=== PATIENT | male | born 1945 | race Caucasian/White ===

== ENCOUNTER → 2018-08-05 14:21 | Outpatient (CLI) | payer OTHER, SELFPAY ==
[2018-08-05 10:46] VITALS: BMI 24.4
[2018-08-05 15:19] LABS: Absolute Lymphocyte Count 1.43 X10^3/ul (0.83-4.51); Absolute Neutrophil Count 3.2 X10^3/uL (2.0-7.7); Basophil# 0.02 X10^3/uL; Basophil% 0.4 % (0-1); Eosinophil# 0.36 X10^3/uL; Eosinophils% 6.7 % (0-5); Hematocrit 31.6 % (40-54); Hemoglobin 10.5 g/dl (13.0-16.5); Lymphocyte # 1.43 X10^3/ul (4.0); Lymphocyte % 26.5 % (19-41); Mean Corp Hgb Conc 33.2 g/gl (32-36); Mean Corpuscular Hgb 30.9 pg (27.0-32.0); Mean Corpuscular Volume 92.9 fL (80-94); Mean Platelet Vol. 11.1 fl (6.2-12.0); Monocyte# 0.42 X10^3/uL; Monocyte% 7.8 % (0-10); Neutrophil # 3.16 X10^3/uL (2.7-7.7); Neutrophil % 58.4 % (47-70); Platelet Count 217 K/mm3 (150-450); RBC Distribution Width CV 12.7 % (11.6-14.6); RBC Distribution Width SD 41.9 fl (35.1-43.9); White Blood Count 5.4 K/mm3 (4.4-11.0)
[2018-08-05 15:30] LABS: POSITIVE COUNT NO; POSITIVE DIFFERENTIAL NO; POSITIVE MORPHOLOGY NO
[2018-08-05 15:34] LABS: Hemoglobin A1c 10.3 % (4.2-6.3)
[2018-08-05 16:09] LABS: ALB/GLOB Ratio 0.9 RATIO (0.9-2.4); AST(SGOT) 19 U/L (15-37); Alanine Aminotransfer ALT/SGPT 37 U/L (16-61); Albumin, Serum 2.9 g/dL (3.2-5.0); Alkaline Phosphatase 176 U/L (45-117); Anion Gap 8 (5-15); BUN 29 mg/dL (7-18); BUN/Creat Ratio 12.8 RATIO (10-20); Calcium,Total 7.5 mg/dL (8.5-10.1); Chloride 111 mmol/L (98-107); Creatinine, Serum 2.27 mg/dL (0.70-1.30); EST Glomerular Filtration Rate 30 mL/min (>60); Est Glom Filt Rate - Afr Amer 36 mL/min (>60); Globulin 3.2 g/dL (2.2-4.2); Glucose 466 mg/dL (74-106); Prealbumin 20.3 mg/dL (20.0-40.0); Protein, Total 6.1 g/dL (6.4-8.2); Sodium Level 141 mmol/L (136-145)
== END ==
PROVIDERS: Referring Provider Internal Medicine; Visit Provider Internal Medicine
DX: E11.9 Type 2 diabetes mellitus without complications (principal); E46 Unspecified protein-calorie malnutrition; L03.115 Cellulitis of right lower limb
CPT/HCPCS: 80053; 83036; 84134; 85025

== ENCOUNTER 2018-08-20 13:00 | Outpatient (RCR) | payer OTHER, SELFPAY ==
[2018-08-05 10:46] VITALS: BP 146/61; PULSE 94; RESP 18; TEMP 37.1; BMI 24.4
--- NOTE | 2018-08-05 13:25 | PCM.WC.HP ---
(1) Venous insufficiency of both lower extremities Status: Chronic Current Visit: Yes Code(s): I87.2 - Venous insufficiency (chronic) (peripheral) (2) Cellulitis of right lower extremity Status: Acute Current Visit: Yes Code(s): L03.115 - Cellulitis of right lower limb (3) Type 2 diabetes mellitus Status: Chronic Current Visit: Yes Code(s): E11.9 - Type 2 diabetes mellitus without complications History of Present Illness Chief Complaint: Pain and redness of right lower extremity. History of Wound: Mr. Oliver is a 73-year-old with poorly controlled diabetes mellitus who was in a stable state of health until about 10 days ago when he noted pain, redness and increased swelling of his right lower extremity. This is said to have progressively worsening. Denies any open wound. He has not been seen by his primary care physician. Currently receives care at the [facility]. He admits to poor control of his diabetes mellitus. Has not manages venous insufficiency. Chronic history of tobacco abuse however quit 30 years ago. He denies any known prior history of peripheral arterial disease. He denies chills, fever, nausea vomiting or change in his bowel habit. Past Medical History Past Medical History: Chronic Problems Venous insufficiency of both lower extremities (Chronic) Type 2 diabetes mellitus (Chronic) Allergies/Adverse Reactions: Allergies No Known Allergies Allergy (Verified 02/15/14 11:41) Home Medications: Ambulatory Orders Medication Instructions Recorded Fish Oil 750 mg PO DAILY 02/15/14 Smoking Status: Former smoker Review of Systems Constitutional: Denies: Anorexia, Chills Eyes: Denies: Blurred vision, Pain, Redness HEENT: Denies: Difficulty Swallowing Cardiovascular: Denies: Chest Pain, Chest Tightness Respiratory: Denies: Hemoptysis Gastrointestinal: Denies: Abdominal Pain, Hematemesis, Vomiting Genitourinary: Denies: Hematuria Skin: Denies: Jaundice - Physical Exam Vital Signs Temp Pulse Resp BP 98.7 F 94 18 146/61 H 08/05/18 10:46 08/05/18 10:46 08/05/18 10:46 08/05/18 10:46 General: Alert, Oriented x3, Cooperative, No apparent distress HEENT: Atraumatic, Normocephalic Oral: Moist Mucosa Neck: Supple Lungs: Normal air movement Cardiovascular: Regular rate, Regular Rhythm, Normal S1, Normal S2 Abdomen: Non Tender Extremities: No cyanosis, Edema Wound Measurements and Assessment WC - Nurse 1 - General Ulcer Measurement Start: 08/05/18 10:45 Freq: Status: Active Protocol: Activity Type Activity Date Activity User E-Sign Co-Sign Detail Recorded Client Recorded Date Recorded By Document 08/05/18 10:46 [id number] 08/05/18 11:04 08/05/18 10:46 Wound Center Nurse 1 [Edema Assessment] -Lower Limb Edema Present Yes -Right Calf (cm) 46.0 -Right Ankle (cm) 24.6 -Left Calf (cm) 43.7 -Left Ankle (cm) 25.3 WC - Nurse 2 - General Ulcer CM Notes Start: 08/05/18 10:45 Freq: Status: Active Protocol: Activity Type Activity Date Activity User E-Sign Co-Sign Detail Recorded Client Recorded Date Recorded By Document 08/05/18 11:30 MW [id number] 08/05/18 11:31 MW 08/05/18 11:30 Pain Scale: 0-10 Numeric [Pain] -Is Patient Pain Free? Yes Musculoskeletal: No Muscle Wasting Neurological: Cranial nerves II-XII grossly intact Psych/Mental Status: Normal Affect Debridement Note Post-Debridement Measurements/Treatment WC - Nurse 2 - General Ulcer CM Notes Start: 08/05/18 10:45 Freq: Status: Active Protocol: Activity Type Activity Date Activity User E-Sign Co-Sign Detail Recorded Client Recorded Date Recorded By Document 08/05/18 11:30 MW [id number] 08/05/18 11:31 MW 08/05/18 11:30 Pain Scale: 0-10 Numeric Is Patient Pain Free? Yes No debridement was completed today Assessment/Plan Active Problems Venous insufficiency of both lower extremities (Chronic) Cellulitis of right lower extremity (Acute) Type 2 diabetes mellitus (Chronic) Assessment: Right lower extremity cellulitis. Venous insufficiency. Plan: No debridement completed today. No open wound. Erythema, differential warmth and tenderness of his right lower extremity. Also bilateral lower extremity pitting edema. Labs ordered. Will start on Augmentin for right lower extremity cellulitis. Bilateral 3M wraps for edema management. Advised that if he notes worsening lower extremity pain he should cut the wrap off otherwise, follow-up in Friday for a nurse visit and in 1 week with me. BRIA and venous studies also ordered. He is strongly advised to elevate his lower extremities when sitting in bed. Optimal blood sugar control also recommended. All his questions were answered and he was advised to call with any further questions or concerns. This note was generated with quickhuddleation software. It may contain incorrect words, spelling, and punctuation that were not noted in checking the note before signing.
--- NOTE | 2018-08-05 13:30 | HP.PCM_ITS ---
(1) Venous insufficiency of both lower extremities Status: Chronic Current Visit: Yes Code(s): I87.2 - Venous insufficiency (chronic) (peripheral) (2) Cellulitis of right lower extremity Status: Acute Current Visit: Yes Code(s): L03.115 - Cellulitis of right lower limb (3) Type 2 diabetes mellitus Status: Chronic Current Visit: Yes Code(s): E11.9 - Type 2 diabetes mellitus without complications History of Present Illness Chief Complaint: Pain and redness of right lower extremity. History of Wound: Mr. Oliver is a 73-year-old with poorly controlled diabetes mellitus who was in a stable state of health until about 10 days ago when he noted pain, redness and increased swelling of his right lower extremity. This is said to have progressively worsening. Denies any open wound. He has not been seen by his primary care physician. Currently receives care at the [facility]. He admits to poor control of his diabetes mellitus. Has not manages venous insufficiency. Chronic history of tobacco abuse however quit 30 years ago. He denies any known prior history of peripheral arterial disease. He denies chills, fever, nausea vomiting or change in his bowel habit. Past Medical History Past Medical History: Chronic Problems Venous insufficiency of both lower extremities (Chronic) Type 2 diabetes mellitus (Chronic) Allergies/Adverse Reactions: Allergies No Known Allergies Allergy (Verified 02/15/14 11:41) Home Medications: Ambulatory Orders Medication Instructions Recorded Fish Oil 750 mg PO DAILY 02/15/14 Smoking Status: Former smoker Review of Systems Constitutional: Denies: Anorexia, Chills Eyes: Denies: Blurred vision, Pain, Redness HEENT: Denies: Difficulty Swallowing Cardiovascular: Denies: Chest Pain, Chest Tightness Respiratory: Denies: Hemoptysis Gastrointestinal: Denies: Abdominal Pain, Hematemesis, Vomiting Genitourinary: Denies: Hematuria Skin: Denies: Jaundice - Physical Exam Vital Signs Temp Pulse Resp BP 98.7 F 94 18 146/61 H 08/05/18 10:46 08/05/18 10:46 08/05/18 10:46 08/05/18 10:46 General: Alert, Oriented x3, Cooperative, No apparent distress HEENT: Atraumatic, Normocephalic Oral: Moist Mucosa Neck: Supple Lungs: Normal air movement Cardiovascular: Regular rate, Regular Rhythm, Normal S1, Normal S2 Abdomen: Non Tender Extremities: No cyanosis, Edema Wound Measurements and Assessment WC - Nurse 1 - General Ulcer Measurement Start: 08/05/18 10:45 Freq: Status: Active Protocol: Activity Type Activity Date Activity User E-Sign Co-Sign Detail Recorded Client Recorded Date Recorded By Document 08/05/18 10:46 [id number] 08/05/18 11:04 08/05/18 10:46 Wound Center Nurse 1 [Edema Assessment] -Lower Limb Edema Present Yes -Right Calf (cm) 46.0 -Right Ankle (cm) 24.6 -Left Calf (cm) 43.7 -Left Ankle (cm) 25.3 WC - Nurse 2 - General Ulcer CM Notes Start: 08/05/18 10:45 Freq: Status: Active Protocol: Activity Type Activity Date Activity User E-Sign Co-Sign Detail Recorded Client Recorded Date Recorded By Document 08/05/18 11:30 MW [id number] 08/05/18 11:31 MW 08/05/18 11:30 Pain Scale: 0-10 Numeric [Pain] -Is Patient Pain Free? Yes Musculoskeletal: No Muscle Wasting Neurological: Cranial nerves II-XII grossly intact Psych/Mental Status: Normal Affect Debridement Note Post-Debridement Measurements/Treatment WC - Nurse 2 - General Ulcer CM Notes Start: 08/05/18 10:45 Freq: Status: Active Protocol: Activity Type Activity Date Activity User E-Sign Co-Sign Detail Recorded Client Recorded Date Recorded By Document 08/05/18 11:30 MW [id number] 08/05/18 11:31 MW 08/05/18 11:30 Pain Scale: 0-10 Numeric Is Patient Pain Free? Yes No debridement was completed today Assessment/Plan Active Problems Venous insufficiency of both lower extremities (Chronic) Cellulitis of right lower extremity (Acute) Type 2 diabetes mellitus (Chronic) Assessment: Right lower extremity cellulitis. Venous insufficiency. Plan: No debridement completed today. No open wound. Erythema, differential warmth and tenderness of his right lower extremity. Also bilateral lower extremity pitting edema. Labs ordered. Will start on Augmentin for right lower extremity cellulitis. Bilateral 3M wraps for edema management. Advised that if he notes worsening lower extremity pain he should cut the wrap off otherwise, follow-up in Friday for a nurse visit and in 1 week with me. BRIA and venous studies also ordered. He is strongly advised to elevate his lower extremities when sitting in bed. Optimal blood sugar control also recommended. All his questions were answered and he was advised to call with any further questions or concerns. This note was generated with [employer] software. It may contain incorrect words, spelling, and punctuation that were not noted in checking the note before signing.
[2018-08-07 11:58] VITALS: BP 158/79; PULSE 79; RESP 18; TEMP 36.2; BMI 24.4
[2018-08-10 14:00] VITALS: BP 151/101; PULSE 90; RESP 20; TEMP 36.4; BMI 24.4
--- NOTE | 2018-08-10 15:26 | VDLE_ITS ---
Reason For Study: Pain RIGHT LEFT GSV is normal. CFV is compressible, spontaneous, phasic, CFV is compressible, spontaneous, phasic, competent, and demonstrates normal competent and demonstrates normal augmentation. augmentation. FV is compressible, spontaneous, phasic, competent and demonstrates normal augmentation. POP V is compressible, spontaneous, phasic, competent and demonstrates normal augmentation. T/P Trunk is compressible. PTV is compressible. RT PerV is compressible. Procedure Exam performed in department. A preliminary report was called and/or faxed to [facility]. Interpretation Summary Deep veins of the right lower extremity are patent and compressible segmentally. There is no evidence of right lower extremity deep vein thrombosis. Valvular competence appears intact within the proximal deep venous system on the right . The right greater saphenous vein appears patent and compressible segmentally. Ordering Physician: Wolf Mann Performed By: Lacy Marx RVT
--- NOTE | 2018-08-10 16:25 | PCM.WC.PN ---
(1) Pain in right lower leg Status: Acute Current Visit: Yes Code(s): M79.661 - Pain in right lower leg (2) Venous insufficiency of both lower extremities Status: Chronic Current Visit: Yes Code(s): I87.2 - Venous insufficiency (chronic) (peripheral) (3) Cellulitis of right lower extremity Status: Acute Current Visit: Yes Code(s): L03.115 - Cellulitis of right lower limb (4) Type 2 diabetes mellitus Status: Chronic Current Visit: Yes Code(s): E11.9 - Type 2 diabetes mellitus without complications Type of Wound Date of Service: 08/10/18 Chief Complaint: Pain and redness of right lower extremity. History of Wound: Mr. Oliver is a 73-year-old with poorly controlled diabetes mellitus who was in a stable state of health until about 10 days ago when he noted pain, redness and increased swelling of his right lower extremity. This is said to have progressively worsening. Denies any open wound. He has not been seen by his primary care physician. [facility]. He admits to poor control of his diabetes mellitus. Has not manages venous insufficiency. Chronic history of tobacco abuse however quit 30 years ago. He denies any known prior history of peripheral arterial disease. Today he comes in complaining of increase pain of his right lower leg, both anteriorly and posteriorly. He denies chills, fever, nausea vomiting or change in his bowel habit. Progress of Wound: Improvement in cellulitis - Physical Exam Vital Signs Temp Pulse Resp BP 97.6 F L 90 20 H 151/101 H 08/10/18 14:00 08/10/18 14:00 08/10/18 14:00 08/10/18 14:00 General: Alert, Oriented x3 HEENT: Atraumatic Oral: Moist Mucosa Lungs: Normal air movement Cardiovascular: Regular rate Extremities: Diminished Peripheral Pulses, Edema, Tenderness - Right lower leg is tender both anteriorly and posteriorly. No increase in leg pain with foot dorsal or plantar flexion. Pain is better when standing and there is no pressure on leg. Skin: - - Right lower leg has very dry skin. Redness has mostly resolved. Wound Measurements and Assessment WC - Nurse 1 - General Ulcer Measurement Start: 08/05/18 10:45 Freq: Status: Active Protocol: Activity Type Activity Date Activity User E-Sign Co-Sign Detail Recorded Client Recorded Date Recorded By Document 08/10/18 14:00 DL [id number] 08/10/18 14:05 DL 08/10/18 14:00 Wound Center Nurse 1 [Edema Assessment] -Right Calf (cm) 45 -Right Ankle (cm) 25 -Left Calf (cm) 44.4 -Left Ankle (cm) 24 WC - Nurse 2 - General Ulcer CM Notes Start: 08/05/18 10:45 Freq: Status: Active Protocol: Activity Type Activity Date Activity User E-Sign Co-Sign Detail Recorded Client Recorded Date Recorded By Document 08/10/18 15:01 JF [id number] 08/10/18 15:03 JF 08/10/18 15:01 Pain Scale: 0-10 Numeric [Pain] -Is Patient Pain Free? Yes Musculoskeletal: Tenderness - tenderness to right lower leg both anteriorly and posteriorly Neurological: Neuro grossly intact Psych/Mental Status: Normal Affect Debridement Note Post-Debridement Measurements/Treatment WC - Nurse 2 - General Ulcer CM Notes Start: 08/05/18 10:45 Freq: Status: Active Protocol: Activity Type Activity Date Activity User E-Sign Co-Sign Detail Recorded Client Recorded Date Recorded By Document 08/05/18 11:30 MW [id number] 08/05/18 11:31 MW Document 08/10/18 15:01 JF [id number] 08/10/18 15:03 JF 08/05/18 08/10/18 11:30 15:01 Pain Scale: 0-10 Numeric Is Patient Pain Free? Yes Yes No debridement was completed today Assessment/Plan Active Problems Venous insufficiency of both lower extremities (Chronic) Cellulitis of right lower extremity (Acute) Type 2 diabetes mellitus (Chronic) Pain in right lower leg (Acute) Assessment: Right lower leg pain. Right lower extremity cellulitis. Venous insufficiency. Plan: No debridement completed today. No open wound. Erythema of his right lower extremity has improved. Today he has increased pain of his right lower leg. Ordered a stat ultrasound of his right lower leg to rule out DVT, which was negative. He has bilateral edema, he has been having 3M double layer wraps applied but he removed them yesterday, due to the pain. He has +2-+3 edema present bilateral lower legs, the right > than the left. He will continue his Augmentin for right lower extremity cellulitis. BRIA and venous studies were ordered last week with Dr. Mnan. He is strongly advised to elevate his lower extremities when sitting in bed. Optimal blood sugar control also recommended. He has stopped all of his medication except for his antibiotic and his insulin because his kidneys aren't good. He states that he was not told to stop his medications. Instructed him to either restart his medications or let his PCP know that he has stopped them. All his questions were answered and he was advised to call with any further questions or concerns. Follow up on Friday with Dr. Mann. Code Visit Office Visits / Consults: [id number] OV L3 Est
--- NOTE | 2018-08-10 16:36 | PN.PCM_ITS ---
(1) Pain in right lower leg Status: Acute Current Visit: Yes Code(s): M79.661 - Pain in right lower leg (2) Venous insufficiency of both lower extremities Status: Chronic Current Visit: Yes Code(s): I87.2 - Venous insufficiency (chronic) (peripheral) (3) Cellulitis of right lower extremity Status: Acute Current Visit: Yes Code(s): L03.115 - Cellulitis of right lower limb (4) Type 2 diabetes mellitus Status: Chronic Current Visit: Yes Code(s): E11.9 - Type 2 diabetes mellitus without complications Type of Wound Date of Service: 08/10/18 Chief Complaint: Pain and redness of right lower extremity. History of Wound: Mr. Oliver is a 73-year-old with poorly controlled diabetes mellitus who was in a stable state of health until about 10 days ago when he noted pain, redness and increased swelling of his right lower extremity. This is said to have progressively worsening. Denies any open wound. He has not be en seen by his primary care physician. Currently receives care at the [facility]. He admits to poor control of his diabetes mellitus. Has not manages venous insufficiency. Chronic history of tobacco abuse however quit 30 years ago. He denies any known prior history of peripheral arterial disease. Today he comes in complaining of increase pain of his right lower leg, both anteriorly and posteriorly. He denies chills, fever, nausea vomiting or change in his bowel habit. Progress of Wound: Improvement in cellulitis - Physical Exam Vital Signs Temp Pulse Resp BP 97.6 F L 90 20 H 151/101 H 08/10/18 14:00 08/10/18 14:00 08/10/18 14:00 08/10/18 14:00 General: Alert, Oriented x3 HEENT: Atraumatic Oral: Moist Mucosa Lungs: Normal air movement Cardiovascular: Regular rate Extremities: Diminished Peripheral Pulses, Edema, Tenderness - Right lower leg is tender both anteriorly and posteriorly. No increase in leg pain with foot dorsal or plantar flexion. Pain is better when standing and there is no pressure on leg. Skin: - - Right lower leg has very dry skin. Redness has mostly resolved. Wound Measurements and Assessment WC - Nurse 1 - General Ulcer Measurement Start: 08/05/18 10:45 Freq: Status: Active Protocol: Activity Type Activity Date Activity User E-Sign Co-Sign Detail Recorded Client Recorded Date Recorded By Document 08/10/18 14:00 DL [id number] 08/10/18 14:05 DL 08/10/18 14:00 Wound Center Nurse 1 [Edema Assessment] -Right Calf (cm) 45 -Right Ankle (cm) 25 -Left Calf (cm) 44.4 -Left Ankle (cm) 24 WC - Nurse 2 - General Ulcer CM Notes Start: 08/05/18 10:45 Freq: Status: Active Protocol: Activity Type Activity Date Activity User E-Sign Co-Sign Detail Recorded Client Recorded Date Recorded By Document 08/10/18 15:01 JF [id number] 08/10/18 15:03 JF 08/10/18 15:01 Pain Scale: 0-10 Numeric [Pain] -Is Patient Pain Free? Yes Musculoskeletal: Tenderness - tenderness to right lower leg both anteriorly and posteriorly Neurological: Neuro grossly intact Psych/Mental Status: Normal Affect Debridement Note Post-Debridement Measurements/Treatment WC - Nurse 2 - General Ulcer CM Notes Start: 08/05/18 10:45 Freq: Status: Active Protocol: Activity Type Activity Date Activity User E-Sign Co-Sign Detail Recorded Client Recorded Date Recorded By Document 08/05/18 11:30 MW [id number] 08/05/18 11:31 MW Document 08/10/18 15:01 JF [id number] 08/10/18 15:03 JF 08/05/18 08/10/18 11:30 15:01 Pain Scale: 0-10 Numeric Is Patient Pain Free? Yes Yes No debridement was completed today Assessment/Plan Active Problems Venous insufficiency of both lower extremities (Chronic) Cellulitis of right lower extremity (Acute) Type 2 diabetes mellitus (Chronic) Pain in right lower leg (Acute) Assessment: Right lower leg pain. Right lower extremity cellulitis. Venous insufficiency. Plan: No debridement completed today. No open wound. Erythema of his right lower extremity has improved. Today he has increased pain of his right lower leg. Ordered a stat ultrasound of his right lower leg to rule out DVT, which was negative. He has bilateral edema, he has been having 3M double layer wraps applied but he removed them yesterday, due to the pain. He has +2-+3 edema present bilateral lower legs, the right > than the left. He will continue his Augmentin for right lower extremity cellulitis. BRIA and venous studies were ordered last week with Dr. Mann. He is strongly advised to elevate his lower extremities when sitting in bed. Optimal blood sugar control also recommended. He has stopped all of his medication except for his antibiotic and his insulin because his kidneys aren't good. He states that he was not told to stop his medications. Instructed him to either restart his medications or let his PCP know that he has stopped them. All his questions were answered and he was advised to call with any further questions or concerns. Follow up on Friday with Dr. Mann. Code Visit Office Visits / Consults: [id number] OV L3 Est
[2018-08-12 11:57] VITALS: BP 161/83; PULSE 90; RESP 18; TEMP 36.3; BMI 24.4
--- NOTE | 2018-08-12 12:19 | PCM.WC.PN ---
(1) Venous insufficiency of both lower extremities Status: Chronic Current Visit: Yes Code(s): I87.2 - Venous insufficiency (chronic) (peripheral) (2) Cellulitis of right lower extremity Status: Acute Current Visit: Yes Code(s): L03.115 - Cellulitis of right lower limb (3) Type 2 diabetes mellitus Status: Chronic Current Visit: Yes Code(s): E11.9 - Type 2 diabetes mellitus without complications Type of Wound Chief Complaint: Pain and redness of right lower extremity. History of Wound: Mr. Oliver is a 73-year-old with poorly controlled diabetes mellitus who was in a stable state of health until about 10 days ago when he noted pain, redness and increased swelling of his right lower extremity. This is said to have progressively worsening. Denies any open wound. He has not been seen by his primary care physician. Currently receives care at the [place]. He admits to poor control of his diabetes mellitus. Has not manages venous insufficiency. Chronic history of tobacco abuse however quit 30 years ago. He denies any known prior history of peripheral arterial disease. Today he comes in complaining of increase pain of his right lower leg, both anteriorly and posteriorly. He denies chills, fever, nausea vomiting or change in his bowel habit. Progress of Wound: Improving cellulitis. Presnted on Friday due to increasing pain in his right lower extremity. Duplex done was negative. Last dose of [id number] was yesterday. - Physical Exam Vital Signs Temp Pulse Resp BP 97.4 F L 90 18 161/83 H 08/12/18 11:57 08/12/18 11:57 08/12/18 11:57 08/12/18 11:57 General: Alert, Oriented x3, Cooperative, No apparent distress HEENT: Atraumatic, Normocephalic Oral: Moist Mucosa Neck: Supple Lungs: Normal air movement Abdomen: Non Tender Extremities: No cyanosis, Edema Wound Measurements and Assessment WC - Nurse 1 - General Ulcer Measurement Start: 08/05/18 10:45 Freq: Status: Active Protocol: Activity Type Activity Date Activity User E-Sign Co-Sign Detail Recorded Client Recorded Date Recorded By Document 08/10/18 14:00 DL [id number] 08/10/18 14:05 DL Document 08/12/18 11:57 [id number] 08/12/18 11:59 08/10/18 08/12/18 14:00 11:57 Wound Center Nurse 1 [Edema Assessment] -Lower Limb Edema Present Yes -Right Calf (cm) 45 44.2 -Right Ankle (cm) 25 24.6 -Left Calf (cm) 44.4 39 -Left Ankle (cm) 24 25.4 WC - Nurse 2 - General Ulcer CM Notes Start: 08/05/18 10:45 Freq: Status: Active Protocol: Activity Type Activity Date Activity User E-Sign Co-Sign Detail Recorded Client Recorded Date Recorded By Document 08/10/18 15:01 [id number] 08/10/18 15:03 Document 08/12/18 12:15 MW [id number] 08/12/18 12:17 MW 08/10/18 08/12/18 15:01 12:15 Pain Scale: 0-10 Numeric [Pain] -Is Patient Pain Free? Yes Yes Musculoskeletal: No Muscle Wasting Neurological: Cranial nerves II-XII grossly intact Psych/Mental Status: Normal Affect Debridement Note Post-Debridement Measurements/Treatment - Nurse 2 - General Ulcer CM Notes Start: 08/05/18 10:45 Freq: Status: Active Protocol: Activity Type Activity Date Activity User E-Sign Co-Sign Detail Recorded Client Recorded Date Recorded By Document 08/05/18 11:30 MW [id number] 08/05/18 11:31 MW Document 08/10/18 15:01 [id number] 08/10/18 15:03 Document 08/12/18 12:15 MW [id number] 08/12/18 12:17 MW 08/05/18 08/10/18 08/12/18 11:30 15:01 12:15 Pain Scale: 0-10 Numeric Is Patient Pain Free? Yes Yes Yes No debridement was completed today Assessment/Plan Active Problems Venous insufficiency of both lower extremities (Chronic) Cellulitis of right lower extremity (Acute) Type 2 diabetes mellitus (Chronic) Pain in right lower leg (Acute) Assessment: Right lower leg pain. Right lower extremity cellulitis. Venous insufficiency. Plan: Improving cellulitis however, still is tender nad has diffrential warmth. Continue Augmentin for right lower extremity cellulitis for 5 more days. Refer to the lymphedema clinic for edema management. Due to poor tolerance with 3M, will switch todouble layer tubigrips. He is strongly advised to elevate his lower extremities when seated and in bed. Optimal blood sugar control also recommended. [facility]. Follow up with me in 1 week and start the process to [facility]. All his questions were answered and he was advised to call with any further questions or concerns. Follow up in 1 week.
--- NOTE | 2018-08-12 12:24 | PN.PCM_ITS ---
(1) Venous insufficiency of both lower extremities Status: Chronic Current Visit: Yes Code(s): I87.2 - Venous insufficiency (chronic) (peripheral) (2) Cellulitis of right lower extremity Status: Acute Current Visit: Yes Code(s): L03.115 - Cellulitis of right lower limb (3) Type 2 diabetes mellitus Status: Chronic Current Visit: Yes Code(s): E11.9 - Type 2 diabetes mellitus without complications Type of Wound Chief Complaint: Pain and redness of right lower extremity. History of Wound: Mr. Oliver is a 73-year-old with poorly controlled diabetes mellitus who was in a stable state of health until about 10 days ago when he noted pain, redness and increased swelling of his right lower extremity. This is said to have progressively worsening. Denies any open wound. He has not been seen by his primary care physician. Currently receives care at the [place]. He admits to poor control of his diabetes mellitus. Has not manages venous insufficiency. Chronic history of tobacco abuse however quit 30 years ago. He denies any known prior history of peripheral arterial disease. Today he comes in complaining of increase pain of his right lower leg, both anteriorly and posteriorly. He denies chills, fever, nausea vomiting or change in his bowel habit. Progress of Wound: Improving cellulitis. Presnted on Friday due to increasing pain in his right lower extremity. Duplex done was negative. Last dose of an [id number] was yesterday. - Physical Exam Vital Signs Temp Pulse Resp BP 97.4 F L 90 18 161/83 H 08/12/18 11:57 08/12/18 11:57 08/12/18 11:57 08/12/18 11:57 General: Alert, Oriented x3, Cooperative, No apparent distress HEENT: Atraumatic, Normocephalic Oral: Moist Mucosa Neck: Supple Lungs: Normal air movement Abdomen: Non Tender Extremities: No cyanosis, Edema Wound Measurements and Assessment WC - Nurse 1 - General Ulcer Measurement Start: 08/05/18 10:45 Freq: Status: Active Protocol: Activity Type Activity Date Activity User E-Sign Co-Sign Detail Recorded Client Recorded Date Recorded By Document 08/10/18 14:00 DL [id number] 08/10/18 14:05 DL Document 08/12/18 11:57 [id number] 08/12/18 11:59 08/10/18 08/12/18 14:00 11:57 Wound Center Nurse 1 [Edema Assessment] -Lower Limb Edema Present Yes -Right Calf (cm) 45 44.2 -Right Ankle (cm) 25 24.6 -Left Calf (cm) 44.4 39 -Left Ankle (cm) 24 25.4 WC - Nurse 2 - General Ulcer CM Notes Start: 08/05/18 10:45 Freq: Status: Active Protocol: Activity Type Activity Date Activity User E-Sign Co-Sign Detail Recorded Client Recorded Date Recorded By Document 08/10/18 15:01 [id number] 08/10/18 15:03 JF Document 08/12/18 12:15 MW [id number] 08/12/18 12:17 MW 08/10/18 08/12/18 15:01 12:15 Pain Scale: 0-10 Numeric [Pain] -Is Patient Pain Free? Yes Yes Musculoskeletal: No Muscle Wasting Neurological: Cranial nerves II-XII grossly intact Psych/Mental Status: Normal Affect Debridement Note Post-Debridement Measurements/Treatment WC - Nurse 2 - General Ulcer CM Notes Start: 08/05/18 10:45 Freq: Status: Active Protocol: Activity Type Activity Date Activity User E-Sign Co-Sign Detail Recorded Client Recorded Date Recorded By Document 08/05/18 11:30 MW [id number] 08/05/18 11:31 MW Document 08/10/18 15:01 [id number] 08/10/18 15:03 Document 08/12/18 12:15 MW [id number] 08/12/18 12:17 MW 08/05/18 08/10/18 08/12/18 11:30 15:01 12:15 Pain Scale: 0-10 Numeric Is Patient Pain Free? Yes Yes Yes No debridement was completed today Assessment/Plan Active Problems Venous insufficiency of both lower extremities (Chronic) Cellulitis of right lower extremity (Acute) Type 2 diabetes mellitus (Chronic) Pain in right lower leg (Acute) Assessment: Right lower leg pain. Right lower extremity cellulitis. Venous insufficiency. Plan: Improving cellulitis however, still is tender nad has diffrential warmth. Continue Augmentin for right lower extremity cellulitis for 5 more days. Refer to the lymphedema clinic for edema management. Due to poor tolerance with 3M, will switch todouble layer tubigrips. He is strongly advised to elevate his lower extremities when seated and in bed. Optimal blood sugar control also recommended. Not able to get [facility]. Follow up with me in 1 week and start the process to [facility]. All his questions were answered and he was advised to call with any further questions or concerns. Follow up in 1 week.
[2018-08-19 12:22] VITALS: BP 159/98; PULSE 87; RESP 18; TEMP 37.2; BMI 24.4
--- NOTE | 2018-08-19 13:32 | PCM.WC.PN ---
(1) Venous insufficiency of both lower extremities Status: Chronic Current Visit: Yes Code(s): I87.2 - Venous insufficiency (chronic) (peripheral) (2) Cellulitis of right lower extremity Status: Acute Current Visit: Yes Code(s): L03.115 - Cellulitis of right lower limb (3) Type 2 diabetes mellitus Status: Chronic Current Visit: Yes Code(s): E11.9 - Type 2 diabetes mellitus without complications Type of Wound Chief Complaint: Pain and redness of right lower extremity. History of Wound: Mr. Oliver is a 73-year-old with poorly controlled diabetes mellitus who was in a stable state of health until about 10 days ago when he noted pain, redness and increased swelling of his right lower extremity. This is said to have progressively worsening. Denies any open wound. He has not been seen by his primary care physician. Currently receives care at the [place]. He admits to poor control of his diabetes mellitus. Has not manages venous insufficiency. Chronic history of tobacco abuse however quit 30 years ago. He denies any known prior history of peripheral arterial disease. Today he comes in complaining of increase pain of his right lower leg, both anteriorly and posteriorly. He denies chills, fever, nausea vomiting or change in his bowel habit. Progress of Wound: Patient presents today with worsening right lower extremity erythema, warmth and tenderness. He states that he completed his Augmentin as prescribed. - Physical Exam Vital Signs Temp Pulse Resp BP 98.9 F 87 18 159/98 H 08/19/18 12:22 08/19/18 12:22 08/19/18 12:22 08/19/18 12:22 General: Alert, Oriented x3, Cooperative, No apparent distress HEENT: Atraumatic, Normocephalic Oral: Moist Mucosa Neck: Supple Lungs: Normal air movement Extremities: No cyanosis, Edema Wound Measurements and Assessment WC - Nurse 1 - General Ulcer Measurement Start: 08/05/18 10:45 Freq: Status: Active Protocol: Activity Type Activity Date Activity User E-Sign Co-Sign Detail Recorded Client Recorded Date Recorded By Document 08/19/18 12:22 WI [id number] 08/19/18 12:26 WI 08/19/18 12:22 Wound Center Nurse 1 [Edema Assessment] -Lower Limb Edema Present Yes -Right Calf (cm) 39.5 -Right Ankle (cm) 24.7 -Left Calf (cm) 37 -Left Ankle (cm) 25 WC - Nurse 2 - General Ulcer CM Notes Start: 08/05/18 10:45 Freq: Status: Active Protocol: Activity Type Activity Date Activity User E-Sign Co-Sign Detail Recorded Client Recorded Date Recorded By Document 08/19/18 12:48 MW [id number] 08/19/18 12:51 MW 08/19/18 12:48 Pain Scale: 0-10 Numeric [Pain] -Is Patient Pain Free? Yes Musculoskeletal: No Muscle Wasting Neurological: Cranial nerves II-XII grossly intact Psych/Mental Status: Normal Affect Debridement Note Post-Debridement Measurements/Treatment WC - Nurse 2 - General Ulcer CM Notes Start: 08/05/18 10:45 Freq: Status: Active Protocol: Activity Type Activity Date Activity User E-Sign Co-Sign Detail Recorded Client Recorded Date Recorded By Document 08/05/18 11:30 MW [id number] 08/05/18 11:31 MW Document 08/10/18 15:01 JF [id number] 08/10/18 15:03 JF Document 08/12/18 12:15 MW [id number] 08/12/18 12:17 MW Document 08/19/18 12:48 MW [id number] 08/19/18 12:51 MW 08/05/18 08/10/18 08/12/18 11:30 15:01 12:15 Pain Scale: 0-10 Numeric Is Patient Pain Free? Yes Yes Yes 08/19/18 12:48 Pain Scale: 0-10 Numeric Is Patient Pain Free? Yes No debridement was completed today Assessment/Plan Active Problems Venous insufficiency of both lower extremities (Chronic) Cellulitis of right lower extremity (Acute) Type 2 diabetes mellitus (Chronic) Pain in right lower leg (Acute) Assessment: Right lower leg pain. Right lower extremity cellulitis. Venous insufficiency. Plan: Appears to have worsening right lower extremity erythema, differential warmth and tenderness today. He has been on at least 10 days of Augmentin. ? Outpatient management for cellulitis however, patient is not open to inpatient treatment. He was strongly advised to. Currently receives care at the [facility]. He states that he has a visit on 27 August and will follow-up at that time. Prescription for Keflex and doxycycline given again, he was strongly encouraged to seek inpatient management. Continue double layer tubigrips. He is strongly advised to elevate his lower extremities when seated and in bed. Optimal blood sugar control also recommended. Wounds at this time. Discharge from the wound clinic with follow-up plan/recommendation as above. All his questions were answered and he was advised to call with any further questions or concerns.
--- NOTE | 2018-08-19 13:36 | PN.PCM_ITS ---
(1) Venous insufficiency of both lower extremities Status: Chronic Current Visit: Yes Code(s): I87.2 - Venous insufficiency (chronic) (peripheral) (2) Cellulitis of right lower extremity Status: Acute Current Visit: Yes Code(s): L03.115 - Cellulitis of right lower limb (3) Type 2 diabetes mellitus Status: Chronic Current Visit: Yes Code(s): E11.9 - Type 2 diabetes mellitus without complications Type of Wound Chief Complaint: Pain and redness of right lower extremity. History of Wound: Mr. Oliver is a 73-year-old with poorly controlled diabetes mellitus who was in a stable state of health until about 10 days ago when he noted pain, redness and increased swelling of his right lower extremity. This is said to have progressively worsening. Denies any open wound. He has not been seen by his primary care physician. Currently receives care at the [place]. He admits to poor control of his diabetes mellitus. Has not manages venous insufficiency. Chronic history of tobacco abuse however quit 30 years ago. He denies any known prior history of peripheral arterial disease. Today he comes in complaining of increase pain of his right lower leg, both anteriorly and posteriorly. He denies chills, fever, nausea vomiting or change in his bowel habit. Progress of Wound: Patient presents today with worsening right lower extremity erythema, warmth and tenderness. He states that he completed his Augmentin as prescribed. - Physical Exam Vital Signs Temp Pulse Resp BP 98.9 F 87 18 159/98 H 08/19/18 12:22 08/19/18 12:22 08/19/18 12:22 08/19/18 12:22 General: Alert, Oriented x3, Cooperative, No apparent distress HEENT: Atraumatic, Normocephalic Oral: Moist Mucosa Neck: Supple Lungs: Normal air movement Extremities: No cyanosis, Edema Wound Measurements and Assessment WC - Nurse 1 - General Ulcer Measurement Start: 08/05/18 10:45 Freq: Status: Active Protocol: Activity Type Activity Date Activity User E-Sign Co-Sign Detail Recorded Client Recorded Date Recorded By Document 08/19/18 12:22 DE [id number] 08/19/18 12:26 [place] 08/19/18 12:22 Wound Center Nurse 1 [Edema Assessment] -Lower Limb Edema Present Yes -Right Calf (cm) 39.5 -Right Ankle (cm) 24.7 -Left Calf (cm) 37 -Left Ankle (cm) 25 WC - Nurse 2 - General Ulcer CM Notes Start: 08/05/18 10:45 Freq: Status: Active Protocol: Activity Type Activity Date Activity User E-Sign Co-Sign Detail Recorded Client Recorded Date Recorded By Document 08/19/18 12:48 MW [id number] 08/19/18 12:51 MW 08/19/18 12:48 Pain Scale: 0-10 Numeric [Pain] -Is Patient Pain Free? Yes Musculoskeletal: No Muscle Wasting Neurological: Cranial nerves II-XII grossly intact Psych/Mental Status: Normal Affect Debridement Note Post-Debridement Measurements/Treatment WC - Nurse 2 - General Ulcer CM Notes Start: 08/05/18 10:45 Freq: Status: Active Protocol: Activity Type Activity Date Activity User E-Sign Co-Sign Detail Recorded Client Recorded Date Recorded By Document 08/05/18 11:30 MW [id number] 08/05/18 11:31 MW Document 08/10/18 15:01 JF [id number] 08/10/18 15:03 JF Document 08/12/18 12:15 MW [id number] 08/12/18 12:17 MW Document 08/19/18 12:48 MW [id number] 08/19/18 12:51 MW 08/05/18 08/10/18 08/12/18 11:30 15:01 12:15 Pain Scale: 0-10 Numeric Is Patient Pain Free? Yes Yes Yes 08/19/18 12:48 Pain Scale: 0-10 Numeric Is Patient Pain Free? Yes No debridement was completed today Assessment/Plan Active Problems Venous insufficiency of both lower extremities (Chronic) Cellulitis of right lower extremity (Acute) Type 2 diabetes mellitus (Chronic) Pain in right lower leg (Acute) Assessment: Right lower leg pain. Right lower extremity cellulitis. Venous insufficiency. Plan: Appears to have worsening right lower extremity erythema, differential warmth and tenderness today. He has been on at least 10 days of Augmentin. ? Outpatient management for cellulitis however, patient is not open to inpatient treatment. He was strongly advised to. Currently receives care at the [place]. He states that he has a visit on 27 August and will follow-up at that time. Prescription for Keflex and doxycycline given again, he was strongly encouraged to seek inpatient management. Continue double layer tubigrips. He is strongly advised to elevate his lower extremities when seated and in bed. Optimal blood sugar control also recommended. Wounds at this time. Discharge from the wound clinic with follow-up plan/recommendation as above. All his questions were answered and he was advised to call with any further questions or concerns.
--- NOTE | 2018-08-20 12:52 | VDLE_ITS ---
Reason For Study: chronic venous insufficiency RIGHT LEFT CFV is compressible, spontaneous, phasic, CFV is compressible, spontaneous, phasic, competent and demonstrates normal competent, and demonstrates normal augmentation. augmentation. FV is compressible, spontaneous, phasic, FV is compressible, spontaneous, phasic, competent and demonstrates normal competent and demonstrates normal augmentation. augmentation. POP V is compressible, spontaneous, phasic, POP V is compressible, spontaneous, phasic, competent and demonstrates normal competent and demonstrates normal augmentation. augmentation. T/P Trunk is compressible. T/P Trunk is compressible. PTV is compressible. PTV is compressible. RT PerV is compressible. LT PerV is compressible. S-F Junction is competent. S-F Junction is competent. GSV is incompetent throughout for greater GSV is incompetent throughout for greater than .5 seconds. GSV measures .28 x .34 cm. than .5 seconds. GSV measures .32 x .42 cm. SSV is competent. SSV is incompetent for greater than .5 ASV is incompetent for greater than .5 seconds. GSV measures .32 x .34 cm. seconds. ASV measures .23 x .23 cm. Procedure Exam performed in department. The exam was diagnostic. Interpretation Summary Deep veins of the lower extremities are bilaterally patent and compressible segmentally. There is no evidence of deep vein thrombosis on either side. Valvular competence appears intact within the proximal deep venous systems bilaterally. The greater saphenous veins appear bilaterally patent and compressible segmentally. Sapheno-femoral junctions are bilaterally competent . Segmental valvular incompetence is noted within the greater saphenous veins bilaterally. The right small saphenous vein is patent and competent. The left small saphenous vein is patent and incompetent. The right accessory saphenous vein is incompetent. Ordering Physician: Wolf Mann Performed By: Lizandro Linda RVT
--- NOTE | 2018-08-20 12:52 | ART_ITS ---
Reason For Study: PAD Left Segmental Pressures Left brachial= 149mmHg. Left posterior tibial artery = 154mmHg. Left dorsalis pedis artery = 153mmHg. Left digit = 68 mmHg. The left dorsalis pedis waveforms are biphasic. The left posterior tibial artery waveforms are biphasic. Right Segmental Pressures Right brachial= 143mmHg. Right posterior tibial artery = 147mmHg. Right dorsalis pedis artery = 171mmHg. Right digit = 68 mmHg. The right dorsalis pedis waveforms are triphasic. The right posterior tibial artery waveforms are biphasic. Indices The right ankle brachial index by the dorsalis pedis is 1.15. The right ankle brachial index by the posterior tibial artery is .99. The right digital-brachial index is .46. The left ankle brachial index by the dorsalis pedis is 1.03. The left ankle brachial index by the posterior tibial artery is 1.03. The left digital-brachial index is .46. Interpretation Summary Biphasic and triphasic Doppler waveforms are noted at ankle level on the right. Biphasic Doppler waveforms are noted at ankle level on the left. Pulse-volume recording waveform amplitudes are diminished at ankle level on the left, and digital level bilaterally. Resting ankle-brachial indices are normal bilaterally. Digital-brachial indices are moderately diminished bilaterally. Arterial flow appears to be normal to ankle level bilaterally. 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 Ordering Physician: Wolf Mann Performed By: VINICIO VERONICA Wale
== END 2018-08-21 23:59 ==
LOC: CVS 13:00
PROVIDERS: Referring Provider Internal Medicine; Visit Provider Internal Medicine
DX: E11.51 Type 2 diabetes mellitus with diabetic peripheral angiopathy without gangrene (principal); Z87.891 Personal history of nicotine dependence; M79.89 Other specified soft tissue disorders; I87.2 Venous insufficiency (chronic) (peripheral); E11.65 Type 2 diabetes mellitus with hyperglycemia; L03.115 Cellulitis of right lower limb
CPT/HCPCS: 29581; 93923; 93970; 93971; 99203; 99212; 99213; G0463

== ENCOUNTER → 2019-03-04 12:51 | Outpatient (CLI) | payer OTHER, SELFPAY ==
[2018-08-19 12:22] VITALS: BMI 24.4
--- NOTE | 2019-03-04 12:55 | US_ITS ---
STUDY: THYROID ULTRASOUND REASON FOR EXAM: Male, 73 years old. Abnormal thyroid laboratory values TECHNIQUE: Ultrasound evaluation of the thyroid was performed with real-time and static maldonado-scale imaging. COMPARISON: None. FINDINGS: RIGHT LOBE: The right lobe of the thyroid gland measures 4.6 x 1.9 x 2.1 cm. There is a homogeneous echotexture. There are tiny anechoic/spongiform cysts of the right thyroid gland measuring up to 7 mm without suspicious sonographic features. LEFT LOBE: The left lobe of the thyroid gland measures 5.0 x 1.5 x 2.0 cm. There is a homogeneous echotexture. 4 mm anechoic cyst of the upper left thyroid gland measures 4 mm. No suspicious sonographic features. ISTHMUS: The isthmus measures 4.0 mm. The regional lymph nodes are normal. Left carotid artery atherosclerosis noted. US/Thyroid IMPRESSION: 1. Mild thyromegaly. 2. Bilateral thyroid cysts without suspicious sonographic features. 3. Left carotid atherosclerosis. Electronically Signed: Satnam Blair MD ([place]) at 8:55 EST , Service support ,
== END ==
DX: R94.6 Abnormal results of thyroid function studies (principal)
CPT/HCPCS: 76536

== ENCOUNTER → 2020-08-28 05:00 | Outpatient (REF) | payer OTHER, MEDICARE, SELFPAY ==
[2018-08-19 12:22] VITALS: BMI 24.4
[2020-08-28 09:24] LABS: Absolute Lymphocyte Count 1.51 X10^3/uL (0.83-4.51); Absolute Neutrophil Count 4.3 X10^3/uL (2.0-7.7); Basophil# 0.03 X10^3/uL; Basophil% 0.4 % (0-1); Eosinophil# 0.29 X10^3/uL; Eosinophils% 4.3 % (0-5); Hematocrit 24.8 % (40-54); Hemoglobin 7.9 g/dL (13.0-16.5); Lymphocyte # 1.51 X10^3/ul (0.83-4.51); Lymphocyte % 22.3 % (19-41); Mean Corp Hgb Conc 31.9 g/dL (32-36); Mean Corpuscular Hgb 34.2 pg (27.0-32.0); Mean Corpuscular Volume 107.4 fL (80-94); Mean Platelet Vol. 10.3 fl (6.2-12.0); Monocyte# 0.61 X10^3/uL; NRBC Flagged by Analyzer 0 % (0-5); Neutrophil # 4.32 X10^3/uL (2.7-7.7); Neutrophil % 63.7 % (47-70); Platelet Count 226 K/mm3 (150-450); RBC Distribution Width CV 13.6 % (11.6-14.6); RBC Distribution Width SD 52.7 fl (35.1-43.9); Red Blood Count 2.31 M/mm3 (4.6-6.2); White Blood Count 6.8 K/mm3 (4.4-11.0)
[2020-09-10 18:32] VITALS: BMI 24.3
== END ==
LOC: OLS.SW300 05:00
PROVIDERS: Referring Provider Family Medicine; Visit Provider Family Medicine
DX: I12.9 Hypertensive chronic kidney disease with stage 1 through stage 4 chronic kidney disease, or unspecified chronic kidney disease (principal); N18.9 Chronic kidney disease, unspecified
CPT/HCPCS: 36415; 85025

== ENCOUNTER 2020-09-10 12:15 | Inpatient (IN) | payer OTHER, MEDICARE, SELFPAY ==
[2018-08-19 12:22] VITALS: BMI 24.4
[2020-09-10] VITALS (18 sets, daily range): BP systolic 164–221; BP diastolic 95–138; PULSE 84–135; RESP 13–21; TEMP 37.5–38.6; O2SAT 93–100; BMI 27.9; BMI 24.3
--- NOTE | 2020-09-10 12:18 | CT_ITS ---
STUDY: CT BRAIN WITHOUT CONTRAST REASON FOR EXAM: Male, 75 years old. Mental status change RADIATION DOSAGE (If Supplied By Facility): CTDIvol = ( 44.99 ) mGy, DLP = ( 815.79 ) mGycm TECHNIQUE: Transaxial CT imaging of the brain was performed without administration of intravenous contrast material. Individualized dose optimization techniques were used for this CT. COMPARISON: No relevant priors. FINDINGS: Normal soft tissue structures. Normal calvarium. There is mild cerebral atrophy with widening of the extra-axial spaces and ventricular dilatation. Normal white matter tracts of the cerebral hemispheres. Normal basal ganglia and thalami. Normal brainstem. There is mild cerebellar atrophy. There is no intracranial hemorrhage. There are no findings of an acute ischemic infarction. Normal visualized paranasal sinuses. CT/Brain/Head without Contrast IMPRESSION: Chronic involutional changes of the brain. Electronically Signed: Radha Ray MD at 14:03 EDT Tel , Service support ,
--- NOTE | 2020-09-10 12:19 | RAD_ITS ---
HISTORY: mental status change. TECHNIQUE: XR Chest 1 View. # of images incl. paperwork: 1. COMPARISON: None. FINDINGS: CARDIOMEDIASTINAL STRUCTURES: Cardiac silhouette not enlarged. Mediastinal contour unremarkable. LUNGS: Radiographically clear. PLEURA: Mild right pleural effusion. OSSEOUS STRUCTURES: Degenerative change. RAD/Chest 1 View (Portable) IMPRESSION: Mild right pleural effusion. at 1429 Reported and signed by: Zakia Erickson MD Electronically Signed: Zakia Erickson MD at 14:28 EDT Tel , Service support ,
--- NOTE | 2020-09-10 12:19 | EKG12_ITS ---
Test Reason : Blood Pressure : / mmHG Vent. Rate : 121 BPM Atrial Rate : 121 BPM P-R Int : 196 ms QRS Dur : 100 ms QT Int : 352 ms P-R-T Axes : 092 -01 111 degrees QTc Int : 499 ms Sinus tachycardia with Premature atrial complexes with Aberrant conduction Septal infarct , age undetermined Abnormal ECG Confirmed by SHAYNE OCONNOR, ARTI ([id number]), sports editor CAPO SERRANO ([id number]) on 09/11/2020 11:22:46 AM Referred By: UTE Confirmed By:ARTI BELLA MD
--- NOTE | 2020-09-10 12:22 | EX.ED.DYSGE1 ---
HPI History of Present Illness Chief Complaint: Neuro S/Sx Informant: EMS Onset/Context/Timing Timing: Continuous Quality: Confused Current Severity: Severe Maximum Severity: Severe Narrative Narrative: Patient was found by his son 15 minutes prior to EMS arrival, very confused. He was last seen normal 2300 yesterday at his baseline. Patient lives alone. EMS called prehospital stroke team but admitted they were unable to do a MEND exam or [place] because the patient would not follow commands but he does appear to be moving everything. His blood sugar read over 500. Patient is very confused and agitated, does not follow commands or answer questions, review of systems is not possible. [facility] Medical History (Updated 09/10/20 @ 16:[address] Lalo Joseph MD) Kidney failure Type 2 diabetes mellitus Venous insufficiency of both lower extremities Home Medications Fish Oil 750 mg PO DAILY 02/15/14 [History Last Taken Unknown] Allergy/AdvReac Type Severity Reaction Status Date / Time No Known Allergies Allergy Verified 02/15/14 11:41 Social History Smoking Status: Never smoker ROS ROS ED Review of Systems ROS Unobtainable: due to mental status EXAM Physical Exam Const Vital Signs: 09/10/20 12:30 09/10/20 12:34 09/10/20 12:37 Temperature 100.4 F H 100.4 F H Temperature Source Temporal Temporal Pulse Rate 120 H 118 H Respiratory Rate 19 H 14 Blood Pressure 211/110 H 211/110 H Blood Pressure Mean 143 143 Pulse Ox 99 94 98 Oxygen Delivery Method Room Air Room Air Room Air 09/10/20 12:45 09/10/20 13:30 09/10/20 14:00 Temperature Temperature Source Pulse Rate 114 H 119 H 121 H Respiratory Rate 19 H 18 19 H Blood Pressure 216/118 H 221/120 H 209/132 H Blood Pressure Mean 150 153 157 Pulse Ox 99 99 97 Oxygen Delivery Method Room Air Room Air Room Air 09/10/20 14:30 09/10/20 14:53 09/10/20 15:39 Temperature 101 F H Temperature Source Temporal Pulse Rate 119 H 135 H 126 H Respiratory Rate 19 H 21 H 19 H Blood Pressure 210/134 H 198/138 H Blood Pressure Mean 159 158 Pulse Ox 98 93 Oxygen Delivery Method Room Air Room Air Very agitated Positive well nourished and well developed General Appearance ED: well developed and NAD HEENT Reports moist mucous membranes normocephalic and atraumatic; Negative for trauma Eyes PERRL and EOMs intact bilaterally Neck full ROM and supple Resp normal respiratory effort and clear to auscultation bilaterally Cardio regular rate, regular rhythm and no murmurs Rate: tachycardic GI non-tender and non-distended Auscultation: normoactive bowel sounds Palpation: soft Narrative: Incontinent of urine, which is foul-smelling Back/Spine no CVA tenderness General Back: other FROM Extremity normal to inspection General Extremety ED: Negative for edema, pulses abnormal or tenderness General Extremity: Negative for edema or pulses abnormal Neuro CN's II-XII intact bilaterally and no sensory deficits noted Neuro Narrative: Very confused. Not able to respond to commands but keenly alert and hyperactive, agitated, trying to get out of bed. Not able to answer questions. Mumbling. Airway intact and patent. Sun Coma Scale: document GCS findings Spontaneous Localizes to Pain Incomprehensible 11 Sensorium / Orientation: awake and alert Motor Exam: strength 5/5 throughout Psych Psych Narrative: Limited due to confusion Skin no rashes or lesions noted and no wounds MDM MDM MDM Narrative Medical decision making narrative: Patient was given Haldol, which helped some, just so that we could perform care-related interventions such as getting CT, blood, urine, etc. His blood pressure was very high which we kept a close eye on. In obtaining urine specimen, nursing was going to catheterize him and decided to just place the Connor catheter, a liter of urine came out. The patient's restlessness eased significantly, and he developed a temperature up to 101, presumably because of urine infection. His renal insufficiency which is chronic is stable. He has a nonspecifically elevated troponin of undetermined etiology, hopefully just his renal function, since his EKG is noninjurious. Urinalysis showing no indicators for infection although the microscopic is still pending, treating him empirically with Rocephin and started him on an insulin drip for his blood sugar that is almost 800, and even of his blood pressure is down from the 200s it is still 198/138 so he is getting a dose of labetalol as well as more IV fluids. Plan is admission to the ICU for now. Lab Data Attestation: I reviewed the patient's lab results. Labs: Laboratory Results - last 24 hr 09/10/20 09/10/20 09/10/20 13:10 13:10 13:10 WBC 13.6 H RBC 3.16 L Hgb 10.7 L Hct 31.5 L MCV 99.7 H MCH 33.9 H MCHC 34.0 RDW Std Deviation 47.8 H RDW Coeff of Ximena 13.1 Plt Count 376 MPV 10.1 Immature Gran % (Auto) 0.600 Neut % (Auto) 90.7 H Lymph % (Auto) 6.2 L [place] % (Auto) 2.3 Eos % (Auto) 0.0 Baso % (Auto) 0.2 Absolute Neuts (auto) 12.3 H Absolute Lymphs (auto) 0.84 Nucleated RBC % 0 PT 15.0 H INR 1.2 APTT 26.2 Sodium 134 L Potassium 4.4 Chloride 102 Carbon Dioxide 16.0 L Anion Gap 16 H BUN 52 H Creatinine 3.14 H Estim Creat Clear Calc 21.32 Est GFR (MDRD) Af Amer 25 L Est GFR (MDRD) Non-Af 21 L BUN/Creatinine Ratio 16.6 Glucose 779 H* Lactic Acid Calcium 7.6 L Total Bilirubin 0.70 AST 29 ALT 101 H Alkaline Phosphatase 136 H Troponin I 0.156 H Total Protein 6.6 Albumin 3.2 Globulin 3.4 Albumin/Globulin Ratio 0.9 Urine Color Urine Clarity Urine pH Ur Specific Rosie Urine Protein Urine Glucose (UA) Urine Ketones Urine Occult Blood Urine Nitrite Urine Bilirubin Urine Urobilinogen Ur Leukocyte Esterase Acetone Level 09/10/20 09/10/20 09/10/20 13:10 13:10 15:30 WBC RBC Hgb Hct MCV MCH MCHC RDW Std Deviation RDW Coeff of Ximena Plt Count MPV Immature Gran % (Auto) Neut % (Auto) Lymph % (Auto) [place] % (Auto) Eos % (Auto) Baso % (Auto) Absolute Neuts (auto) Absolute Lymphs (auto) Nucleated RBC % PT INR APTT Sodium Potassium Chloride Carbon Dioxide Anion Gap BUN Creatinine Estim Creat Clear Calc Est GFR (MDRD) Af Amer Est GFR (MDRD) Non-Af BUN/Creatinine Ratio Glucose Lactic Acid 2.2 H* Calcium Total Bilirubin AST ALT Alkaline Phosphatase Troponin I Total Protein Albumin Globulin Albumin/Globulin Ratio Urine Color Yellow Urine Clarity Clear Urine pH 6.0 Ur Specific Rosie 1.015 Urine Protein 500 H Urine Glucose (UA) 1000 H Urine Ketones 5 H Urine Occult Blood 25 H Urine Nitrite Negative Urine Bilirubin Negative Urine Urobilinogen Normal Ur Leukocyte Esterase Negative Acetone Level NEGATIVE Radiography Chest X-Ray - ED: 1 View, Read by ED Physician, No Acute Disease and Chronic Changes Diagnostic Testing: Radiology Impression Brain CT 09/10/20 12:18 IMPRESSION: Chronic involutional changes of the brain. Electronically Signed: Radha Ray MD at 14:03 EDT Tel , Service support , Chest X-Ray 09/10/20 12:19 IMPRESSION: Mild right pleural effusion. at 1429 Reported and signed by: Zakia Erickson MD Electronically Signed: Zakia Erickson MD at 14:28 EDT Tel , Service support , EKG Initial EKG: Attestation: I personally reviewed and interpreted this EKG as follows: Interpretation: No Acute Injury Pattern and Sinus Tachycardia Critical Care Time Critical Care Time: Yes Critical care time (excluding procedures): 30-74 minutes (40 min), Including time spent:, Discussing w/Patient &/or Family/Python Programmer, Discussing w/Consultants, Arranging Admission or Transfer and Performing Direct Patient Care at Bedside Discharge Plan Dx/Rx/DC Orders Clinical Impression: SIRS (systemic inflammatory response syndrome), Delirium due to another medical condition, Acute urinary retention, Elevated troponin, Chronic kidney failure, Hypertensive urgency, Acute hyperglycemia, Hyperosmolar hyperglycemic state (HHS) Disposition Disposition: [facility] Care [facility]
[2020-09-10] MEDS: Haloperidol Lactate 5 MG/ML Vial 2 MG IV (13:01)
[2020-09-10 13:33] LABS: Absolute Lymphocyte Count 0.84 X10^3/uL (0.83-4.51); Absolute Neutrophil Count 12.3 X10^3/uL (2.0-7.7); Basophil# 0.03 X10^3/uL; Basophil% 0.2 % (0-1); Hematocrit 31.5 % (40-54); Hemoglobin 10.7 g/dL (13.0-16.5); Lymphocyte # 0.84 X10^3/ul (0.83-4.51); Lymphocyte % 6.2 % (19-41); Mean Corpuscular Hgb 33.9 pg (27.0-32.0); Mean Corpuscular Volume 99.7 fL (80-94); Mean Platelet Vol. 10.1 fl (6.2-12.0); Monocyte# 0.31 X10^3/uL; Monocyte% 2.3 % (0-10); NRBC Flagged by Analyzer 0 % (0-5); Neutrophil # 12.31 X10^3/uL (2.7-7.7); Neutrophil % 90.7 % (47-70); Platelet Count 376 K/mm3 (150-450); RBC Distribution Width CV 13.1 % (11.6-14.6); RBC Distribution Width SD 47.8 fl (35.1-43.9); Red Blood Count 3.16 M/mm3 (4.6-6.2); White Blood Count 13.6 K/mm3 (4.4-11.0)
[2020-09-10 13:41] LABS: International Normalized Ratio 1.2
[2020-09-10 13:42] LABS: Partial Thromboplast Time 26.2 Seconds (24.1-36.2)
[2020-09-10 13:54] LABS: ALB/GLOB Ratio 0.9 RATIO (0.9-2.4); AST(SGOT) 29 U/L (15-37); Alanine Aminotransfer ALT/SGPT 101 U/L (16-61); Albumin, Serum 3.2 g/dL (3.2-5.0); Alkaline Phosphatase 136 U/L (45-117); Anion Gap 16 (5-15); BUN 52 mg/dL (7-18); BUN/Creat Ratio 16.6 RATIO (10-20); Calcium,Total 7.6 mg/dL (8.5-10.1); Chloride 102 mmol/L (98-107); Creatinine, Serum 3.14 mg/dL (0.70-1.30); EST Glomerular Filtration Rate 21 mL/min (>60); Est Glom Filt Rate - Afr Amer 25 mL/min (>60); Estimated Creatinine Clearance 21.32 ml/min; Globulin 3.4 g/dL (2.2-4.2); Glucose 779 mg/dL (74-106); Lactic Acid 2.2 mmol/L (0.4-1.9); Potassium 4.4 mmol/L (3.5-5.1); Protein, Total 6.6 g/dL (6.4-8.2); Sodium Level 134 mmol/L (136-145)
[2020-09-10 15:37] LABS: Bacteria 0 SEEN /hpf (None Seen); Mucous, Urine 0 SEEN /hpf (<or=2+); Squamous Epithelial Cells - UA 0 SEEN /hpf (0-5); White Blood Cells 0 SEEN /hpf (0-5)
[2020-09-10 15:55] LABS: Color, Urine Yellow (Yellow); Glucose, Dipstick 1000 mg/dl (Normal); Ketone-Dipstick 5 mg/dl (Negative); Leukocyte Esterase-Dipstick Negative /ul (Negative); Nitrite-Dipstick Negative (Negative); Occult Blood-Urine 25 /ul (Negative); Protein-Dipstick 500 mg/dl (Negative); Specific Gravity, Urine 1.015 (1.002-1.030); Urine Bilirubin Dipstick Negative (Negative); Urine Clarity Clear (Clear); Urine Urobilinogen Normal (Normal)
[2020-09-10 16:07] LABS: Red Blood Cells-Urine 0-5 SEEN /hpf (0-5)
--- NOTE | 2020-09-10 16:23 | HP.PCM.HOS_ITS ---
Documented by User: Tete Gupta NP, CHEF ASSISTANT-C 09/10/20 16:47 HPI - General HPI Narrative JULIO DUNNE, is a 75 M who presents to the emergency room due to confusion. Per ER nurse, patient was discharged from [facility] 1 week ago and is living with his disabled son who is not able to help care for patient. Son called EMS due to confusion. No family at bedside during exam. Nursing attempting to call son. Patient is nonverbal during exam. Eyes open however patient is confused and drowsy. Does not follow commands. Connor placed in ER with 1 L urine returned. On insulin drip for glucose almost 100. Per RN, patient's son has not been able to help him with his medications including insulin. REPLACED BY [facility] Medical History (Updated 09/10/20 @ 17:[address] Freddie Pizano MD) Kidney failure Type 2 diabetes mellitus Venous insufficiency of both lower extremities Home Medications Fish Oil 750 mg PO DAILY 02/15/14 [History Last Taken Unknown] Allergy/AdvReac Type Severity Reaction Status Date / Time No Known Allergies Allergy Verified 02/15/14 11:41 other (Unable to obtain maternal and paternal medical history due to patient confusion) unable to obtain (Due to confusion) Social History Smoking Status: Never smoker ROS Review of Systems ROS Unobtainable: due to encephalopathy and other Details: Nonverbal, unable to obtain ROS Vital Signs Vital Signs Vital Signs: 09/10/20 12:30 09/10/20 12:34 09/10/20 12:37 Temperature 100.4 F H 100.4 F H Temperature Source Temporal Temporal Pulse Rate 120 H 118 H Respiratory Rate 19 H 14 Blood Pressure 211/110 H 211/110 H Blood Pressure Mean 143 143 Pulse Ox 99 94 98 Oxygen Delivery Method Room Air Room Air Room Air 09/10/20 12:45 09/10/20 13:30 09/10/20 14:00 Temperature Temperature Source Pulse Rate 114 H 119 H 121 H Respiratory Rate 19 H 18 19 H Blood Pressure 216/118 H 221/120 H 209/132 H Blood Pressure Mean 150 153 157 Pulse Ox 99 99 97 Oxygen Delivery Method Room Air Room Air Room Air 09/10/20 14:30 09/10/20 14:53 09/10/20 15:39 Temperature 101 F H Temperature Source Temporal Pulse Rate 119 H 135 H 126 H Respiratory Rate 19 H 21 H 19 H Blood Pressure 210/134 H 198/138 H Blood Pressure Mean 159 158 Pulse Ox 98 93 Oxygen Delivery Method Room Air Room Air Weight Weight: 200 lb 2.876 oz Body Mass Index (BMI) 27.9 Physical Exam Const Constitutional Narrative: Drowsy, ill-appearing. Patient unable to verbally respond or follow commands at this time. Orientation / Consciousness: confused HEENT Mouth: dry mucous membranes Eyes PERRL and EOMs intact bilaterally Neck no lymphadenopathy Resp clear to auscultation bilaterally Cardio regular rate, regular rhythm and no murmurs GI normal to inspection, nondistended, normoactive bowel sounds Extremity normal to inspection Skin no rashes or lesions noted Skin Narrative: Left second toe wound, noninfected appearing. Neuro Neuro Narrative: Unable to complete neuro exam due to patient unable to follow commands. Confused, drowsy. Psych Psych Narrative: Unable to assess mental status due to confusion. Results Lab / Micro Data Result Diagrams: 09/10/20 13:10 09/10/20 13:10 Labs: Laboratory Results - last 24 hr 09/10/20 09/10/20 09/10/20 13:10 13:10 13:10 WBC 13.6 H RBC 3.16 L Hgb 10.7 L Hct 31.5 L MCV 99.7 H MCH 33.9 H MCHC 34.0 RDW Std Deviation 47.8 H RDW Coeff of Ximena 13.1 Plt Count 376 MPV 10.1 Immature Gran % (Auto) 0.600 Neut % (Auto) 90.7 H Lymph % (Auto) 6.2 L [place] % (Auto) 2.3 Eos % (Auto) 0.0 Baso % (Auto) 0.2 Absolute Neuts (auto) 12.3 H Absolute Lymphs (auto) 0.84 Nucleated RBC % 0 PT 15.0 H INR 1.2 APTT 26.2 Sodium 134 L Potassium 4.4 Chloride 102 Carbon Dioxide 16.0 L Anion Gap 16 H BUN 52 H Creatinine 3.14 H Estim Creat Clear Calc 21.32 Est GFR (MDRD) Af Amer 25 L Est GFR (MDRD) Non-Af 21 L BUN/Creatinine Ratio 16.6 Glucose 779 H* Lactic Acid Calcium 7.6 L Total Bilirubin 0.70 AST 29 ALT 101 H Alkaline Phosphatase 136 H Troponin I 0.156 H Total Protein 6.6 Albumin 3.2 Globulin 3.4 Albumin/Globulin Ratio 0.9 Urine Color Urine Clarity Urine pH Ur Specific [place] Urine Protein Urine Glucose (UA) Urine Ketones Urine Occult Blood Urine Nitrite Urine Bilirubin Urine Urobilinogen Ur Leukocyte Esterase Urine RBC Urine WBC Ur Squamous Epith Cells Urine Bacteria Urine Mucus Acetone Level 09/10/20 09/10/20 09/10/20 13:10 13:10 15:30 WBC RBC Hgb Hct MCV MCH MCHC RDW Std Deviation RDW Coeff of Ximena Plt Count MPV Immature Gran % (Auto) Neut % (Auto) Lymph % (Auto) [place] % (Auto) Eos % (Auto) Baso % (Auto) Absolute Neuts (auto) Absolute Lymphs (auto) Nucleated RBC % PT INR APTT Sodium Potassium Chloride Carbon Dioxide Anion Gap BUN Creatinine Estim Creat Clear Calc Est GFR (MDRD) Af Amer Est GFR (MDRD) Non-Af BUN/Creatinine Ratio Glucose Lactic Acid 2.2 H* Calcium Total Bilirubin AST ALT Alkaline Phosphatase Troponin I Total Protein Albumin Globulin Albumin/Globulin Ratio Urine Color Yellow Urine Clarity Clear Urine pH 6.0 Ur Specific [place] 1.015 Urine Protein 500 H Urine Glucose (UA) 1000 H Urine Ketones 5 H Urine Occult Blood 25 H Urine Nitrite Negative Urine Bilirubin Negative Urine Urobilinogen Normal Ur Leukocyte Esterase Negative Urine RBC 0-5 SEEN Urine WBC 0 SEEN Ur Squamous Epith Cells 0 SEEN Urine Bacteria 0 SEEN Urine Mucus 0 SEEN Acetone Level NEGATIVE Radiology Impression Brain CT 09/10/20 12:18 IMPRESSION: Chronic involutional changes of the brain. Electronically Signed: Radha Ray MD at 14:03 EDT Tel , Service support , Chest X-Ray 09/10/20 12:19 IMPRESSION: Mild right pleural effusion. at 1429 Reported and signed by: Zakia Erickson MD Electronically Signed: Zakia Erickson MD at 14:28 EDT Tel , Service support , Assessment & Plan Assessment/Plan (1) Acute urinary retention: (2) Elevated troponin: (3) Acute hyperglycemia: (4) Hypertensive urgency: (5) SIRS (systemic inflammatory response syndrome): PLAN: 1. Acute encephalopathy, multifactorial due to HHS, urinary retention, dehydration- treat underlying processes per below. Brain CT unremarkable. 2. SIRS, without obvious source of infection-patient with leukocytosis, lactic acid 2.2, temp 101F. Chest x-ray with small right pleural effusion. UA unremarkable. 3. DKA in the context of uncontrolled type 2 diabetes mellitus-patient has reportedly not been taking his home medication including insulin since released from SNF 1 week ago. Insulin drip initiated in ER. Aggressive hydration. Management per protocol. 4. Elevated troponin-no EKG changes. Trend enzymes. Obtain echocardiogram. 5. Urinary retention-Connor placed in ER with 1000 cc return of urine. I nitiated on Flomax. 6. YOHAN vs woresining CKD stage IIIb-previous labs appear consistent with chronic kidney disease stage IIIb however creatinine earlier this month 3.3. Unclear baseline. Aggressive fluids, trend BMP. DVT prophylaxis-heparin subcu CODE STATUS: Discussed with son, requested full CODE STATUS. This patient was seen by JOSEPHINE Cancino under the supervision of Dr. Pizano. Documented by User: Dr. Freddie Pizano MD 09/10/20 17:14 HPI - General General Date of Admission: 09/10/20 Chief Complaint: Confusion For 1 day HPI Narrative This is 5-year-old gentleman who was brought in by EMS from home after son found him confused. I called son and history taken from son and patient himself is confused and hardly opens eyes. According to son, patient was thirsty and drink a lot of water more than 2 L yesterday. He woke up at 8 AM and was confused talking irrelevant and incoherent. He denied fever or chills. [facility] changed [facility] insulin about 2 months ago and patient feeling weak with recurrent fall and could not do lawn mowing recently which he was able to do before. Patient was also in SNF and was discharged about 3 weeks ago when his coverage ran out. EMS blood pressure was high at 226/125. In ED, blood pressure was high 198/138, heart rate 126/min, temperature 101 Fahrenheit. Pulse ox 93% on room air. Chest x-ray shows mild right CP angle obscuring possible effusion. Twelve-lead EKG shows sinus tachycardia at 121 bpm with PACs and aberrancy. Labs shows leukocytosis, with neutrophil 90.7%. Metabolic profile consistent with hyperglycemia secondary to, lactic acidosis, BUN/creatinine 52/3.14 and hyponatremia. REPLACED BY [facility] Medical History (Updated 09/10/20 @ 17:[address] Freddie Pizano MD) Kidney failure Type 2 diabetes mellitus Venous insufficiency of both lower extremities Home Medications Fish Oil 750 mg PO DAILY 02/15/14 [History Last Taken Unknown] Allergy/AdvReac Type Severity Reaction Status Date / Time No Known Allergies Allergy Verified 02/15/14 11:41 Social History Smoking Status: Never smoker Physical Exam Narrative Physical exam General: Confused, disoriented, hardly opens eyes HEENT: Atraumatic, PERRLA, EOMI, Normocephalic Oral: Oral mucosa dry. No Gingival or Mucosal Lesions/ Ulcerations Neck: Supple, No JVD, Negative Carotid Bruits Lungs: Air entry diminished in bilateral lung bases. No crepitation/rhonchi Cardiovascular: Regular rate, Regular Rhythm, Normal S1, Normal S2, No murmurs Abdomen: Bowel Sounds Present, Soft, Non Tender, Non-Distended : Cononr catheter 1 L stat. Clear urine no renal angle tenderness. No suprap ubic tenderness. Extremities: No edema, Capillary Refill Less than 3 Seconds Skin: No rashes, No breakdown Musculoskeletal: No Tenderness to Palpation of Joints or Extremities Neurological: Cranial nerves II-XII grossly intact, encephalopathic deep Tendon Reflexes 2+/4, no focal neurological deficit. Psych/Mental Status: Confused. Results Lab / Micro Data Result Diagrams: 09/10/20 13:10 09/10/20 13:10 Assessment & Plan Assessment/Plan (1) Acute urinary retention: (2) Elevated troponin: (3) Hyperosmolar hyperglycemic state (HHS): (4) DKA (diabetic ketoacidoses): PLAN: This patient was seen in conjunction with CHEF ASSISTANTTete. I have independently interviewed and examined the patient and reviewed pertinent history, examination findings, laboratory and plan of management. I have reviewed the note and agree with the documented findings with the few additional points. In brief, patient is admitted for altered mental status most likely metabolic encephalopathy from HHS or HHS/DKA overlap. Serum glucose is 779, lactic acid 2.2, anion gap 16, bicarb 16 and UA positive for glucosuria and proteinuria favors more HHS with history of type 2 diabetes mellitus. Patient is being admitted in ICU. IV fluid normal saline 2 L stat and then 500 mL for next 2 hours and then IV fluid protocol for HHS. Insulin drip started. Serum osmolality ordered. Patient also has low-grade fever, elevated transaminases, leukocytosis with neutrophilia, sinus tachycardia lactic acidosis suggestive of severe sepsis. Lactic acid may be from dehydration. Chest x-ray and UA does not show focus of infection. Patient empirically given IV ceftriaxone in ED as he had urine retention and 1 L of urine came on Connor catheterization. Started on IV antibiotic, Zosyn. Sepsis work-up was ordered. BUN/creatinine 52/3.14. Baseline/creatinine BUN 38/3.30. YOHAN on CKD stage IV mostly secondary to prerenal. Elevated troponin: No EKG changes. Cycle cardiac enzymes. 2D echo tomorrow a.m. Living will/advanced directive/end of life care: Patient does not have living will or advanced directive. Advanced care were discussed with the patient's son over the phone. After discussion of benefits/risks of procedures involved with full code, DNR CC arrest and DNR CC, the patient's son opted for full code. The patient's son wants artificial life support including intubation, tube feed, ve ntilator and/chest compression, central venous catheter, vasopressor and DC shock if needed Total time spent in [id number] encounter in discussion of advanced directive 16 minutes. I have discussed my assessment with CHEF ASSISTANTTete and orders have been reviewed. Charges/Coding Visit Charges Inpatient E&M: 21257 Init Hosp L3 Multi Select Codes Visit Charges Visit Charges: 91855 Init Hosp L3
[2020-09-10] MEDS: Labetalol (Prefilled) 20 MG/4 ML 10 MG IV (16:55)
[2020-09-10] MEDS: Acetaminophen 650 MG Suppository RC (16:55)
[2020-09-10] MEDS: Ceftriaxone 1 GM/50 ML BAG IV (16:56)
[2020-09-10 17:15] LABS: Bedside Glucose 489 mg/dL (70-110)
[2020-09-10 17:27] LABS: Reflex Lactate? Y
--- NOTE | 2020-09-10 18:00 | EKG12_ITS ---
Test Reason : STROKE Blood Pressure : / mmHG Vent. Rate : 092 BPM Atrial Rate : 092 BPM P-R Int : 000 ms QRS Dur : 092 ms QT Int : 430 ms P-R-T Axes : 000 012 133 degrees QTc Int : 531 ms Atrial fibrillation Septal infarct , age undetermined Prolonged QT Abnormal ECG When compared with ECG of 10-SEP-2020 12:35, MANUAL COMPARISON REQUIRED, DATA IS UNCONFIRMED Confirmed by SHAYNE OCNONOR, ARTI ([id number]), editor news CAPO SERRANO ([id number]) on 09/12/2020 9:41:21 AM Referred By: ED Confirmed By:ARTI BELLA MD
--- NOTE | 2020-09-10 18:01 | CT_ITS ---
We are attempting to reach an attending provider to discuss findings. An addendum with communication details will be sent when the communication is complete. STUDY: CT BRAIN WITHOUT CONTRAST REASON FOR EXAM: Male, 75 years old. right facial droop, confusion. disoriented, hhs -- R/O stroke RADIATION DOSAGE (If Supplied By Facility): CTDIvol = ( 44.99 ) mGy, DLP = ( 846.73 ) mGycm TECHNIQUE: Transaxial CT imaging of the brain was performed without administration of intravenous contrast material. Individualized dose optimization techniques were used for this CT. COMPARISON: Same day, 1:36 PM FINDINGS: No change. No acute abnormality. Again seen is mild atrophy and White matter disease. Dystrophic calcifications of the basal ganglia. CT/Brain/Head without Contrast IMPRESSION: No change or acute abnormality since 4.5 hours earlier. Electronically Signed: Guillaume Erwin MD at 18:17 EDT , Service support ,
--- NOTE | 2020-09-10 18:16 | MRI_ITS ---
STUDY: MRA NECK WITHOUT CONTRAST REASON FOR EXAM: Male, 75 years old. Confusion, right facial droop. TECHNIQUE: Source images were obtained, MIPs were performed. The study was performed unenhanced. COMPARISON: Multiple prior CT scans and MRIs from earlier today, all of which were negative. FINDINGS: Exam is markedly limited by motion. No major vessel occlusions. No gross acute thrombosis. No definite hemodynamically significant stenosis. Dominant left vertebral artery. MRI/MRA Neck without Contrast IMPRESSION: Limited by motion. No definite acute abnormality or significant stenosis seen. Electronically Signed: Guillaume Erwin MD at 23:48 EDT , Service support ,
--- NOTE | 2020-09-10 18:16 | MRI_ITS ---
STUDY: MRA OF THE HEAD WITHOUT CONTRAST REASON FOR EXAM: Male, 75 years old. Confusion, right facial droop. TECHNIQUE: 3-D [id number] (TOF) imaging was performed with MIPs. The study was performed unenhanced. COMPARISON: None. FINDINGS: Normal bilateral petrous carotid arteries. Normal right cavernous carotid artery with a normal supraclinoid bifurcation. Normal left cavernous carotid artery with a normal supraclinoid bifurcation. Normal right A1 segments of the anterior cerebral artery. Normal left A1 segments of the anterior cerebral artery. Normal intact anterior communicating artery (ACOM). Normal bilateral A2 segments of the anterior cerebral arteries. Normal right M1 and M2 segments of the middle cerebral arteries, with a normal M1 bifurcation. Normal left M1 and M2 segments of the middle cerebral arteries, with a normal M1 bifurcation. Normal right posterior communicating artery (PCOM). Normal left posterior communicating artery (PCOM). Normal bilateral vertebral arteries. Normal basilar artery with a normal basilar bifurcation. The visualized bilateral superior cerebellar (SCA) arteries are normal. Normal bilateral P1, P2 and visualized P3 segments of the posterior cerebral arteries. There is no demonstrated aneurysm of the [place]. There is no major vessel occlusion or hemodynamically significant stenosis. There is no demonstrated abnormality of the visualized brain. MRI/MRA Head ONLY without Contrast IMPRESSION: No evidence of significant steno-occlusive disease or aneurysm. Electronically Signed: Jj Mosher DO at 23:51 EDT , Service support ,
--- NOTE | 2020-09-10 18:23 | PCM.PN.BLA ---
Progress Note Stroke alert was called in ICU as the ER nurse felt new facial droop while she was giving report to the ICU nurse. I saw the patient about an hour ago and I did not notice any obvious change in the facial droop. He looks same as I saw him before. Patient is confused, disoriented opens eyes. Muscle strength, sensory system cannot be evaluated. On visual threat, partial response obtained. NIH stroke scale is high mainly because patient is unresponsive to sensory stimulus, visual stimulus, mute and inattentive. NIH stroke as controlled by nursing staff is 13. I talked to the [facility] neurologist on phone and discussed the clinical scenario. He also believes patient is globally encephalopathy probably metabolic encephalopathy. MRI and MRA head and neck without contrast ordered in order to rule out stroke. I communicated to the nurse. Visit Charges Inpatient E&M: 33658 Subs Hosp L1
--- NOTE | 2020-09-10 18:30 | MRI_ITS ---
STUDY: MRI BRAIN WITHOUT CONTRAST REASON FOR EXAM: Male, 75 years old. Confusion, right facial droop. TECHNIQUE: Standardized multiplanar fat and water weighted pulse sequences were obtained. COMPARISON: None. FINDINGS: There is moderate cerebral atrophy with widening of the extra-axial spaces and ventricular dilatation. There are multiple white matter hyperintensities, distributed throughout the deep white matter tracts of the cerebral hemispheres, consistent with moderate chronic white matter ischemic changes. There is no evidence for recent intracranial ischemia or other cause of cytotoxic edema on diffusion weighted imaging (DWI). Normal T2* images of the brain without demonstrated susceptibility artifact. There is no demonstrated hemosiderin stain. Normal bilateral basal ganglia. Normal thalami. There is no extra-axial fluid accumulation. Normal flow voids within the major intracranial circulation suggesting patency by spin echo criteria. Normal sella turcica, pituitary gland, infundibular stalk, optic chiasm and hypothalamus. Normal tectal plate and pineal gland. Normal midbrain, josé miguel and medulla. Normal cerebellum. Normal basal cisterns. Normal bilateral temporal bones. Normal bilateral internal auditory canals. No demonstrated orbital abnormality, within the constraints of a routine brain study. Normal visualized paranasal sinuses. Normal calvarium and skull base. Normal visualized soft tissue structures. Normal visualized upper cervical spine. MRI/Brain without Contrast IMPRESSION: Senescent changes with no evidence of acute intracranial bleed, mass or ischemia. Electronically Signed: Jj Mosher DO at 23:50 EDT , Service support ,
[2020-09-10] MEDS: 0.9% Normal Saline 1,000 ML 500 ML IV (18:35)
[2020-09-10 18:55] LABS: Base Excess -12 mmol/L (-2 to +2); Blood Gas Specimen Type ART; O2 Delivery Device Room Air; PO2 91 mmHG (75-100); SITE L Radial; SO2 97 % (95-99); Total Carbon Dioxide 14 mmol/L; pCO2 22.8 mmHg (35-45); pH 7.36 (7.35-7.45)
[2020-09-10] MEDS: Heparin Injection (Vial) 5,000 UNIT/ML VIAL 5000 UNIT SC (18:55)
[2020-09-10 19:00] LABS: Anion Gap 15 (5-15); BUN 52 mg/dL (7-18); BUN/Creat Ratio 16.3 RATIO (10-20); Calcium,Total 7.1 mg/dL (8.5-10.1); Chloride 108 mmol/L (98-107); Creatinine, Serum 3.19 mg/dL (0.70-1.30); EST Glomerular Filtration Rate 20 mL/min (>60); Est Glom Filt Rate - Afr Amer 25 mL/min (>60); Estimated Creatinine Clearance 20.34 ml/min; Glucose 444 mg/dL (74-106); Magnesium 1.8 mg/dL (1.6-2.6); Potassium 3.9 mmol/L (3.5-5.1); Sodium Level 138 mmol/L (136-145)
[2020-09-10 20:01] LABS: Bedside Glucose 490 mg/dL (70-110)
[2020-09-10 20:05] LABS: Bedside Glucose 368 mg/dL (70-110)
[2020-09-10 20:05] LABS: Bedside Glucose 414 mg/dL (70-110)
[2020-09-10] MEDS: 0.9% Normal Saline 1,000 ML 250 ML IV (20:35)
[2020-09-10 20:57] LABS: M R Staph aureus DNA By PCR Negative (Negative); Probe Check PASS; Specimen Processing Control PASS
[2020-09-10 21:26] LABS: Bedside Glucose 407 mg/dL (70-110)
--- NOTE | 2020-09-10 21:45 | PCM.RX.CS ---
Consult Pharmacy has been consulted to manage selected antiobiotic: Vancomycin Type of Consult: New start Labs: Sodium 138 mmol/L (136-145) 09/10/20 18:20 Potassium 3.9 mmol/L (3.5-5.1) 09/10/20 18:20 Chloride 108 mmol/L (98-107) H 09/10/20 18:20 Carbon Dioxide 15.0 mmol/L (21.0-32.0) L 09/10/20 18:20 Anion Gap 15 (5-15) 09/10/20 18:20 BUN 52 mg/dL (7-18) H 09/10/20 18:20 Creatinine 3.19 mg/dL (0.70-1.30) H 09/10/20 18:20 Est GFR (MDRD) Af Amer 25 mL/min (>60) L 09/10/20 18:20 Est GFR (MDRD) Non-Af 20 mL/min (>60) L 09/10/20 18:20 BUN/Creatinine Ratio 16.3 RATIO (10-20) 09/10/20 18:20 Glucose 444 mg/dL (74-106) H 09/10/20 18:20 Weight used for dosin.7 kg Estimated Creatinine Clearance: 20.9 Goal Trough: 15-20 mcg/mL Pharmacy Plan for Drug Dosing: Pharmacy Service will continue to monitor and adjust dosing as required. Medications Vancomycin HCl 750 mg/ Sodium (Chloride) 265 mls @ 250 mls/hr IV Q24H KIM Discontinued Medications Vancomycin HCl 1,250 mg/ (Sodium Chloride) 275 mls @ 167 mls/hr IV X1 ONE Stop: 09/10/20 20:53 Last Admin: 09/10/20 20:55 Dose: 167 mls/hr Documented by: Follow-Up Labs: Trough Vancomycin Labs to be done on [date and time ordered]: 09/12 @ 2030
[2020-09-10 22:07] LABS: Anion Gap 14 (5-15); BUN 50 mg/dL (7-18); BUN/Creat Ratio 16.9 RATIO (10-20); Calcium,Total 7.1 mg/dL (8.5-10.1); Chloride 109 mmol/L (98-107); Creatinine, Serum 2.95 mg/dL (0.70-1.30); EST Glomerular Filtration Rate 22 mL/min (>60); Est Glom Filt Rate - Afr Amer 27 mL/min (>60); Glucose 412 mg/dL (74-106); Potassium 3.8 mmol/L (3.5-5.1); Sodium Level 139 mmol/L (136-145)
--- NOTE | 2020-09-10 22:23 | NURSING ---
Medications Paused at 22:00 due to patient having MRI at this time, will resume all medications once MRI is complete.
[2020-09-10 22:39] LABS: Osmolality, Serum 333 mOsm/KG (280-301)
[2020-09-10 23:16] LABS: Bedside Glucose 395 mg/dL (70-110)
[2020-09-11] VITALS (27 sets, daily range): BP systolic 95–206; BP diastolic 46–133; PULSE 54–109; RESP 10–23; TEMP 36.6–37.2; O2SAT 98–100
[2020-09-11 00:11] LABS: Bedside Glucose 384 mg/dL (70-110)
[2020-09-11 00:15] LABS: Anion Gap 12 (5-15); BUN 50 mg/dL (7-18); BUN/Creat Ratio 17.7 RATIO (10-20); Chloride 111 mmol/L (98-107); Creatinine, Serum 2.83 mg/dL (0.70-1.30); EST Glomerular Filtration Rate 23 mL/min (>60); Est Glom Filt Rate - Afr Amer 28 mL/min (>60); Estimated Creatinine Clearance 22.93 ml/min; Glucose 407 mg/dL (74-106); Potassium 3.8 mmol/L (3.5-5.1); Sodium Level 140 mmol/L (136-145)
[2020-09-11] MEDS: Labetalol (Prefilled) 20 MG/4 ML 10 MG IV ×2 (00:15→06:09)
[2020-09-11] MEDS: 0.9% Saline Lock 10 ML Syringe IV ×4 (00:18→16:52)
[2020-09-11 01:16] LABS: Bedside Glucose 389 mg/dL (70-110)
[2020-09-11] MEDS: Potassium Chloride 40 MEQ in 0.45% Normal Saline 1,000 ML 150 MEQ IV (02:39)
[2020-09-11] MEDS: CHLORHEXIDINE GLUC 2% CLOTH 1 EACH TOWELETTE TOPICAL (02:45)
[2020-09-11 03:16] LABS: Bedside Glucose 322 mg/dL (70-110)
[2020-09-11] MEDS: hydrALAZINE 20 MG/ML Vial 10 MG IV (03:36)
[2020-09-11 03:37] LABS: Absolute Lymphocyte Count 1.55 X10^3/uL (0.83-4.51); Absolute Neutrophil Count 11.9 X10^3/uL (2.0-7.7); Basophil# 0.03 X10^3/uL; Basophil% 0.2 % (0-1); Eosinophil# 0.03 X10^3/uL; Eosinophils% 0.2 % (0-5); Hemoglobin 9.4 g/dL (13.0-16.5); Lymphocyte # 1.55 X10^3/ul (0.83-4.51); Lymphocyte % 10.6 % (19-41); Mean Corp Hgb Conc 34.8 g/dL (32-36); Mean Corpuscular Hgb 34.3 pg (27.0-32.0); Mean Corpuscular Volume 98.5 fL (80-94); Mean Platelet Vol. 10.2 fl (6.2-12.0); Monocyte# 0.97 X10^3/uL; Monocyte% 6.7 % (0-10); NRBC Flagged by Analyzer 0 % (0-5); Neutrophil # 11.91 X10^3/uL (2.7-7.7); Neutrophil % 81.8 % (47-70); Platelet Count 296 K/mm3 (150-450); RBC Distribution Width CV 13.3 % (11.6-14.6); RBC Distribution Width SD 47.5 fl (35.1-43.9); Red Blood Count 2.74 M/mm3 (4.6-6.2); White Blood Count 14.6 K/mm3 (4.4-11.0)
[2020-09-11 03:52] LABS: Anion Gap 11 (5-15); BUN 48 mg/dL (7-18); BUN/Creat Ratio 16.7 RATIO (10-20); Calcium,Total 7.2 mg/dL (8.5-10.1); Chloride 113 mmol/L (98-107); Creatinine, Serum 2.87 mg/dL (0.70-1.30); EST Glomerular Filtration Rate 23 mL/min (>60); Est Glom Filt Rate - Afr Amer 28 mL/min (>60); Estimated Creatinine Clearance 22.61 ml/min; Glucose 314 mg/dL (74-106); Potassium 4.1 mmol/L (3.5-5.1); Sodium Level 143 mmol/L (136-145)
[2020-09-11 04:05] LABS: Cholesterol 210 mg/dL (200); High Density Lipoprotein 54 mg/dL; Thyroid Stim Hormone (TSH) 5.96 uIU/mL (0.358-3.74); Triglycerides 103 mg/dL; Very Low Density Lipoprotein 21 mg/dL (5-40)
[2020-09-11 04:11] LABS: Bedside Glucose 321 mg/dL (70-110)
--- NOTE | 2020-09-11 05:55 | ECHOD_ITS ---
Reason For Study: DYSPNEA/SOB Procedure This was a 2D Doppler, Color Flow transthoracic echocardiogram. Exam performed portable in ICU/CCU. Left Ventricle Normal LV size. Mild concentric left ventricular hypertrophy. Left ventricular systolic function is lower limits of normal. The estimated ejection fraction is 50 %. Stage 1 diastolic dysfunction. LV pattern suggestive of amyloid. No regional wall motion abnormalities noted. Right Ventricle Normal RV size. Normal systolic function. Atria The left atrium is moderately enlarged. Normal right atrium. Mitral Valve Normal mitral valve. Mild (1+) eccentric mitral valve insufficiency. Tricuspid Valve Normal tricuspid valve. Mild (1+) tricuspid valve insufficiency. Pulmonary artery systolic pressure is 45 mmHg. Aortic Valve Trisinus/trileaflet aortic valve. Mild focal aortic valve thickening. Mild (1+) aortic valve insufficiency. Pulmonic Valve Normal pulmonic valve. Great Vessels Normal aortic root. The pulmonary artery is normal size. Normal inferior vena cava. Pericardium/Pleural No pericardial effusion. MMode/2D Measurements & Calculations LVIDd: 5.3 cm IVSd: 1.2 cm Ao root diam: 3.2 cm LVIDs: 3.9 cm LVPWd: 1.2 cm RVDd: 3.0 cm FS: 26.2 % LAV(MOD-bp): 89.5 ml LA A4 area: 27.6 cm2 LA dimension(2D): 3.9 cm LAV(MOD-bp) Indexed: 43.3 ml/m2 LAV(MOD-sp2): 81.5 ml LAV(MOD-sp4): 95.4 ml RA A4 area: 12.8 cm2 Time Measurements MV dec time: 0.17 sec Doppler Measurements & Calculations MV E max rosaline: 129.2 cm/sec Ao V2 max: 209.3 cm/sec AI max rosaline: 413.7 cm/sec MV A max rosaline: 177.0 cm/sec Ao max P.5 mmHg AI max P.5 mmHg MV E/A: 0.73 Ao V2 mean: 166.3 cm/sec AI dec slope: 330.2 cm/sec2 Ao mean P.7 mmHg AI P1/2t: 366.9 msec Ao V2 VTI: 40.0 cm LV V1 max: 139.6 cm/sec PA V2 max: 121.4 cm/sec TR max rosaline: 318.1 cm/sec LV V1 max P.8 mmHg TR max P.7 mmHg LV V1 mean P.5 mmHg LV V1 mean: 102.4 cm/sec LV V1 VTI: 27.3 cm ECHO/Echo Complete Interpretation Summary Normal LV size. Mild concentric left ventricular hypertrophy. Left ventricular systolic function is lower limits of normal. The estimated ejection fraction is 50 %. Stage 1 diastolic dysfunction. Mild (1+) eccentric mitral valve insufficiency. Mild (1+) aortic valve insufficiency. Ordering Physician: Freddie Pizano Referring Physician: [facility] Performed By: Sissy Obrien, JESSE, RVT
[2020-09-11] MEDS: Heparin Injection (Vial) 5,000 UNIT/ML VIAL 5000 UNIT SC ×3 (06:42→21:33)
--- NOTE | 2020-09-11 07:42 | PN.HOSP_ITS ---
Subjective Subjective Patient was seen and examined. He remains confused. Not oriented to self person or place. MRI of the brain, MRA head and neck has been unremarkable. Objective Data Objective Data Vital Signs: Vital Signs Temp Pulse Resp BP Pulse Ox 98.9 F 102 H 18 186/92 H 100 09/11/20 06:00 09/11/20 06:00 09/11/20 06:00 09/11/20 06:00 09/11/20 06:00 Oxygen Delivery Method Room Air Weight: 88.813 kg Body Mass Index (BMI) 24.3 Intake & Output: Intake and Output for Last 24 Hours 09/09/20 09/10/20 09/11/20 23:59 23:59 23:59 Intake Total 2750.10 / 2750.10 669.65 / 669.65 Output Total 1200 / 1900 1100 / 1100 Balance 1550.10 / 850.10 -430.35 / -430.35 Lab / Micro Data Result Diagrams: 09/11/20 03:25 09/11/20 03:25 Labs: Laboratory Results - last 24 hr 09/10/20 09/10/20 09/10/20 13:10 13:10 13:10 WBC 13.6 H RBC 3.16 L Hgb 10.7 L Hct 31.5 L MCV 99.7 H MCH 33.9 H MCHC 34.0 RDW Std Deviation 47.8 H RDW Coeff of Ximena 13.1 Plt Count 376 MPV 10.1 Immature Gran % (Auto) 0.600 Neut % (Auto) 90.7 H Lymph % (Auto) 6.2 L Woods % (Auto) 2.3 Eos % (Auto) 0.0 Baso % (Auto) 0.2 Absolute Neuts (auto) 12.3 H Absolute Lymphs (auto) 0.84 Nucleated RBC % 0 PT 15.0 H INR 1.2 APTT 26.2 Sodium 134 L Potassium 4.4 Chloride 102 Carbon Dioxide 16.0 L Anion Gap 16 H BUN 52 H Creatinine 3.14 H Estim Creat Clear Calc 21.32 Est GFR (MDRD) Af Amer 25 L Est GFR (MDRD) Non-Af 21 L BUN/Creatinine Ratio 16.6 Glucose 779 H* Serum Osmolality Lactic Acid Calcium 7.6 L Magnesium Total Bilirubin 0.70 AST 29 ALT 101 H Alkaline Phosphatase 136 H Troponin I 0.156 H Total Protein 6.6 Albumin 3.2 Globulin 3.4 Albumin/Globulin Ratio 0.9 Triglycerides Cholesterol LDL Cholesterol VLDL Cholesterol HDL Cholesterol TSH Urine Color Urine Clarity Urine pH Ur Specific [place] Urine Protein Urine Glucose (UA) Urine Ketones Urine Occult Blood Urine Nitrite Urine Bilirubin Urine Urobilinogen Ur Leukocyte Esterase Urine RBC Urine WBC Ur Squamous Epith Cells Urine Bacteria Urine Mucus Acetone Level MRSA (PCR) POC Glucose 09/10/20 09/10/20 09/10/20 13:10 13:10 13:10 WBC RBC Hgb Hct MCV MCH MCHC RDW Std Deviation RDW Coeff of Xim[place] Plt Count MPV Immature Gran % (Auto) Neut % (Auto) Lymph % (Auto) Woods % (Auto) Eos % (Auto) Baso % (Auto) Absolute Neuts (auto) Absolute Lymphs (auto) Nucleated RBC % PT INR APTT Sodium Potassium Chloride Carbon Dioxide Anion Gap BUN Creatinine Estim Creat Clear Calc Est GFR (MDRD) Af Amer Est GFR (MDRD) Non-Af BUN/Creatinine Ratio Glucose Serum Osmolality 333 H Lactic Acid 2.2 H* Calcium Magnesium Total Bilirubin AST ALT Alkaline Phosphatase Troponin I Total Protein Albumin Globulin Albumin/Globulin Ratio Triglycerides Cholesterol LDL Cholesterol VLDL Cholesterol HDL Cholesterol TSH Urine Color Urine Clarity Urine pH Ur Specific [place] Urine Protein Urine Glucose (UA) Urine Ketones Urine Occult Blood Urine Nitrite Urine Bilirubin Urine Urobilinogen Ur Leukocyte Esterase Urine RBC Urine WBC Ur Squamous Epith Cells Urine Bacteria Urine Mucus Acetone Level NEGATIVE MRSA (PCR) POC Glucose 09/10/20 09/10/20 09/10/20 15:30 16:47 17:48 WBC RBC Hgb Hct MCV MCH MCHC RDW Std Deviation RDW Coeff of [place]im[place] Plt Count MPV Immature Gran % (Auto) Neut % (Auto) Lymph % (Auto) [place] % (Auto) Eos % (Auto) Baso % (Auto) Absolute Neuts (auto) Absolute Lymphs (auto) Nucleated RBC % PT INR APTT Sodium Potassium Chloride Carbon Dioxide Anion Gap BUN Creatinine Estim Creat Clear Calc Est GFR (MDRD) Af Amer Est GFR (MDRD) Non-Af BUN/Creatinine Ratio Glucose Serum Osmolality Lactic Acid Calcium Magnesium Total Bilirubin AST ALT Alkaline Phosphatase Troponin I Total Protein Albumin Globulin Albumin/Globulin Ratio Triglycerides Cholesterol LDL Cholesterol VLDL Cholesterol HDL Cholesterol TSH Urine Color Yellow Urine Clarity Clear Urine pH 6.0 Ur Specific [place] 1.015 Urine Protein 500 H Urine Glucose (UA) 1000 H Urine Ketones 5 H Urine Occult Blood 25 H Urine Nitrite Negative Urine Bilirubin Negative Urine Urobilinogen Normal Ur Leukocyte Esterase Negative Urine RBC 0-5 SEEN Urine WBC 0 SEEN Ur Squamous Epith Cells 0 SEEN Urine Bacteria 0 SEEN Urine Mucus 0 SEEN Acetone Level MRSA (PCR) POC Glucose 489 H* 490 H* 09/10/20 09/10/20 09/10/20 18:20 18:20 18:25 WBC RBC Hgb Hct MCV MCH MCHC RDW Std Deviation RDW Coeff of Xim[place] Plt Count MPV Immature Gran % (Auto) Neut % (Auto) Lymph % (Auto) Woods % (Auto) Eos % (Auto) Baso % (Auto) Absolute Neuts (auto) Absolute Lymphs (auto) Nucleated RBC % PT INR APTT Sodium 138 Potassium 3.9 Chloride 108 H Carbon Dioxide 15.0 L Anion Gap 15 BUN 52 H Creatinine 3.19 H Estim Creat Clear Calc 20.34 Est GFR (MDRD) Af Amer 25 L Est GFR (MDRD) Non-Af 20 L BUN/Creatinine Ratio 16.3 Glucose 444 H Serum Osmolality Lactic Acid 5.0 H* Calcium 7.1 L Magnesium 1.8 Total Bilirubin AST ALT Alkaline Phosphatase Troponin I 0.439 H Total Protein Albumin Globulin Albumin/Globulin Ratio Triglycerides Cholesterol LDL Cholesterol VLDL Cholesterol HDL Cholesterol TSH Urine Color Urine Clarity Urine pH Ur Specific [place] Urine Protein Urine Glucose (UA) Urine Ketones Urine Occult Blood Urine Nitrite Urine Bilirubin Urine Urobilinogen Ur Leukocyte Esterase Urine RBC Urine WBC Ur Squamous Epith Cells Urine Bacteria Urine Mucus Acetone Level MRSA (PCR) Negative POC Glucose 09/10/20 09/10/20 09/10/20 18:44 19:57 21:21 WBC RBC Hgb Hct MCV MCH MCHC RDW Std Deviation RDW Coeff of Ximena Plt Count MPV Immature Gran % (Auto) Neut % (Auto) Lymph % (Auto) [place] % (Auto) Eos % (Auto) Baso % (Auto) Absolute Neuts (auto) Absolute Lymphs (auto) Nucleated RBC % PT INR APTT Sodium Potassium Chloride Carbon Dioxide Anion Gap BUN Creatinine Estim Creat Clear Calc Est GFR (MDRD) Af Amer Est GFR (MDRD) Non-Af BUN/Creatinine Ratio Glucose Serum Osmolality Lactic Acid Calcium Magnesium Total Bilirubin AST ALT Alkaline Phosphatase Troponin I Total Protein Albumin Globulin Albumin/Globulin Ratio Triglycerides Cholesterol LDL Cholesterol VLDL Cholesterol HDL Cholesterol TSH Urine Color Urine Clarity Urine pH Ur Specific [place] Urine Protein Urine Glucose (UA) Urine Ketones Urine Occult Blood Urine Nitrite Urine Bilirubin Urine Urobilinogen Ur Leukocyte Esterase Urine RBC Urine WBC Ur Squamous Epith Cells Urine Bacteria Urine Mucus Acetone Level MRSA (PCR) POC Glucose 414 H 368 H 407 H 09/10/20 09/10/20 09/10/20 21:35 21:35 23:12 WBC RBC Hgb Hct MCV MCH MCHC RDW Std Deviation RDW Coeff of [place]imena Plt Count MPV Immature Gran % (Auto) Neut % (Auto) Lymph % (Auto) [place] % (Auto) Eos % (Auto) Baso % (Auto) Absolute Neuts (auto) Absolute Lymphs (auto) Nucleated RBC % PT INR APTT Sodium 139 Potassium 3.8 Chloride 109 H Carbon Dioxide 16.0 L Anion Gap 14 BUN 50 H Creatinine 2.95 H Estim Creat Clear Calc 22.00 Est GFR (MDRD) Af Amer 27 L Est GFR (MDRD) Non-Af 22 L BUN/Creatinine Ratio 16.9 Glucose 412 H Serum Osmolality Lactic Acid Calcium 7.1 L Magnesium Total Bilirubin AST ALT Alkaline Phosphatase Troponin I 0.528 H Total Protein Albumin Globulin Albumin/Globulin Ratio Triglycerides Cholesterol LDL Cholesterol VLDL Cholesterol HDL Cholesterol TSH Urine Color Urine Clarity Urine pH Ur Specific [place] Urine Protein Urine Glucose (UA) Urine Ketones Urine Occult Blood Urine Nitrite Urine Bilirubin Urine Urobilinogen Ur Leukocyte Esterase Urine RBC Urine WBC Ur Squamous Epith Cells Urine Bacteria Urine Mucus Acetone Level MRSA (PCR) POC Glucose 395 H 09/10/20 09/10/20 09/11/20 23:45 23:45 00:08 WBC RBC Hgb Hct MCV MCH MCHC RDW Std Deviation RDW Coeff of [place]imena Plt Count MPV Immature Gran % (Auto) Neut % (Auto) Lymph % (Auto) [place] % (Auto) Eos % (Auto) Baso % (Auto) Absolute Neuts (auto) Absolute Lymphs (auto) Nucleated RBC % PT INR APTT Sodium 140 Potassium 3.8 Chloride 111 H Carbon Dioxide 17.0 L Anion Gap 12 BUN 50 H Creatinine 2.83 H Estim Creat Clear Calc 22.93 Est GFR (MDRD) Af Amer 28 L Est GFR (MDRD) Non-Af 23 L BUN/Creatinine Ratio 17.7 Glucose 407 H Serum Osmolality Lactic Acid Calcium 7.0 L Magnesium Total Bilirubin AST ALT Alkaline Phosphatase Troponin I 0.468 H Total Protein Albumin Globulin Albumin/Globulin Ratio Triglycerides Cholesterol LDL Cholesterol VLDL Cholesterol HDL Cholesterol TSH Urine Color Urine Clarity Urine pH Ur Specific [place] Urine Protein Urine Glucose (UA) Urine Ketones Urine Occult Blood Urine Nitrite Urine Bilirubin Urine Urobilinogen Ur Leukocyte Esterase Urine RBC Urine WBC Ur Squamous Epith Cells Urine Bacteria Urine Mucus Acetone Level MRSA (PCR) POC Glucose 384 H 09/11/20 09/11/20 09/11/20 01:09 03:09 03:25 WBC 14.6 H RBC 2.74 L Hgb 9.4 L Hct 27.0 L MCV 98.5 H MCH 34.3 H MCHC 34.8 RDW Std Deviation 47.5 H RDW Coeff of Ximena 13.3 Plt Count 296 MPV 10.2 Immature Gran % (Auto) 0.500 Neut % (Auto) 81.8 H Lymph % (Auto) 10.6 L [place] % (Auto) 6.7 Eos % (Auto) 0.2 Baso % (Auto) 0.2 Absolute Neuts (auto) 11.9 H Absolute Lymphs (auto) 1.55 Nucleated RBC % 0 PT INR APTT Sodium Potassium Chloride Carbon Dioxide Anion Gap BUN Creatinine Estim Creat Clear Calc Est GFR (MDRD) Af Amer Est GFR (MDRD) Non-Af BUN/Creatinine Ratio Glucose Serum Osmolality Lactic Acid Calcium Magnesium Total Bilirubin AST ALT Alkaline Phosphatase Troponin I Total Protein Albumin Globulin Albumin/Globulin Ratio Triglycerides Cholesterol LDL Cholesterol VLDL Cholesterol HDL Cholesterol TSH Urine Color Urine Clarity Urine pH Ur Specific [place] Urine Protein Urine Glucose (UA) Urine Ketones Urine Occult Blood Urine Nitrite Urine Bilirubin Urine Urobilinogen Ur Leukocyte Esterase Urine RBC Urine WBC Ur Squamous Epith Cells Urine Bacteria Urine Mucus Acetone Level MRSA (PCR) POC Glucose 389 H 322 H 09/11/20 09/11/20 09/11/20 03:25 03:25 04:06 WBC RBC Hgb Hct MCV MCH MCHC RDW Std Deviation RDW Coeff of [place]im[place] Plt Count MPV Immature Gran % (Auto) Neut % (Auto) Lymph % (Auto) [place] % (Auto) Eos % (Auto) Baso % (Auto) Absolute Neuts (auto) Absolute Lymphs (auto) Nucleated RBC % PT INR APTT Sodium 143 Potassium 4.1 Chloride 113 H Carbon Dioxide 19.0 L Anion Gap 11 BUN 48 H Creatinine 2.87 H Estim Creat Clear Calc 22.61 Est GFR (MDRD) Af Amer 28 L Est GFR (MDRD) Non-Af 23 L BUN/Creatinine Ratio 16.7 Glucose 314 H Serum Osmolality Lactic Acid Calcium 7.2 L Magnesium Total Bilirubin AST ALT Alkaline Phosphatase Troponin I Total Protein Albumin Globulin Albumin/Globulin Ratio Triglycerides 103 Cholesterol 210 H LDL Cholesterol 135 H VLDL Cholesterol 21 HDL Cholesterol 54 TSH 5.96 H Urine Color Urine Clarity Urine pH Ur Specific [place] Urine Protein Urine Glucose (UA) Urine Ketones Urine Occult Blood Urine Nitrite Urine Bilirubin Urine Urobilinogen Ur Leukocyte Esterase Urine RBC Urine WBC Ur Squamous Epith Cells Urine Bacteria Urine Mucus Acetone Level MRSA (PCR) POC Glucose 321 H ABG Data ABG results: ABG 09/10/20 18:51 Specimen Type ART Sample Site L Radial pH 7.36 Bicarbonate Actual 13.0 L Total CO2 14 Base Excess -12 L O2 Saturation 97 ABG pCO2 22.8 L ABG pO2 91 Prem Test N/A O2 Delivery Device Room Air Radiography Diagnostic Testing: Radiology Impression Brain CT 09/10/20 12:18 IMPRESSION: Chronic involutional changes of the brain. Electronically Signed: Radha Ray MD at 14:03 EDT Tel , Service support , Chest X-Ray 09/10/20 12:19 IMPRESSION: Mild right pleural effusion. at 1429 Reported and signed by: Zakia Erickson MD Electronically Signed: Zakia Erickson MD at 14:28 EDT Tel , Service support , Brain CT 09/10/20 18:01 IMPRESSION: No change or acute abnormality since 4.5 hours earlier. Electronically Signed: Guillaume Erwin MD at 18:17 EDT , Service support , ADDENDUM: 09/10/20 1825 IMPRESSION: No change or acute abnormality since 4.5 hours earlier. N.B. : The above Results were Read Back by Guillaume Erwin MD to Sushila Chavez RN, and understanding confirmed on 09/10/2020 18:18:36 (ET). Electronically Signed: Guillaume Erwin MD at 18:17 EDT , Service support , Head MRA 09/10/20 18:16 IMPRESSION: No evidence of significant steno-occlusive disease or aneurysm. Electronically Signed: Jj Mosher DO at 23:51 EDT , Service support , Neck MRA 09/10/20 18:16 IMPRESSION: Limited by motion. No definite acute abnormality or significant stenosis seen. Electronically Signed: Guillaume Erwin MD at 23:48 EDT , Service support , Brain MRI 09/10/20 18:30 IMPRESSION: Senescent changes with no evidence of acute intracranial bleed, mass or ischemia. Electronically Signed: Jj Mosehr DO at 23:50 EDT , Service support , Physical Exam Narrative Physical exam: General: Confused, Cooperative, well hydrated HEENT: Atraumatic Oral: Moist Mucosa Neck: Supple Lungs: Clear to auscultation Cardiovascular: HS I+II, regular, no murmurs Abdomen: Bowel Sounds Present, Soft, Non Tender Extremities: No edema Skin: Vitiliginous skin lesions all over the body Neurological: Grossly intact Psych/Mental Status: Appropriate Assessment & Plan Assessment/Plan (1) DKA (diabetic ketoacidoses): QUALIFIERS: Diabetes mellitus complication detail: without coma Diabetes mellitus type: type 2 Qualified Code(s): E11.10 - Type 2 diabetes mellitus with ketoacidosis without coma (2) Delirium due to another medical condition: (3) Hyperosmolar hyperglycemic state (HHS): (4) Hypertensive urgency: (5) Elevated troponin: (6) SIRS (systemic inflammatory response syndrome): PLAN: 1. Acute metabolic encephalopathy, unclear etiology, persistent Acute CVA ruled out with negative MRI brain, MRA head and neck Will continue to monitor 2. Acute DKA in a known type II DM patient, noncompliant, Patient's gap has been closed, remains on insulin drip because of n.p.o. status HbA1c is 8.4. Will start on Lantus 9 units nightly, will wean off isnulin drip tonight and add ISS at that time 3. Accelerated hypertension/hypertensive urgency, patient resumed on his home medications Continue with as needed labetalol and hydralazine 4. SIRS, with no obvious source of infection, blood cultures are pending, urine culture showed no growth, Continue on IV Zosyn for now 5. Elevated troponins, likely related to #2 and #3, secondary to demand ischemia No acute EKG changes, will continue to monitor 6. Elevated TSH, unclear if secondary to subclinical hypothyroidism or any euthyroid syndrome We will check free T4 and free T3 7. Hypomagnesemia, replaced, recheck in a.m. 8. YOHAN on CKD stage IV, creatinine slowly improving, currently 2.87 from 3.14 We will continue to hold Lasix for now, repeat blood work in a.m. 9. Rest of chronic medical conditions remained stable Charges/Coding Visit Charges Inpatient E&M: 53339 Subs Hosp L3
--- NOTE | 2020-09-11 08:05 | EX.PCM.CONCC ---
Assessment & Plan Assessment/Plan (1) Delirium due to another medical condition: (2) DKA (diabetic ketoacidoses): (3) Acute urinary retention: (4) Chronic kidney failure: (5) Hypertensive urgency: (6) SIRS (systemic inflammatory response syndrome): PLAN: RECOMMENDATIONS: 1. Continue delirium protocol 2. Continue insulin drip for now given n.p.o. status. Possibly add D5 later today 3. Continue empiric antibiotics pending culture data 4. Aggressive control of blood pressure 5. Consult speech therapy for swallow evaluation IMPRESSIONS: 1. Acute metabolic encephalopathy Unclear etiology. Patient has multiple possible conditions leading to current situation including DKA, urinary retention, dehydration and sepsis. We will continue with supportive therapy. Continue with delirium protocol for now. Patient does not appear to have an acute CVA after extensive MRI work-up. 2. Severe sepsis of unclear etiology Patient's chest x-ray is relatively unremarkable except for a small right pleural effusion. Patient does have a leukocytosis, fever and slightly elevated lactate. Continue empiric antibiotics for now. [place] cultures have been sent. Patient tolerating room air well, so pulmonary pathology is unclear. Possibly repeat chest x-ray once patient has been volume resuscitated. 3. Acute on chronic kidney disease stage IIIb Patient receiving volume resuscitation with IV fluids. We will continue to monitor renal function. No indication for renal replacement therapy at this time. 4. DKA from probable noncompliance versus sepsis Patient remains on an insulin drip secondary to elevated blood sugars. Anion gap has been closed, so BMPs can be discontinued. Given n.p.o. status, will continue with insulin drip and add D5 if necessary. Continue blood sugar checks. Patient does have signs and symptoms of sepsis which can lead to DKA. Baseline compliance with insulin is unclear given that he lives alone and his current mental status. 5. Urinary retention Patient with significant urine on initial Connor placement. Patient has been initiated on Flomax therapy. Unclear if patient has a postobstructive exacerbation of problem #3. Patient appears to be doing okay at this time. Could obtain a renal ultrasound for evaluation of hydronephrosis if renal function continues to worsen, but patient is having continued output. 6. Hypertensive urgency Patient with significant hypertension throughout the hospitalization. Patient was allowed to stay hypertensive initially secondary to concerns for acute ischemic event. However, MRIs are within normal limits. Okay to attempt a 30% decrease in systolic blood pressure using hydralazine and labetalol. If patient is able to pass a swallow evaluation, initiation of p.o. medications would be appropriate. 7. Poor history/advanced age/history of chronic wounds Complicates care, management, recovery and prognosis. Will attempt to obtain more information today. Patient does not have any confirmed home medications despite multiple medical issues. HPI Consult Data Date of Consult: 09/11/20 HPI Narrative HPI Narrative: JULIO DUNNE is a 75-year-old male with past medical history listed below, who presented to [facility] on 09/10/2020 secondary to confusion. Patient was reportedly last seen normal at 11 PM on the day prior to presentation. Patient lives alone, but EMS was called when he was found in feces and urine. On the way to the emergency department, a prehospital stroke team was initiated. However, patient's blood sugar was over 500. Patient was noted to be confused and agitated without ability to follow commands or answer questions. In the ER, patient was noted to be febrile at 101 ?F, tachycardic at 120 and hypertensive at 211/110. Patient was saturating well on room air. Patient was agitated, so did receive some Haldol. Patient was noted to have approximately 1 L removed once Connor catheter was placed and restlessness improved significantly. Troponins were slightly elevated, but EKG was unremarkable. Patient was started empirically on Rocephin and an insulin drip for blood sugar of almost 800. Patient was also given labetalol for hypertension. Laboratory data was significant for a leukocytosis of 13.6 with a hemoglobin of 10.7, normal coagulation studies and an elevated creatinine of 3.14. LFTs were slightly elevated and lactate was noted at 2.2. UA was relatively unremarkable and chest x-ray showed only a mild right pleural effusion. Since being in the intensive care unit, patient has done okay. There was significant concern for a possible stroke, so patient had a full MRI work-up overnight that was unremarkable. Patient has remained confused and on the insulin drip. The patient was not treated aggressively for hypertension secondary to concerns for CVA with permissive hypertension. Since MRI, patient has received labetalol and hydralazine with marginal effect. Patient is unable to provide a review of systems at this time secondary to confusion. [facility] Medical History (Updated 09/10/20 @ 17:[address] Freddie Pizano MD) Kidney failure Type 2 diabetes mellitus Venous insufficiency of both lower extremities Home Medications Fish Oil 750 mg PO DAILY 02/15/14 [History Last Taken Unknown] Allergy/AdvReac Type Severity Reaction Status Date / Time No Known Allergies Allergy Verified 02/15/14 11:41 Social History Smoking Status: Never smoker ROS Review of Systems ROS Unobtainable: due to encephalopathy Physical Exam Const no apparent distress General Appearance: uncooperative, disheveled, frail and appears older than stated age; Negative for cooperative or in distress Exam Limitations: altered mental status HEENT normocephalic and head/scalp atraumatic; Negative for moist oral mucous membranes Eyes PERRL, EOMs intact bilaterally and conjunctivae normal Neck full ROM Lymph Lymphatic: no lymphadenopathy noted Resp normal respiratory effort and no use of accessory muscles Auscultation: clear to auscultation bilaterally and diminished lung sounds right lower; Negative for rales, rhonchi or wheezes Cardio regular rate, regular rhythm, S1 normal heart sound, S2 normal heart sound, no murmurs, no rub, no gallops and no JVD Rate: tachycardic GI normal to inspection, nondistended, normoactive bowel sounds no CVA tenderness Extremity no clubbing, cyanosis or edema Skin no rashes or lesions noted Neuro oriented x3 and CN's II-XII intact bilaterally Psych cooperative and affect normal Lab / Micro Data Result Diagrams: 09/11/20 03:25 09/11/20 03:25 Labs: Laboratory Results - last 24 hr 09/10/20 09/10/20 09/10/20 13:10 13:10 13:10 WBC 13.6 H RBC 3.16 L Hgb 10.7 L Hct 31.5 L MCV 99.7 H MCH 33.9 H MCHC 34.0 RDW Std Deviation 47.8 H RDW Coeff of Ximena 13.1 Plt Count 376 MPV 10.1 Immature Gran % (Auto) 0.600 Neut % (Auto) 90.7 H Lymph % (Auto) 6.2 L [place] % (Auto) 2.3 Eos % (Auto) 0.0 Baso % (Auto) 0.2 Absolute Neuts (auto) 12.3 H Absolute Lymphs (auto) 0.84 Nucleated RBC % 0 PT 15.0 H INR 1.2 APTT 26.2 Sodium 134 L Potassium 4.4 Chloride 102 Carbon Dioxide 16.0 L Anion Gap 16 H BUN 52 H Creatinine 3.14 H Estim Creat Clear Calc 21.32 Est GFR (MDRD) Af Amer 25 L Est GFR (MDRD) Non-Af 21 L BUN/Creatinine Ratio 16.6 Glucose 779 H* Serum Osmolality Lactic Acid Calcium 7.6 L Magnesium Total Bilirubin 0.70 AST 29 ALT 101 H Alkaline Phosphatase 136 H Troponin I 0.156 H Total Protein 6.6 Albumin 3.2 Globulin 3.4 Albumin/Globulin Ratio 0.9 Triglycerides Cholesterol LDL Cholesterol VLDL Cholesterol HDL Cholesterol TSH Urine Color Urine Clarity Urine pH Ur Specific [place] Urine Protein Urine Glucose (UA) Urine Ketones Urine Occult Blood Urine Nitrite Urine Bilirubin Urine Urobilinogen Ur Leukocyte Esterase Urine RBC Urine WBC Ur Squamous Epith Cells Urine Bacteria Urine Mucus Acetone Level MRSA (PCR) POC Glucose 09/10/20 09/10/20 09/10/20 13:10 13:10 13:10 WBC RBC Hgb Hct MCV MCH MCHC RDW Std Deviation RDW Coeff of Ximena Plt Count MPV Immature Gran % (Auto) Neut % (Auto) Lymph % (Auto) [place] % (Auto) Eos % (Auto) Baso % (Auto) Absolute Neuts (auto) Absolute Lymphs (auto) Nucleated RBC % PT INR APTT Sodium Potassium Chloride Carbon Dioxide Anion Gap BUN Creatinine Estim Creat Clear Calc Est GFR (MDRD) Af Amer Est GFR (MDRD) Non-Af BUN/Creatinine Ratio Glucose Serum Osmolality 333 H Lactic Acid 2.2 H* Calcium Magnesium Total Bilirubin AST ALT Alkaline Phosphatase Troponin I Total Protein Albumin Globulin Albumin/Globulin Ratio Triglycerides Cholesterol LDL Cholesterol VLDL Cholesterol HDL Cholesterol TSH Urine Color Urine Clarity Urine pH Ur Specific [place] Urine Protein Urine Glucose (UA) Urine Ketones Urine Occult Blood Urine Nitrite Urine Bilirubin Urine Urobilinogen Ur Leukocyte Esterase Urine RBC Urine WBC Ur Squamous Epith Cells Urine Bacteria Urine Mucus Acetone Level NEGATIVE MRSA (PCR) POC Glucose 09/10/20 09/10/20 09/10/20 15:30 16:47 17:48 WBC RBC Hgb Hct MCV MCH MCHC RDW Std Deviation RDW Coeff of Ximena Plt Count MPV Immature Gran % (Auto) Neut % (Auto) Lymph % (Auto) [place] % (Auto) Eos % (Auto) Baso % (Auto) Absolute Neuts (auto) Absolute Lymphs (auto) Nucleated RBC % PT INR APTT Sodium Potassium Chloride Carbon Dioxide Anion Gap BUN Creatinine Estim Creat Clear Calc Est GFR (MDRD) Af Amer Est GFR (MDRD) Non-Af BUN/Creatinine Ratio Glucose Serum Osmolality Lactic Acid Calcium Magnesium Total Bilirubin AST ALT Alkaline Phosphatase Troponin I Total Protein Albumin Globulin Albumin/Globulin Ratio Triglycerides Cholesterol LDL Cholesterol VLDL Cholesterol HDL Cholesterol TSH Urine Color Yellow Urine Clarity Clear Urine pH 6.0 Ur Specific [place] 1.015 Urine Protein 500 H Urine Glucose (UA) 1000 H Urine Ketones 5 H Urine Occult Blood 25 H Urine Nitrite Negative Urine Bilirubin Negative Urine Urobilinogen Normal Ur Leukocyte Esterase Negative Urine RBC 0-5 SEEN Urine WBC 0 SEEN Ur Squamous Epith Cells 0 SEEN Urine Bacteria 0 SEEN Urine Mucus 0 SEEN Acetone Level MRSA (PCR) POC Glucose 489 H* 490 H* 09/10/20 09/10/20 09/10/20 18:20 18:20 18:25 WBC RBC Hgb Hct MCV MCH MCHC RDW Std Deviation RDW Coeff of Xim[place] Plt Count MPV Immature Gran % (Auto) Neut % (Auto) Lymph % (Auto) [place] % (Auto) Eos % (Auto) Baso % (Auto) Absolute Neuts (auto) Absolute Lymphs (auto) Nucleated RBC % PT INR APTT Sodium 138 Potassium 3.9 Chloride 108 H Carbon Dioxide 15.0 L Anion Gap 15 BUN 52 H Creatinine 3.19 H Estim Creat Clear Calc 20.34 Est GFR (MDRD) Af Amer 25 L Est GFR (MDRD) Non-Af 20 L BUN/Creatinine Ratio 16.3 Glucose 444 H Serum Osmolality Lactic Acid 5.0 H* Calcium 7.1 L Magnesium 1.8 Total Bilirubin AST ALT Alkaline Phosphatase Troponin I 0.439 H Total Protein Albumin Globulin Albumin/Globulin Ratio Triglycerides Cholesterol LDL Cholesterol VLDL Cholesterol HDL Cholesterol TSH Urine Color Urine Clarity Urine pH Ur Specific [place] Urine Protein Urine Glucose (UA) Urine Ketones Urine Occult Blood Urine Nitrite Urine Bilirubin Urine Urobilinogen Ur Leukocyte Esterase Urine RBC Urine WBC Ur Squamous Epith Cells Urine Bacteria Urine Mucus Acetone Level MRSA (PCR) Negative POC Glucose 09/10/20 09/10/20 09/10/20 18:44 19:57 21:21 WBC RBC Hgb Hct MCV MCH MCHC RDW Std Deviation RDW Coeff of Ximena Plt Count MPV Immature Gran % (Auto) Neut % (Auto) Lymph % (Auto) [place] % (Auto) Eos % (Auto) Baso % (Auto) Absolute Neuts (auto) Absolute Lymphs (auto) Nucleated RBC % PT INR APTT Sodium Potassium Chloride Carbon Dioxide Anion Gap BUN Creatinine Estim Creat Clear Calc Est GFR (MDRD) Af Amer Est GFR (MDRD) Non-Af BUN/Creatinine Ratio Glucose Serum Osmolality Lactic Acid Calcium Magnesium Total Bilirubin AST ALT Alkaline Phosphatase Troponin I Total Protein Albumin Globulin Albumin/Globulin Ratio Triglycerides Cholesterol LDL Cholesterol VLDL Cholesterol HDL Cholesterol TSH Urine Color Urine Clarity Urine pH Ur Specific [place] Urine Protein Urine Glucose (UA) Urine Ketones Urine Occult Blood Urine Nitrite Urine Bilirubin Urine Urobilinogen Ur Leukocyte Esterase Urine RBC Urine WBC Ur Squamous Epith Cells Urine Bacteria Urine Mucus Acetone Level MRSA (PCR) POC Glucose 414 H 368 H 407 H 09/10/20 09/10/20 09/10/20 21:35 21:35 23:12 WBC RBC Hgb Hct MCV MCH MCHC RDW Std Deviation RDW Coeff of Ximena Plt Count MPV Immature Gran % (Auto) Neut % (Auto) Lymph % (Auto) [place] % (Auto) Eos % (Auto) Baso % (Auto) Absolute Neuts (auto) Absolute Lymphs (auto) Nucleated RBC % PT INR APTT Sodium 139 Potassium 3.8 Chloride 109 H Carbon Dioxide 16.0 L Anion Gap 14 BUN 50 H Creatinine 2.95 H Estim Creat Clear Calc 22.00 Est GFR (MDRD) Af Amer 27 L Est GFR (MDRD) Non-Af 22 L BUN/Creatinine Ratio 16.9 Glucose 412 H Serum Osmolality Lactic Acid Calcium 7.1 L Magnesium Total Bilirubin AST ALT Alkaline Phosphatase Troponin I 0.528 H Total Protein Albumin Globulin Albumin/Globulin Ratio Triglycerides Cholesterol LDL Cholesterol VLDL Cholesterol HDL Cholesterol TSH Urine Color Urine Clarity Urine pH Ur Specific [place] Urine Protein Urine Glucose (UA) Urine Ketones Urine Occult Blood Urine Nitrite Urine Bilirubin Urine Urobilinogen Ur Leukocyte Esterase Urine RBC Urine WBC Ur Squamous Epith Cells Urine Bacteria Urine Mucus Acetone Level MRSA (PCR) POC Glucose 395 H 09/10/20 09/10/20 09/11/20 23:45 23:45 00:08 WBC RBC Hgb Hct MCV MCH MCHC RDW Std Deviation RDW Coeff of Ximena Plt Count MPV Immature Gran % (Auto) Neut % (Auto) Lymph % (Auto) [place] % (Auto) Eos % (Auto) Baso % (Auto) Absolute Neuts (auto) Absolute Lymphs (auto) Nucleated RBC % PT INR APTT Sodium 140 Potassium 3.8 Chloride 111 H Carbon Dioxide 17.0 L Anion Gap 12 BUN 50 H Creatinine 2.83 H Estim Creat Clear Calc 22.93 Est GFR (MDRD) Af Amer 28 L Est GFR (MDRD) Non-Af 23 L BUN/Creatinine Ratio 17.7 Glucose 407 H Serum Osmolality Lactic Acid Calcium 7.0 L Magnesium Total Bilirubin AST ALT Alkaline Phosphatase Troponin I 0.468 H Total Protein Albumin Globulin Albumin/Globulin Ratio Triglycerides Cholesterol LDL Cholesterol VLDL Cholesterol HDL Cholesterol TSH Urine Color Urine Clarity Urine pH Ur Specific [place] Urine Protein Urine Glucose (UA) Urine Ketones Urine Occult Blood Urine Nitrite Urine Bilirubin Urine Urobilinogen Ur Leukocyte Esterase Urine RBC Urine WBC Ur Squamous Epith Cells Urine Bacteria Urine Mucus Acetone Level MRSA (PCR) POC Glucose 384 H 09/11/20 09/11/20 09/11/20 01:09 03:09 03:25 WBC 14.6 H RBC 2.74 L Hgb 9.4 L Hct 27.0 L MCV 98.5 H MCH 34.3 H MCHC 34.8 RDW Std Deviation 47.5 H RDW Coeff of Ximena 13.3 Plt Count 296 MPV 10.2 Immature Gran % (Auto) 0.500 Neut % (Auto) 81.8 H Lymph % (Auto) 10.6 L [place] % (Auto) 6.7 Eos % (Auto) 0.2 Baso % (Auto) 0.2 Absolute Neuts (auto) 11.9 H Absolute Lymphs (auto) 1.55 Nucleated RBC % 0 PT INR APTT Sodium Potassium Chloride Carbon Dioxide Anion Gap BUN Creatinine Estim Creat Clear Calc Est GFR (MDRD) Af Amer Est GFR (MDRD) Non-Af BUN/Creatinine Ratio Glucose Serum Osmolality Lactic Acid Calcium Magnesium Total Bilirubin AST ALT Alkaline Phosphatase Troponin I Total Protein Albumin Globulin Albumin/Globulin Ratio Triglycerides Cholesterol LDL Cholesterol VLDL Cholesterol HDL Cholesterol TSH Urine Color Urine Clarity Urine pH Ur Specific [place] Urine Protein Urine Glucose (UA) Urine Ketones Urine Occult Blood Urine Nitrite Urine Bilirubin Urine Urobilinogen Ur Leukocyte Esterase Urine RBC Urine WBC Ur Squamous Epith Cells Urine Bacteria Urine Mucus Acetone Level MRSA (PCR) POC Glucose 389 H 322 H 09/11/20 09/11/20 09/11/20 03:25 03:25 04:06 WBC RBC Hgb Hct MCV MCH MCHC RDW Std Deviation RDW Coeff of Ximena Plt Count MPV Immature Gran % (Auto) Neut % (Auto) Lymph % (Auto) [place] % (Auto) Eos % (Auto) Baso % (Auto) Absolute Neuts (auto) Absolute Lymphs (auto) Nucleated RBC % PT INR APTT Sodium 143 Potassium 4.1 Chloride 113 H Carbon Dioxide 19.0 L Anion Gap 11 BUN 48 H Creatinine 2.87 H Estim Creat Clear Calc 22.61 Est GFR (MDRD) Af Amer 28 L Est GFR (MDRD) Non-Af 23 L BUN/Creatinine Ratio 16.7 Glucose 314 H Serum Osmolality Lactic Acid Calcium 7.2 L Magnesium Total Bilirubin AST ALT Alkaline Phosphatase Troponin I Total Protein Albumin Globulin Albumin/Globulin Ratio Triglycerides 103 Cholesterol 210 H LDL Cholesterol 135 H VLDL Cholesterol 21 HDL Cholesterol 54 TSH 5.96 H Urine Color Urine Clarity Urine pH Ur Specific [place] Urine Protein Urine Glucose (UA) Urine Ketones Urine Occult Blood Urine Nitrite Urine Bilirubin Urine Urobilinogen Ur Leukocyte Esterase Urine RBC Urine WBC Ur Squamous Epith Cells Urine Bacteria Urine Mucus Acetone Level MRSA (PCR) POC Glucose 321 H ABG Data ABG results: ABG 09/10/20 18:51 Specimen Type ART Sample Site L Radial pH 7.36 Bicarbonate Actual 13.0 L Total CO2 14 Base Excess -12 L O2 Saturation 97 ABG pCO2 22.8 L ABG pO2 91 Prem Test N/A O2 Delivery Device Room Air Radiology Impression Brain CT 09/10/20 12:18 IMPRESSION: Chronic involutional changes of the brain. Electronically Signed: Radha Ray MD at 14:03 EDT Tel , Service support , Chest X-Ray 09/10/20 12:19 IMPRESSION: Mild right pleural effusion. at 1429 Reported and signed by: Zakia Erickson MD Electronically Signed: Zakia Erickson MD at 14:28 EDT Tel , Service support , Brain CT 09/10/20 18:01 IMPRESSION: No change or acute abnormality since 4.5 hours earlier. Electronically Signed: Guillaume Erwin MD at 18:17 EDT , Service support , ADDENDUM: 09/10/20 1825 IMPRESSION: No change or acute abnormality since 4.5 hours earlier. N.B. : The above Results were Read Back by Guillaume Erwin MD to Sushila Chavez RN, and understanding confirmed on 09/10/2020 18:18:36 (ET). Electronically Signed: Guillaume Erwin MD at 18:17 EDT , Service support , Head MRA 09/10/20 18:16 IMPRESSION: No evidence of significant steno-occlusive disease or aneurysm. Electronically Signed: Jj Mosher DO at 23:51 EDT , Service support , Neck MRA 09/10/20 18:16 IMPRESSION: Limited by motion. No definite acute abnormality or significant stenosis seen. Electronically Signed: Guillaume Erwin MD at 23:48 EDT , Service support , Brain MRI 09/10/20 18:30 IMPRESSION: Senescent changes with no evidence of acute intracranial bleed, mass or ischemia. Electronically Signed: Jj Mosher DO at 23:50 EDT , Service support , Charges/Coding Visit Charges Inpatient E&M: 88104 Init Hosp L3
[2020-09-11 08:15] LABS: Bedside Glucose 327 mg/dL (70-110)
[2020-09-11 08:31] LABS: Bedside Glucose 266 mg/dL (70-110)
[2020-09-11] MEDS: hydrALAZINE 20 MG/ML Vial IV (08:39)
[2020-09-11 08:47] LABS: AST(SGOT) 25 U/L (15-37); Alanine Aminotransfer ALT/SGPT 75 U/L (16-61); Albumin, Serum 2.5 g/dL (3.2-5.0); Alkaline Phosphatase 103 U/L (45-117); Bilirubin, Direct 0.12 mg/dL (0.00-0.30); Globulin 2.9 g/dL (2.2-4.2); Hemoglobin A1c 8.4 % (3.8-5.6); Protein, Total 5.4 g/dL (6.4-8.2)
--- NOTE | 2020-09-11 08:48 | CASEMGMT ---
Addendum entered by Zakia Young 09/11/20 10:08: KONSTANTIN spoke tammy/KONSTANTIN Machado at the [place]. She states pt is over 70% service connected and would qualify for skilled or chcf care under the [facility] benefit. KONSTANTIN would need to submit a GEC to [facility] and therapy notes to get it approved. For skilled, the following have a [facility] contract: [facility], [facility], [facility], [place], [facility], [facility] and [facility]. 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 KONSTANTIN spoke tammy/Lacy at [facility], she states pt discharged on August 28, left as pt could not afford the copay. Therapy was recommending pt stay, but he stated needed to leave due to copay. It is unclear whether or not transferring pt to a [place] contracted facility from [facility] was explored. KONSTANTIN called [facility], message left. HALLE Mckeon Addendum entered by Zakia Young 09/11/20 09:32: [facility] called RN with pt's medication list. KONSTANTIN called [facility] to clarify when pt left there and the circumstances around his being discharged. KONSTANTIN called KONSTANTIN Machado at the [facility] to inquire if pt is service connected. Message left. HALLE Mckeon Original Note: Pt's RN requested med list from [place], if SW can assist in attaining. KONSTANTIN called [facility], pt sees CHEESE COOK June, was put in touch w/her RN Loyda([phone], [id number]). KONSTANTIN spoke wDanielle, she will send a med list once release of information faxed. KONSTANTIN faxed release of information to Loyda at the [facility]. HALLE Mckeon
[2020-09-11] MEDS: Carvedilol 25 MG Tablet PO ×2 (11:26→21:39)
[2020-09-11] MEDS: Lisinopril 5 MG Tablet PO (11:27)
[2020-09-11] MEDS: Levothyroxine 25 MCG TABLET PO (11:28)
[2020-09-11] MEDS: Furosemide 40 MG Tablet PO (11:28)
[2020-09-11] MEDS: Gabapentin 300 MG Capsule PO ×2 (11:29→16:53)
[2020-09-11] MEDS: Calcitriol 0.25 MCG Capsule 0.75 MCG PO (11:30)
[2020-09-11 12:51] LABS: Bedside Glucose 238 mg/dL (70-110)
[2020-09-11 13:05] LABS: Bedside Glucose 286 mg/dL (70-110)
--- NOTE | 2020-09-11 14:17 | PCM.CONS.GEN ---
Assessment & Plan Assessment/Plan (1) DKA (diabetic ketoacidoses): QUALIFIERS: Diabetes mellitus type: type 2 Diabetes mellitus complication detail: without coma Qualified Code(s): E11.10 - Type 2 diabetes mellitus with ketoacidosis without coma (2) Delirium due to another medical condition: PLAN: On empiric vanc/zosyn, cxs pending. UA with 0 wbc seen. Fever to 101.4. On RA, lungs clear. Will check covid. Will follow, thank you. HPI Consult Data Date of Consult: 09/11/20 HPI Narrative HPI Narrative: JULIO DUNNE, is a 75 M who presented with altered mental status, DKA. Unable to provide history or ROS. Admitted on insulin gtt, started on empiric vanc/zosyn. [facility] Medical History Kidney failure Type 2 diabetes mellitus Venous insufficiency of both lower extremities Home Medications Fish Oil 750 mg PO DAILY 02/15/14 [History Last Taken Unknown] Allergy/AdvReac Type Severity Reaction Status Date / Time No Known Allergies Allergy Verified 02/15/14 11:41 Social History Smoking Status: Never smoker Physical Exam Const Constitutional Narrative: wakes briefly to physical stim, oriented x1 General Appearance: lethargic HEENT normocephalic and head/scalp atraumatic Eyes PERRL and EOMs intact bilaterally Neck supple and No nodes Resp normal air movement and clear to auscultation bilaterally Cardio regular rate and regular rhythm GI normal to inspection, nondistended, normoactive bowel sounds Extremity no clubbing, cyanosis or edema Skin no rashes or lesions noted Neuro CN's II-XII intact bilaterally Lab / Micro Data Result Diagrams: 09/11/20 03:25 09/11/20 03:25 Labs: Laboratory Results - last 24 hr 09/10/20 09/10/20 09/10/20 13:10 15:30 16:47 WBC RBC Hgb Hct MCV MCH MCHC RDW Std Deviation RDW Coeff of Ximena Plt Count MPV Immature Gran % (Auto) Neut % (Auto) Lymph % (Auto) [place] % (Auto) Eos % (Auto) Baso % (Auto) Absolute Neuts (auto) Absolute Lymphs (auto) Nucleated RBC % Sodium Potassium Chloride Carbon Dioxide Anion Gap BUN Creatinine Estim Creat Clear Calc Est GFR (MDRD) Af Amer Est GFR (MDRD) Non-Af BUN/Creatinine Ratio Glucose Hemoglobin A1c Serum Osmolality 333 H Lactic Acid Calcium Magnesium Total Bilirubin Direct Bilirubin AST ALT Alkaline Phosphatase Troponin I Total Protein Albumin Globulin Triglycerides Cholesterol LDL Cholesterol VLDL Cholesterol HDL Cholesterol TSH Urine Color Yellow Urine Clarity Clear Urine pH 6.0 Ur Specific [place] 1.015 Urine Protein 500 H Urine Glucose (UA) 1000 H Urine Ketones 5 H Urine Occult Blood 25 H Urine Nitrite Negative Urine Bilirubin Negative Urine Urobilinogen Normal Ur Leukocyte Esterase Negative Urine RBC 0-5 SEEN Urine WBC 0 SEEN Ur Squamous Epith Cells 0 SEEN Urine Bacteria 0 SEEN Urine Mucus 0 SEEN MRSA (PCR) POC Glucose 489 H* 09/10/20 09/10/20 09/10/20 17:48 18:20 18:20 WBC RBC Hgb Hct MCV MCH MCHC RDW Std Deviation RDW Coeff of Ximena Plt Count MPV Immature Gran % (Auto) Neut % (Auto) Lymph % (Auto) [place] % (Auto) Eos % (Auto) Baso % (Auto) Absolute Neuts (auto) Absolute Lymphs (auto) Nucleated RBC % Sodium 138 Potassium 3.9 Chloride 108 H Carbon Dioxide 15.0 L Anion Gap 15 BUN 52 H Creatinine 3.19 H Estim Creat Clear Calc 20.34 Est GFR (MDRD) Af Amer 25 L Est GFR (MDRD) Non-Af 20 L BUN/Creatinine Ratio 16.3 Glucose 444 H Hemoglobin A1c Serum Osmolality Lactic Acid 5.0 H* Calcium 7.1 L Magnesium 1.8 Total Bilirubin Direct Bilirubin AST ALT Alkaline Phosphatase Troponin I 0.439 H Total Protein Albumin Globulin Triglycerides Cholesterol LDL Cholesterol VLDL Cholesterol HDL Cholesterol TSH Urine Color Urine Clarity Urine pH Ur Specific [place] Urine Protein Urine Glucose (UA) Urine Ketones Urine Occult Blood Urine Nitrite Urine Bilirubin Urine Urobilinogen Ur Leukocyte Esterase Urine RBC Urine WBC Ur Squamous Epith Cells Urine Bacteria Urine Mucus MRSA (PCR) POC Glucose 490 H* 09/10/20 09/10/20 09/10/20 18:25 18:44 19:57 WBC RBC Hgb Hct MCV MCH MCHC RDW Std Deviation RDW Coeff of Ximena Plt Count MPV Immature Gran % (Auto) Neut % (Auto) Lymph % (Auto) [place] % (Auto) Eos % (Auto) Baso % (Auto) Absolute Neuts (auto) Absolute Lymphs (auto) Nucleated RBC % Sodium Potassium Chloride Carbon Dioxide Anion Gap BUN Creatinine Estim Creat Clear Calc Est GFR (MDRD) Af Amer Est GFR (MDRD) Non-Af BUN/Creatinine Ratio Glucose Hemoglobin A1c Serum Osmolality Lactic Acid Calcium Magnesium Total Bilirubin Direct Bilirubin AST ALT Alkaline Phosphatase Troponin I Total Protein Albumin Globulin Triglycerides Cholesterol LDL Cholesterol VLDL Cholesterol HDL Cholesterol TSH Urine Color Urine Clarity Urine pH Ur Specific [place] Urine Protein Urine Glucose (UA) Urine Ketones Urine Occult Blood Urine Nitrite Urine Bilirubin Urine Urobilinogen Ur Leukocyte Esterase Urine RBC Urine WBC Ur Squamous Epith Cells Urine Bacteria Urine Mucus MRSA (PCR) Negative POC Glucose 414 H 368 H 09/10/20 09/10/20 09/10/20 21:21 21:35 21:35 WBC RBC Hgb Hct MCV MCH MCHC RDW Std Deviation RDW Coeff of Ximena Plt Count MPV Immature Gran % (Auto) Neut % (Auto) Lymph % (Auto) [place] % (Auto) Eos % (Auto) Baso % (Auto) Absolute Neuts (auto) Absolute Lymphs (auto) Nucleated RBC % Sodium 139 Potassium 3.8 Chloride 109 H Carbon Dioxide 16.0 L Anion Gap 14 BUN 50 H Creatinine 2.95 H Estim Creat Clear Calc 22.00 Est GFR (MDRD) Af Amer 27 L Est GFR (MDRD) Non-Af 22 L BUN/Creatinine Ratio 16.9 Glucose 412 H Hemoglobin A1c Serum Osmolality Lactic Acid Calcium 7.1 L Magnesium Total Bilirubin Direct Bilirubin AST ALT Alkaline Phosphatase Troponin I 0.528 H Total Protein Albumin Globulin Triglycerides Cholesterol LDL Cholesterol VLDL Cholesterol HDL Cholesterol TSH Urine Color Urine Clarity Urine pH Ur Specific [place] Urine Protein Urine Glucose (UA) Urine Ketones Urine Occult Blood Urine Nitrite Urine Bilirubin Urine Urobilinogen Ur Leukocyte Esterase Urine RBC Urine WBC Ur Squamous Epith Cells Urine Bacteria Urine Mucus MRSA (PCR) POC Glucose 407 H 09/10/20 09/10/20 09/10/20 23:12 23:45 23:45 WBC RBC Hgb Hct MCV MCH MCHC RDW Std Deviation RDW Coeff of Ximena Plt Count MPV Immature Gran % (Auto) Neut % (Auto) Lymph % (Auto) [place] % (Auto) Eos % (Auto) Baso % (Auto) Absolute Neuts (auto) Absolute Lymphs (auto) Nucleated RBC % Sodium 140 Potassium 3.8 Chloride 111 H Carbon Dioxide 17.0 L Anion Gap 12 BUN 50 H Creatinine 2.83 H Estim Creat Clear Calc 22.93 Est GFR (MDRD) Af Amer 28 L Est GFR (MDRD) Non-Af 23 L BUN/Creatinine Ratio 17.7 Glucose 407 H Hemoglobin A1c Serum Osmolality Lactic Acid Calcium 7.0 L Magnesium Total Bilirubin Direct Bilirubin AST ALT Alkaline Phosphatase Troponin I 0.468 H Total Protein Albumin Globulin Triglycerides Cholesterol LDL Cholesterol VLDL Cholesterol HDL Cholesterol TSH Urine Color Urine Clarity Urine pH Ur Specific [place] Urine Protein Urine Glucose (UA) Urine Ketones Urine Occult Blood Urine Nitrite Urine Bilirubin Urine Urobilinogen Ur Leukocyte Esterase Urine RBC Urine WBC Ur Squamous Epith Cells Urine Bacteria Urine Mucus MRSA (PCR) POC Glucose 395 H 09/11/20 09/11/20 09/11/20 00:08 01:09 03:09 WBC RBC Hgb Hct MCV MCH MCHC RDW Std Deviation RDW Coeff of Ximena Plt Count MPV Immature Gran % (Auto) Neut % (Auto) Lymph % (Auto) [place] % (Auto) Eos % (Auto) Baso % (Auto) Absolute Neuts (auto) Absolute Lymphs (auto) Nucleated RBC % Sodium Potassium Chloride Carbon Dioxide Anion Gap BUN Creatinine Estim Creat Clear Calc Est GFR (MDRD) Af Amer Est GFR (MDRD) Non-Af BUN/Creatinine Ratio Glucose Hemoglobin A1c Serum Osmolality Lactic Acid Calcium Magnesium Total Bilirubin Direct Bilirubin AST ALT Alkaline Phosphatase Troponin I Total Protein Albumin Globulin Triglycerides Cholesterol LDL Cholesterol VLDL Cholesterol HDL Cholesterol TSH Urine Color Urine Clarity Urine pH Ur Specific [place] Urine Protein Urine Glucose (UA) Urine Ketones Urine Occult Blood Urine Nitrite Urine Bilirubin Urine Urobilinogen Ur Leukocyte Esterase Urine RBC Urine WBC Ur Squamous Epith Cells Urine Bacteria Urine Mucus MRSA (PCR) POC Glucose 384 H 389 H 322 H 09/11/20 09/11/20 09/11/20 03:25 03:25 03:25 WBC 14.6 H RBC 2.74 L Hgb 9.4 L Hct 27.0 L MCV 98.5 H MCH 34.3 H MCHC 34.8 RDW Std Deviation 47.5 H RDW Coeff of Ximena 13.3 Plt Count 296 MPV 10.2 Immature Gran % (Auto) 0.500 Neut % (Auto) 81.8 H Lymph % (Auto) 10.6 L [place] % (Auto) 6.7 Eos % (Auto) 0.2 Baso % (Auto) 0.2 Absolute Neuts (auto) 11.9 H Absolute Lymphs (auto) 1.55 Nucleated RBC % 0 Sodium Potassium Chloride Carbon Dioxide Anion Gap BUN Creatinine Estim Creat Clear Calc Est GFR (MDRD) Af Amer Est GFR (MDRD) Non-Af BUN/Creatinine Ratio Glucose Hemoglobin A1c 8.4 H Serum Osmolality Lactic Acid Calcium Magnesium Total Bilirubin Direct Bilirubin AST ALT Alkaline Phosphatase Troponin I Total Protein Albumin Globulin Triglycerides 103 Cholesterol 210 H LDL Cholesterol 135 H VLDL Cholesterol 21 HDL Cholesterol 54 TSH 5.96 H Urine Color Urine Clarity Urine pH Ur Specific [place] Urine Protein Urine Glucose (UA) Urine Ketones Urine Occult Blood Urine Nitrite Urine Bilirubin Urine Urobilinogen Ur Leukocyte Esterase Urine RBC Urine WBC Ur Squamous Epith Cells Urine Bacteria Urine Mucus MRSA (PCR) POC Glucose 09/11/20 09/11/20 09/11/20 03:25 03:25 04:06 WBC RBC Hgb Hct MCV MCH MCHC RDW Std Deviation RDW Coeff of Ximena Plt Count MPV Immature Gran % (Auto) Neut % (Auto) Lymph % (Auto) [place] % (Auto) Eos % (Auto) Baso % (Auto) Absolute Neuts (auto) Absolute Lymphs (auto) Nucleated RBC % Sodium 143 Potassium 4.1 Chloride 113 H Carbon Dioxide 19.0 L Anion Gap 11 BUN 48 H Creatinine 2.87 H Estim Creat Clear Calc 22.61 Est GFR (MDRD) Af Amer 28 L Est GFR (MDRD) Non-Af 23 L BUN/Creatinine Ratio 16.7 Glucose 314 H Hemoglobin A1c Serum Osmolality Lactic Acid Calcium 7.2 L Magnesium Total Bilirubin 0.40 Direct Bilirubin 0.12 AST 25 ALT 75 H Alkaline Phosphatase 103 Troponin I Total Protein 5.4 L Albumin 2.5 L Globulin 2.9 Triglycerides Cholesterol LDL Cholesterol VLDL Cholesterol HDL Cholesterol TSH Urine Color Urine Clarity Urine pH Ur Specific [place] Urine Protein Urine Glucose (UA) Urine Ketones Urine Occult Blood Urine Nitrite Urine Bilirubin Urine Urobilinogen Ur Leukocyte Esterase Urine RBC Urine WBC Ur Squamous Epith Cells Urine Bacteria Urine Mucus MRSA (PCR) POC Glucose 321 H 09/11/20 09/11/20 09/11/20 05:12 08:26 10:34 WBC RBC Hgb Hct MCV MCH MCHC RDW Std Deviation RDW Coeff of Ximena Plt Count MPV Immature Gran % (Auto) Neut % (Auto) Lymph % (Auto) [place] % (Auto) Eos % (Auto) Baso % (Auto) Absolute Neuts (auto) Absolute Lymphs (auto) Nucleated RBC % Sodium Potassium Chloride Carbon Dioxide Anion Gap BUN Creatinine Estim Creat Clear Calc Est GFR (MDRD) Af Amer Est GFR (MDRD) Non-Af BUN/Creatinine Ratio Glucose Hemoglobin A1c Serum Osmolality Lactic Acid Calcium Magnesium Total Bilirubin Direct Bilirubin AST ALT Alkaline Phosphatase Troponin I Total Protein Albumin Globulin Triglycerides Cholesterol LDL Cholesterol VLDL Cholesterol HDL Cholesterol TSH Urine Color Urine Clarity Urine pH Ur Specific [place] Urine Protein Urine Glucose (UA) Urine Ketones Urine Occult Blood Urine Nitrite Urine Bilirubin Urine Urobilinogen Ur Leukocyte Esterase Urine RBC Urine WBC Ur Squamous Epith Cells Urine Bacteria Urine Mucus MRSA (PCR) POC Glucose 327 H 266 H 238 H 09/11/20 13:01 WBC RBC Hgb Hct MCV MCH MCHC RDW Std Deviation RDW Coeff of Ximena Plt Count MPV Immature Gran % (Auto) Neut % (Auto) Lymph % (Auto) [place] % (Auto) Eos % (Auto) Baso % (Auto) Absolute Neuts (auto) Absolute Lymphs (auto) Nucleated RBC % Sodium Potassium Chloride Carbon Dioxide Anion Gap BUN Creatinine Estim Creat Clear Calc Est GFR (MDRD) Af Amer Est GFR (MDRD) Non-Af BUN/Creatinine Ratio Glucose Hemoglobin A1c Serum Osmolality Lactic Acid Calcium Magnesium Total Bilirubin Direct Bilirubin AST ALT Alkaline Phosphatase Troponin I Total Protein Albumin Globulin Triglycerides Cholesterol LDL Cholesterol VLDL Cholesterol HDL Cholesterol TSH Urine Color Urine Clarity Urine pH Ur Specific [place] Urine Protein Urine Glucose (UA) Urine Ketones Urine Occult Blood Urine Nitrite Urine Bilirubin Urine Urobilinogen Ur Leukocyte Esterase Urine RBC Urine WBC Ur Squamous Epith Cells Urine Bacteria Urine Mucus MRSA (PCR) POC Glucose 286 H Micro: Microbiology 09/10/20 15:30 Urine Culture - Preliminary Urine, Catheterized Culture exhibits no growth. ABG Data ABG results: ABG 09/10/20 18:51 Specimen Type ART Sample Site L Radial pH 7.36 Bicarbonate Actual 13.0 L Total CO2 14 Base Excess -12 L O2 Saturation 97 ABG pCO2 22.8 L ABG pO2 91 Prem Test N/A O2 Delivery Device Room Air Radiology Impression Chest X-Ray 09/10/20 12:19 IMPRESSION: Mild right pleural effusion. at 1429 Reported and signed by: Zakia Erickson MD Electronically Signed: Zakia Erickson MD at 14:28 EDT Tel , Service support , Brain CT 09/10/20 18:01 IMPRESSION: No change or acute abnormality since 4.5 hours earlier. Electronically Signed: Guillaume Erwin MD at 18:17 EDT , Service support , ADDENDUM: 09/10/20 1825 IMPRESSION: No change or acute abnormality since 4.5 hours earlier. N.B. : The above Results were Read Back by Guillaume Erwin MD to Sushila Chavez RN, and understanding confirmed on 09/10/2020 18:18:36 (ET). Electronically Signed: Guillaume Erwin MD at 18:17 EDT , Service support , Head MRA 09/10/20 18:16 IMPRESSION: No evidence of significant steno-occlusive disease or aneurysm. Electronically Signed: Jj Mosher DO at 23:51 EDT , Service support , Neck MRA 09/10/20 18:16 IMPRESSION: Limited by motion. No definite acute abnormality or significant stenosis seen. Electronically Signed: Guillaume Erwin MD at 23:48 EDT , Service support , Brain MRI 09/10/20 18:30 IMPRESSION: Senescent changes with no evidence of acute intracranial bleed, mass or ischemia. Electronically Signed: Jj Mosher DO at 23:50 EDT , Service support , Echocardiogram 09/11/20 05:55 Interpretation Summary Normal LV size. Mild concentric left ventricular hypertrophy. Left ventricular systolic function is lower limits of normal. The estimated ejection fraction is 50 %. Stage 1 diastolic dysfunction. Mild (1+) eccentric mitral valve insufficiency. Mild (1+) aortic valve insufficiency. Ordering Physician: Freddie Pizano Referring Physician: [facility] Performed By: Sissy Obrien, JESSE, RVT
[2020-09-11 14:25] LABS: Free T3 0.9 pg/mL (2.18-3.98); T4 Free Direct 1.01 ng/dL (0.76-1.46)
[2020-09-11 14:30] LABS: Magnesium 1.8 mg/dL (1.6-2.6)
[2020-09-11 15:36] LABS: Bedside Glucose 302 mg/dL (70-110)
[2020-09-11] MEDS: Sodium Bicarbonate 650 MG Tablet 1950 MG PO ×2 (16:53→21:39)
[2020-09-11 17:31] LABS: Bedside Glucose 294 mg/dL (70-110)
[2020-09-11] MEDS: Atorvastatin Calcium 40 MG Tablet PO (21:40)
[2020-09-12] VITALS (15 sets, daily range): BP systolic 91–144; BP diastolic 48–84; PULSE 35–84; RESP 14–18; TEMP 36.2–36.9; O2SAT 97–100
[2020-09-12 05:31] LABS: Absolute Lymphocyte Count 0.92 X10^3/uL (0.83-4.51); Absolute Neutrophil Count 8.7 X10^3/uL (2.0-7.7); Basophil# 0.01 X10^3/uL; Basophil% 0.1 % (0-1); Eosinophil# 0.03 X10^3/uL; Eosinophils% 0.3 % (0-5); Hematocrit 23.6 % (40-54); Lymphocyte # 0.92 X10^3/ul (0.83-4.51); Mean Corp Hgb Conc 33.9 g/dL (32-36); Mean Corpuscular Hgb 33.8 pg (27.0-32.0); Mean Corpuscular Volume 99.6 fL (80-94); Mean Platelet Vol. 10.2 fl (6.2-12.0); Monocyte# 0.49 X10^3/uL; Monocyte% 4.8 % (0-10); NRBC Flagged by Analyzer 0 % (0-5); Neutrophil # 8.73 X10^3/uL (2.7-7.7); Neutrophil % 85.2 % (47-70); Platelet Count 242 K/mm3 (150-450); RBC Distribution Width CV 13.9 % (11.6-14.6); RBC Distribution Width SD 50.1 fl (35.1-43.9); Red Blood Count 2.37 M/mm3 (4.6-6.2); White Blood Count 10.2 K/mm3 (4.4-11.0)
[2020-09-12 05:49] LABS: ALB/GLOB Ratio 0.9 RATIO (0.9-2.4); AST(SGOT) 21 U/L (15-37); Alanine Aminotransfer ALT/SGPT 50 U/L (16-61); Alkaline Phosphatase 74 U/L (45-117); Anion Gap 10 (5-15); BUN 48 mg/dL (7-18); BUN/Creat Ratio 17.1 RATIO (10-20); Calcium,Total 6.8 mg/dL (8.5-10.1); Chloride 115 mmol/L (98-107); Creatinine, Serum 2.81 mg/dL (0.70-1.30); EST Glomerular Filtration Rate 23 mL/min (>60); Est Glom Filt Rate - Afr Amer 28 mL/min (>60); Estimated Creatinine Clearance 23.09 ml/min; Globulin 2.2 g/dL (2.2-4.2); Glucose 201 mg/dL (74-106); Potassium 3.9 mmol/L (3.5-5.1); Protein, Total 4.2 g/dL (6.4-8.2); Sodium Level 143 mmol/L (136-145)
[2020-09-12] MEDS: Sodium Bicarbonate 650 MG Tablet 1950 MG PO ×3 (06:14→21:44)
[2020-09-12] MEDS: Heparin Injection (Vial) 5,000 UNIT/ML VIAL 5000 UNIT SC ×3 (06:14→21:45)
[2020-09-12] MEDS: Levothyroxine 25 MCG TABLET PO ×2 (06:14→09:45)
--- NOTE | 2020-09-12 07:41 | PN.CC_ITS ---
Assessment & Plan Assessment/Plan (1) Delirium due to another medical condition: (2) DKA (diabetic ketoacidoses): QUALIFIERS: Diabetes mellitus type: type 2 Diabetes mellitus complication detail: without coma Qualified Code(s): E11.10 - Type 2 diabetes mellitus with ketoacidosis without coma (3) Acute urinary retention: (4) Chronic kidney failure: (5) Hypertensive urgency: (6) SIRS (systemic inflammatory response syndrome): PLAN: RECOMMENDATIONS: 1. Continue delirium protocol 2. Titrate Lantus as necessary. 3. Continue empiric antibiotics pending culture data 4. Decrease Coreg to 12.5 mg 5. Advance diet per speech recommendations 6. Okay to leave the intensive care unit from my perspective IMPRESSIONS: 1. Acute metabolic encephalopathy Slowly improving. Unclear etiology. Patient has multiple possible conditions leading to current situation including DKA, urinary retention, dehydration and sepsis. We will continue with supportive therapy. Continue with delirium protocol for now. Patient does not appear to have an acute CVA after extensive MRI work-up. 2. Severe sepsis of unclear etiology Patient's chest x-ray is relatively unremarkable except for a small right pleural effusion. Patient does have a leukocytosis, fever and slightly elevated lactate. Continue empiric antibiotics for now pending culture data. Patient tolerating room air well, so pulmonary pathology is unclear. Given relative stability of respiratory status, it is unclear if a repeat chest x-ray needs to be completed. 3. Acute on chronic kidney disease stage IIIb Patient received volume resuscitation with IV fluids. We will continue to monitor renal function. No indication for renal replacement therapy at this time. Creatinine appears to be relatively stable. 4. DKA from probable noncompliance versus sepsis Patient transition to Lantus with sliding scale insulin. We will continue to monitor blood sugars. Advance p.o. diet per speech recommendations. 5. Urinary retention Patient with significant urine on initial Connor placement. Patient has been initiated on Flomax therapy. Unclear if patient has a postobstructive exacerbation of problem #3. Patient appears to be doing okay at this time. Could obtain a renal ultrasound for evaluation of hydronephrosis if renal fu nction continues to worsen, but patient is having continued output. 6. Hypertensive urgency Patient with significant decrease in blood pressure after initiation of home medications. Given marginal blood pressures while sleeping, will decrease Coreg dosing to 12.5 mg. Continue to monitor blood pressures closely. Unclear if poor compliance at home has led to increased titration of antihypertensives and hypotension is secondary to administering all of prescribed medications. 7. Poor history/advanced age/history of chronic wounds Complicates care, management, recovery and prognosis. [facility] Patient does not have any confirmed home medications despite multiple medical issues. Subjective Subjective Patient did okay from a hemodynamic standpoint overnight. Patient was transitioned from an insulin drip to Lantus with no complications. Patient remains on room air and tolerating well. Patient remains impulsive, but appears more appropriate today. Patient did have some hypotension overnight while sleeping, but no intervention was required. Objective Data Objective Data Vital Signs: Vital Signs Temp Pulse Resp BP Pulse Ox 36.7 C 78 14 126/69 H 99 09/12/20 04:00 09/12/20 06:00 09/12/20 06:00 09/12/20 06:00 09/12/20 06:00 Oxygen Delivery Method Room Air Weight: 89.902 kg Body Mass Index (BMI) 24.3 Intake & Output: Intake and Output for Last 24 Hours 09/10/20 09/11/20 09/12/20 23:59 23:59 23:59 Intake Total 2750.10 / 2750.10 1766.42 / 1766.42 1050 / 1050 Output Total 1200 / 1900 1875 / 2225 700 / 700 Balance 1550.10 / 850.10 -108.58 / -458.58 350 / 350 Lab / Micro Data Result Diagrams: 09/12/20 05:15 09/12/20 05:15 Labs: Laboratory Results - last 24 hr 09/11/20 09/11/20 09/11/20 03:25 03:25 03:25 WBC RBC Hgb Hct MCV MCH MCHC RDW Std Deviation RDW Coeff of Ximena Plt Count MPV Immature Gran % (Auto) Neut % (Auto) Lymph % (Auto) [place] % (Auto) Eos % (Auto) Baso % (Auto) Absolute Neuts (auto) Absolute Lymphs (auto) Nucleated RBC % Sodium Potassium Chloride Carbon Dioxide Anion Gap BUN Creatinine Estim Creat Clear Calc Est GFR (MDRD) Af Amer Est GFR (MDRD) Non-Af BUN/Creatinine Ratio Glucose Hemoglobin A1c 8.4 H Calcium Magnesium Total Bilirubin 0.40 Direct Bilirubin 0.12 AST 25 ALT 75 H Alkaline Phosphatase 103 Total Protein 5.4 L Albumin 2.5 L Globulin 2.9 Albumin/Globulin Ratio Free T4 1.01 Free T3 pg/dL 0.9 L POC Glucose 09/11/20 09/11/20 09/11/20 03:25 05:12 08:26 WBC RBC Hgb Hct MCV MCH MCHC RDW Std Deviation RDW Coeff of Ximena Plt Count MPV Immature Gran % (Auto) Neut % (Auto) Lymph % (Auto) [place] % (Auto) Eos % (Auto) Baso % (Auto) Absolute Neuts (auto) Absolute Lymphs (auto) Nucleated RBC % Sodium Potassium Chloride Carbon Dioxide Anion Gap BUN Creatinine Estim Creat Clear Calc Est GFR (MDRD) Af Amer Est GFR (MDRD) Non-Af BUN/Creatinine Ratio Glucose Hemoglobin A1c Calcium Magnesium 1.8 Total Bilirubin Direct Bilirubin AST ALT Alkaline Phosphatase Total Protein Albumin Globulin Albumin/Globulin Ratio Free T4 Free T3 pg/dL POC Glucose 327 H 266 H 09/11/20 09/11/20 09/11/20 10:34 13:01 15:30 WBC RBC Hgb Hct MCV MCH MCHC RDW Std Deviation RDW Coeff of Ximena Plt Count MPV Immature Gran % (Auto) Neut % (Auto) Lymph % (Auto) [place] % (Auto) Eos % (Auto) Baso % (Auto) Absolute Neuts (auto) Absolute Lymphs (auto) Nucleated RBC % Sodium Potassium Chloride Carbon Dioxide Anion Gap BUN Creatinine Estim Creat Clear Calc Est GFR (MDRD) Af Amer Est GFR (MDRD) Non-Af BUN/Creatinine Ratio Glucose Hemoglobin A1c Calcium Magnesium Total Bilirubin Direct Bilirubin AST ALT Alkaline Phosphatase Total Protein Albumin Globulin Albumin/Globulin Ratio Free T4 Free T3 pg/dL POC Glucose 238 H 286 H 302 H 09/11/20 09/12/20 09/12/20 17:27 05:15 05:15 WBC 10.2 RBC 2.37 L Hgb 8.0 L Hct 23.6 L MCV 99.6 H MCH 33.8 H MCHC 33.9 RDW Std Deviation 50.1 H RDW Coeff of Ximena 13.9 Plt Count 242 MPV 10.2 Immature Gran % (Auto) 0.600 Neut % (Auto) 85.2 H Lymph % (Auto) 9.0 L [place] % (Auto) 4.8 Eos % (Auto) 0.3 Baso % (Auto) 0.1 Absolute Neuts (auto) 8.7 H Absolute Lymphs (auto) 0.92 Nucleated RBC % 0 Sodium 143 Potassium 3.9 Chloride 115 H Carbon Dioxide 18.0 L Anion Gap 10 BUN 48 H Creatinine 2.81 H Estim Creat Clear Calc 23.09 Est GFR (MDRD) Af Amer 28 L Est GFR (MDRD) Non-Af 23 L BUN/Creatinine Ratio 17.1 Glucose 201 H Hemoglobin A1c Calcium 6.8 L Magnesium Total Bilirubin 0.30 Direct Bilirubin AST 21 ALT 50 Alkaline Phosphatase 74 Total Protein 4.2 L Albumin 2.0 L Globulin 2.2 Albumin/Globulin Ratio 0.9 Free T4 Free T3 pg/dL POC Glucose 294 H Micro: Microbiology 09/11/20 17:10 Mucosa - Nose SARS-CoV-2 Antigen (Rapid) - Final 09/10/20 15:30 Urine, Catheterized Urine Culture - Preliminary Culture exhibits no growth. Radiography Diagnostic Testing: Radiology Impression Echocardiogram 09/11/20 05:55 Interpretation Summary Normal LV size. Mild concentric left ventricular hypertrophy. Left ventricular systolic function is lower limits of normal. The estimated ejection fraction is 50 %. Stage 1 diastolic dysfunction. Mild (1+) eccentric mitral valve insufficiency. Mild (1+) aortic valve insufficiency. Ordering Physician: Freddie Pizano Referring Physician: [facility] Performed By: Sissy Obrien, JESSE, RVT Physical Exam Const no apparent distress Constitutional Narrative: More directable today than yesterday General Appearance: disheveled, frail and appears older than stated age; Negative for cooperative or in distress Exam Limitations: altered mental status HEENT normocephalic and head/scalp atraumatic; Negative for moist oral mucous membranes Eyes PERRL, EOMs intact bilaterally and conjunctivae normal Neck full ROM Lymph Lymphatic: no lymphadenopathy noted Resp normal respiratory effort and no use of accessory muscles Auscultation: clear to auscultation bilaterally and diminished lung sounds right lower; Negative for rales, rhonchi or wheezes Cardio regular rate, regular rhythm, S1 normal heart sound, S2 normal heart sound, no murmurs, no rub, no gallops and no JVD Rate: tachycardic GI normal to inspection, nondistended, normoactive bowel sounds no CVA tenderness Extremity no clubbing, cyanosis or edema Skin no rashes or lesions noted Neuro oriented x3 and CN's II-XII intact bilaterally Psych cooperative and affect normal Charges/Coding Visit Charges Inpatient E&M: 67913 Subs Hosp L3
--- NOTE | 2020-09-12 08:14 | PCM.PN.HOSP ---
Subjective Subjective Patient seen and examined. No acute events overnight. He remains slightly lethargic. Off insulin drip. Objective Data Objective Data Vital Signs: Vital Signs Temp Pulse Resp BP Pulse Ox 98.1 F 65 14 128/66 H 99 09/12/20 04:00 09/12/20 08:00 09/12/20 07:00 09/12/20 07:00 09/12/20 07:00 Oxygen Delivery Method Room Air Weight: 89.902 kg Body Mass Index (BMI) 24.3 Intake & Output: Intake and Output for Last 24 Hours 09/10/20 09/11/20 09/12/20 23:59 23:59 23:59 Intake Total 2750.10 / 2750.10 1766.42 / 1766.42 1050 / 1050 Output Total 1200 / 1900 1875 / 2225 700 / 700 Balance 1550.10 / 850.10 -108.58 / -458.58 350 / 350 Lab / Micro Data Result Diagrams: 09/12/20 05:15 09/12/20 05:15 Labs: Laboratory Results - last 24 hr 09/11/20 09/11/20 09/11/20 03:25 03:25 03:25 WBC RBC Hgb Hct MCV MCH MCHC RDW Std Deviation RDW Coeff of Ximena Plt Count MPV Immature Gran % (Auto) Neut % (Auto) Lymph % (Auto) [place] % (Auto) Eos % (Auto) Baso % (Auto) Absolute Neuts (auto) Absolute Lymphs (auto) Nucleated RBC % Sodium Potassium Chloride Carbon Dioxide Anion Gap BUN Creatinine Estim Creat Clear Calc Est GFR (MDRD) Af Amer Est GFR (MDRD) Non-Af BUN/Creatinine Ratio Glucose Hemoglobin A1c 8.4 H Calcium Magnesium Total Bilirubin 0.40 Direct Bilirubin 0.12 AST 25 ALT 75 H Alkaline Phosphatase 103 Total Protein 5.4 L Albumin 2.5 L Globulin 2.9 Albumin/Globulin Ratio Free T4 1.01 Free T3 pg/dL 0.9 L POC Glucose 09/11/20 09/11/20 09/11/20 03:25 05:12 08:26 WBC RBC Hgb Hct MCV MCH MCHC RDW Std Deviation RDW Coeff of Ximena Plt Count MPV Immature Gran % (Auto) Neut % (Auto) Lymph % (Auto) [place] % (Auto) Eos % (Auto) Baso % (Auto) Absolute Neuts (auto) Absolute Lymphs (auto) Nucleated RBC % Sodium Potassium Chloride Carbon Dioxide Anion Gap BUN Creatinine Estim Creat Clear Calc Est GFR (MDRD) Af Amer Est GFR (MDRD) Non-Af BUN/Creatinine Ratio Glucose Hemoglobin A1c Calcium Magnesium 1.8 Total Bilirubin Direct Bilirubin AST ALT Alkaline Phosphatase Total Protein Albumin Globulin Albumin/Globulin Ratio Free T4 Free T3 pg/dL POC Glucose 327 H 266 H 09/11/20 09/11/20 09/11/20 10:34 13:01 15:30 WBC RBC Hgb Hct MCV MCH MCHC RDW Std Deviation RDW Coeff of Ximena Plt Count MPV Immature Gran % (Auto) Neut % (Auto) Lymph % (Auto) [place] % (Auto) Eos % (Auto) Baso % (Auto) Absolute Neuts (auto) Absolute Lymphs (auto) Nucleated RBC % Sodium Potassium Chloride Carbon Dioxide Anion Gap BUN Creatinine Estim Creat Clear Calc Est GFR (MDRD) Af Amer Est GFR (MDRD) Non-Af BUN/Creatinine Ratio Glucose Hemoglobin A1c Calcium Magnesium Total Bilirubin Direct Bilirubin AST ALT Alkaline Phosphatase Total Protein Albumin Globulin Albumin/Globulin Ratio Free T4 Free T3 pg/dL POC Glucose 238 H 286 H 302 H 09/11/20 09/12/20 09/12/20 17:27 05:15 05:15 WBC 10.2 RBC 2.37 L Hgb 8.0 L Hct 23.6 L MCV 99.6 H MCH 33.8 H MCHC 33.9 RDW Std Deviation 50.1 H RDW Coeff of Ximena 13.9 Plt Count 242 MPV 10.2 Immature Gran % (Auto) 0.600 Neut % (Auto) 85.2 H Lymph % (Auto) 9.0 L [place] % (Auto) 4.8 Eos % (Auto) 0.3 Baso % (Auto) 0.1 Absolute Neuts (auto) 8.7 H Absolute Lymphs (auto) 0.92 Nucleated RBC % 0 Sodium 143 Potassium 3.9 Chloride 115 H Carbon Dioxide 18.0 L Anion Gap 10 BUN 48 H Creatinine 2.81 H Estim Creat Clear Calc 23.09 Est GFR (MDRD) Af Amer 28 L Est GFR (MDRD) Non-Af 23 L BUN/Creatinine Ratio 17.1 Glucose 201 H Hemoglobin A1c Calcium 6.8 L Magnesium Total Bilirubin 0.30 Direct Bilirubin AST 21 ALT 50 Alkaline Phosphatase 74 Total Protein 4.2 L Albumin 2.0 L Globulin 2.2 Albumin/Globulin Ratio 0.9 Free T4 Free T3 pg/dL POC Glucose 294 H Micro: Microbiology 09/11/20 17:10 Mucosa - Nose SARS-CoV-2 Antigen (Rapid) - Final 09/10/20 15:30 Urine, Catheterized Urine Culture - Preliminary Culture exhibits no growth. Radiography Diagnostic Testing: Radiology Impression Echocardiogram 09/11/20 05:55 Interpretation Summary Normal LV size. Mild concentric left ventricular hypertrophy. Left ventricular systolic function is lower limits of normal. The estimated ejection fraction is 50 %. Stage 1 diastolic dysfunction. Mild (1+) eccentric mitral valve insufficiency. Mild (1+) aortic valve insufficiency. Ordering Physician: Freddie Pizano Referring Physician: [facility] Performed By: Sissy Obrien, JESSE, RVT Physical Exam Narrative Physical exam: General: Confused, alert oriented to self, cooperative, well hydrated HEENT: Atraumatic Oral: Moist Mucosa Neck: Supple Lungs: Clear to auscultation Cardiovascular: HS I+II, regular, no murmurs Abdomen: Bowel Sounds Present, Soft, Non Tender Extremities: No edema Skin: Vitiliginous skin lesions all over the body Neurological: Grossly intact Psych/Mental Status: Appropriate Assessment & Plan Assessment/Plan (1) DKA (diabetic ketoacidoses): QUALIFIERS: Diabetes mellitus complication detail: without coma Diabetes mellitus type: type 2 Qualified Code(s): E11.10 - Type 2 diabetes mellitus with ketoacidosis without coma (2) Delirium due to another medical condition: (3) Hyperosmolar hyperglycemic state (HHS): (4) Hypertensive urgency: (5) Elevated troponin: (6) SIRS (systemic inflammatory response syndrome): PLAN: 1. Acute metabolic encephalopathy, unclear etiology, persistent Acute CVA ruled out with negative MRI brain, MRA head and neck Will get an EEG 2. Acute DKA in a known type II DM patient, noncompliant, resolved Off insulin drip, still n.p.o. on account of dysphagia Started on subcu Lantus last night, will increase to 12 units nightly HbA1c is 8.4. Continue on insulin sliding scale 3. Accelerated hypertension/hypertensive urgency, better controlled Continue on carvedilol, lisinopril 4. Possible acute enterococcus UTI, urine cultures growing gram-positive cocci possibly Enterococcus Blood cultures are pending, urine culture showed no growth, Continue on IV Zosyn pending sensitivity 5. Elevated troponins, likely related to #2 and #3, secondary to demand ischemia No acute EKG changes, will continue to monitor 6. Hypothyroidism, TSH is elevated, FT3 is low, will increase levothyroxine to 50mcg 7. Hypomagnesemia, replaced 8. YOHAN on CKD stage IV, creatinine slowly improving, Cr remains about the same, 2.81 Cr on admission is 3.14 We will continue to hold Lasix for now, repeat blood work in a.m. 9. Rest of chronic medical conditions remained stable Charges/Coding Visit Charges Inpatient E&M: 49693 Subs Hosp L2
[2020-09-12 08:38] LABS: Bedside Glucose 203 mg/dL (70-110)
[2020-09-12 08:38] LABS: Bedside Glucose 244 mg/dL (70-110)
[2020-09-12 08:38] LABS: Bedside Glucose 229 mg/dL (70-110)
[2020-09-12 08:38] LABS: Bedside Glucose 194 mg/dL (70-110)
[2020-09-12 08:45] LABS: Bedside Glucose 179 mg/dL (70-110)
[2020-09-12] MEDS: TITRATION PARAMETER CHANGE 1 EACH IV (09:11)
[2020-09-12] MEDS: Gabapentin 300 MG Capsule PO ×3 (09:23→16:13)
[2020-09-12] MEDS: Carvedilol 12.5 MG Tablet PO ×2 (09:23→21:45)
[2020-09-12] MEDS: Calcitriol 0.25 MCG Capsule 0.75 MCG PO (09:23)
[2020-09-12] MEDS: Lisinopril 5 MG Tablet PO (09:24)
[2020-09-12] MEDS: CHLORHEXIDINE GLUC 2% CLOTH 1 EACH TOWELETTE TOPICAL (09:28)
--- NOTE | 2020-09-12 10:38 | PCM.PN.ID ---
Physical Exam Narrative Feeling better, no fever Const no apparent distress Constitutional Narrative: able to answer some questions General Appearance: cooperative Resp normal air movement and clear to auscultation bilaterally Cardio regular rate and regular rhythm GI normal to inspection, nondistended, normoactive bowel sounds Extremity no clubbing, cyanosis or edema Skin Skin Narrative: L toe redness and wound ID ID: Route of nutrition/ use of supplements: [] Nutritional Intake: [] IV Site: [] Connor Catheter: [] Assessment & Plan Assessment/Plan (1) DKA (diabetic ketoacidoses): QUALIFIERS: Diabetes mellitus type: type 2 Diabetes mellitus complication detail: without coma Qualified Code(s): E11.10 - Type 2 diabetes mellitus with ketoacidosis without coma (2) Delirium due to another medical condition: PLAN: On empiric vanc/zosyn, cxs neg so far, mental status improved. UA with 0 wbc seen. Fever to 101.4 on admit. On RA, lungs clear. Covid neg. Will stop vanc today. Will follow
[2020-09-12 11:16] LABS: Bedside Glucose 204 mg/dL (70-110)
--- NOTE | 2020-09-12 14:17 | CASEMGMT ---
Palliative screening tool completed at this time for [facility]. Patient meets criteria for palliative consult. ANDI ALFONSO updated hospitalist and order received to place palliative consult. ANDI ALFONSO called [facility] and faxed referral for consult.
[2020-09-12] MEDS: Insulin Lispro 100 UNIT/ML INSULN.PEN SC ×2 (16:16→21:46)
[2020-09-12 16:36] LABS: Bedside Glucose 248 mg/dL (70-110)
[2020-09-12 18:06] LABS: Ferritin 148 ng/mL (26-388); Iron Binding Capacity,Total 77 ug/dL (250-450)
[2020-09-12] MEDS: Magnesium Sulfate 4gm/100mL 4 GM/100 ML IV.SOLN. IV (18:43)
[2020-09-12] MEDS: Atorvastatin Calcium 40 MG Tablet PO (21:48)
[2020-09-12 21:55] LABS: Bedside Glucose 370 mg/dL (70-110)
[2020-09-12] MEDS: Acetaminophen 650 MG Suppository RC (22:02)
[2020-09-13] VITALS (10 sets, daily range): BP systolic 123–138; BP diastolic 59–80; PULSE 56–76; RESP 16–18; TEMP 36.4–37.1; O2SAT 96–100
[2020-09-13] MEDS: Sodium Bicarbonate 650 MG Tablet 1950 MG PO ×3 (05:52→21:23)
[2020-09-13] MEDS: Levothyroxine 50 MCG Tablet PO (05:52)
[2020-09-13] MEDS: Heparin Injection (Vial) 5,000 UNIT/ML VIAL 5000 UNIT SC ×3 (05:52→21:23)
[2020-09-13] MEDS: Insulin Lispro 100 UNIT/ML INSULN.PEN SC ×4 (06:03→21:26)
--- NOTE | 2020-09-13 06:03 | TELEMED_ITS ---
[facility] has confirmed receipt of a request for visit. This document confirms receipt of the order initiating the consult. To find the results of the consultation, please view the patient's reports for the scanned Telemed Consult.
[2020-09-13 06:06] LABS: Absolute Lymphocyte Count 0.88 X10^3/uL (0.83-4.51); Absolute Neutrophil Count 7.4 X10^3/uL (2.0-7.7); Basophil# 0.02 X10^3/uL; Basophil% 0.2 % (0-1); Eosinophil# 0.03 X10^3/uL; Eosinophils% 0.3 % (0-5); Hematocrit 25.1 % (40-54); Hemoglobin 8.5 g/dL (13.0-16.5); Lymphocyte # 0.88 X10^3/ul (0.83-4.51); Lymphocyte % 10.1 % (19-41); Mean Corp Hgb Conc 33.9 g/dL (32-36); Mean Corpuscular Hgb 33.9 pg (27.0-32.0); Mean Platelet Vol. 10.1 fl (6.2-12.0); Monocyte# 0.38 X10^3/uL; Monocyte% 4.3 % (0-10); NRBC Flagged by Analyzer 0 % (0-5); Neutrophil # 7.38 X10^3/uL (2.7-7.7); Neutrophil % 84.5 % (47-70); Platelet Count 273 K/mm3 (150-450); RBC Distribution Width CV 13.8 % (11.6-14.6); RBC Distribution Width SD 50.9 fl (35.1-43.9); Red Blood Count 2.51 M/mm3 (4.6-6.2); White Blood Count 8.7 K/mm3 (4.4-11.0)
[2020-09-13 06:34] LABS: ALB/GLOB Ratio 0.8 RATIO (0.9-2.4); AST(SGOT) 25 U/L (15-37); Alanine Aminotransfer ALT/SGPT 50 U/L (16-61); Alkaline Phosphatase 82 U/L (45-117); Anion Gap 8 (5-15); BUN 48 mg/dL (7-18); BUN/Creat Ratio 17.2 RATIO (10-20); Calcium,Total 6.9 mg/dL (8.5-10.1); Chloride 112 mmol/L (98-107); Creatinine, Serum 2.79 mg/dL (0.70-1.30); EST Glomerular Filtration Rate 24 mL/min (>60); Est Glom Filt Rate - Afr Amer 29 mL/min (>60); Estimated Creatinine Clearance 23.26 ml/min; Globulin 2.4 g/dL (2.2-4.2); Glucose 325 mg/dL (74-106); Potassium 4.3 mmol/L (3.5-5.1); Protein, Total 4.4 g/dL (6.4-8.2); Sodium Level 138 mmol/L (136-145)
[2020-09-13 06:36] LABS: Bedside Glucose 291 mg/dL (70-110)
[2020-09-13] MEDS: Gabapentin 300 MG Capsule PO ×3 (08:01→16:28)
--- NOTE | 2020-09-13 08:31 | PCM.PN.INT ---
Assessment & Plan Assessment/Plan (1) Delirium due to another medical condition: (2) DKA (diabetic ketoacidoses): QUALIFIERS: Diabetes mellitus type: type 2 Diabetes mellitus complication detail: without coma Qualified Code(s): E11.10 - Type 2 diabetes mellitus with ketoacidosis without coma (3) Acute urinary retention: (4) Chronic kidney failure: (5) Hypertensive urgency: (6) SIRS (systemic inflammatory response syndrome): PLAN: RECOMMENDATIONS: 1. Continue delirium protocol 2. Titrate Lantus as necessary. 3. Likely okay to discontinue antibiotics from my perspective 4. Continue Coreg at 12.5 5. Advance diet per speech recommendations 6. Hemodynamically stable on room air. Will sign off from a critical care perspective IMPRESSIONS: 1. Acute metabolic encephalopathy Possibly at baseline. Unclear etiology. Patient has multiple possible conditions leading to current situation including DKA, urinary retention, dehydration and sepsis. We will continue with supportive therapy. Continue with delirium protocol for now. Patient does not appear to have an acute CVA after extensive MRI work-up. 2. Severe sepsis of unclear etiology Patient's chest x-ray is relatively unremarkable except for a small right pleural effusion. Patient does have a leukocytosis, fever and slightly elevated lactate. E faecalis in urine is not at levels to suggest a UTI. Patient tolerating room air well, so pulmonary pathology is unclear. Given relative stability of respiratory status, it is unclear if a repeat chest x-ray needs to be completed. Okay to discontinue antibiotics from my perspective 3. Acute on chronic kidney disease stage IIIb Patient received volume resuscitation with IV fluids. We will continue to monitor renal function. No indication for renal replacement therapy at this time. Creatinine appears to be relatively stable. 4. DKA from probable noncompliance versus sepsis Patient transitioned to Lantus with sliding scale insulin. We will continue to monitor blood sugars. Increase Lantus as necessary advance p.o. diet per speech recommendations. 5. Urinary retention Patient with significant urine on initial Connor placement. Patient has been initiated on Flomax therapy. Unclear if patient has a postobstructive exacerbation of problem #3. Patient appears to be doing okay at this time. 6. Hypertensive urgency Patient with significant decrease in blood pressure after initiation of home medications. Patient decreased to Coreg 12.5 yesterday. Continue to monitor blood pressures closely. Unclear if poor compliance at home has led to increased titration of antihypertensives and hypotension is secondary to administering all of prescribed medications. 7. Poor history/advanced age/history of chronic wounds Complicates care, management, recovery and prognosis. [facility] Patient does not have any confirmed home medications despite multiple medical issues. Subjective Subjective Patient did well overnight. Patient transferred from the intensive care unit and no complications have been noted. Patient eating breakfast comfortably with no complaints. Objective Data Objective Data Vital Signs: Vital Signs Temp Pulse Resp BP Pulse Ox 36.7 C 64 18 123/64 H 96 09/13/20 03:20 09/13/20 06:33 09/13/20 03:20 09/13/20 03:20 09/13/20 07:27 Oxygen Delivery Method Room Air Weight: 92.8 kg Body Mass Index (BMI) 24.3 Intake & Output: Intake and Output for Last 24 Hours 09/11/20 09/12/20 09/13/20 23:59 23:59 23:59 Intake Total 1766.42 / 1766.42 2575.00 / 2575.00 1250 / 1250 Output Total 1875 / 2225 700 / 700 425 / 425 Balance -108.58 / -458.58 1875.00 / 1875.00 825 / 825 Lab / Micro Data Result Diagrams: 09/13/20 05:55 09/13/20 05:55 Labs: Laboratory Results - last 24 hr 09/11/20 09/11/20 09/12/20 21:34 22:42 02:05 WBC RBC Hgb Hct MCV MCH MCHC RDW Std Deviation RDW Coeff of Ximena Plt Count MPV Immature Gran % (Auto) Neut % (Auto) Lymph % (Auto) [place] % (Auto) Eos % (Auto) Baso % (Auto) Absolute Neuts (auto) Absolute Lymphs (auto) Nucleated RBC % Sodium Potassium Chloride Carbon Dioxide Anion Gap BUN Creatinine Estim Creat Clear Calc Est GFR (MDRD) Af Amer Est GFR (MDRD) Non-Af BUN/Creatinine Ratio Glucose Calcium Magnesium TIBC Ferritin Total Bilirubin AST ALT Alkaline Phosphatase Total Protein Albumin Globulin Albumin/Globulin Ratio POC Glucose 244 H 229 H 203 H 09/12/20 09/12/20 09/12/20 05:15 05:15 05:17 WBC RBC Hgb Hct MCV MCH MCHC RDW Std Deviation RDW Coeff of Ximena Plt Count MPV Immature Gran % (Auto) Neut % (Auto) Lymph % (Auto) [place] % (Auto) Eos % (Auto) Baso % (Auto) Absolute Neuts (auto) Absolute Lymphs (auto) Nucleated RBC % Sodium Potassium Chloride Carbon Dioxide Anion Gap BUN Creatinine Estim Creat Clear Calc Est GFR (MDRD) Af Amer Est GFR (MDRD) Non-Af BUN/Creatinine Ratio Glucose Calcium Magnesium 1.0 L TIBC 77 L Ferritin 148 Total Bilirubin AST ALT Alkaline Phosphatase Total Protein Albumin Globulin Albumin/Globulin Ratio POC Glucose 194 H 09/12/20 09/12/20 09/12/20 08:13 11:04 15:39 WBC RBC Hgb Hct MCV MCH MCHC RDW Std Deviation RDW Coeff of Ximena Plt Count MPV Immature Gran % (Auto) Neut % (Auto) Lymph % (Auto) [place] % (Auto) Eos % (Auto) Baso % (Auto) Absolute Neuts (auto) Absolute Lymphs (auto) Nucleated RBC % Sodium Potassium Chloride Carbon Dioxide Anion Gap BUN Creatinine Estim Creat Clear Calc Est GFR (MDRD) Af Amer Est GFR (MDRD) Non-Af BUN/Creatinine Ratio Glucose Calcium Magnesium TIBC Ferritin Total Bilirubin AST ALT Alkaline Phosphatase Total Protein Albumin Globulin Albumin/Globulin Ratio POC Glucose 179 H 204 H 248 H 09/12/20 09/13/20 09/13/20 21:31 05:55 05:55 WBC 8.7 RBC 2.51 L Hgb 8.5 L Hct 25.1 L MCV 100.0 H MCH 33.9 H MCHC 33.9 RDW Std Deviation 50.9 H RDW Coeff of Ximena 13.8 Plt Count 273 MPV 10.1 Immature Gran % (Auto) 0.600 Neut % (Auto) 84.5 H Lymph % (Auto) 10.1 L [place] % (Auto) 4.3 Eos % (Auto) 0.3 Baso % (Auto) 0.2 Absolute Neuts (auto) 7.4 Absolute Lymphs (auto) 0.88 Nucleated RBC % 0 Sodium 138 Potassium 4.3 Chloride 112 H Carbon Dioxide 18.0 L Anion Gap 8 BUN 48 H Creatinine 2.79 H Estim Creat Clear Calc 23.26 Est GFR (MDRD) Af Amer 29 L Est GFR (MDRD) Non-Af 24 L BUN/Creatinine Ratio 17.2 Glucose 325 H Calcium 6.9 L Magnesium TIBC Ferritin Total Bilirubin 0.20 AST 25 ALT 50 Alkaline Phosphatase 82 Total Protein 4.4 L Albumin 2.0 L Globulin 2.4 Albumin/Globulin Ratio 0.8 L POC Glucose 370 H 09/13/20 06:02 WBC RBC Hgb Hct MCV MCH MCHC RDW Std Deviation RDW Coeff of Ximena Plt Count MPV Immature Gran % (Auto) Neut % (Auto) Lymph % (Auto) [place] % (Auto) Eos % (Auto) Baso % (Auto) Absolute Neuts (auto) Absolute Lymphs (auto) Nucleated RBC % Sodium Potassium Chloride Carbon Dioxide Anion Gap BUN Creatinine Estim Creat Clear Calc Est GFR (MDRD) Af Amer Est GFR (MDRD) Non-Af BUN/Creatinine Ratio Glucose Calcium Magnesium TIBC Ferritin Total Bilirubin AST ALT Alkaline Phosphatase Total Protein Albumin Globulin Albumin/Globulin Ratio POC Glucose 291 H Micro: Microbiology 09/10/20 15:30 Urine, Catheterized Urine Culture - Final Enterococcus faecalis 09/10/20 13:22 Blood Culture (Wb) - Anticubital Right Blood Culture - Preliminary No growth in 48 hours. 09/10/20 13:10 Blood Culture (Wb) - Anticubital Left Blood Culture - Preliminary No growth in 48 hours. 09/11/20 17:10 Mucosa - Nose SARS-CoV-2 Antigen (Rapid) - Final Physical Exam Const no apparent distress Constitutional Narrative: More directable today than yesterday General Appearance: disheveled, frail and appears older than stated age; Negative for cooperative or in distress Exam Limitations: altered mental status HEENT normocephalic and head/scalp atraumatic; Negative for moist oral mucous membranes Eyes PERRL, EOMs intact bilaterally and conjunctivae normal Neck full ROM Lymph Lymphatic: no lymphadenopathy noted Resp normal respiratory effort and no use of accessory muscles Auscultation: clear to auscultation bilaterally and diminished lung sounds right lower; Negative for rales, rhonchi or wheezes Cardio regular rate, regular rhythm, S1 normal heart sound, S2 normal heart sound, no murmurs, no rub, no gallops and no JVD Rate: tachycardic GI normal to inspection, nondistended, normoactive bowel sounds no CVA tenderness Extremity no clubbing, cyanosis or edema Skin no rashes or lesions noted Neuro oriented x3 and CN's II-XII intact bilaterally Psych cooperative and affect normal Charges/Coding Visit Charges Inpatient E&M: 29394 Subs Hosp L2
[2020-09-13] MEDS: Carvedilol 12.5 MG Tablet PO ×2 (10:00→21:23)
[2020-09-13] MEDS: Lisinopril 5 MG Tablet PO (10:00)
[2020-09-13] MEDS: Calcitriol 0.25 MCG Capsule 0.75 MCG PO (10:01)
--- NOTE | 2020-09-13 10:24 | CASEMGMT ---
KONSTANTIN called patient's son and left him a voice mail requesting a return phone call. Leslie PORTER
[2020-09-13 11:31] LABS: Bedside Glucose 362 mg/dL (70-110)
[2020-09-13 11:32] LABS: Magnesium 2.3 mg/dL (1.6-2.6)
[2020-09-13] MEDS: 0.9% Saline Lock 10 ML Syringe IV (12:41)
[2020-09-13] MEDS: Ondansetron 4 MG/2 ML Vial IV (12:41)
[2020-09-13] MEDS: Menthol/Lanolin/Calamine/Znox 113 GM Tube 1 APPLIC TOPICAL ×2 (13:05→21:24)
--- NOTE | 2020-09-13 13:50 | PN.ID_ITS ---
Physical Exam Narrative Feeling better, no fever, no abd pain. Mild loose stool. Const alert and no apparent distress General Appearance: cooperative Resp normal air movement and clear to auscultation bilaterally Cardio regular rate and regular rhythm Skin no rashes or lesions noted ID ID: Route of nutrition/ use of supplements: [] Nutritional Intake: [] IV Site: [] Connor Catheter: [] Assessment & Plan Assessment/Plan (1) DKA (diabetic ketoacidoses): QUALIFIERS: Diabetes mellitus type: type 2 Diabetes mellitus comp lication detail: without coma Qualified Code(s): E11.10 - Type 2 diabetes mellitus with ketoacidosis without coma (2) Delirium due to another medical condition: PLAN: Cxs neg so far, mental status improved. UA with 0 wbc seen. Fever to 101.4 on admit. On RA, lungs clear. Covid neg. Will stop zosyn today. Will follow as needed
[2020-09-13 17:01] LABS: Bedside Glucose 351 mg/dL (70-110)
--- NOTE | 2020-09-13 17:18 | PN.HOSP_ITS ---
Subjective Subjective Patient was seen and examined. He is much more alert. No new events overnight. Objective Data Objective Data Vital Signs: Vital Signs Temp Pulse Resp BP Pulse Ox 98.7 F 61 18 128/80 H 99 09/13/20 15:21 09/13/20 15:21 09/13/20 15:21 09/13/20 15:21 09/13/20 15:21 Oxygen Delivery Method Room Air Weight: 92.8 kg Body Mass Index (BMI) 24.3 Intake & Output: Intake and Output for Last 24 Hours 09/11/20 09/12/20 09/13/20 23:59 23:59 23:59 Intake Total 1766.42 / 1766.42 2575.00 / 2575.00 1700 / 1700 Output Total 1875 / 2225 700 / 700 675 / 675 Balance -108.58 / -458.58 1875.00 / 1875.00 1025 / 1025 Lab / Micro Data Result Diagrams: 09/13/20 05:55 09/13/20 05:55 Labs: Laboratory Results - last 24 hr 09/12/20 09/12/20 09/13/20 05:15 21:31 05:55 WBC 8.7 RBC 2.51 L Hgb 8.5 L Hct 25.1 L MCV 100.0 H MCH 33.9 H MCHC 33.9 RDW Std Deviation 50.9 H RDW Coeff of Ximena 13.8 Plt Count 273 MPV 10.1 Immature Gran % (Auto) 0.600 Neut % (Auto) 84.5 H Lymph % (Auto) 10.1 L [place] % (Auto) 4.3 Eos % (Auto) 0.3 Baso % (Auto) 0.2 Absolute Neuts (auto) 7.4 Absolute Lymphs (auto) 0.88 Nucleated RBC % 0 Sodium Potassium Chloride Carbon Dioxide Anion Gap BUN Creatinine Estim Creat Clear Calc Est GFR (MDRD) Af Amer Est GFR (MDRD) Non-Af BUN/Creatinine Ratio Glucose Calcium Magnesium TIBC 77 L Ferritin 148 Total Bilirubin AST ALT Alkaline Phosphatase Total Protein Albumin Globulin Albumin/Globulin Ratio POC Glucose 370 H 09/13/20 09/13/20 09/13/20 05:55 05:55 06:02 WBC RBC Hgb Hct MCV MCH MCHC RDW Std Deviation RDW Coeff of Ximena Plt Count MPV Immature Gran % (Auto) Neut % (Auto) Lymph % (Auto) [place] % (Auto) Eos % (Auto) Baso % (Auto) Absolute Neuts (auto) Absolute Lymphs (auto) Nucleated RBC % Sodium 138 Potassium 4.3 Chloride 112 H Carbon Dioxide 18.0 L Anion Gap 8 BUN 48 H Creatinine 2.79 H Estim Creat Clear Calc 23.26 Est GFR (MDRD) Af Amer 29 L Est GFR (MDRD) Non-Af 24 L BUN/Creatinine Ratio 17.2 Glucose 325 H Calcium 6.9 L Magnesium 2.3 TIBC Ferritin Total Bilirubin 0.20 AST 25 ALT 50 Alkaline Phosphatase 82 Total Protein 4.4 L Albumin 2.0 L Globulin 2.4 Albumin/Globulin Ratio 0.8 L POC Glucose 291 H 09/13/20 09/13/20 11:08 16:24 WBC RBC Hgb Hct MCV MCH MCHC RDW Std Deviation RDW Coeff of Ximena Plt Count MPV Immature Gran % (Auto) Neut % (Auto) Lymph % (Auto) [place] % (Auto) Eos % (Auto) Baso % (Auto) Absolute Neuts (auto) Absolute Lymphs (auto) Nucleated RBC % Sodium Potassium Chloride Carbon Dioxide Anion Gap BUN Creatinine Estim Creat Clear Calc Est GFR (MDRD) Af Amer Est GFR (MDRD) Non-Af BUN/Creatinine Ratio Glucose Calcium Magnesium TIBC Ferritin Total Bilirubin AST ALT Alkaline Phosphatase Total Protein Albumin Globulin Albumin/Globulin Ratio POC Glucose 362 H 351 H Micro: Microbiology 09/13/20 09:05 Stool Stool Occult Blood (MARTINEZ) - Final Occult Blood Positive 09/10/20 15:30 Urine, Catheterized Urine Culture - Final Enterococcus faecalis 09/10/20 13:22 Blood Culture (Wb) - Anticubital Right Blood Culture - Preliminary No growth in 48 hours. 09/10/20 13:10 Blood Culture (Wb) - Anticubital Left Blood Culture - Preliminary No growth in 48 hours. 09/11/20 17:10 Mucosa - Nose SARS-CoV-2 Antigen (Rapid) - Final Physical Exam Narrative General: Confused, oriented to self, cooperative, well hydrated HEENT: Atraumatic Oral: Moist Mucosa Neck: Supple Lungs: Clear to auscultation Cardiovascular: HS I+II, regular, no murmurs Abdomen: Bowel Sounds Present, Soft, Non Tender Extremities: No edema Skin: Vitiliginous skin lesions all over the body Neurological: Grossly intact Psych/Mental Status: Appropriate Assessment & Plan Assessment/Plan (1) DKA (diabetic ketoacidoses): QUALIFIERS: Diabetes mellitus type: type 2 Diabetes mellitus complication detail: without coma Qualified Code(s): E11.10 - Type 2 diabetes mellitus with ketoacidosis without coma (2) Delirium due to another medical condition: (3) Hyperosmolar hyperglycemic state (HHS): (4) Hypertensive urgency: (5) Elevated troponin: (6) SIRS (systemic inflammatory response syndrome): PLAN: 1. Acute metabolic encephalopathy, unclear etiology, slowly improving Acute CVA ruled out with negative MRI brain, MRA head and neck EEG pending 2. Acute DKA in a known type II DM patient, noncompliant, resolved Off insulin drip, still n.p.o. on account of dysphagia We will continue on Lantus 18 units nightly, insulin sliding scale HbA1c is 8.4. 3. Accelerated hypertension/hypertensive urgency, better controlled Continue on carvedilol, lisinopril 4. Elevated troponins, likely related to #2 and #3, secondary to demand ischemia No acute EKG changes, will continue to monitor 6. Hypothyroidism, TSH is elevated, FT3 is low, will increase levothyroxine to 50mcg 7. Hypomagnesemia, replaced 8. YOHAN on CKD stage IV, creatinine slowly improving, Cr remains about the same, 2.81 Cr on admission is 3.14 We will continue to hold Lasix for now, repeat blood work in a.m. Will consult nephrology to establish with patient 9. Rest of chronic medical conditions remained stable Charges/Coding Visit Charges Inpatient E&M: 45594 Subs Hosp L2
[2020-09-13] MEDS: Atorvastatin Calcium 40 MG Tablet PO (21:24)
[2020-09-13 22:21] LABS: Bedside Glucose 344 mg/dL (70-110)
--- NOTE | 2020-09-13 23:45 | NURSING ---
patient very confused and pull iv bag off of tube and spilled on floor.
[2020-09-14] VITALS (9 sets, daily range): BP systolic 124–174; BP diastolic 56–84; PULSE 58–84; RESP 16–18; TEMP 36.6–37; O2SAT 97–99
[2020-09-14] MEDS: Heparin Injection (Vial) 5,000 UNIT/ML VIAL 5000 UNIT SC ×3 (05:13→21:03)
[2020-09-14] MEDS: Levothyroxine 50 MCG Tablet PO (05:14)
[2020-09-14] MEDS: Sodium Bicarbonate 650 MG Tablet 1950 MG PO ×3 (05:14→21:03)
[2020-09-14 06:40] LABS: Bedside Glucose 133 mg/dL (70-110)
--- NOTE | 2020-09-14 07:52 | EKG12_ITS ---
Test Reason : Blood Pressure : / mmHG Vent. Rate : 063 BPM Atrial Rate : 063 BPM P-R Int : 186 ms QRS Dur : 096 ms QT Int : 556 ms P-R-T Axes : 107 017 159 degrees QTc Int : 568 ms Normal sinus rhythm Left ventricular hypertrophy Septal infarct , age undetermined Prolonged QT ST/T Wave Abnormality: Consider Myocardial Ischemia Abnormal ECG Confirmed by KALIA OCONNOR, DENYS ([id number]), development editor CAPO SERRANO ([id number]) on 09/15/2020 11:36:57 AM Referred By: ORLANDO Confirmed By:DENYS MOTTA MD
[2020-09-14 09:10] LABS: Albumin, Serum 2.1 g/dL (3.2-5.0); BUN 46 mg/dL (7-18); BUN/Creat Ratio 15.7 RATIO (10-20); Calcium,Total 6.9 mg/dL (8.5-10.1); Chloride 112 mmol/L (98-107); Creatinine, Serum 2.93 mg/dL (0.70-1.30); EST Glomerular Filtration Rate 22 mL/min (>60); Est Glom Filt Rate - Afr Amer 27 mL/min (>60); Estimated Creatinine Clearance 22.15 ml/min; Glucose 126 mg/dL (74-106); Phosphorus 5.2 mg/dL (2.5-4.9); Potassium 4.5 mmol/L (3.5-5.1); Sodium Level 138 mmol/L (136-145)
[2020-09-14] MEDS: Carvedilol 12.5 MG Tablet PO ×2 (09:21→21:03)
[2020-09-14] MEDS: Calcitriol 0.25 MCG Capsule 0.75 MCG PO (09:21)
[2020-09-14] MEDS: Lisinopril 5 MG Tablet PO (09:21)
[2020-09-14] MEDS: Gabapentin 300 MG Capsule PO ×3 (09:21→17:03)
--- NOTE | 2020-09-14 09:27 | CASEMGMT ---
Addendum entered by Leslie Galindo 09/14/20 10:08: SW called [facility] to see if SW has the correct phone number for patient. SW has the same number they have and they spoke with him when patient was at their facility. SW to continue to try and reach patient's son about where patient will go. Leslie PORTER Original Note: SW called patient's son again. SW left a voice mail letting him know SW needs a return call as soon as possible to discuss which facility he would like patient to go to as he is ready for discharge. Leslie PORTER
[2020-09-14] MEDS: Insulin Lispro 100 UNIT/ML INSULN.PEN SC ×3 (11:38→21:03)
[2020-09-14 11:50] LABS: Bedside Glucose 193 mg/dL (70-110)
--- NOTE | 2020-09-14 13:02 | CASEMGMT ---
RN came to K[facility] and she called patient's son and he answered right away. She gave SW the phone. KONSTANTIN spoke with patient's son [facility]. KONSTANTIN let him know patient is going to need to go somewhere at discharge. KONSTANTIN told him he can go on his [facility], but there are limited facilities that are contracted with the [facility]. KONSTANTIN told him the facilities and he prefers [facility] and then [facility] as those are the 2 closest facilities. He would like to bring patient home. KONSTANTIN told him it would be best if he got some rehab again and maybe [facility] can work with [facility] on getting home services set up when he is ready to leave there. He was in agreement with this. KONSTANTIN called and spoke with Sanjuana regarding referral and that it was faxed. Await response. Leslie PORTER
[2020-09-14 13:52] LABS: Absolute Lymphocyte Count 1.03 X10^3/uL (0.83-4.51); Absolute Neutrophil Count 8.2 X10^3/uL (2.0-7.7); Basophil# 0.02 X10^3/uL; Basophil% 0.2 % (0-1); Eosinophil# 0.07 X10^3/uL; Eosinophils% 0.7 % (0-5); Hematocrit 25.9 % (40-54); Hemoglobin 8.5 g/dL (13.0-16.5); Lymphocyte # 1.03 X10^3/ul (0.83-4.51); Lymphocyte % 10.3 % (19-41); Mean Corp Hgb Conc 32.8 g/dL (32-36); Mean Corpuscular Hgb 33.2 pg (27.0-32.0); Mean Corpuscular Volume 101.2 fL (80-94); Mean Platelet Vol. 10.7 fl (6.2-12.0); NRBC Flagged by Analyzer 0 % (0-5); Neutrophil # 8.23 X10^3/uL (2.7-7.7); Neutrophil % 82.3 % (47-70); Platelet Count 306 K/mm3 (150-450); RBC Distribution Width CV 13.7 % (11.6-14.6); RBC Distribution Width SD 50.6 fl (35.1-43.9); Red Blood Count 2.56 M/mm3 (4.6-6.2)
--- NOTE | 2020-09-14 13:55 | PCM.CONS.P ---
Assessment & Plan Assessment/Plan (1) Weakness: (2) Delirium due to another medical condition: (3) Chronic kidney failure: (4) DKA (diabetic ketoacidoses): QUALIFIERS: Diabetes mellitus complication detail: without coma Diabetes mellitus type: type 2 Qualified Code(s): E11.10 - Type 2 diabetes mellitus with ketoacidosis without coma (5) Acute urinary retention: (6) Elevated troponin: (7) Hypertensive urgency: PLAN: 75-year-old male with weakness and delirium, presented to the hospital in DKA and acute urinary retention with hypertensive urgency. Transferred out of the ICU and now continues with care on the progressive care unit. 1. Weakness and debility: Chronic conditions not well managed at home. He lives with his disabled son. Very weak and debilitated, plan is to go to skilled therapy again, with goal of returning home. 2. Delirium: Has been improving with management of his other conditions but still persistent. EEG showed diffuse attenuation and continuous slow generalized pattern suggestive of a moderate to severe diffuse encephalopathy. No seizure activity. 3. DKA: Resolved 4. Hypertensive urgency/elevated troponin/CKD: Complicates overall care, management, recovery, and prognosis. Management per hospitalist/specialists. Thank you for the opportunity to participate in this patient's care, please do not hesitate to contact [facility] with any further questions or concerns. Palliative direct line is [phone]. We will follow up at discharge and will discuss palliative services further at that time. Contact information given. He does not have decisional capacity at this point due to ongoing delirium. Son reports he has confusion at baseline, but unknown to what extent. Greater than 50% of F2F visit dedicated to education and counseling of palliative care services, medications, comorbid conditions and potential assistance with management, and plan of care moving forward. Start time: 1355 End time:1428 HPI Consult Data Date of Consult: 09/14/20 HPI Narrative HPI Narrative: JULIO DUNNE, is a 75 M who presents to [facility] after being found by his son, EMS was called. Patient was quite confused and unable to follow commands. His blood sugar was greater than 500. He was discharged from [facility] 1 week ago and was living with his disabled son, who is not able to contribute to his care. Patient was transferred to the intensive care unit for further evaluation and management. He was started on an insulin drip and treated for DKA, acute urinary retention, and delirium. He was seen by infectious disease and has since been taken off antibiotics. Patient continues to improve. Acute CVA was ruled out with the MRI/MRA. EEG showing diffuse slowing with encephalopathy.. Blood pressures are under better control and creatinine slowly improving, had YOHAN on CKD stage IV. His diuretics are on hold. Nephrology consulted 09/14. Echocardiogram was performed and showed mild concentric LVH, LV systolic function on the lower limits of normal, EF of 50%, stage I diastolic dysfunction, mild eccentric MVI and mild BERNARD. According to case management, it has been difficult reaching the patient's son, [facility] to determine where he will go upon discharge. He was recently at [facility] but had to leave due to not being able to meet co-pay. It was recommended he stay but he could not afford it. Current plan is referral to [facility], awaiting approval. Once rehab services have been completed, goal is to return home. Patient is quite confused upon exam. He is hallucinating thinking he is seen dimes on the wall. He is alert but oriented to self only. Connor catheter remains in place. Urinalysis was negative for infection. He is more concerned about talking about finances and his current health situation. He looks very uncomfortable in bed and keeps swinging his legs between the bed rail in the bed. Assisted him in repositioning. Denies any pain, shortness of breath, nausea, vomiting, diarrhea. He does complain of numbness to bilateral feet. He is requiring redirection frequently. [facility] Medical History Kidney failure Type 2 diabetes mellitus Venous insufficiency of both lower extremities Home Medications atorvastatin 40 mg PO QHS 09/11/20 [History Last Taken Unknown] calcitriol 0.75 mcg PO DAILY 09/11/20 [History Last Taken Unknown] carvedilol 25 mg PO BID 09/11/20 [History Last Taken Unknown] ferrous sulfate 325 mg PO BID 09/11/20 [History Last Taken Unknown] furosemide 40 mg PO DAILY PRN 09/11/20 [History Last Taken Unknown] gabapentin 300 mg PO TID 09/11/20 [History Last Taken Unknown] insulin aspart U-100 12 unit SUBCUT BREAKFAST 09/11/20 [History Last Taken Unknown] insulin aspart U-100 12 unit SUBCUT DINNER 09/11/20 [History Last Taken Unknown] insulin glargine 18 unit SUBCUT BREAKFAST 09/11/20 [History Last Taken Unknown] levothyroxine [Synthroid] 25 mcg PO DAILY 09/11/20 [History Last Taken Unknown] lisinopril 5 mg PO DAILY 09/11/20 [History Last Taken Unknown] magnesium oxide 420 mg PO BID 09/11/20 [History Last Taken Unknown] sodium bicarbonate 1,950 mg PO TID 09/11/20 [History Last Taken Unknown] Allergy/AdvReac Type Severity Reaction Status Date / Time No Known Allergies Allergy Verified 02/15/14 11:41 Social History Smoking Status: Never smoker ROS ROS Narrative Review of systems otherwise negative from a constitutional, HEENT, respiratory, cardiovascular, GI, genitourinary, musculoskeletal, skin, neurologic, psychiatric and hematologic system unless stated above. Physical Exam Const alert Orientation / Consciousness: oriented to person and confused Exam Limitations: altered mental status and physical limitations HEENT normocephalic and head/scalp atraumatic Neck supple General: trachea midline Resp Effort and Inspection: able to speak in complete sentences and symmetric chest movement Auscultation: diminished lung sounds; Negative for rales, rhonchi or wheezes Cardio regular rate, regular rhythm, S1 normal heart sound and S2 normal heart sound GI normal to inspection, nondistended, normoactive bowel sounds Bladder / Kidney Exam: catheter in place Extremity General Extremity: edema bilateral (legs and hands); Negative for clubbing or cyanosis Skin General Skin Exam: atrophy Neuro no focal motor deficits Sensorium / Orientation: confused; Negative for lethargic Psych Speech: normal speech Thought Content: hallucination(s)
[2020-09-14] MEDS: Menthol/Lanolin/Calamine/Znox 113 GM Tube 1 APPLIC TOPICAL ×2 (14:16→21:00)
--- NOTE | 2020-09-14 14:36 | PCM.PN.HOSP ---
Subjective Subjective Patient was seen and examined. He is alert, oriented x1. No other acute events. Objective Data Objective Data Vital Signs: Vital Signs Temp Pulse Resp BP Pulse Ox 98.6 F 62 18 124/73 H 98 09/14/20 09:20 09/14/20 09:20 09/14/20 09:20 09/14/20 09:20 09/14/20 09:20 Oxygen Delivery Method Room Air Weight: 96.2 kg Body Mass Index (BMI) 24.3 Intake & Output: Intake and Output for Last 24 Hours 09/12/20 09/13/20 09/14/20 23:59 23:59 23:59 Intake Total 2575.00 / 2575.00 3203.33 / 3353.33 1831.67 / 1831.67 Output Total 700 / 700 875 / 1125 600 / 600 Balance 1875.00 / 1875.00 2328.33 / 2228.33 1231.67 / 1231.67 Lab / Micro Data Result Diagrams: 09/14/20 08:45 09/14/20 08:45 Labs: Laboratory Results - last 24 hr 09/13/20 09/13/20 09/14/20 16:24 21:18 06:33 WBC RBC Hgb Hct MCV MCH MCHC RDW Std Deviation RDW Coeff of Ximena Plt Count MPV Immature Gran % (Auto) Neut % (Auto) Lymph % (Auto) [place] % (Auto) Eos % (Auto) Baso % (Auto) Absolute Neuts (auto) Absolute Lymphs (auto) Nucleated RBC % Sodium Potassium Chloride Carbon Dioxide BUN Creatinine Estim Creat Clear Calc Est GFR (MDRD) Af Amer Est GFR (MDRD) Non-Af BUN/Creatinine Ratio Glucose Calcium Phosphorus Troponin I High Sens Albumin POC Glucose 351 H 344 H 133 H 09/14/20 09/14/20 09/14/20 08:45 08:45 08:45 WBC 10.0 RBC 2.56 L Hgb 8.5 L Hct 25.9 L MCV 101.2 H MCH 33.2 H MCHC 32.8 RDW Std Deviation 50.6 H RDW Coeff of Ximena 13.7 Plt Count 306 MPV 10.7 Immature Gran % (Auto) 0.500 Neut % (Auto) 82.3 H Lymph % (Auto) 10.3 L [place] % (Auto) 6.0 Eos % (Auto) 0.7 Baso % (Auto) 0.2 Absolute Neuts (auto) 8.2 H Absolute Lymphs (auto) 1.03 Nucleated RBC % 0 Sodium 138 Potassium 4.5 Chloride 112 H Carbon Dioxide 18.0 L BUN 46 H Creatinine 2.93 H Estim Creat Clear Calc 22.15 Est GFR (MDRD) Af Amer 27 L Est GFR (MDRD) Non-Af 22 L BUN/Creatinine Ratio 15.7 Glucose 126 H Calcium 6.9 L Phosphorus 5.2 H Troponin I High Sens 54.0 Albumin 2.1 L POC Glucose 09/14/20 11:37 WBC RBC Hgb Hct MCV MCH MCHC RDW Std Deviation RDW Coeff of Ximena Plt Count MPV Immature Gran % (Auto) Neut % (Auto) Lymph % (Auto) [place] % (Auto) Eos % (Auto) Baso % (Auto) Absolute Neuts (auto) Absolute Lymphs (auto) Nucleated RBC % Sodium Potassium Chloride Carbon Dioxide BUN Creatinine Estim Creat Clear Calc Est GFR (MDRD) Af Amer Est GFR (MDRD) Non-Af BUN/Creatinine Ratio Glucose Calcium Phosphorus Troponin I High Sens Albumin POC Glucose 193 H Micro: Microbiology 09/13/20 09:05 Stool Stool Occult Blood (MARTINEZ) - Final Occult Blood Positive 09/10/20 15:30 Urine, Catheterized Urine Culture - Final Enterococcus faecalis 09/10/20 13:22 Blood Culture (Wb) - Anticubital Right Blood Culture - Preliminary No growth in 48 hours. 09/10/20 13:10 Blood Culture (Wb) - Anticubital Left Blood Culture - Preliminary No growth in 48 hours. 09/11/20 17:10 Mucosa - Nose SARS-CoV-2 Antigen (Rapid) - Final Physical Exam Narrative General: Confused, oriented to self, cooperative, well hydrated HEENT: Atraumatic Oral: Moist Mucosa Neck: Supple Lungs: Clear to auscultation Cardiovascular: HS I+II, regular, no murmurs Abdomen: Bowel Sounds Present, Soft, Non Tender Extremities: No edema Skin: Vitiliginous skin lesions all over the body Neurological: Grossly intact Psych/Mental Status: Appropriate Assessment & Plan Assessment/Plan (1) DKA (diabetic ketoacidoses): QUALIFIERS: Diabetes mellitus type: type 2 Diabetes mellitus complication detail: without coma Qualified Code(s): E11.10 - Type 2 diabetes mellitus with ketoacidosis without coma (2) Delirium due to another medical condition: (3) Hyperosmolar hyperglycemic state (HHS): (4) Hypertensive urgency: (5) Elevated troponin: (6) SIRS (systemic inflammatory response syndrome): PLAN: 1. Acute metabolic encephalopathy, unclear etiology, slowly improving Acute CVA ruled out with negative MRI brain, MRA head and neck EEG pending 2. Acute DKA in a known type II DM patient, noncompliant, resolved Continue on Lantus 18 units nightly, insulin sliding scale 3. Accelerated hypertension/hypertensive urgency, better controlled Continue on carvedilol, lisinopril 4. Elevated troponins, likely related to #2 and #3, secondary to demand ischemia No acute EKG changes, will continue to monitor 6. Hypothyroidism, TSH is elevated, FT3 is low, continue levothyroxine 7. Hypomagnesemia, replaced 8. 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 Acute GI bleed with anemia Continue on PO PPI, outpatient colonoscopy 10. Rest of chronic medical conditions remained stable Charges/Coding Visit Charges Inpatient E&M: 60548 Subs Hosp L2
[2020-09-14] MEDS: Pantoprazole Sodium 40 MG Tablet PO ×2 (15:13→21:02)
--- NOTE | 2020-09-14 15:52 | CON.PCM.RE_ITS ---
Assessment & Plan Assessment/Plan (1) Chronic kidney failure: QUALIFIERS: Chronic kidney disease stage: stage 4 (severe) Qualified Code(s): N18.4 - Chronic kidney disease, stage 4 (severe) PLAN: recently his creatinine has been around 3.0. developed urinary retention on admit but drained with mayers. UA showed proteinuria, glycosuria. poorly controlled diabetes. Echo showed possible amyloidosis pattern. UPEP is pending. since cr is stable no further work up for now. no indications for [employer]. HPI Consult Data Date of Consult: 09/14/20 HPI Narrative HPI Narrative: JULIO DUNNE, is a 75 M who presents to the hospital with complaints of AMS. renal consulted for CKD4/YOHAN. somewhat drowsy, poor historian. history is obtained from charts. history of diabetes. recently poor controlled. admitted to hospital with AMS, DKA, urinary retention s/p mayers. cr is around 3 most of the stay. echo showed possible amyloidosis pattern. UPEP pending. [facility] Medical History Kidney failure Type 2 diabetes mellitus Venous insufficiency of both lower extremities Home Medications atorvastatin 40 mg PO QHS 09/11/20 [History Last Taken Unknown] calcitriol 0.75 mcg PO DAILY 09/11/20 [History Last Taken Unknown] carvedilol 25 mg PO BID 09/11/20 [History Last Taken Unknown] ferrous sulfate 325 mg PO BID 09/11/20 [History Last Taken Unknown] furosemide 40 mg PO DAILY PRN 09/11/20 [History Last Taken Unknown] gabapentin 300 mg PO TID 09/11/20 [History Last Taken Unknown] insulin aspart U-100 12 unit SUBCUT BREAKFAST 09/11/20 [History Last Taken Unknown] insulin aspart U-100 12 unit SUBCUT DINNER 09/11/20 [History Last Taken Unknown] insulin glargine 18 unit SUBCUT BREAKFAST 09/11/20 [History Last Taken Unknown] levothyroxine [Synthroid] 25 mcg PO DAILY 09/11/20 [History Last Taken Unknown] lisinopril 5 mg PO DAILY 09/11/20 [History Last Taken Unknown] magnesium oxide 420 mg PO BID 09/11/20 [History Last Taken Unknown] sodium bicarbonate 1,950 mg PO TID 09/11/20 [History Last Taken Unknown] Allergy/AdvReac Type Severity Reaction Status Date / Time No Known Allergies Allergy Verified 02/15/14 11:41 Social History Smoking Status: Never smoker Physical Exam Narrative somewhat sleepy no obvious distress no pallor no icterus no JVD s1s2 no murmurs lungs clear abdomen soft no organomegaly no edema no cyanosis mayers + Lab / Micro Data Result Diagrams: 09/14/20 08:45 09/14/20 08:45 Labs: Laboratory Results - last 24 hr 09/13/20 09/13/20 09/14/20 16:24 21:18 06:33 WBC RBC Hgb Hct MCV MCH MCHC RDW Std Deviation RDW Coeff of Ximena Plt Count MPV Immature Gran % (Auto) Neut % (Auto) Lymph % (Auto) [place] % (Auto) Eos % (Auto) Baso % (Auto) Absolute Neuts (auto) Absolute Lymphs (auto) Nucleated RBC % Sodium Potassium Chloride Carbon Dioxide BUN Creatinine Estim Creat Clear Calc Est GFR (MDRD) Af Amer Est GFR (MDRD) Non-Af BUN/Creatinine Ratio Glucose Calcium Phosphorus Troponin I High Sens Albumin POC Glucose 351 H 344 H 133 H 09/14/20 09/14/20 09/14/20 08:45 08:45 08:45 WBC 10.0 RBC 2.56 L Hgb 8.5 L Hct 25.9 L MCV 101.2 H MCH 33.2 H MCHC 32.8 RDW Std Deviation 50.6 H RDW Coeff of Ximena 13.7 Plt Count 306 MPV 10.7 Immature Gran % (Auto) 0.500 Neut % (Auto) 82.3 H Lymph % (Auto) 10.3 L [place] % (Auto) 6.0 Eos % (Auto) 0.7 Baso % (Auto) 0.2 Absolute Neuts (auto) 8.2 H Absolute Lymphs (auto) 1.03 Nucleated RBC % 0 Sodium 138 Potassium 4.5 Chloride 112 H Carbon Dioxide 18.0 L BUN 46 H Creatinine 2.93 H Estim Creat Clear Calc 22.15 Est GFR (MDRD) Af Amer 27 L Est GFR (MDRD) Non-Af 22 L BUN/Creatinine Ratio 15.7 Glucose 126 H Calcium 6.9 L Phosphorus 5.2 H Troponin I High Sens 54.0 Albumin 2.1 L POC Glucose 09/14/20 11:37 WBC RBC Hgb Hct MCV MCH MCHC RDW Std Deviation RDW Coeff of Ximena Plt Count MPV Immature Gran % (Auto) Neut % (Auto) Lymph % (Auto) [place] % (Auto) Eos % (Auto) Baso % (Auto) Absolute Neuts (auto) Absolute Lymphs (auto) Nucleated RBC % Sodium Potassium Chloride Carbon Dioxide BUN Creatinine Estim Creat Clear Calc Est GFR (MDRD) Af Amer Est GFR (MDRD) Non-Af BUN/Creatinine Ratio Glucose Calcium Phosphorus Troponin I High Sens Albumin POC Glucose 193 H
[2020-09-14 16:15] LABS: Bedside Glucose 226 mg/dL (70-110)
--- NOTE | 2020-09-14 16:20 | CASEMGMT ---
[facility] can take patient at discharge. KONSTANTIN called patient's son and let him know. He asked if they could bring him home and get help at home. KONSTANTIN explained that right now patient's current condition he would be better served going to [facility] for a little while and [facility] to get help in home while he is at [facility]. He agreed with this. He asked if SW spoke with patient and SW told him SW has not as he is very confused. [facility] clinical[facility] to the [facility]. KONSTANTIN also called [facility] the [facility] SW in [place] and let her know that K[facility]STANTIN faxed the information for skilled at [facility]. Await [facility] approval for skilled care at [facility]. Leslie Galindo CANVAS SHRINKERMariajose PORTER
[2020-09-14] MEDS: Atorvastatin Calcium 40 MG Tablet PO (21:02)
[2020-09-14] MEDS: Haloperidol Lactate 5 MG/ML Vial 1 MG IM (21:04)
[2020-09-14 22:15] LABS: Bedside Glucose 223 mg/dL (70-110)
[2020-09-15] VITALS (8 sets, daily range): BP systolic 140–166; BP diastolic 58–95; PULSE 57–89; RESP 15–18; TEMP 35.7–37.1; O2SAT 96–100
[2020-09-15] MEDS: QUEtiapine 25 MG Tablet PO (00:07)
[2020-09-15] MEDS: Heparin Injection (Vial) 5,000 UNIT/ML VIAL 5000 UNIT SC ×3 (06:11→21:26)
[2020-09-15] MEDS: Menthol/Lanolin/Calamine/Znox 113 GM Tube 1 APPLIC TOPICAL ×3 (06:11→21:25)
[2020-09-15] MEDS: Levothyroxine 50 MCG Tablet PO (06:12)
[2020-09-15] MEDS: Sodium Bicarbonate 650 MG Tablet 1950 MG PO ×3 (06:12→21:27)
[2020-09-15 09:40] LABS: Absolute Lymphocyte Count 1.53 X10^3/uL (0.83-4.51); Absolute Neutrophil Count 7.7 X10^3/uL (2.0-7.7); Basophil# 0.03 X10^3/uL; Basophil% 0.3 % (0-1); Eosinophil# 0.14 X10^3/uL; Eosinophils% 1.4 % (0-5); Hemoglobin 8.9 g/dL (13.0-16.5); Lymphocyte # 1.53 X10^3/ul (0.83-4.51); Lymphocyte % 15.1 % (19-41); Mean Corpuscular Hgb 34.1 pg (27.0-32.0); Mean Corpuscular Volume 103.4 fL (80-94); Mean Platelet Vol. 10.6 fl (6.2-12.0); Monocyte# 0.71 X10^3/uL; NRBC Flagged by Analyzer 0 % (0-5); Neutrophil # 7.71 X10^3/uL (2.7-7.7); Neutrophil % 75.8 % (47-70); Platelet Count 293 K/mm3 (150-450); RBC Distribution Width CV 13.8 % (11.6-14.6); RBC Distribution Width SD 52.8 fl (35.1-43.9); Red Blood Count 2.61 M/mm3 (4.6-6.2); White Blood Count 10.2 K/mm3 (4.4-11.0)
--- NOTE | 2020-09-15 10:11 | EKG12_ITS ---
Test Reason : Blood Pressure : / mmHG Vent. Rate : 062 BPM Atrial Rate : 062 BPM P-R Int : 160 ms QRS Dur : 094 ms QT Int : 476 ms P-R-T Axes : 036 007 164 degrees QTc Int : 483 ms Normal sinus rhythm with sinus arrhythmia ST & T wave abnormality, consider lateral ischemia Prolonged QT Abnormal ECG Confirmed by KALIA OCONNOR, DENYS ([id number]), features editor CAPO SERRANO ([id number]) on 09/18/2020 10:52:26 AM Referred By: AKASH Confirmed By:DENYS MOTTA MD
--- NOTE | 2020-09-15 10:11 | VDUE_ITS ---
Reason For Study: Swelling Right Proximal Right jugular vein is spontaneous, widely patent, phasic, with no intraluminal echogenicity noted. Right subclavian vein is spontaneous, widely patent, phasic, with no intraluminal echogenicity noted. Right Lower Arm Right radial vein is compressible. Right ulnar vein is compressible. Right Arm Right axillary vein is spontaneous, patent, phasic, competent, compressible and demonstrates augmentation. Right brachial vein is compressible. Cephalic vein is partially compressible with bright intraluminal echoes at antecube. Recent IV was at site of antecube. Remaining Cephalic vein is compressible. Right basilic vein is compressible. Patient Safety Prelim to [facility]. VL/Venous Duplex US, Unilateral Interpretation Summary There is no evidence of right upper extremity deep vein thrombosis. Findings lopez ggest an area of superficial thrombophlebitis cephalic vein at the antecubital space. Great intr aluminal echoes might suggest a more chronic process. Clinical correlation would be appropriate. Ordering Physician: Betzy Ayon Referring Physician: [facility] Performed By: Lacy Marx RVT and Student ?
[2020-09-15] MEDS: Lisinopril 5 MG Tablet PO (10:36)
[2020-09-15] MEDS: Calcitriol 0.25 MCG Capsule 0.75 MCG PO (10:36)
[2020-09-15] MEDS: Carvedilol 12.5 MG Tablet PO ×2 (10:36→21:26)
[2020-09-15] MEDS: Pantoprazole Sodium 40 MG Tablet PO ×2 (10:36→21:27)
[2020-09-15 11:05] LABS: Bedside Glucose 164 mg/dL (70-110)
[2020-09-15 11:22] LABS: ALB/GLOB Ratio 0.8 RATIO (0.9-2.4); AST(SGOT) 22 U/L (15-37); Albumin, Serum 2.1 g/dL (3.2-5.0); Alkaline Phosphatase 88 U/L (45-117); BUN 48 mg/dL (7-18); BUN/Creat Ratio 15.6 RATIO (10-20); Calcium,Total 7.1 mg/dL (8.5-10.1); Creatinine, Serum 3.08 mg/dL (0.70-1.30); EST Glomerular Filtration Rate 21 mL/min (>60); Est Glom Filt Rate - Afr Amer 25 mL/min (>60); Estimated Creatinine Clearance 21.07 ml/min; Globulin 2.7 g/dL (2.2-4.2); Glucose 161 mg/dL (74-106); Protein, Total 4.8 g/dL (6.4-8.2)
[2020-09-15 11:23] LABS: Alanine Aminotransfer ALT/SGPT 46 U/L (16-61); Anion Gap 9 (5-15); Chloride 111 mmol/L (98-107); Potassium 4.5 mmol/L (3.5-5.1); Sodium Level 138 mmol/L (136-145)
[2020-09-15] MEDS: Insulin Lispro 100 UNIT/ML INSULN.PEN SC ×3 (12:03→21:26)
--- NOTE | 2020-09-15 12:18 | CASEMGMT ---
SW Note KONSTANTIN called Carter at [facility] in [place]. Updated her that Leslie feels that patient needs home assistance and services at discharge. Carter said that she started paperwork for patient's placement and completed the social work portion of the paperwork and she has submitted paperwork for RN to complete paperwork. Carter said that she does not feel that they will get approval for placement today but more likely next week. Updated surveillance agent and MD. Plan: [facility] at discharge Regi COTTRELL
[2020-09-15 13:26] LABS: Bedside Glucose 185 mg/dL (70-110)
--- NOTE | 2020-09-15 14:10 | PN.HOSP_ITS ---
Subjective Subjective Patient was seen and examined. No new complaints. Remains confused, right hand is swollen. Objective Data Objective Data Vital Signs: Vital Signs Temp Pulse Resp BP Pulse Ox 97.6 F L 66 15 147/61 H 100 09/15/20 10:14 09/15/20 11:25 09/15/20 10:14 09/15/20 10:14 09/15/20 10:14 Oxygen Delivery Method Room Air Weight: 96.5 kg Body Mass Index (BMI) 24.3 Intake & Output: Intake and Output for Last 24 Hours 09/13/20 09/14/20 09/15/20 23:59 23:59 23:59 Intake Total 3203.33 / 3353.33 3071.67 / 3131.67 1432.5 / 1432.5 Output Total 875 / 1125 630 / 880 400 / 400 Balance 2328.33 / 2228.33 2441.67 / 2251.67 1032.5 / 1032.5 Lab / Micro Data Result Diagrams: 09/15/20 09:03 09/15/20 09:03 Labs: Laboratory Results - last 24 hr 09/14/20 09/14/20 09/15/20 16:10 20:58 09:03 WBC 10.2 RBC 2.61 L Hgb 8.9 L Hct 27.0 L MCV 103.4 H MCH 34.1 H MCHC 33.0 RDW Std Deviation 52.8 H RDW Coeff of Ximena 13.8 Plt Count 293 MPV 10.6 Immature Gran % (Auto) 0.400 Neut % (Auto) 75.8 H Lymph % (Auto) 15.1 L [place] % (Auto) 7.0 Eos % (Auto) 1.4 Baso % (Auto) 0.3 Absolute Neuts (auto) 7.7 Absolute Lymphs (auto) 1.53 Nucleated RBC % 0 Sodium Potassium Chloride Carbon Dioxide Anion Gap BUN Creatinine Estim Creat Clear Calc Est GFR (MDRD) Af Amer Est GFR (MDRD) Non-Af BUN/Creatinine Ratio Glucose Calcium Total Bilirubin AST ALT Alkaline Phosphatase Total Protein Albumin Globulin Albumin/Globulin Ratio POC Glucose 226 H 223 H 09/15/20 09/15/20 09/15/20 09:03 09:38 12:01 WBC RBC Hgb Hct MCV MCH MCHC RDW Std Deviation RDW Coeff of Ximena Plt Count MPV Immature Gran % (Auto) Neut % (Auto) Lymph % (Auto) [place] % (Auto) Eos % (Auto) Baso % (Auto) Absolute Neuts (auto) Absolute Lymphs (auto) Nucleated RBC % Sodium 138 Potassium 4.5 Chloride 111 H Carbon Dioxide 18.0 L Anion Gap 9 BUN 48 H Creatinine 3.08 H Estim Creat Clear Calc 21.07 Est GFR (MDRD) Af Amer 25 L Est GFR (MDRD) Non-Af 21 L BUN/Creatinine Ratio 15.6 Glucose 161 H Calcium 7.1 L Total Bilirubin 0.30 AST 22 ALT 46 Alkaline Phosphatase 88 Total Protein 4.8 L Albumin 2.1 L Globulin 2.7 Albumin/Globulin Ratio 0.8 L POC Glucose 164 H 185 H Micro: Microbiology 09/10/20 13:22 Blood Culture (Wb) - Anticubital Right Blood Culture - Final No growth in 5 days. 09/10/20 13:10 Blood Culture (Wb) - Anticubital Left Blood Culture - Final No growth in 5 days. 09/13/20 09:05 Stool Stool Occult Blood (MARTINEZ) - Final Occult Blood Positive 09/10/20 15:30 Urine, Catheterized Urine Culture - Final Enterococcus faecalis 09/11/20 17:10 Mucosa - Nose SARS-CoV-2 Antigen (Rapid) - Final Physical Exam Narrative General: Confused, oriented to self, cooperative, well hydrated HEENT: Atraumatic Oral: Moist Mucosa Neck: Supple Lungs: Clear to auscultation Cardiovascular: HS I+II, regular, no murmurs Abdomen: Bowel Sounds Present, Soft, Non Tender Extremities: Generalized edema, right upper extremity edematous +4, bilateral lower extremity +1-2 Skin: Vitiliginous skin lesions all over the body Neurological: Grossly intact Psych/Mental Status: Appropriate Assessment & Plan Assessment/Plan (1) DKA (diabetic ketoacidoses): QUALIFIERS: Diabetes mellitus type: type 2 Diabetes mellitus complication detail: without coma Qualified Code(s): E11.10 - Type 2 diabetes mellitus with ketoacidosis without coma (2) Delirium due to another medical condition: (3) Hyperosmolar hyperglycemic state (HHS): (4) Hypertensive urgency: (5) Elevated troponin: (6) SIRS (systemic inflammatory response syndrome): PLAN: 1. Acute metabolic encephalopathy, prolonged, unclear etiology, slo wly improving Acute CVA ruled out with negative MRI brain, MRA head and neck EEG pending 2. Acute DKA in a known type II DM patient, noncompliant, resolved Continue on Lantus 18 units nightly, insulin sliding scale 3. Accelerated hypertension/hypertensive urgency, better controlled Continue on carvedilol, lisinopril 4. Elevated troponins, likely related to #2 and #3, secondary to demand ischemia No acute EKG changes, will continue to monitor 6. Hypothyroidism, TSH is elevated, FT3 is low, continue levothyroxine 7. Hypomagnesemia, replaced 8. 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 Acute GI bleed with anemia Continue on PO PPI, outpatient colonoscopy 10. Right hand swelling, will get a doppler USG of RUE 11. Rest of chronic medical conditions remained stable Charges/Coding Visit Charges Inpatient E&M: 78313 Subs Hosp L2
--- NOTE | 2020-09-15 17:27 | PN.RENAL_ITS ---
Subjective Subjective no new events Objective Data Objective Data Vital Signs: Vital Signs Temp Pulse Resp BP Pulse Ox 97.4 F L 57 L 15 166/58 H 100 09/15/20 16:24 09/15/20 16:24 09/15/20 16:24 09/15/20 16:24 09/15/20 16:24 Oxygen Delivery Method Room Air Weight: 96.5 kg Body Mass Index (BMI) 24.3 Intake & Output: Intake and Output for Last 24 Hours 09/13/20 09/14/20 09/15/20 23:59 23:59 23:59 Intake Total 3203.33 / 3353.33 3071.67 / 3131.67 1792.5 / 1792.5 Output Total 875 / 1125 630 / 880 550 / 550 Balance 2328.33 / 2228.33 2441.67 / 2251.67 1242.5 / 1242.5 Lab / Micro Data Result Diagrams: 09/15/20 09:03 09/15/20 09:03 Labs: Laboratory Results - last 24 hr 09/14/20 09/15/20 09/15/20 20:58 09:03 09:03 WBC 10.2 RBC 2.61 L Hgb 8.9 L Hct 27.0 L MCV 103.4 H MCH 34.1 H MCHC 33.0 RDW Std Deviation 52.8 H RDW Coeff of Ximena 13.8 Plt Count 293 MPV 10.6 Immature Gran % (Auto) 0.400 Neut % (Auto) 75.8 H Lymph % (Auto) 15.1 L [place] % (Auto) 7.0 Eos % (Auto) 1.4 Baso % (Auto) 0.3 Absolute Neuts (auto) 7.7 Absolute Lymphs (auto) 1.53 Nucleated RBC % 0 Sodium 138 Potassium 4.5 Chloride 111 H Carbon Dioxide 18.0 L Anion Gap 9 BUN 48 H Creatinine 3.08 H Estim Creat Clear Calc 21.07 Est GFR (MDRD) Af Amer 25 L Est GFR (MDRD) Non-Af 21 L BUN/Creatinine Ratio 15.6 Glucose 161 H Calcium 7.1 L Total Bilirubin 0.30 AST 22 ALT 46 Alkaline Phosphatase 88 Total Protein 4.8 L Albumin 2.1 L Globulin 2.7 Albumin/Globulin Ratio 0.8 L POC Glucose 223 H 09/15/20 09/15/20 09:38 12:01 WBC RBC Hgb Hct MCV MCH MCHC RDW Std Deviation RDW Coeff of Ximena Plt Count MPV Immature Gran % (Auto) Neut % (Auto) Lymph % (Auto) [place] % (Auto) Eos % (Auto) Baso % (Auto) Absolute Neuts (auto) Absolute Lymphs (auto) Nucleated RBC % Sodium Potassium Chloride Carbon Dioxide Anion Gap BUN Creatinine Estim Creat Clear Calc Est GFR (MDRD) Af Amer Est GFR (MDRD) Non-Af BUN/Creatinine Ratio Glucose Calcium Total Bilirubin AST ALT Alkaline Phosphatase Total Protein Albumin Globulin Albumin/Globulin Ratio POC Glucose 164 H 185 H Micro: Microbiology 09/10/20 13:22 Blood Culture (Wb) - Anticubital Right Blood Culture - Final No growth in 5 days. 09/10/20 13:10 Blood Culture (Wb) - Anticubital Left Blood Culture - Final No growth in 5 days. 09/13/20 09:05 Stool Stool Occult Blood (MARTINEZ) - Final Occult Blood Positive 09/10/20 15:30 Urine, Catheterized Urine Culture - Final Enterococcus faecalis 09/11/20 17:10 Mucosa - Nose SARS-CoV-2 Antigen (Rapid) - Final Radiography Diagnostic Testing: Radiology Impression Venous Doppler Study 09/15/20 10:11 Interpretation Summary There is no evidence of right upper extremity deep vein thrombosis. Findings suggest an area of superficial thrombophlebitis cephalic vein at the antecubital space. Great intr aluminal echoes might suggest a more chronic process. Clinical correlation would be appropriate. Ordering Physician: Betzy Ayon Referring Physician: [facility] Performed By: Lacy Marx RVT and Student ? Physical Exam Narrative somewhat sleepy no obvious distress no pallor no icterus no JVD s1s2 no murmurs lungs clear abdomen soft no organomegaly no edema no cyanosis mayers + Assessment & Plan Assessment/Plan (1) Chronic kidney failure: QUALIFIERS: Chronic kidney disease stage: stage 4 (severe) Qualified Code(s): N18.4 - Chronic kidney disease, stage 4 (severe) PLAN: recently his creatinine has been around 3.0. developed urinary retention on admit but drained with mayers. UA showed proteinuria, glycosuria. poorly controlled diabetes. Echo showed possible amyloidosis pattern. UPEP is pending. since cr is stable no further work up for now. no indications for P[employer]. He sees Nephrology at [facility] in [place]. I called and left a message. apparently he was told that his kidney disease is from diabetes. never had kidney biopsy. cr overall stable
[2020-09-15 18:30] LABS: Bedside Glucose 359 mg/dL (70-110)
[2020-09-15] MEDS: Atorvastatin Calcium 40 MG Tablet PO (21:27)
[2020-09-15] MEDS: QUEtiapine 25 MG Tablet 12.5 MG PO (21:28)
[2020-09-15 22:06] LABS: Bedside Glucose 354 mg/dL (70-110)
[2020-09-16] VITALS (9 sets, daily range): BP systolic 126–148; BP diastolic 50–96; PULSE 62–80; RESP 17–18; TEMP 36.2–36.6; O2SAT 98–100
[2020-09-16] MEDS: Menthol/Lanolin/Calamine/Znox 113 GM Tube 1 APPLIC TOPICAL ×3 (05:15→21:09)
[2020-09-16] MEDS: Levothyroxine 50 MCG Tablet PO (05:16)
[2020-09-16] MEDS: Sodium Bicarbonate 650 MG Tablet 1950 MG PO ×3 (05:16→21:11)
[2020-09-16] MEDS: Heparin Injection (Vial) 5,000 UNIT/ML VIAL 5000 UNIT SC ×3 (05:16→21:10)
[2020-09-16 06:50] LABS: Bedside Glucose 126 mg/dL (70-110)
--- NOTE | 2020-09-16 09:55 | NURSING ---
This RN at patient's bedside for morning care. Patient delusional and seeing/hearing things. At times, RN noted brief periods of about 5 seconds where patient's face would tense up and his eyes would twitch. Speech would go from being clear to garbled. When relaxed, speech would be clear. RN requested Dr. Ayon at bedside and made aware of same. Patient was able to follow commands and was alert and oriented x3, but did continue to voice visual hallucinations to hospitalist. Reorientation of little value. Verbal order for EEG received. Order placed and RT made aware. Patient repositioned in bed and call light in reach. Bed alarm on.
[2020-09-16] MEDS: Pantoprazole Sodium 40 MG Tablet PO ×2 (10:07→21:11)
[2020-09-16] MEDS: Carvedilol 12.5 MG Tablet PO ×2 (10:07→21:10)
[2020-09-16] MEDS: Lisinopril 5 MG Tablet PO (10:08)
[2020-09-16] MEDS: Calcitriol 0.25 MCG Capsule 0.75 MCG PO (10:08)
[2020-09-16 12:46] LABS: Bedside Glucose 127 mg/dL (70-110)
--- NOTE | 2020-09-16 14:49 | PN.HOSP_ITS ---
Subjective Subjective Patient was seen and examined. He is alert oriented x3 but has periods of staring in the area, hallucinating. Denies any fever or chills. Objective Data Objective Data Vital Signs: Vital Signs Temp Pulse Resp BP Pulse Ox 97.5 F L 64 17 148/75 H 100 09/16/20 09:35 09/16/20 10:55 09/16/20 09:35 09/16/20 09:35 09/16/20 09:35 Oxygen Delivery Method Room Air Weight: 97.2 kg Body Mass Index (BMI) 24.3 Intake & Output: Intake and Output for Last 24 Hours 09/14/20 09/15/20 09/16/20 23:59 23:59 23:59 Intake Total 3071.67 / 3131.67 1792.5 / 2032.5 480 / 480 Output Total 630 / 880 550 / 800 550 / 550 Balance 2441.67 / 2251.67 1242.5 / 1232.5 -70 / -70 Lab / Micro Data Result Diagrams: 09/15/20 09:03 09/15/20 09:03 Labs: Laboratory Results - last 24 hr 09/15/20 09/15/20 09/16/20 17:16 21:24 06:41 POC Glucose 359 H 354 H 126 H 09/16/20 12:11 POC Glucose 127 H Micro: Microbiology 09/10/20 13:22 Blood Culture (Wb) - Anticubital Right Blood Culture - Final No growth in 5 days. 09/10/20 13:10 Blood Culture (Wb) - Anticubital Left Blood Culture - Final No growth in 5 days. 09/13/20 09:05 Stool Stool Occult Blood (MARTINEZ) - Final Occult Blood Positive 09/10/20 15:30 Urine, Catheterized Urine Culture - Final Enterococcus faecalis 09/11/20 17:10 Mucosa - Nose SARS-CoV-2 Antigen (Rapid) - Final Radiography Diagnostic Testing: Radiology Impression Venous Doppler Study 09/15/20 10:11 Interpretation Summary There is no evidence of right upper extremity deep vein thrombosis. Findings suggest an area of superficial thrombophlebitis cephalic vein at the antecubital space. Great intraluminal echoes might suggest a more chronic process. Clinical correlation would be appropriate. Ordering Physician: Betzy Ayon Referring Physician: [facility] Performed By: Lacy Marx RVT and Student ? Physical Exam Narrative General: Confused, oriented to self, cooperative, well hydrated HEENT: Atraumatic Oral: Moist Mucosa Neck: Supple Lungs: Clear to auscultation Cardiovascular: HS I+II, regular, no murmurs Abdomen: Bowel Sounds Present, Soft, Non Tender Extremities: Generalized edema, right upper extremity edematous +4, bilateral lower extremity +1-2 Skin: Vitiliginous skin lesions all over the body Neurological: Grossly intact Psych/Mental Status: Appropriate Assessment & Plan Assessment/Plan (1) DKA (diabetic ketoacidoses): QUALIFIERS: Diabetes mellitus type: type 2 Diabetes mellitus complication detail: without coma Qualified Code(s): E11.10 - Type 2 diabetes mellitus with ketoacidosis without coma (2) Delirium due to another medical condition: (3) Hyperosmolar hyperglycemic state (HHS): (4) Hypertensive urgency: (5) Elevated troponin: (6) SIRS (systemic inflammatory response syndrome): PLAN: 1. Acute metabolic encephalopathy, prolonged, unclear etiology, slowly improving Acute CVA ruled out with negative MRI brain, MRA head and neck Previous EEG showed generalized numbness. Will repeat EEG 2. Acute DKA in a known type II DM patient, noncompliant, resolved Blood sugars are controlled, continue on Lantus 18 units nightly, insulin slidi ng scale 3. Accelerated hypertension/hypertensive urgency, better controlled Continue on carvedilol, lisinopril 4. Elevated troponins, likely related to #2 and #3, secondary to demand ischemia No acute EKG changes, will continue to monitor 6. Hypothyroidism, TSH is elevated, FT3 is low, continue levothyroxine 7. Hypomagnesemia, replaced 8. 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 Acute GI bleed with anemia Continue on PO PPI, outpatient colonoscopy 10. Right hand swelling, Doppler ultrasound is negative for acute DVT 11. Rest of chronic medical conditions remained stable
--- NOTE | 2020-09-16 16:04 | EKG12_ITS ---
Test Reason : CP Blood Pressure : / mmHG Vent. Rate : 066 BPM Atrial Rate : 066 BPM P-R Int : 200 ms QRS Dur : 096 ms QT Int : 474 ms P-R-T Axes : 061 014 172 degrees QTc Int : 496 ms Sinus rhythm with Premature supraventricular complexes Nonspecific ST and T wave abnormality Prolonged QT Abnormal ECG When compared with ECG of 15-SEP-2020 10:58, MANUAL COMPARISON REQUIRED, DATA IS UNCONFIRMED Confirmed by SHAYNE OCONNOR, ARTI ([id number]), content editor CAPO SERRANO ([id number]) on 09/19/2020 9:18:17 AM Referred By: Bebeto Chow Confirmed By:ARTI BELLA MD
[2020-09-16] MEDS: Insulin Lispro 100 UNIT/ML INSULN.PEN SC ×2 (16:59→21:10)
[2020-09-16 17:06] LABS: Bedside Glucose 195 mg/dL (70-110)
--- NOTE | 2020-09-16 18:54 | NURSING ---
Patient laying sideways in bed on room camera. This RN and superintendent division in to see the patient. Incontinent of bowel and bladder. Patient states that he needs to go get the car. Reorientation of little value. Patient repositioned in bed and incontinence care provided. Heels floated. Patient looks up at ceiling and begins to talk to unseen person. Bed alarm on and call light in reach.
--- NOTE | 2020-09-16 20:23 | NURSING ---
Pts family member, [facility], aware of pt moving rooms to [facility] [address] to be closer to the nurses station.
[2020-09-16] MEDS: QUEtiapine 25 MG Tablet 12.5 MG PO (21:11)
[2020-09-16] MEDS: Atorvastatin Calcium 40 MG Tablet PO (21:11)
[2020-09-17] VITALS (9 sets, daily range): BP systolic 112–156; BP diastolic 74–118; PULSE 62–76; RESP 16–18; TEMP 36.1–36.8; O2SAT 99–100
[2020-09-17 03:35] LABS: Bedside Glucose 226 mg/dL (70-110)
[2020-09-17 04:26] LABS: Mucous, Urine 0 SEEN /hpf (<or=2+); Squamous Epithelial Cells - UA 0 SEEN /hpf (0-5)
[2020-09-17 04:31] LABS: Color, Urine Yellow (Yellow); Glucose, Dipstick 100 mg/dl (Normal); Ketone-Dipstick Negative (Negative); Leukocyte Esterase-Dipstick 500 /ul (Negative); Nitrite-Dipstick Negative (Negative); Occult Blood-Urine 150 /ul (Negative); Protein-Dipstick 100 mg/dl (Negative); Urine Bilirubin Dipstick Negative (Negative); Urine Clarity Turbid (Clear); Urine Urobilinogen Normal (Normal)
[2020-09-17 04:37] LABS: Red Blood Cells-Urine 10-25 SEEN /hpf (0-5); White Blood Cells >100 SEEN /hpf (0-5)
[2020-09-17 04:38] LABS: Bacteria 4+ /hpf (None Seen); Yeast-Urine 4+ /hpf (None Seen)
[2020-09-17] MEDS: Menthol/Lanolin/Calamine/Znox 113 GM Tube 1 APPLIC TOPICAL ×3 (05:07→20:58)
[2020-09-17] MEDS: Ceftriaxone 1 GM/50 ML BAG IV (05:07)
[2020-09-17] MEDS: Heparin Injection (Vial) 5,000 UNIT/ML VIAL 5000 UNIT SC ×3 (05:08→20:55)
[2020-09-17] MEDS: Levothyroxine 50 MCG Tablet PO (05:08)
[2020-09-17] MEDS: 0.9% Saline Lock 10 ML Syringe IV ×4 (05:08→16:42)
[2020-09-17] MEDS: Sodium Bicarbonate 650 MG Tablet 1950 MG PO ×3 (05:08→20:55)
[2020-09-17] MEDS: Dextrose 50%-Water 25 GM/50 ML DISP.SYRIN IV (06:38)
[2020-09-17 07:00] LABS: Bedside Glucose 135 mg/dL (70-110)
[2020-09-17 07:00] LABS: Bedside Glucose 59 mg/dL (70-110)
[2020-09-17 08:21] LABS: Bedside Glucose 90 mg/dL (70-110)
[2020-09-17] MEDS: Dext 5%-0.45% NS 1,000 ML 50 ML IV (08:50)
[2020-09-17 09:06] LABS: Absolute Lymphocyte Count 0.85 X10^3/uL (0.83-4.51); Absolute Neutrophil Count 10.3 X10^3/uL (2.0-7.7); Basophil# 0.05 X10^3/uL; Basophil% 0.4 % (0-1); Eosinophil# 0.32 X10^3/uL; Eosinophils% 2.6 % (0-5); Hematocrit 28.9 % (40-54); Hemoglobin 9.6 g/dL (13.0-16.5); Lymphocyte # 0.85 X10^3/ul (0.83-4.51); Lymphocyte % 6.9 % (19-41); Mean Corp Hgb Conc 33.2 g/dL (32-36); Mean Corpuscular Hgb 33.9 pg (27.0-32.0); Mean Corpuscular Volume 102.1 fL (80-94); Mean Platelet Vol. 10.4 fl (6.2-12.0); Monocyte# 0.76 X10^3/uL; Monocyte% 6.1 % (0-10); NRBC Flagged by Analyzer 0 % (0-5); Neutrophil # 10.32 X10^3/uL (2.7-7.7); Neutrophil % 83.3 % (47-70); Platelet Count 326 K/mm3 (150-450); RBC Distribution Width CV 13.4 % (11.6-14.6); RBC Distribution Width SD 50.4 fl (35.1-43.9); Red Blood Count 2.83 M/mm3 (4.6-6.2); White Blood Count 12.4 K/mm3 (4.4-11.0)
[2020-09-17 09:11] LABS: ALB/GLOB Ratio 0.7 RATIO (0.9-2.4); AST(SGOT) 21 U/L (15-37); Alanine Aminotransfer ALT/SGPT 44 U/L (16-61); Albumin, Serum 2.3 g/dL (3.2-5.0); Alkaline Phosphatase 99 U/L (45-117); Anion Gap 8 (5-15); BUN 41 mg/dL (7-18); BUN/Creat Ratio 13.8 RATIO (10-20); Calcium,Total 7.8 mg/dL (8.5-10.1); Chloride 115 mmol/L (98-107); Creatinine, Serum 2.97 mg/dL (0.70-1.30); EST Glomerular Filtration Rate 22 mL/min (>60); Est Glom Filt Rate - Afr Amer 27 mL/min (>60); Estimated Creatinine Clearance 21.85 ml/min; Globulin 3.1 g/dL (2.2-4.2); Glucose 94 mg/dL (74-106); Potassium 4.7 mmol/L (3.5-5.1); Protein, Total 5.4 g/dL (6.4-8.2); Sodium Level 141 mmol/L (136-145)
[2020-09-17] MEDS: Calcitriol 0.25 MCG Capsule 0.75 MCG PO (11:14)
[2020-09-17] MEDS: Lisinopril 5 MG Tablet PO (11:15)
[2020-09-17] MEDS: Carvedilol 12.5 MG Tablet PO ×2 (11:15→20:55)
[2020-09-17] MEDS: Pantoprazole Sodium 40 MG Tablet PO ×2 (11:16→20:56)
[2020-09-17] MEDS: Insulin Lispro 100 UNIT/ML INSULN.PEN SC ×3 (11:34→21:07)
[2020-09-17 11:41] LABS: Bedside Glucose 162 mg/dL (70-110)
--- NOTE | 2020-09-17 15:29 | PCM.PN.HOSP ---
Subjective Subjective Patient was seen and examined. Overnight, he was more confused. Still hallucinating. He had urinary retention. Repeat UA was actually UTI. Restarted on IV antibiotics?IV ceftriaxone Objective Data Objective Data Vital Signs: Vital Signs Temp Pulse Resp BP Pulse Ox 97.2 F L 63 16 142/118 H 100 09/17/20 11:12 09/17/20 11:12 09/17/20 11:12 09/17/20 11:12 09/17/20 11:12 Oxygen Delivery Method Room Air Weight: 98.3 kg Body Mass Index (BMI) 24.3 Intake & Output: Intake and Output for Last 24 Hours 09/15/20 09/16/20 09/17/20 23:59 23:59 23:59 Intake Total 1792.5 / 2032.5 720 / 960 630 / 630 Output Total 550 / 800 550 / 1050 925 / 925 Balance 1242.5 / 1232.5 170 / -90 -295 / -295 Lab / Micro Data Result Diagrams: 09/17/20 08:45 09/17/20 08:45 Labs: Laboratory Results - last 24 hr 09/16/20 09/16/20 09/17/20 16:50 21:08 04:15 WBC RBC Hgb Hct MCV MCH MCHC RDW Std Deviation RDW Coeff of Ximena Plt Count MPV Immature Gran % (Auto) Neut % (Auto) Lymph % (Auto) [place] % (Auto) Eos % (Auto) Baso % (Auto) Absolute Neuts (auto) Absolute Lymphs (auto) Nucleated RBC % Sodium Potassium Chloride Carbon Dioxide Anion Gap BUN Creatinine Estim Creat Clear Calc Est GFR (MDRD) Af Amer Est GFR (MDRD) Non-Af BUN/Creatinine Ratio Glucose Calcium Total Bilirubin AST ALT Alkaline Phosphatase Total Protein Albumin Globulin Albumin/Globulin Ratio Urine Color Yellow Urine Clarity Turbid Urine pH 6.0 Ur Specific [place] 1.020 Urine Protein 100 H Urine Glucose (UA) 100 H Urine Ketones Negative Urine Occult Blood 150 H Urine Nitrite Negative Urine Bilirubin Negative Urine Urobilinogen Normal Ur Leukocyte Esterase 500 H Urine RBC 10-25 SEEN Urine WBC >100 SEEN Ur Squamous Epith Cells 0 SEEN Urine Bacteria 4+ Urine Mucus 0 SEEN Urine Yeast 4+ POC Glucose 195 H 226 H 09/17/20 09/17/20 09/17/20 06:37 06:54 08:02 WBC RBC Hgb Hct MCV MCH MCHC RDW Std Deviation RDW Coeff of Ximena Plt Count MPV Immature Gran % (Auto) Neut % (Auto) Lymph % (Auto) [place] % (Auto) Eos % (Auto) Baso % (Auto) Absolute Neuts (auto) Absolute Lymphs (auto) Nucleated RBC % Sodium Potassium Chloride Carbon Dioxide Anion Gap BUN Creatinine Estim Creat Clear Calc Est GFR (MDRD) Af Amer Est GFR (MDRD) Non-Af BUN/Creatinine Ratio Glucose Calcium Total Bilirubin AST ALT Alkaline Phosphatase Total Protein Albumin Globulin Albumin/Globulin Ratio Urine Color Urine Clarity Urine pH Ur Specific [place] Urine Protein Urine Glucose (UA) Urine Ketones Urine Occult Blood Urine Nitrite Urine Bilirubin Urine Urobilinogen Ur Leukocyte Esterase Urine RBC Urine WBC Ur Squamous Epith Cells Urine Bacteria Urine Mucus Urine Yeast POC Glucose 59 L 135 H 90 09/17/20 09/17/20 09/17/20 08:45 08:45 11:32 WBC 12.4 H RBC 2.83 L Hgb 9.6 L Hct 28.9 L MCV 102.1 H MCH 33.9 H MCHC 33.2 RDW Std Deviation 50.4 H RDW Coeff of Ximena 13.4 Plt Count 326 MPV 10.4 Immature Gran % (Auto) 0.700 Neut % (Auto) 83.3 H Lymph % (Auto) 6.9 L [place] % (Auto) 6.1 Eos % (Auto) 2.6 Baso % (Auto) 0.4 Absolute Neuts (auto) 10.3 H Absolute Lymphs (auto) 0.85 Nucleated RBC % 0 Sodium 141 Potassium 4.7 Chloride 115 H Carbon Dioxide 18.0 L Anion Gap 8 BUN 41 H Creatinine 2.97 H Estim Creat Clear Calc 21.85 Est GFR (MDRD) Af Amer 27 L Est GFR (MDRD) Non-Af 22 L BUN/Creatinine Ratio 13.8 Glucose 94 Calcium 7.8 L Total Bilirubin 0.30 AST 21 ALT 44 Alkaline Phosphatase 99 Total Protein 5.4 L Albumin 2.3 L Globulin 3.1 Albumin/Globulin Ratio 0.7 L Urine Color Urine Clarity Urine pH Ur Specific [place] Urine Protein Urine Glucose (UA) Urine Ketones Urine Occult Blood Urine Nitrite Urine Bilirubin Urine Urobilinogen Ur Leukocyte Esterase Urine RBC Urine WBC Ur Squamous Epith Cells Urine Bacteria Urine Mucus Urine Yeast POC Glucose 162 H Micro: Microbiology 09/10/20 13:22 Blood Culture (Wb) - Anticubital Right Blood Culture - Final No growth in 5 days. 09/10/20 13:10 Blood Culture (Wb) - Anticubital Left Blood Culture - Final No growth in 5 days. 09/13/20 09:05 Stool Stool Occult Blood (MARTINEZ) - Final Occult Blood Positive 09/10/20 15:30 Urine, Catheterized Urine Culture - Final Enterococcus faecalis 09/11/20 17:10 Mucosa - Nose SARS-CoV-2 Antigen (Rapid) - Final Physical Exam Narrative General: Confused, oriented to self, cooperative, well hydrated HEENT: Atraumatic Oral: Moist Mucosa Neck: Supple Lungs: Clear to auscultation Cardiovascular: HS I+II, regular, no murmurs Abdomen: Bowel Sounds Present, Soft, Non Tender Extremities: Generalized edema, right upper extremity edematous +4, bilateral lower extremity +1-2 Skin: Vitiliginous skin lesions all over the body Neurological: Grossly intact Psych/Mental Status: Appropriate Assessment & Plan Assessment/Plan (1) DKA (diabetic ketoacidoses): QUALIFIERS: Diabetes mellitus complication detail: without coma Diabetes mellitus type: type 2 Qualified Code(s): E11.10 - Type 2 diabetes mellitus with ketoacidosis without coma (2) Delirium due to another medical condition: (3) Hyperosmolar hyperglycemic state (HHS): (4) Hypertensive urgency: (5) Elevated troponin: (6) SIRS (systemic inflammatory response syndrome): PLAN: Summary : 75-year-old male who was admitted with altered mental status that has been persistent for a week with not much change 1. Acute metabolic encephalopathy, prolonged, unclear etiology, slowly improving Likely secondary to acute UTI. Follow-up on current urine cultures Acute CVA ruled out with negative MRI brain, MRA head and neck Previous EEG showed generalized numbness. Will repeat EEG 2. Acute UTI, previous urine cultures grew Enterococcus. Antibiotics earlier on discontinued Now started on IV ceftriaxone, follow-up on urine cultures 3. Type II DM, patient presented with DKA, blood sugars fluctuating account of altered mental status and poor p.o. intake We will decrease Lantus to 10 units nightly, continue with insulin sliding scale 4. Hypertension, better controlled now, Patient presented with accelerated hypertension/hypertensive urgency, Continue on carvedilol, lisinopril 5. Elevated troponins, likely related to #2 and #3, secondary to demand ischemia No acute EKG changes, will continue to monitor 6. Hypothyroidism, TSH is elevated, FT3 is low, continue levothyroxine 7. Hypomagnesemia, replaced 8. 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 Acute GI bleed with anemia, stable, no evidence of bleed in this admission Continue on PO PPI, outpatient colonoscopy 10. Right hand swelling, Doppler ultrasound is negative for acute DVT 11. Rest of chronic medical conditions remained stable Charges/Coding Visit Charges Inpatient E&M: 02457 Subs Hosp L3
[2020-09-17 17:05] LABS: Bedside Glucose 208 mg/dL (70-110)
--- NOTE | 2020-09-17 17:18 | PN.RENAL_ITS ---
Subjective Subjective no new events Objective Data Objective Data Vital Signs: Vital Signs Temp Pulse Resp BP Pulse Ox 97.6 F L 68 18 156/88 H 100 09/17/20 16:29 09/17/20 16:29 09/17/20 16:29 09/17/20 16:29 09/17/20 16:29 Oxygen Delivery Method Room Air Weight: 98.3 kg Body Mass Index (BMI) 24.3 Intake & Output: Intake and Output for Last 24 Hours 09/15/20 09/16/20 09/17/20 23:59 23:59 23:59 Intake Total 1792.5 / 2032.5 720 / 960 1005 / 1005 Output Total 550 / 800 550 / 1050 925 / 925 Balance 1242.5 / 1232.5 170 / -90 80 / 80 Lab / Micro Data Result Diagrams: 09/17/20 08:45 09/17/20 08:45 Labs: Laboratory Results - last 24 hr 09/16/20 09/17/20 09/17/20 21:08 04:15 06:37 WBC RBC Hgb Hct MCV MCH MCHC RDW Std Deviation RDW Coeff of Ximena Plt Count MPV Immature Gran % (Auto) Neut % (Auto) Lymph % (Auto) [place] % (Auto) Eos % (Auto) Baso % (Auto) Absolute Neuts (auto) Absolute Lymphs (auto) Nucleated RBC % Sodium Potassium Chloride Carbon Dioxide Anion Gap BUN Creatinine Estim Creat Clear Calc Est GFR (MDRD) Af Amer Est GFR (MDRD) Non-Af BUN/Creatinine Ratio Glucose Calcium Total Bilirubin AST ALT Alkaline Phosphatase Total Protein Albumin Globulin Albumin/Globulin Ratio Urine Color Yellow Urine Clarity Turbid Urine pH 6.0 Ur Specific [place] 1.020 Urine Protein 100 H Urine Glucose (UA) 100 H Urine Ketones Negative Urine Occult Blood 150 H Urine Nitrite Negative Urine Bilirubin Negative Urine Urobilinogen Normal Ur Leukocyte Esterase 500 H Urine RBC 10-25 SEEN Urine WBC >100 SEEN Ur Squamous Epith Cells 0 SEEN Urine Bacteria 4+ Urine Mucus 0 SEEN Urine Yeast 4+ POC Glucose 226 H 59 L 09/17/20 09/17/20 09/17/20 06:54 08:02 08:45 WBC 12.4 H RBC 2.83 L Hgb 9.6 L Hct 28.9 L MCV 102.1 H MCH 33.9 H MCHC 33.2 RDW Std Deviation 50.4 H RDW Coeff of Ximena 13.4 Plt Count 326 MPV 10.4 Immature Gran % (Auto) 0.700 Neut % (Auto) 83.3 H Lymph % (Auto) 6.9 L [place] % (Auto) 6.1 Eos % (Auto) 2.6 Baso % (Auto) 0.4 Absolute Neuts (auto) 10.3 H Absolute Lymphs (auto) 0.85 Nucleated RBC % 0 Sodium Potassium Chloride Carbon Dioxide Anion Gap BUN Creatinine Estim Creat Clear Calc Est GFR (MDRD) Af Amer Est GFR (MDRD) Non-Af BUN/Creatinine Ratio Glucose Calcium Total Bilirubin AST ALT Alkaline Phosphatase Total Protein Albumin Globulin Albumin/Globulin Ratio Urine Color Urine Clarity Urine pH Ur Specific [place] Urine Protein Urine Glucose (UA) Urine Ketones Urine Occult Blood Urine Nitrite Urine Bilirubin Urine Urobilinogen Ur Leukocyte Esterase Urine RBC Urine WBC Ur Squamous Epith Cells Urine Bacteria Urine Mucus Urine Yeast POC Glucose 135 H 90 09/17/20 09/17/20 09/17/20 08:45 11:32 16:26 WBC RBC Hgb Hct MCV MCH MCHC RDW Std Deviation RDW Coeff of Ximena Plt Count MPV Immature Gran % (Auto) Neut % (Auto) Lymph % (Auto) [place] % (Auto) Eos % (Auto) Baso % (Auto) Absolute Neuts (auto) Absolute Lymphs (auto) Nucleated RBC % Sodium 141 Potassium 4.7 Chloride 115 H Carbon Dioxide 18.0 L Anion Gap 8 BUN 41 H Creatinine 2.97 H Estim Creat Clear Calc 21.85 Est GFR (MDRD) Af Amer 27 L Est GFR (MDRD) Non-Af 22 L BUN/Creatinine Ratio 13.8 Glucose 94 Calcium 7.8 L Total Bilirubin 0.30 AST 21 ALT 44 Alkaline Phosphatase 99 Total Protein 5.4 L Albumin 2.3 L Globulin 3.1 Albumin/Globulin Ratio 0.7 L Urine Color Urine Clarity Urine pH Ur Specific [place] Urine Protein Urine Glucose (UA) Urine Ketones Urine Occult Blood Urine Nitrite Urine Bilirubin Urine Urobilinogen Ur Leukocyte Esterase Urine RBC Urine WBC Ur Squamous Epith Cells Urine Bacteria Urine Mucus Urine Yeast POC Glucose 162 H 208 H Micro: Microbiology 09/10/20 13:22 Blood Culture (Wb) - Anticubital Right Blood Culture - Final No growth in 5 days. 09/10/20 13:10 Blood Culture (Wb) - Anticubital Left Blood Culture - Final No growth in 5 days. 09/13/20 09:05 Stool Stool Occult Blood (MARTINEZ) - Final Occult Blood Positive 09/10/20 15:30 Urine, Catheterized Urine Culture - Final Enterococcus faecalis 09/11/20 17:10 Mucosa - Nose SARS-CoV-2 Antigen (Rapid) - Final Physical Exam Narrative somewhat sleepy no obvious distress no pallor no icterus no JVD s1s2 no murmurs lungs clear abdomen soft no organomegaly no edema no cyanosis mayesr + Assessment & Plan Assessment/Plan (1) Chronic kidney failure: QUALIFIERS: Chronic kidney disease stage: stage 4 (severe) Qualified Code(s): N18.4 - Chronic kidney disease, stage 4 (severe) PLAN: recently his creatinine has been around 3.0. developed urinary retention on admit but drained with mayers. UA showed proteinuria, glycosuria. poorly controlled diabetes. Echo showed possible amyloidosis pattern. UPEP is pending. since cr is stable no further work up for now. no indications for [employer]. He sees Nephrology at [facility] in [place]. I called and left a message. apparently he was told that his kidney disease is from diabetes. never had kidney biopsy. cr overall stable
[2020-09-17] MEDS: QUEtiapine 25 MG Tablet 12.5 MG PO (20:56)
[2020-09-17] MEDS: Atorvastatin Calcium 40 MG Tablet PO (20:57)
[2020-09-17 21:41] LABS: Bedside Glucose 205 mg/dL (70-110)
[2020-09-18] VITALS (10 sets, daily range): BP systolic 128–163; BP diastolic 77–92; PULSE 62–85; RESP 18; TEMP 36.6–37.2; O2SAT 98–100
[2020-09-18] MEDS: Menthol/Lanolin/Calamine/Znox 113 GM Tube 1 APPLIC TOPICAL ×3 (05:20→22:42)
[2020-09-18] MEDS: Heparin Injection (Vial) 5,000 UNIT/ML VIAL 5000 UNIT SC ×3 (05:20→22:43)
[2020-09-18] MEDS: Levothyroxine 50 MCG Tablet PO (05:20)
[2020-09-18] MEDS: Sodium Bicarbonate 650 MG Tablet 1950 MG PO ×3 (05:20→22:44)
[2020-09-18] MEDS: Insulin Lispro 100 UNIT/ML INSULN.PEN SC ×4 (06:32→23:04)
[2020-09-18 06:46] LABS: Bedside Glucose 232 mg/dL (70-110)
[2020-09-18 06:51] LABS: Absolute Lymphocyte Count 1.09 X10^3/uL (0.83-4.51); Absolute Neutrophil Count 8.5 X10^3/uL (2.0-7.7); Basophil# 0.04 X10^3/uL; Basophil% 0.4 % (0-1); Eosinophil# 0.33 X10^3/uL; Hematocrit 27.9 % (40-54); Hemoglobin 9.1 g/dL (13.0-16.5); Lymphocyte # 1.09 X10^3/ul (0.83-4.51); Lymphocyte % 10.1 % (19-41); Mean Corp Hgb Conc 32.6 g/dL (32-36); Mean Corpuscular Hgb 33.1 pg (27.0-32.0); Mean Corpuscular Volume 101.5 fL (80-94); Mean Platelet Vol. 10.5 fl (6.2-12.0); Monocyte# 0.82 X10^3/uL; Monocyte% 7.6 % (0-10); NRBC Flagged by Analyzer 0 % (0-5); Neutrophil # 8.47 X10^3/uL (2.7-7.7); Neutrophil % 78.3 % (47-70); Platelet Count 326 K/mm3 (150-450); RBC Distribution Width CV 13.4 % (11.6-14.6); RBC Distribution Width SD 49.4 fl (35.1-43.9); Red Blood Count 2.75 M/mm3 (4.6-6.2); White Blood Count 10.8 K/mm3 (4.4-11.0)
[2020-09-18 07:40] LABS: ALB/GLOB Ratio 0.8 RATIO (0.9-2.4); AST(SGOT) 22 U/L (15-37); Alanine Aminotransfer ALT/SGPT 38 U/L (16-61); Albumin, Serum 2.3 g/dL (3.2-5.0); Alkaline Phosphatase 101 U/L (45-117); Anion Gap 14 (5-15); BUN 40 mg/dL (7-18); BUN/Creat Ratio 12.8 RATIO (10-20); Calcium,Total 8.1 mg/dL (8.5-10.1); Chloride 111 mmol/L (98-107); Creatinine, Serum 3.12 mg/dL (0.70-1.30); EST Glomerular Filtration Rate 21 mL/min (>60); Est Glom Filt Rate - Afr Amer 25 mL/min (>60); Globulin 2.9 g/dL (2.2-4.2); Glucose 216 mg/dL (74-106); Potassium 4.8 mmol/L (3.5-5.1); Protein, Total 5.2 g/dL (6.4-8.2); Sodium Level 143 mmol/L (136-145)
[2020-09-18] MEDS: Calcitriol 0.25 MCG Capsule 0.75 MCG PO (09:57)
[2020-09-18] MEDS: Pantoprazole Sodium 40 MG Tablet PO ×2 (09:57→22:44)
[2020-09-18] MEDS: Ceftriaxone 1 GM/50 ML BAG IV (09:57)
[2020-09-18] MEDS: Lisinopril 5 MG Tablet PO (09:57)
[2020-09-18] MEDS: Carvedilol 12.5 MG Tablet PO ×2 (09:57→22:42)
[2020-09-18 12:00] LABS: Bedside Glucose 183 mg/dL (70-110)
--- NOTE | 2020-09-18 12:17 | NURSING ---
wound photo: left heel
--- NOTE | 2020-09-18 12:17 | NURSING ---
wound photo: left 2nd toe
--- NOTE | 2020-09-18 12:18 | NURSING ---
wound photo: right heel
--- NOTE | 2020-09-18 12:40 | CASEMGMT ---
KONSTANTIN received a call from Nasir at the [facility]. She received approval. She needs a d/c date. KONSTANTIN checked with physician and he plans on tomorrow. KONSTANTIN let Carter know this information. KONSTANTIN will also let patient's son know. Plan: d/c to [facility] when ready. Leslie PORTER
--- NOTE | 2020-09-18 13:19 | PCM.PN.HOSP ---
Subjective Subjective Patient is confused, disoriented to time and place sometimes gets agitated and restless. As per nursing staff this has been like for last 7 days. Patient had extensive neurological work-up including CT brain, MRI brain, MRA head and neck which did not show acute abnormality. Objective Data Objective Data Vital Signs: Vital Signs Temp Pulse Resp BP Pulse Ox 98.3 F 72 18 128/87 H 98 09/18/20 10:00 09/18/20 10:00 09/18/20 10:00 09/18/20 10:00 09/18/20 10:00 Oxygen Delivery Method Room Air Weight: 216 lb 4.375 oz Body Mass Index (BMI) 24.3 Intake & Output: Intake and Output for Last 24 Hours 09/16/20 09/17/20 09/18/20 23:59 23:59 23:59 Intake Total 720 / 960 1245 / 1245 140 / 140 Output Total 550 / 1050 925 / 925 350 / 350 Balance 170 / -90 320 / 320 -210 / -210 Lab / Micro Data Result Diagrams: 09/18/20 06:32 09/18/20 06:32 Labs: Laboratory Results - last 24 hr 09/17/20 09/17/20 09/18/20 16:26 21:05 06:30 WBC RBC Hgb Hct MCV MCH MCHC RDW Std Deviation RDW Coeff of Ximena Plt Count MPV Immature Gran % (Auto) Neut % (Auto) Lymph % (Auto) [place] % (Auto) Eos % (Auto) Baso % (Auto) Absolute Neuts (auto) Absolute Lymphs (auto) Nucleated RBC % Sodium Potassium Chloride Carbon Dioxide Anion Gap BUN Creatinine Estim Creat Clear Calc Est GFR (MDRD) Af Amer Est GFR (MDRD) Non-Af BUN/Creatinine Ratio Glucose Calcium Total Bilirubin AST ALT Alkaline Phosphatase Total Protein Albumin Globulin Albumin/Globulin Ratio POC Glucose 208 H 205 H 232 H 09/18/20 09/18/20 09/18/20 06:32 06:32 11:44 WBC 10.8 RBC 2.75 L Hgb 9.1 L Hct 27.9 L MCV 101.5 H MCH 33.1 H MCHC 32.6 RDW Std Deviation 49.4 H RDW Coeff of Ximena 13.4 Plt Count 326 MPV 10.5 Immature Gran % (Auto) 0.600 Neut % (Auto) 78.3 H Lymph % (Auto) 10.1 L [place] % (Auto) 7.6 Eos % (Auto) 3.0 Baso % (Auto) 0.4 Absolute Neuts (auto) 8.5 H Absolute Lymphs (auto) 1.09 Nucleated RBC % 0 Sodium 143 Potassium 4.8 Chloride 111 H Carbon Dioxide 18.0 L Anion Gap 14 BUN 40 H Creatinine 3.12 H Estim Creat Clear Calc 20.80 Est GFR (MDRD) Af Amer 25 L Est GFR (MDRD) Non-Af 21 L BUN/Creatinine Ratio 12.8 Glucose 216 H Calcium 8.1 L Total Bilirubin 0.40 AST 22 ALT 38 Alkaline Phosphatase 101 Total Protein 5.2 L Albumin 2.3 L Globulin 2.9 Albumin/Globulin Ratio 0.8 L POC Glucose 183 H Micro: Microbiology 09/17/20 04:15 Urine, Catheterized Urine Culture - Preliminary Gram positive organism 09/10/20 13:22 Blood Culture (Wb) - Anticubital Right Blood Culture - Final No growth in 5 days. 09/10/20 13:10 Blood Culture (Wb) - Anticubital Left Blood Culture - Final No growth in 5 days. 09/13/20 09:05 Stool Stool Occult Blood (MARTINEZ) - Final Occult Blood Positive 09/10/20 15:30 Urine, Catheterized Urine Culture - Final Enterococcus faecalis 09/11/20 17:10 Mucosa - Nose SARS-CoV-2 Antigen (Rapid) - Final Physical Exam Narrative Physical exam General: Confused, disoriented, restless. HEENT: Atraumatic, PERRLA, EOMI, Normocephalic Oral: No Gingival or Mucosal Lesions/ Ulcerations Neck: Supple, No JVD, Negative Carotid Bruits Lungs: Air entry diminished in bilateral lung bases. No crepitation/rhonchi Cardiovascular: Regular rate, Regular Rhythm, Normal S1, Normal S2, No murmurs Abdomen: Bowel Sounds Present, Soft, Non Tender, Non-Distended : No renal angle tenderness. No suprapubic tenderness. Extremities: No edema, Capillary Refill Less than 3 Seconds Skin: No rashes, No breakdown Musculoskeletal: No Tenderness to Palpation of Joints or Extremities Neurological: Cranial nerves II-XII grossly intact Psych/Mental Status: Lethargic. Assessment & Plan Assessment/Plan (1) Hyperosmolar hyperglycemic state (HHS): (2) Pain in right lower leg: (3) Elevated troponin: PLAN: 75-year-old male who was admitted with altered mental status, confusion disorientation sustained for 1 week after initial treatment for HHS. 1. Acute metabolic encephalopathy, prolonged, unclear etiology, slowly improving, exact etiology unclear: Acute CVA ruled out with negative MRI brain, MRA head and neck. Neurology consult requested. EEG showed continuous slow generalized pattern sensitive of moderate to severe diffuse encephalopathy with no epileptiform discharges or seizure patterns or lateralizing signs. 2. Acute UTI, previous urine cultures on 09/10 shows Enterococcus faecalis less than 1000 colonies. Antibiotics earlier on discontinued. Prelim urine culture shows more than 100,000 gram-positive organism. Now started on IV ceftriaxone, follow-up on urine cultures. Patient had mild leukocytosis on 09/17 but today normal. 3. Type II DM, patient presented with HHS, blood sugars fluctuating account of altered mental status and poor p.o. intake: Accu-Chek is initial correctional sliding scale 4. Hypertension, better controlled now, Patient presented with accelerated hypertension/hypertensive urgency, Continue on carvedilol, lisinopril 5. Elevated troponins, during admission secondary to demand ischemia from HHS. No acute EKG changes, will continue to monitor 6. Hypothyroidism, TSH is elevated, FT3 is low, continue levothyroxine 7. Hypomagnesemia, replaced 8. 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 LV pattern showing possible amyloidosis pattern noted in echo with EF 50%. 9. Acute GI bleed with anemia, stable, no evidence of bleed in this admission Continue on PO PPI, outpatient colonoscopy Hemoglobin 9.1. 10. Right hand swelling, Doppler ultrasound is negative for acute DVT 11 DVT prophylaxis: Bilateral SCDs. Charges/Coding Visit Charges Inpatient E&M: 79991 Subs Hosp L2
--- NOTE | 2020-09-18 14:27 | CASEMGMT ---
Addendum entered by Leslie Galindo 09/18/20 15:00: KONSTANTIN notified patient's son that patient was approved and he will likely go to [facility] tomorrow. Lesile PORTER Original Note: KONSTANTIN spoke with Stephanie at [facility] and let her know [place] approved patient and he will likely come tomorrow. She was going to call Carter at the [place] clinic to verify what they should get from the [place]. Leslie PORTER
--- NOTE | 2020-09-18 14:37 | PCM.PN.REN ---
Subjective Subjective Following for chronic kidney disease. The patient is confused. He denies chest pain or shortness of breath at rest, however. Objective Data Objective Data Vital Signs: Vital Signs Temp Pulse Resp BP Pulse Ox 98.3 F 70 18 128/87 H 98 09/18/20 10:00 09/18/20 13:19 09/18/20 10:00 09/18/20 10:00 09/18/20 10:00 Oxygen Delivery Method Room Air Weight: 98.1 kg Body Mass Index (BMI) 24.3 Intake & Output: Intake and Output for Last 24 Hours 09/16/20 09/17/20 09/18/20 23:59 23:59 23:59 Intake Total 720 / 960 1245 / 1245 140 / 140 Output Total 550 / 1050 925 / 925 350 / 350 Balance 170 / -90 320 / 320 -210 / -210 Lab / Micro Data Result Diagrams: 09/18/20 06:32 09/18/20 06:32 Labs: Laboratory Results - last 24 hr 09/17/20 09/17/20 09/18/20 16:26 21:05 06:30 WBC RBC Hgb Hct MCV MCH MCHC RDW Std Deviation RDW Coeff of Ximena Plt Count MPV Immature Gran % (Auto) Neut % (Auto) Lymph % (Auto) [place] % (Auto) Eos % (Auto) Baso % (Auto) Absolute Neuts (auto) Absolute Lymphs (auto) Nucleated RBC % Sodium Potassium Chloride Carbon Dioxide Anion Gap BUN Creatinine Estim Creat Clear Calc Est GFR (MDRD) Af Amer Est GFR (MDRD) Non-Af BUN/Creatinine Ratio Glucose Calcium Total Bilirubin AST ALT Alkaline Phosphatase Total Protein Albumin Globulin Albumin/Globulin Ratio POC Glucose 208 H 205 H 232 H 09/18/20 09/18/20 09/18/20 06:32 06:32 11:44 WBC 10.8 RBC 2.75 L Hgb 9.1 L Hct 27.9 L MCV 101.5 H MCH 33.1 H MCHC 32.6 RDW Std Deviation 49.4 H RDW Coeff of Ximena 13.4 Plt Count 326 MPV 10.5 Immature Gran % (Auto) 0.600 Neut % (Auto) 78.3 H Lymph % (Auto) 10.1 L [place] % (Auto) 7.6 Eos % (Auto) 3.0 Baso % (Auto) 0.4 Absolute Neuts (auto) 8.5 H Absolute Lymphs (auto) 1.09 Nucleated RBC % 0 Sodium 143 Potassium 4.8 Chloride 111 H Carbon Dioxide 18.0 L Anion Gap 14 BUN 40 H Creatinine 3.12 H Estim Creat Clear Calc 20.80 Est GFR (MDRD) Af Amer 25 L Est GFR (MDRD) Non-Af 21 L BUN/Creatinine Ratio 12.8 Glucose 216 H Calcium 8.1 L Total Bilirubin 0.40 AST 22 ALT 38 Alkaline Phosphatase 101 Total Protein 5.2 L Albumin 2.3 L Globulin 2.9 Albumin/Globulin Ratio 0.8 L POC Glucose 183 H Micro: Microbiology 09/17/20 04:15 Urine, Catheterized Urine Culture - Preliminary Gram positive organism 09/10/20 13:22 Blood Culture (Wb) - Anticubital Right Blood Culture - Final No growth in 5 days. 09/10/20 13:10 Blood Culture (Wb) - Anticubital Left Blood Culture - Final No growth in 5 days. 09/13/20 09:05 Stool Stool Occult Blood (MARTINEZ) - Final Occult Blood Positive 09/10/20 15:30 Urine, Catheterized Urine Culture - Final Enterococcus faecalis 09/11/20 17:10 Mucosa - Nose SARS-CoV-2 Antigen (Rapid) - Final Physical Exam Narrative General appearance: Confused. NAD. HEENT: Normocephalic/atraumatic, mucous membrane moist. Neck: No JVD. Lungs: Decreased breath sound at bases. Otherwise, lungs are clear. Abdomen: Normal bowel sound. Abdomen is soft and nontender to palpation. There is no guarding or rebound. Extremity: There is no edema. Assessment & Plan Assessment/Plan (1) Chronic kidney disease, stage 4 (severe): PLAN: Renal function has remained stable over the last 4 days. The patient has advanced CKD with GFR of around 21 mL/min. However, there is no urgent need for kidney replacement therapy at this point. The patient has a scientific writer at the [place] system who he follows with. Okay to continue lisinopril with careful monitoring of his creatinine. Recheck serum creatinine tomorrow. (2) Hypertension: PLAN: Blood pressures controlled on current medication including lisinopril. We will continue to monitor renal function while the patient is on LAWSON inhibitor. No need to change medications today. (3) Metabolic acidosis: PLAN: Continue sodium bicarbonate supplement. Serum bicarbonate level is 18 mmol/L. We will recheck serum bicarbonate level tomorrow. (4) Secondary hyperparathyroidism: PLAN: The patient is on calcitriol as outpatient. He is currently not on his medication. Calcitriol can be restarted as outpatient.
[2020-09-18 15:30] LABS: Bedside Glucose 189 mg/dL (70-110)
[2020-09-18] MEDS: 0.9% Saline Lock 10 ML Syringe IV (22:43)
[2020-09-18] MEDS: Atorvastatin Calcium 40 MG Tablet PO (22:44)
[2020-09-18] MEDS: QUEtiapine 25 MG Tablet 12.5 MG PO (22:45)
[2020-09-18] MEDS: hydrALAZINE 20 MG/ML Vial IV (22:54)
[2020-09-18 23:35] LABS: Bedside Glucose 256 mg/dL (70-110)
[2020-09-19 00:10] VITALS: PULSE 84
[2020-09-19 04:13] VITALS: PULSE 74
[2020-09-19] MEDS: Sodium Bicarbonate 650 MG Tablet 1950 MG PO ×2 (05:10→14:12)
[2020-09-19] MEDS: 0.9% Saline Lock 10 ML Syringe IV (05:10)
[2020-09-19] MEDS: Heparin Injection (Vial) 5,000 UNIT/ML VIAL 5000 UNIT SC ×2 (05:11→14:12)
[2020-09-19] MEDS: Menthol/Lanolin/Calamine/Znox 113 GM Tube 1 APPLIC TOPICAL (05:11)
[2020-09-19] MEDS: Levothyroxine 75 MCG Tablet PO (05:26)
[2020-09-19 05:37] VITALS: BP 154/70; PULSE 82; RESP 18; TEMP 36.6; O2SAT 98
[2020-09-19 06:31] LABS: Bedside Glucose 90 mg/dL (70-110)
[2020-09-19 07:09] LABS: Absolute Lymphocyte Count 1.46 X10^3/uL (0.83-4.51); Absolute Neutrophil Count 6.6 X10^3/uL (2.0-7.7); Basophil# 0.06 X10^3/uL; Basophil% 0.6 % (0-1); Eosinophil# 0.25 X10^3/uL; Eosinophils% 2.7 % (0-5); Hematocrit 26.9 % (40-54); Hemoglobin 8.7 g/dL (13.0-16.5); Lymphocyte # 1.46 X10^3/ul (0.83-4.51); Lymphocyte % 15.7 % (19-41); Mean Corp Hgb Conc 32.3 g/dL (32-36); Mean Corpuscular Hgb 33.2 pg (27.0-32.0); Mean Corpuscular Volume 102.7 fL (80-94); Monocyte# 0.88 X10^3/uL; Monocyte% 9.5 % (0-10); NRBC Flagged by Analyzer 0 % (0-5); Neutrophil # 6.57 X10^3/uL (2.7-7.7); Neutrophil % 70.7 % (47-70); Platelet Count 336 K/mm3 (150-450); RBC Distribution Width CV 13.5 % (11.6-14.6); RBC Distribution Width SD 51.5 fl (35.1-43.9); Red Blood Count 2.62 M/mm3 (4.6-6.2); White Blood Count 9.3 K/mm3 (4.4-11.0)
[2020-09-19 07:40] LABS: ALB/GLOB Ratio 0.8 RATIO (0.9-2.4); AST(SGOT) 21 U/L (15-37); Alanine Aminotransfer ALT/SGPT 35 U/L (16-61); Albumin, Serum 2.2 g/dL (3.2-5.0); Alkaline Phosphatase 101 U/L (45-117); Anion Gap 7 (5-15); BUN 39 mg/dL (7-18); BUN/Creat Ratio 12.6 RATIO (10-20); Chloride 115 mmol/L (98-107); EST Glomerular Filtration Rate 21 mL/min (>60); Est Glom Filt Rate - Afr Amer 25 mL/min (>60); Estimated Creatinine Clearance 20.93 ml/min; Globulin 2.8 g/dL (2.2-4.2); Glucose 80 mg/dL (74-106); Potassium 4.5 mmol/L (3.5-5.1); Sodium Level 144 mmol/L (136-145)
[2020-09-19 09:06] VITALS: PULSE 68
[2020-09-19 09:15] VITALS: BP 148/73; PULSE 73; RESP 18; TEMP 36.4; O2SAT 95
[2020-09-19] MEDS: Pantoprazole Sodium 40 MG Tablet PO (09:34)
[2020-09-19] MEDS: Calcitriol 0.25 MCG Capsule 0.75 MCG PO (09:34)
[2020-09-19] MEDS: Carvedilol 12.5 MG Tablet PO (09:34)
[2020-09-19] MEDS: Lisinopril 5 MG Tablet PO (09:34)
--- NOTE | 2020-09-19 10:51 | PCM.PN.REN ---
Subjective Subjective Following for acute kidney injury on chronic kidney disease. The patient denies increasing shortness of breath. There is no chest pain. He denies nausea or vomiting. Objective Data Objective Data Vital Signs: Vital Signs Temp Pulse Resp BP Pulse Ox 98 F 68 18 154/70 H 98 09/19/20 05:37 09/19/20 09:06 09/19/20 05:37 09/19/20 05:37 09/19/20 05:37 Oxygen Delivery Method Room Air Weight: 97.931 kg Body Mass Index (BMI) 24.3 Intake & Output: Intake and Output for Last 24 Hours 09/17/20 09/18/20 09/19/20 23:59 23:59 23:59 Intake Total 1245 / 1245 600 / 600 170 / 170 Output Total 925 / 925 650 / 650 Balance 320 / 320 -50 / -50 170 / 170 Lab / Micro Data Result Diagrams: 09/19/20 06:40 09/19/20 06:40 Labs: Laboratory Results - last 24 hr 09/18/20 09/18/20 09/18/20 11:44 15:24 23:03 WBC RBC Hgb Hct MCV MCH MCHC RDW Std Deviation RDW Coeff of Ximena Plt Count MPV Immature Gran % (Auto) Neut % (Auto) Lymph % (Auto) [place] % (Auto) Eos % (Auto) Baso % (Auto) Absolute Neuts (auto) Absolute Lymphs (auto) Nucleated RBC % Sodium Potassium Chloride Carbon Dioxide Anion Gap BUN Creatinine Estim Creat Clear Calc Est GFR (MDRD) Af Amer Est GFR (MDRD) Non-Af BUN/Creatinine Ratio Glucose Calcium Total Bilirubin AST ALT Alkaline Phosphatase Total Protein Albumin Globulin Albumin/Globulin Ratio POC Glucose 183 H 189 H 256 H 09/19/20 09/19/20 09/19/20 06:11 06:40 06:40 WBC 9.3 RBC 2.62 L Hgb 8.7 L Hct 26.9 L MCV 102.7 H MCH 33.2 H MCHC 32.3 RDW Std Deviation 51.5 H RDW Coeff of Ximena 13.5 Plt Count 336 MPV 10.0 Immature Gran % (Auto) 0.800 Neut % (Auto) 70.7 H Lymph % (Auto) 15.7 L [place] % (Auto) 9.5 Eos % (Auto) 2.7 Baso % (Auto) 0.6 Absolute Neuts (auto) 6.6 Absolute Lymphs (auto) 1.46 Nucleated RBC % 0 Sodium 144 Potassium 4.5 Chloride 115 H Carbon Dioxide 22.0 Anion Gap 7 BUN 39 H Creatinine 3.10 H Estim Creat Clear Calc 20.93 Est GFR (MDRD) Af Amer 25 L Est GFR (MDRD) Non-Af 21 L BUN/Creatinine Ratio 12.6 Glucose 80 Calcium 8.0 L Total Bilirubin 0.60 AST 21 ALT 35 Alkaline Phosphatase 101 Total Protein 5.0 L Albumin 2.2 L Globulin 2.8 Albumin/Globulin Ratio 0.8 L POC Glucose 90 Micro: Microbiology 09/17/20 04:15 Urine, Catheterized Urine Culture - Preliminary Yeast Like Organism 09/10/20 13:22 Blood Culture (Wb) - Anticubital Right Blood Culture - Final No growth in 5 days. 09/10/20 13:10 Blood Culture (Wb) - Anticubital Left Blood Culture - Final No growth in 5 days. 09/13/20 09:05 Stool Stool Occult Blood (MARTINEZ) - Final Occult Blood Positive 09/10/20 15:30 Urine, Catheterized Urine Culture - Final Enterococcus faecalis 09/11/20 17:10 Mucosa - Nose SARS-CoV-2 Antigen (Rapid) - Final Physical Exam Narrative General appearance: NAD. HEENT: Normocephalic/atraumatic, mucous membrane moist. Neck: No JVD. Lungs: Decreased breath sound at bases. Otherwise, lungs are clear. Abdomen: Normal bowel sound. Abdomen is soft and nontender to palpation. There is no guarding or rebound. Extremity: There is no edema. Assessment & Plan Assessment/Plan (1) Chronic kidney disease, stage 4 (severe): PLAN: Renal function has remained relatively stable over the last 5 days. The patient has advanced CKD with GFR of around 21 mL/min. However, there is no urgent need for kidney replacement therapy at this point. The patient has a business trainer at the [place] system who he follows with. Okay to continue lisinopril with careful monitoring of his creatinine. Recheck serum creatinine tomorrow or as outpatient if he is going to be discharged. The patient can follow-up with nephrology at the [place] or he can come see us locally at the [place] office if he wishes. (2) Hypertension: PLAN: Blood pressure is intermittently controlled on current medication including lisinopril. No need to change medication yet. We will continue to monitor renal function while the patient is on LAWSON inhibitor. If he is discharged, the patient should follow up with the [place] business trainer for antihypertensive adjustment. Again, he is welcome to come see us locally as well. (3) Metabolic acidosis: PLAN: Continue sodium bicarbonate supplement. Serum bicarbonate level is better at 22 mmol/L. The goal is to keep serum bicarbonate level at 20 or above. (4) Secondary hyperparathyroidism: PLAN: The patient is on calcitriol as outpatient. He is currently not on his medication. Calcitriol can be restarted as outpatient. PTH level can be followed as outpatient by nephrology.
--- NOTE | 2020-09-19 10:52 | PCM.TXEXTCAR ---
Diet 09/15/20 15:06 Diet: Carbohydrate Controlled Food consistency:: Soft & Bite Sized Liquid Consistency:: Regular/Thin Dietary Modifications:: No Added Salt Type of Dietary Supplement:: Glucerna Shake Is pt able to select menu?: No Diet Comments: supervised meals when alert-small bites/sips by straw-HOB elevated;120ml GS Routine Orders/Code Status Suppository Type: Dulcolax 10mg Suppository Frequency: Daily PRN Wound(s) Right arm: Wound Type: Skin Tear Left Third Toe: Wound Type: Scab RT heel: Wound Type: Pressure Injury Dressing Change: betadine with dry dressing Lt heal: Wound Type: Pressure Injury left 2nd toe: Wound Type: dry scab left heel: Wound Type: Pressure Injury Dressing Change: betadine with dry dressing left great toe: Wound Type: Pressure Injury Therapies Weight Bearing: Weight bearing as tolerated Extremity Affected:: Bilateral Lower Physical Therapy: Eval and Treat Occupational Therapy: Eval and Treat Speech Therapy: Eval and Treat Problem/Diagnosis (1) Chronic kidney disease, stage 4 (severe): Status: Chronic (2) Hypertension: Status: Chronic (3) Metabolic acidosis: Status: Acute (4) Secondary hyperparathyroidism: Status: Acute Allergies/Procedures Done in Hospital Allergies No Known Allergies Allergy (Verified 02/15/14 11:41) Type of Care/Length of Stay Estimated LOS: Convalescent Care Less Than 30 days Type of Care Needed: Skilled Rehab Potential: Good Prognosis: Good Additional Orders/Day of Discharge Day of Discharge: 09/19/20 Dietary and Speech Recommendations Dietitian Recommendations/Changes: Continue Carbohydrate-Controlled/no added salt diet with consistency as per CLINICAL RESOURCE DIRECTOR---currently soft & bite sized with thin liquids; liberalize therapeutic diet restrictions if intake does not improve at meals. Will add 120ml glucerna shake TID w/ meals; additional ONS as needed to optimize intake at meals depending on meal intake. Speech Linguistic Eval Summary: Pt. presents with mild to moderate cognitive impairment. Pt. was oriented to self, , place, month and year (with delay) and situation. Pt. required moderate cues for WENDY and date. Pt. was unable to identify and give solution to a problem in daily living. Pt. required repetition of directions to follow 1-step directions and with repetition only followed with 50% accuracy. Pt. did not present with visual field deficits this date. Therapist placed po snack at various angles from visual field, and pt. was able to find all pieces. Follow Up Care Please follow up with your [facility] When: In 2 weeks Please Follow Up With: Edie Farley MD When: In 2 to 3 weeks. BMP on 09/20/[address] Torres office When: In 4 weeks Please Follow Up With: Jonathon Mackay MD Discharge Plan Admission Admit Date/Time: 09/10/20 16:20 Primary Reason for Your Visit: HHS, metabolic encephalopathyHHS, metabolic encephalopathy, kidney disease Attending Provider: Freddie Pizano Primary Care Provider: [facility],[place] Consulting Providers: Sergio Villasenor ; Cesar Ross ; Louise Tavarez NP ; Ravi Hawkins ; Eloy Raygoza Discharge Orders/Prescriptions Prescriptions: New quetiapine 25 mg Tablet 12.5 mg PO QHS Qty: 0 RF: 0 furosemide 40 mg Tablet 40 mg PO DAILY Qty: 0 RF: 0 atorvastatin 40 mg Tablet 40 mg PO QHS Qty: 0 RF: 0 carvedilol 12.5 mg Tablet 12.5 mg PO BID Qty: 0 RF: 0 sennosides-docusate sodium [Stool Softener-Stimulant Laxat] 8.6-50 mg Tablet 2 tab PO BID PRN (Reason: Constipation) Qty: 0 RF: 0 levothyroxine 75 mcg Tablet 75 mcg PO DAILY@0600 Qty: 0 RF: 0 sodium bicarbonate 650 mg Tablet 1,950 mg PO TID Qty: 0 RF: 0 pantoprazole 40 mg Tablet,Delayed Release (Dr/Ec) 40 mg PO BID Qty: 0 RF: 0 lisinopril 5 mg Tablet 5 mg PO DAILY Qty: 0 RF: 0 calcitriol 0.25 mcg Capsule 0.75 mcg PO DAILY Qty: 0 RF: 0 insulin lispro [Humalog KwikPen Insulin] 100 unit/mL Insulin Pen See Protocol unit subcut ACHS Qty: 0 RF: 0 Lantus Solostar U-100 Insulin 100 unit/mL (3 mL) Insulin Pen 10 units subcut DAILY Qty: 0 RF: 0 Calmoseptine 0.44-20.6 % Ointment 1 applic topical TID Qty: 0 RF: 0 Changed ferrous sulfate 325 mg (65 mg iron) Tablet 325 mg PO QODAY Qty: 0 RF: 0 Discontinued furosemide 40 mg Tablet 40 mg PO DAILY PRN (Reason: Edema) RF: 0 atorvastatin 40 mg Tablet 40 mg PO QHS RF: 0 carvedilol 25 mg Tablet 25 mg PO BID RF: 0 magnesium oxide 420 mg Tablet 420 mg PO BID RF: 0 levothyroxine [Synthroid] 25 mcg Tablet 25 mcg PO DAILY RF: 0 sodium bicarbonate 650 mg Tablet 1,950 mg PO TID RF: 0 gabapentin 300 mg Capsule 300 mg PO TID RF: 0 lisinopril 5 mg Tablet 5 mg PO DAILY RF: 0 calcitriol 0.25 mcg Capsule 0.75 mcg PO DAILY RF: 0 insulin aspart U-100 100 unit/mL Cartridge 12 unit SUBCUT BREAKFAST RF: 0 insulin aspart U-100 100 unit/mL Cartridge 12 unit SUBCUT DINNER RF: 0 insulin glargine 100 unit/mL Cartridge 18 unit SUBCUT BREAKFAST RF: 0 [facility] - Disposition Disposition (needs filled in before D/C Order can be placed): Senior Living Facility
--- NOTE | 2020-09-19 10:52 | PCM.DC.SUM ---
Providers Date of Admission: 09/10/20 Primary Care Physician: [facility] Consultations 09/10/20 18:34 Consult: Preparation Supervisor Freezing / Pulmonary Medicine Routine Consulting Provider: Pulmonary Medicine keyla Davis Reason for Consult: HHS with severe sepsis, SIRS EMERGENT Consult: No MD Notified: Yes Date Notified: 09/10/20 Time Notified: 17:25 Method of Notification: Text 09/10/20 18:36 Consult: Infectious Disease Routine Consulting Provider: Ravi Hawkins Reason for Consult: Severe sepsis with fever, unknown focus EMERGENT Consult: No MD Notified: Yes Date Notified: 09/10/20 Time Notified: 18:44 Method of Notification: Text 09/14/20 07:34 Consult: Nephrology Routine Consulting Provider: Eloy Raygoza Reason for Consult: CKD, ?amyloidosis EMERGENT Consult: No Notified: Yes Date Notified: 09/14/20 Time Notified: 07:34 Method of Notification: Answering Service 09/16/20 15:27 Consult: Onc/Wound/psychodramatist Routine Comment: Reason for Consult:: wound to left heel and left foot third toe Reason For Visit: DKA, METABOLIC ENCEPHALOPATHY Diagnosis Discharge Diagnosis (1) Chronic kidney disease, stage 4 (severe): Status: Chronic Code(s): N18.4 - Chronic kidney disease, stage 4 (severe) (2) Hypertension: Status: Chronic Code(s): I10 - Essential (primary) hypertension (3) Metabolic acidosis: Status: Acute Code(s): E87.2 - Acidosis (4) Secondary hyperparathyroidism: Status: Acute Code(s): N25.81 - Secondary hyperparathyroidism of renal origin Medications at Discharge Home Medications atorvastatin 40 mg PO QHS #0 tab 09/19/20 calcitriol 0.75 mcg PO DAILY #0 cap 09/19/20 carvedilol 12.5 mg PO BID #0 tab 09/19/20 ferrous sulfate 325 mg PO QODAY #0 tab 09/19/20 furosemide 40 mg PO DAILY #0 tab 09/19/20 insulin glargine [Lantus Solostar U-100 Insulin] 10 units SUBCUT DAILY #0 ml 09/19/20 insulin lispro [Humalog KwikPen Insulin] See Protocol SUBCUT ACHS #0 ml 09/19/20 levothyroxine 75 mcg PO DAILY@0600 #0 tab 09/19/20 lisinopril 5 mg PO DAILY #0 tab 09/19/20 menthol-zinc oxide [Calmoseptine] 1 applic TOPICAL TID #0 g 09/19/20 pantoprazole 40 mg PO BID #0 tab 09/19/20 quetiapine 12.5 mg PO QHS #0 tab 09/19/20 sennosides-docusate sodium [Stool Softener-Stimulant Laxat] 2 tab PO BID PRN #0 tab 09/19/20 sodium bicarbonate 1,950 mg PO TID #0 tab 09/19/20 Hospital Course Summary of Care Provided Hospital Course: 75-year-old male who was admitted with altered mental status, confusion disorientation sustained for 1 week after initial treatment for HHS. 1. Acute metabolic encephalopathy, prolonged, unclear etiology, slowly improving, exact etiology unclear: Acute CVA ruled out with negative MRI brain, MRA head and neck. EEG showed continuous slow generalized pattern sensitive of moderate to severe diffuse encephalopathy with no epileptiform discharges or seizure patterns or lateralizing signs. [facility] neurologist consult was done and he agrees that most probably it is metabolic encephalopathy and treat the underlying disorder. Patient shows improvement today. Follow-up outpatient neurologist. 2. UTI ruled out: Previous urine cultures on 09/10 shows Enterococcus faecalis less than 1000 colonies. Repeat culture shows Claudia albicans more than 100,000 colonies, may be colonization. Earlier antibiotic ceftriaxone was discontinued and then ampicillin was discontinued today. Patient had mild leukocytosis on 09/17 but resolved spontaneously. 3. Type II DM, patient presented with HHS, blood sugars fluctuating account of altered mental status and poor p.o. intake: Glucose in normal range. Sliding scale to be titrated as per oral intake. 4. Hypertension, better controlled now, Patient presented with accelerated hypertension/hypertensive urgency, Continue on carvedilol, lisinopril 5. Elevated troponins, during admission secondary to demand ischemia from HHS. No acute EKG changes, will continue to monitor 6. Hypothyroidism, TSH is elevated, FT3 is low, continue levothyroxine 7. Hypomagnesemia, replaced 8. 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 LV pattern showing possible amyloidosis pattern noted in echo with EF 50%. Lasix was resumed and discussed with the sas sql developer. To be continued and patient is maintaining euvolemia on Lasix 40 mg oral daily. 9. Acute GI bleed with anemia, stable, no evidence of bleed in this admission Continue on PO PPI, outpatient colonoscopy Hemoglobin 9.1, 8.7. Continue PPI and iron sulfate. 10. Right hand swelling, Doppler ultrasound is negative for acute DVT 11 DVT prophylaxis: Bilateral SCDs. Discharge medication reconciliation done. Discharge follow-up instructions completed. Discharge process discussed with the patient and all questions were answered to patient's satisfaction. Hospital course and discharge follow-up instructions discussed with the patient's son, Mr. Kaiser Oliver over the phone. Discharged to SNF Total time spent, exact 35 minutes on discharge meds reconciliation, examination, coordination of care with nurses and ancillary staff, review of imaging and blood test and discussion with the patient on follow-up instructions. Physical Exam Narrative Seen and examined. Patient undergoing PT, OT and speech therapy. Physical exam General: More awake and responds to simple questions. Oriented to place and person. HEENT: Atraumatic, PERRLA, EOMI, Normocephalic Oral: No Gingival or Mucosal Lesions/ Ulcerations Neck: Supple, No JVD, Negative Carotid Bruits Lungs: Air entry diminished in bilateral lung bases. No crepitation/rhonchi Cardiovascular: Regular rate, Regular Rhythm, Normal S1, Normal S2, No murmurs Abdomen: Bowel Sounds Present, Soft, Non Tender, Non-Distended : No renal angle tenderness. No suprapubic tenderness. Extremities: No edema, Capillary Refill Less than 3 Seconds Skin: No rashes, No breakdown Musculoskeletal: No Tenderness to Palpation of Joints or Extremities Neurological: Cranial nerves II-XII grossly intact Psych/Mental Status: Better than yesterday Weight / BMI Weight Weight: 215 lb 14.4 oz Body Mass Index (BMI) 24.3 ABG / Lab / Microbiology Data Result Diagrams: 09/19/20 06:40 09/19/20 06:40 Laboratory: Laboratory Results - last 24 hr 09/18/20 09/18/20 09/18/20 11:44 15:24 23:03 WBC RBC Hgb Hct MCV MCH MCHC RDW Std Deviation RDW Coeff of Ximena Plt Count MPV Immature Gran % (Auto) Neut % (Auto) Lymph % (Auto) Mcduffie % (Auto) Eos % (Auto) Baso % (Auto) Absolute Neuts (auto) Absolute Lymphs (auto) Nucleated RBC % Sodium Potassium Chloride Carbon Dioxide Anion Gap BUN Creatinine Estim Creat Clear Calc Est GFR (MDRD) Af Amer Est GFR (MDRD) Non-Af BUN/Creatinine Ratio Glucose Calcium Total Bilirubin AST ALT Alkaline Phosphatase Total Protein Albumin Globulin Albumin/Globulin Ratio POC Glucose 183 H 189 H 256 H 09/19/20 09/19/20 09/19/20 06:11 06:40 06:40 WBC 9.3 RBC 2.62 L Hgb 8.7 L Hct 26.9 L MCV 102.7 H MCH 33.2 H MCHC 32.3 RDW Std Deviation 51.5 H RDW Coeff of Ximena 13.5 Plt Count 336 MPV 10.0 Immature Gran % (Auto) 0.800 Neut % (Auto) 70.7 H Lymph % (Auto) 15.7 L Mcduffie % (Auto) 9.5 Eos % (Auto) 2.7 Baso % (Auto) 0.6 Absolute Neuts (auto) 6.6 Absolute Lymphs (auto) 1.46 Nucleated RBC % 0 Sodium 144 Potassium 4.5 Chloride 115 H Carbon Dioxide 22.0 Anion Gap 7 BUN 39 H Creatinine 3.10 H Estim Creat Clear Calc 20.93 Est GFR (MDRD) Af Amer 25 L Est GFR (MDRD) Non-Af 21 L BUN/Creatinine Ratio 12.6 Glucose 80 Calcium 8.0 L Total Bilirubin 0.60 AST 21 ALT 35 Alkaline Phosphatase 101 Total Protein 5.0 L Albumin 2.2 L Globulin 2.8 Albumin/Globulin Ratio 0.8 L POC Glucose 90 Microbiology: Microbiology 09/17/20 04:15 Urine Culture - Preliminary Urine, Catheterized Yeast Like Organism Microbiology 09/17/20 04:15 Urine, Catheterized Urine Culture - Preliminary Yeast Like Organism 09/10/20 13:22 Blood Culture (Wb) - Anticubital Right Blood Culture - Final No growth in 5 days. 09/10/20 13:10 Blood Culture (Wb) - Anticubital Left Blood Culture - Final No growth in 5 days. 09/13/20 09:05 Stool Stool Occult Blood (MARTINEZ) - Final Occult Blood Positive 09/10/20 15:30 Urine, Catheterized Urine Culture - Final Enterococcus faecalis 09/11/20 17:10 Mucosa - Nose SARS-CoV-2 Antigen (Rapid) - Final Meaningful Use Info Meaningful Use Diagnoses (Choose all that apply): None applicable Discharge Plan Admission Admit Date/Time: 09/10/20 16:20 Primary Reason for Your Visit: HHS, metabolic encephalopathyHHS, metabolic encephalopathy, kidney disease Attending Provider: Freddie Pizano Primary Care Provider: [facility],[place] Consulting Providers: Sergio Villasenor ; Cesar Ross ; Louise Tavarez NP ; Ravi Hawkins ; Eloy Raygoza Discharge Orders/Prescriptions Prescriptions: New quetiapine 25 mg Tablet 12.5 mg PO QHS Qty: 0 RF: 0 furosemide 40 mg Tablet 40 mg PO DAILY Qty: 0 RF: 0 atorvastatin 40 mg Tablet 40 mg PO QHS Qty: 0 RF: 0 carvedilol 12.5 mg Tablet 12.5 mg PO BID Qty: 0 RF: 0 sennosides-docusate sodium [Stool Softener-Stimulant Laxat] 8.6-50 mg Tablet 2 tab PO BID PRN (Reason: Constipation) Qty: 0 RF: 0 levothyroxine 75 mcg Tablet 75 mcg PO DAILY@0600 Qty: 0 RF: 0 sodium bicarbonate 650 mg Tablet 1,950 mg PO TID Qty: 0 RF: 0 pantoprazole 40 mg Tablet,Delayed Release (Dr/Ec) 40 mg PO BID Qty: 0 RF: 0 lisinopril 5 mg Tablet 5 mg PO DAILY Qty: 0 RF: 0 calcitriol 0.25 mcg Capsule 0.75 mcg PO DAILY Qty: 0 RF: 0 insulin lispro [Humalog KwikPen Insulin] 100 unit/mL Insulin Pen See Protocol unit subcut ACHS Qty: 0 RF: 0 Lantus Solostar U-100 Insulin 100 unit/mL (3 mL) Insulin Pen 10 units subcut DAILY Qty: 0 RF: 0 Calmoseptine 0.44-20.6 % Ointment 1 applic topical TID Qty: 0 RF: 0 Changed ferrous sulfate 325 mg (65 mg iron) Tablet 325 mg PO QODAY Qty: 0 RF: 0 Discontinued furosemide 40 mg Tablet 40 mg PO DAILY PRN (Reason: Edema) RF: 0 atorvastatin 40 mg Tablet 40 mg PO QHS RF: 0 carvedilol 25 mg Tablet 25 mg PO BID RF: 0 magnesium oxide 420 mg Tablet 420 mg PO BID RF: 0 levothyroxine [Synthroid] 25 mcg Tablet 25 mcg PO DAILY RF: 0 sodium bicarbonate 650 mg Tablet 1,950 mg PO TID RF: 0 gabapentin 300 mg Capsule 300 mg PO TID RF: 0 lisinopril 5 mg Tablet 5 mg PO DAILY RF: 0 calcitriol 0.25 mcg Capsule 0.75 mcg PO DAILY RF: 0 insulin aspart U-100 100 unit/mL Cartridge 12 unit SUBCUT BREAKFAST RF: 0 insulin aspart U-100 100 unit/mL Cartridge 12 unit SUBCUT DINNER RF: 0 insulin glargine 100 unit/mL Cartridge 18 unit SUBCUT BREAKFAST RF: 0 [facility] - Disposition Disposition (needs filled in before D/C Order can be placed): [facility] Charges/Coding Visit Charges Inpatient E&M: 83552 Disch Hosp
[2020-09-19 12:06] LABS: Bedside Glucose 88 mg/dL (70-110)
--- NOTE | 2020-09-19 12:07 | CASEMGMT ---
Addendum entered by Leslie Galindo 09/19/20 12:36: RN and alumnae secretary also notified. Patient is not alert and oriented enough to understand. Leslie PORTER Addendum entered by Leslie Galindo 09/19/20 12:32: KONSTANTIN arranged for patient to get picked up at 3p via cot. KONSTANTIN called patient's son and notified him of picker and packer time and left KONSTANTIN's return number. KONSTANTIN faxed orders to Andrey and Stephanie in admissions. PASRR was completed as patient was observation status in the hospital. Plan: d/c to [facility] transported via cot. Leslie PORTER Original Note: Patient will be discharged to [facility] today. KONSTANTIN called patient's son and left him a voice mail letting him know that patient will be going to [facility] today. KONSTANTIN left SW's number in case he wanted to see patient before he leaves as he will need to quarantine. Leslie PORTER
--- NOTE | 2020-09-19 12:19 | PHA.DC.MR ---
Pharmacy Service has performed discharge medication reconciliation for this patient. The patient's discharge medication list was reviewed for discrepancies and discrepancies were resolved. Home Medications atorvastatin 40 mg PO QHS #0 tab 09/19/20 calcitriol 0.75 mcg PO DAILY #0 cap 09/19/20 carvedilol 12.5 mg PO BID #0 tab 09/19/20 ferrous sulfate 325 mg PO QODAY #0 tab 09/19/20 furosemide 40 mg PO DAILY #0 tab 09/19/20 insulin glargine [Lantus Solostar U-100 Insulin] 10 units SUBCUT DAILY #0 ml 09/19/20 insulin lispro [Humalog KwikPen Insulin] See Protocol SUBCUT ACHS #0 ml 09/19/20 levothyroxine 75 mcg PO DAILY@0600 #0 tab 09/19/20 lisinopril 5 mg PO DAILY #0 tab 09/19/20 menthol-zinc oxide [Calmoseptine] 1 applic TOPICAL TID #0 g 09/19/20 pantoprazole 40 mg PO BID #0 tab 09/19/20 quetiapine 12.5 mg PO QHS #0 tab 09/19/20 sennosides-docusate sodium [Stool Softener-Stimulant Laxat] 2 tab PO BID PRN #0 tab 09/19/20 sodium bicarbonate 1,950 mg PO TID #0 tab 09/19/20
[2020-09-19 14:06] VITALS: BP 140/95; PULSE 77; RESP 18; TEMP 36.6; O2SAT 100
== END 2020-09-19 15:31 | disposition skilled nursing facility (03) | DRG 70 ==
LOC: ED 16:14 → ICU 16:31 → PCU 09-12 15:02
PROVIDERS: Hospitalist; Internal Medicine; Internal Medicine Critical Care Medicine; Admitting Provider Internal Medicine; Emergency Provider Emergency Medicine; Visit Provider Internal Medicine
DX: G93.41 Metabolic encephalopathy (principal); E11.10 Type 2 diabetes mellitus with ketoacidosis without coma; I24.8 Other forms of acute ischemic heart disease; E87.1 Hypo-osmolality and hyponatremia; N17.9 Acute kidney failure, unspecified; N18.4 Chronic kidney disease, stage 4 (severe); N25.81 Secondary hyperparathyroidism of renal origin; I16.0 Hypertensive urgency; I12.9 Hypertensive chronic kidney disease with stage 1 through stage 4 chronic kidney disease, or unspecified chronic kidney disease; E03.9 Hypothyroidism, unspecified; E83.42 Hypomagnesemia; E11.22 Type 2 diabetes mellitus with diabetic chronic kidney disease; M79.89 Other specified soft tissue disorders; E86.0 Dehydration; D72.829 Elevated white blood cell count, unspecified; Z91.14 Patient's other noncompliance with medication regimen; R33.9 Retention of urine, unspecified; D64.9 Anemia, unspecified
CPT/HCPCS: 36415; 36600; 51702; 70450; 70544; 70547; 70551; 71045; 80048; 80053; 80061; 80069; 80076; 81001; 82009; 82274; 82728; 82803; 82962; 83036; 83550; 83605; 83735; 83930; 84439; 84443; 84481; 84484; 85025; 85610; 85730; 87040; 87077; 87086; 87088; 87186; 87426; 87641; 92507; 92523; 92526; 92611; 93005; 93306; 93971; 95819; 97110; 97162; 97166; 97530; 97535; 97802; 97803; 99251; 99285; J7030; J7050; A4216; G0463; J0290; J2405; J7799

== ENCOUNTER 2020-10-06 17:07 | Emergency (ER) | payer OTHER, MEDICARE, SELFPAY ==
[2020-09-10 18:32] VITALS: BMI 24.3
[2020-10-06 17:09] VITALS: BP 162/108; PULSE 80; RESP 20; TEMP 37.2; O2SAT 100; BMI 25.3
[2020-10-06 17:14] VITALS: BP 160/75; PULSE 80; RESP 16; TEMP 37.2; O2SAT 99
--- NOTE | 2020-10-06 17:45 | EDS_ITS ---
HPI History of Present Illness Chief Complaint: Abn Labs Detail of Chief Complaint: [facility] from [facility] secondary to reportedly low hemoglobin on lab. Informant: patient Onset/Context/Timing Onset: Today Context: Gradual Onset Current Severity: Mild Maximum Severity: Mild Narrative Narrative: 75-year-old male sent in from his extended care facility secondary to a low hemoglobin drawn on labs. He denies any nausea, vomiting diarrhea. Reported he is on no blood thinners. Denies any melena. Said he is never had a transfusion before. He states this occurred 1 other time and it was secondary to an erroneous lab. Patient denies any specific complaints. No chest pain, shortness of breath or abdominal pain. Prior similar symptoms: No Recent Illness/Hospitalization: No [facility] Medical History Kidney failure Type 2 diabetes mellitus Venous insufficiency of both lower extremities Home Medications atorvastatin 40 mg PO QHS #0 tab 09/19/20 [Rx Last Taken Unknown] calcitriol 0.75 mcg PO DAILY #0 cap 09/19/20 [Rx Last Taken Unknown] carvedilol 12.5 mg PO BID #0 tab 09/19/20 [Rx Last Taken Unknown] ferrous sulfate 325 mg PO QODAY #0 tab 09/19/20 [Rx Last Taken Unknown] furosemide 40 mg PO DAILY #0 tab 09/19/20 [Rx Last Taken Unknown] insulin glargine [Lantus Solostar U-100 Insulin] 10 units SUBCUT DAILY #0 ml 09/19/20 [Rx Last Taken Unknown] insulin lispro [Humalog KwikPen Insulin] See Protocol SUBCUT ACHS #0 ml 09/19/20 [Rx Last Taken Unknown] levothyroxine 75 mcg PO DAILY@0600 #0 tab 09/19/20 [Rx Last Taken Unknown] lisinopril 5 mg PO DAILY #0 tab 09/19/20 [Rx Last Taken Unknown] menthol-zinc oxide [Calmoseptine] 1 applic TOPICAL TID #0 g 09/19/20 [Rx Last Taken Unknown] pantoprazole 40 mg PO BID #0 tab 09/19/20 [Rx Last Taken Unknown] quetiapine 12.5 mg PO QHS #0 tab 09/19/20 [Rx Last Taken Unknown] sennosides-docusate sodium [Stool Softener-Stimulant Laxat] 2 tab PO BID PRN #0 tab 09/19/20 [Rx Last Taken Unknown] sodium bicarbonate 1,950 mg PO TID #0 tab 09/19/20 [Rx Last Taken Unknown] Allergy/AdvReac Type Severity Reaction Status Date / Time No Known Allergies Allergy Verified 02/15/14 11:41 Social History Smoking Status: Never smoker ROS ROS ED ROS Narrative Denies recent complaints except for his left second toe and some great toe on the left are blackened and he thinks is gangrene. Review of Systems ROS Unobtainable: due to encephalopathy Constitutional Constitutional ED: Denies chills or fever(s) Eyes Eyes: Denies change in vision ENT ENT ED: Denies ear pain Cardiovascular Cardiovascular: Denies chest pain or palpitations Respiratory/Chest Respiratory/Chest: Denies cough or dyspnea Gastrointestinal Gastrointestinal: Denies abdominal pain, diarrhea, nausea or vomiting Genitourinary Genitourinary ED: Denies dysuria or hematuria Musculoskeletal Musculoskeletal: Denies myalgias Integumentary Denies rash Neurologic Neurologic: Denies headache(s) Psychiatric Psychiatric: Denies anxiety or depression Endocrine Endocrinology: Denies polyuria Allergic/Immunologic Allergic/Immunologic ED: Denies urticaria EXAM Physical Exam Narrative Exam Narrative: Elderly male no acute distress vital signs stable afebrile. Pulse ox 1% on room air no hypoxia. HEENT exam unremarkable. Moist remembers. Neck nontender no lymphadenopathy. Lungs clear to auscultation bilaterally. Heart regular rhythm rate about 80 no murmur. Abdomen soft nontender normal bowel sounds no peritoneal signs. There is a rash along with the diaper is not he has on it may be secondary to the yeast infection or from irritation. Moving all 4 extremities. No edema. On his great toe on the left and second toe appears to have blue bruising and a black eschar on the second toe consistent with ischemia. Those toes are cool to the touch. They are not red. There is no signs of trauma. Const Vital Signs: 10/06/20 17:09 10/06/20 17:14 10/06/20 18:10 Temperature 99 F 99.0 F Temperature Source Oral Oral Pulse Rate 80 80 Respiratory Rate 20 H 16 Blood Pressure 162/108 H 160/75 H 169/79 H Blood Pressure Mean 126 103 109 Pulse Ox 100 99 Oxygen Delivery Method Room Air Room Air Positive well nourished, well developed and obese General Appearance ED: well developed Nutritional Appearance: obese HEENT Reports moist mucous membranes Negative for tenderness Eyes PERRL and EOMs intact bilaterally Neck no lymphadenopathy, supple and no JVD General: Negative for tenderness Chest Wall inspection of chest normal and palpation of chest normal Resp normal respiratory effort and clear to auscultation bilaterally Effort and Inspection: Negative for pain with movement Cardio regular rate, regular rhythm, S1 normal heart sound, S2 normal heart sound and no murmurs GI normal to inspection, nondistended, normoactive bowel sounds, non-tender, non- distended and no masses Auscultation: Negative for normoactive bowel sounds Palpation: soft; Negative for tender, guarding or rebound tenderness present Back/Spine no CVA tenderness General Back: Negative for CVA tenderness Cervical Spine: Negative for cervical spine tenderness Thoracic Spine / Upper Back: Negative for thoracic spinal tenderness or paraspinal muscle tenderness Lumbar Spine / Lower Back: Negative for lumbar spinal tenderness Extremity Extremity Narrative: Lower extremities are nontender. They are slightly pale. His left great toe and second toe he has necrosis of the second toe and some discoloration of the first toe both are quite cold to touch consistent with poor circulation. They are not tender. Not red. Neuro oriented x3 and no sensory deficits noted Sensorium / Orientation: alert Motor Exam: strength 5/5 throughout Psych mental status grossly normal Skin no wounds Skin Narrative: Rash along his waist consistent with a yeast infection. MDM MDM MDM Narrative Medical decision making narrative: [facility]. He also has what appears to be chronic ischemic changes in his left first and second toe which will need to be addressed. Repeat exam patient is doing well at 7 PM. He is comfortable being discharged to home. His hemoglobin is 8 and he runs between 8 and about 9-1/2. He has had chronic arterial insufficiency of his lower extremity and will most likely need to follow-up with a vascular surgeon for further evaluation of this. He may have to have amputation done of his toe or left foot due to the circulatory problem. I will discuss that with Andrey when I call them prior to his discharge back to their facility. Lab Data Attestation: I reviewed the patient's lab results. Lab results narrative: CBC shows a white count of 7. Hemoglobin 8. Electrolytes normal gap of 8 he is got renal insufficiency his creatinine is 3 which is his baseline. Labs: Laboratory Results - last 24 hr 10/06/20 10/06/20 10/06/20 17:15 17:15 17:15 WBC 7.5 RBC 2.41 L Hgb 8.0 L Hct 24.4 L MCV 101.2 H MCH 33.2 H MCHC 32.8 RDW Std Deviation 46.8 H RDW Coeff of Ximena 12.8 Plt Count 355 MPV 10.3 Immature Gran % (Auto) 0.500 Neut % (Auto) 66.1 Lymph % (Auto) 18.3 L [place] % (Auto) 9.0 Eos % (Auto) 5.4 H Baso % (Auto) 0.7 Absolute Neuts (auto) 4.9 Absolute Lymphs (auto) 1.36 Nucleated RBC % 0 Sodium 142 Potassium 4.4 Chloride 107 Carbon Dioxide 27.0 Anion Gap 8 BUN 57 H Creatinine 3.04 H Estim Creat Clear Calc 22.69 Est GFR (MDRD) Af Amer 26 L Est GFR (MDRD) Non-Af 21 L BUN/Creatinine Ratio 18.8 Glucose 160 H Calcium 7.2 L Crossmatch See Detail Discharge Plan Triage Chief Complaint: Abn Labs ED Provider: Zia Stubbs Dx/Rx/DC Orders Clinical Impression: Anemia, Arterial insufficiency of lower extremity Instructions: Anemia, ED Peripheral Artery Disease (PAD) Prescriptions: No Action quetiapine 25 mg Tablet 12.5 mg PO QHS Qty: 0 RF: 0 furosemide 40 mg Tablet 40 mg PO DAILY Qty: 0 RF: 0 atorvastatin 40 mg Tablet 40 mg PO QHS Qty: 0 RF: 0 carvedilol 12.5 mg Tablet 12.5 mg PO BID Qty: 0 RF: 0 sennosides-docusate sodium [Stool Softener-Stimulant Laxat] 8.6-50 mg Tablet 2 tab PO BID PRN (Reason: Constipation) Qty: 0 RF: 0 levothyroxine 75 mcg Tablet 75 mcg PO DAILY@0600 Qty: 0 RF: 0 sodium bicarbonate 650 mg Tablet 1,950 mg PO TID Qty: 0 RF: 0 pantoprazole 40 mg Tablet,Delayed Release (Dr/Ec) 40 mg PO BID Qty: 0 RF: 0 lisinopril 5 mg Tablet 5 mg PO DAILY Qty: 0 RF: 0 calcitriol 0.25 mcg Capsule 0.75 mcg PO DAILY Qty: 0 RF: 0 insulin lispro [Humalog KwikPen Insulin] 100 unit/mL Insulin Pen See Protocol unit subcut ACHS Qty: 0 RF: 0 Lantus Solostar U-100 Insulin 100 unit/mL (3 mL) Insulin Pen 10 units subcut DAILY Qty: 0 RF: 0 Calmoseptine 0.44-20.6 % Ointment 1 applic topical TID Qty: 0 RF: 0 ferrous sulfate 325 mg (65 mg iron) Tablet 325 mg PO QODAY Qty: 0 RF: 0 Primary Care Provider: Bebeto Chow Referrals: Bebeto Chow MD [Primary Care Provider] - As soon as possible (Discussed with Dr. Chow further evaluation for arterial insufficiency of the left lower extremity and consultation with a vascular surgeon for treatment options.) Activity Restrictions/Additional Instructions: Hemoglobin today was 8 which is along his baseline and consistent with his renal insufficiency. Follow-up with Dr. Bebeto Chow the patient needs evaluation by a vascular surgeon such as Dr. Yossi Wang here at [facility] for evaluation of arterial insufficiency of his left lower extremity and resultant necrotic changes of his left second toe and left heel. Disposition Disposition: Home, Self Care
[2020-10-06 18:07] LABS: Absolute Lymphocyte Count 1.36 X10^3/uL (0.83-4.51); Absolute Neutrophil Count 4.9 X10^3/uL (2.0-7.7); Basophil# 0.05 X10^3/uL; Basophil% 0.7 % (0-1); Eosinophils% 5.4 % (0-5); Hematocrit 24.4 % (40-54); Lymphocyte # 1.36 X10^3/ul (0.83-4.51); Lymphocyte % 18.3 % (19-41); Mean Corp Hgb Conc 32.8 g/dL (32-36); Mean Corpuscular Hgb 33.2 pg (27.0-32.0); Mean Corpuscular Volume 101.2 fL (80-94); Mean Platelet Vol. 10.3 fl (6.2-12.0); Monocyte# 0.67 X10^3/uL; NRBC Flagged by Analyzer 0 % (0-5); Neutrophil # 4.93 X10^3/uL (2.7-7.7); Neutrophil % 66.1 % (47-70); Platelet Count 355 K/mm3 (150-450); RBC Distribution Width CV 12.8 % (11.6-14.6); RBC Distribution Width SD 46.8 fl (35.1-43.9); Red Blood Count 2.41 M/mm3 (4.6-6.2); White Blood Count 7.5 K/mm3 (4.4-11.0)
[2020-10-06 18:10] VITALS: BP 169/79
[2020-10-06 18:17] LABS: Anion Gap 8 (5-15); BUN 57 mg/dL (7-18); BUN/Creat Ratio 18.8 RATIO (10-20); Calcium,Total 7.2 mg/dL (8.5-10.1); Chloride 107 mmol/L (98-107); Creatinine, Serum 3.04 mg/dL (0.70-1.30); EST Glomerular Filtration Rate 21 mL/min (>60); Est Glom Filt Rate - Afr Amer 26 mL/min (>60); Estimated Creatinine Clearance 22.69 ml/min; Glucose 160 mg/dL (74-106); Potassium 4.4 mmol/L (3.5-5.1); Sodium Level 142 mmol/L (136-145)
--- NOTE | 2020-10-06 20:32 | ED.RN ---
report called to [facility] for pt returning.
== END 2020-10-06 20:37 | disposition home or self-care (01) ==
PROVIDERS: Emergency Provider Emergency Medicine; PCP Family Medicine
DX: D64.9 Anemia, unspecified (principal); I77.1 Stricture of artery; E11.22 Type 2 diabetes mellitus with diabetic chronic kidney disease; N18.9 Chronic kidney disease, unspecified; D63.1 Anemia in chronic kidney disease; E66.9 Obesity, unspecified; Z79.4 Long term (current) use of insulin
CPT/HCPCS: 36415; 80048; 85025; 86850; 86900; 86901; 86920; 99285; A4216

== ENCOUNTER 2020-10-27 20:34 | Inpatient (IN) | payer OTHER, MEDICARE, SELFPAY ==
[2020-10-27 20:35] VITALS: BP 136/64; PULSE 91; RESP 18; TEMP 37.6; O2SAT 89; BMI 24.4
--- NOTE | 2020-10-27 20:57 | EKG12_ITS ---
Test Reason : DYSRHYTHMIA Blood Pressure : / mmHG Vent. Rate : 087 BPM Atrial Rate : 087 BPM P-R Int : 168 ms QRS Dur : 092 ms QT Int : 422 ms P-R-T Axes : 057 015 107 degrees QTc Int : 507 ms Normal sinus rhythm Nonspecific T wave abnormality Prolonged QT Abnormal ECG Confirmed by KALIA OCONNOR, DENYS ([id number]), design editor CAPO SERRANO ([id number]) on 11/01/2020 9:21:25 AM Referred By: YANE Confirmed By:DENYS MOTTA MD
--- NOTE | 2020-10-27 20:58 | ED.VIS.DYS ---
HPI History of Present Illness Chief Complaint: Shortness of Breath Informant: patient Onset/Context/Timing Onset: Today Current Severity: Mild Maximum Severity: Mild Associated Symptoms cough Narrative Narrative: 75-year-old male history of renal insufficiency stage IV, diabetes and peripheral vascular disease. Reportedly has been [facility] supposedly started today and he sent him in for evaluation. He came in by private vehicle with his son. I asked the patient he has not had a Covid vaccination states he does not want one. PE Risk Factors: Negative for Cancer, OCP + Smoking + > 35, Prior DVT or PE, Recent surgery and Recent travel Prior similar symptoms: No Recent Illness/Hospitalization: Yes [facility] Medical History Kidney failure Type 2 diabetes mellitus Venous insufficiency of both lower extremities Home Medications atorvastatin 40 mg PO QHS #0 tab 09/19/20 [Rx Last Taken Unknown] calcitriol 0.75 mcg PO DAILY #0 cap 09/19/20 [Rx Last Taken Unknown] carvedilol 12.5 mg PO BID #0 tab 09/19/20 [Rx Last Taken Unknown] ferrous sulfate 325 mg PO QODAY #0 tab 09/19/20 [Rx Last Taken Unknown] furosemide 40 mg PO DAILY #0 tab 09/19/20 [Rx Last Taken Unknown] insulin lispro [Humalog KwikPen Insulin] See Protocol SUBCUT ACHS #0 ml 09/19/20 [Rx Last Taken Unknown] levothyroxine 75 mcg PO DAILY@0600 #0 tab 09/19/20 [Rx Last Taken Unknown] lisinopril 5 mg PO DAILY #0 tab 09/19/20 [Rx Last Taken Unknown] menthol-zinc oxide [Calmoseptine] 1 applic TOPICAL TID #0 g 09/19/20 [Rx Last Taken Unknown] pantoprazole 40 mg PO BID #0 tab 09/19/20 [Rx Last Taken Unknown] quetiapine 12.5 mg PO QHS #0 tab 09/19/20 [Rx Last Taken Unknown] sennosides-docusate sodium [Stool Softener-Stimulant Laxat] 2 tab PO BID PRN #0 tab 09/19/20 [Rx Last Taken Unknown] sodium bicarbonate 1,950 mg PO TID #0 tab 09/19/20 [Rx Last Taken Unknown] bisacodyl 10 mg OK DAILY PRN 10/27/20 [History Last Taken Unknown] fluvoxamine 50 mg PO QHS 10/27/20 [History Last Taken Unknown] insulin glargine [Lantus Solostar U-100 Insulin] 15 units SUBCUT DAILY 10/27/20 [History Last Taken Unknown] magnesium hydroxide [Milk of Magnesia] 30 ml PO DAILY PRN 10/27/20 [History Last Taken Unknown] miconazole nitrate 1 applic TOPICAL TID 10/27/20 [History Last Taken Unknown] mineral oil 118 ml OK DAILY PRN 10/27/20 [History Last Taken Unknown] nut.tx.gluc intol,lf,soy-fiber [Boost Glucose Control] 120 ml PO TIDCM 10/27/20 [History Last Taken Unknown] Allergy/AdvReac Type Severity Reaction Status Date / Time No Known Allergies Allergy Verified 10/27/20 20:43 Social History Smoking Status: Never smoker ROS ROS ED ROS Narrative Cough, shortness of breath. Denies hemoptysis. Denies fever. Review of Systems ROS Unobtainable: Denies due to encephalopathy Constitutional Constitutional ED: Denies chills or fever(s) Eyes Eyes: Denies change in vision ENT ENT ED: Denies ear pain or sore throat Cardiovascular Cardiovascular: Denies chest pain Respiratory/Chest Respiratory/Chest: Reports cough and dyspnea Gastrointestinal Gastrointestinal: Denies abdominal pain, diarrhea, nausea or vomiting Genitourinary Genitourinary ED: Denies dysuria or hematuria Musculoskeletal Musculoskeletal: Denies arthralgias or myalgias Integumentary Denies abscess or rash Neurologic Neurologic: Denies headache(s) Psychiatric Psychiatric: Denies depression Endocrine Endocrinology: Denies polyuria Hematologic/Lymphatic Hematologic/Lymphatic: Denies easy bruising Allergic/Immunologic Allergic/Immunologic ED: Denies urticaria EXAM Physical Exam Narrative Exam Narrative: Male. Initial pulse ox was in the 70s on oxygen is in the high 80s to low 90s. HEENT exam unremarkable. Neck nontender no JVD. No lymphadenopathy. Lungs coarse breath sounds with rhonchi. Heart regular rhythm rate about 90. Abdomen soft nontender normal bowel sounds no peritoneal signs. Moving all 4 extremities. Chronic trace edema lower extremities. Neurologically is awake and alert moving all 4 extremities. Answering questions and following commands. Const Vital Signs: 10/27/20 20:35 10/27/20 21:21 Temperature 99.6 F H 99.6 F H Temperature Source Temporal Temporal Pulse Rate 91 91 Respiratory Rate 18 18 Respiratory Effort Short of Breath Blood Pressure 136/64 H 136/64 H Blood Pressure Mean 88 88 Pulse Ox 89 84 Oxygen Delivery Method Room Air Nasal Cannula Oxygen Flow Rate (L/min) 4 Fraction of Inspired Oxygen (FIO2) 94 HEENT Reports moist mucous membranes atraumatic; Negative for trauma Eyes PERRL and EOMs intact bilaterally Neck no lymphadenopathy, supple, no meningeal signs and no JVD General: Negative for tenderness Resp normal respiratory effort Auscultation: rhonchi Cardio regular rate, regular rhythm, S1 normal heart sound, S2 normal heart sound and no murmurs GI non-tender, non-distended and no masses Auscultation: normoactive bowel sounds Palpation: soft; Negative for tender Back/Spine normal to inspection Extremity Extremity Narrative: Trace edema bilaterally. General Extremety ED: Yes edema; Negative for tenderness General Extremity: edema Neuro Neuro Narrative: Answering questions and following commands. Moving all 4 extremities. Sensorium / Orientation: alert Psych mental status grossly normal Skin Lesions: no lesions Rashes: no rashes MDM MDM MDM Narrative Medical decision making narrative: 75 yo male from [facility] with dyspnea and hypoxia in the 70s. Differential diagnosis would include pneumonia, Covid, CHF versus other etiologies. Cardiac work-up with infectious etiology will be pursued. He is currently on oxygen. Repeat exam at 11 PM unchanged. Patient resting comfortably in bed on oxygen. I discussed his test results with him. My concern is this is Covid pneumonitis causing his hypoxia. Could also be bilateral pneumonia and/or CHF. I will start him on antibiotics IV Rocephin and Zithromax. This should also help cover his UTI. I have the hospitalist on page for admission. CTA of his chest cannot be done due to the patient's renal insufficiency. Lab Data Attestation: I reviewed the patient's lab results. Lab results narrative: CBC shows a white count of 3.2. Hemoglobin 8.2 which is his baseline from chronic renal insufficiency and chronic anemia. Electrolytes show a gap of 7. Creatinine 2.75. Glucose is 75. His BNP is elevated at 1096. Urinalysis is consistent with infection with greater than 100 white cells. Blood and urine cultures are being sent as is a lactic acid. Labs: Laboratory Results - last 24 hr 10/27/20 10/27/20 10/27/20 21:07 21:07 21:07 WBC 3.2 L RBC 2.52 L Hgb 8.2 L Hct 25.2 L MCV 100.0 H MCH 32.5 H MCHC 32.5 RDW Std Deviation 47.8 H RDW Coeff of Ximena 13.2 Plt Count 231 MPV 9.4 Immature Gran % (Auto) 0.900 Neut % (Auto) 81.2 H Lymph % (Auto) 12.9 L [place] % (Auto) 4.7 Eos % (Auto) 0.0 Baso % (Auto) 0.3 Absolute Neuts (auto) 2.6 Absolute Lymphs (auto) 0.41 L Nucleated RBC % 0 Differential Comment SCANNED Diff Path Review May foll Sodium 141 Potassium 3.8 Chloride 105 Carbon Dioxide 29.0 Anion Gap 7 BUN 39 H Creatinine 2.75 H Estim Creat Clear Calc 25.08 Est GFR (MDRD) Af Amer 29 L Est GFR (MDRD) Non-Af 24 L BUN/Creatinine Ratio 14.2 Glucose 75 Calcium 7.7 L Troponin I High Sens 16.7 B-Natriuretic Peptide 1096.6 H Urine Color Urine Clarity Urine pH Ur Specific Justice Urine Protein Urine Glucose (UA) Urine Ketones Urine Occult Blood Urine Nitrite Urine Bilirubin Urine Urobilinogen Ur Leukocyte Esterase Urine RBC Urine WBC Ur Squamous Epith Cells Amorphous Sediment Urine Bacteria Urine Mucus 10/27/20 21:10 WBC RBC Hgb Hct MCV MCH MCHC RDW Std Deviation RDW Coeff of Ximena Plt Count MPV Immature Gran % (Auto) Neut % (Auto) Lymph % (Auto) [place] % (Auto) Eos % (Auto) Baso % (Auto) Absolute Neuts (auto) Absolute Lymphs (auto) Nucleated RBC % Differential Comment Diff Path Review Sodium Potassium Chloride Carbon Dioxide Anion Gap BUN Creatinine Estim Creat Clear Calc Est GFR (MDRD) Af Amer Est GFR (MDRD) Non-Af BUN/Creatinine Ratio Glucose Calcium Troponin I High Sens B-Natriuretic Peptide Urine Color Yellow Urine Clarity Cloudy Urine pH 5.0 Ur Specific Justice 1.020 Urine Protein 100 H Urine Glucose (UA) 50 H Urine Ketones Negative Urine Occult Blood 50 H Urine Nitrite Negative Urine Bilirubin Negative Urine Urobilinogen Normal Ur Leukocyte Esterase 500 H Urine RBC 5-10 SEEN Urine WBC >100 SEEN Ur Squamous Epith Cells 0-5 SEEN Amorphous Sediment 1+ URATE Urine Bacteria RARE Urine Mucus 0 SEEN Radiography Chest X-Ray - ED: 1 View, Read by ED Physician, Read by Radiologist, Heart, Mediastinum, Bony Structures, Chronic Changes, Right Infiltrate and Left Infiltrate Diagnostic Testing: Radiology Impression Chest X-Ray 10/27/20 21:25 IMPRESSION: Bilateral interstitial and airspace opacities concerning for infection and/or edema. Electronically Signed: Stew Hawley MD at 22:07 EDT Tel , Service support , Portable 1 view chest x-ray interpreted both by myself and the radiologist is very concerning for bilateral infiltrates. It could also be CHF or combination of 3. Rhythm Strip Rhythm Strip: Sinus Rhythm Rate: 87 Ectopy: None EKG Initial EKG: Attestation: I personally reviewed and interpreted this EKG as follows: Interpretation: Sinus Rhythm and No Acute Injury Pattern Comments: Normal sinus rhythm rate 87 no acute signs of GA or ischemia. No old EKG available for comparison. Critical Care Time Critical Care Time: Yes Critical care time (excluding procedures): 30-74 minutes, Including time spent:, Discussing w/Patient &/or Family/Senior Marketing Coordinator, Discussing w/Consultants, Arranging Admission or Transfer, Performing Direct Patient Care at Bedside and - (Critical care time 32 minutes.) Discharge Plan Dx/Rx/DC Orders Clinical Impression: Acute respiratory failure with hypoxia, COVID-19, Pneumonitis, Anemia, chronic renal failure, CHF (congestive heart failure) Disposition Disposition: Acute Care Hospital [facility]
[2020-10-27 21:21] VITALS: BP 136/64; PULSE 87; PULSE 91; RESP 18; RESP 22; TEMP 37.6; O2SAT 84; O2SAT 92
[2020-10-27 21:23] LABS: Absolute Lymphocyte Count 0.41 X10^3/uL (0.83-4.51); Absolute Neutrophil Count 2.6 X10^3/uL (2.0-7.7); Basophil# 0.01 X10^3/uL; Basophil% 0.3 % (0-1); Hematocrit 25.2 % (40-54); Hemoglobin 8.2 g/dL (13.0-16.5); Lymphocyte # 0.41 X10^3/ul (0.83-4.51); Lymphocyte % 12.9 % (19-41); Mean Corp Hgb Conc 32.5 g/dL (32-36); Mean Corpuscular Hgb 32.5 pg (27.0-32.0); Mean Platelet Vol. 9.4 fl (6.2-12.0); Monocyte# 0.15 X10^3/uL; Monocyte% 4.7 % (0-10); NRBC Flagged by Analyzer 0 % (0-5); Neutrophil # 2.59 X10^3/uL (2.7-7.7); Neutrophil % 81.2 % (47-70); POSITIVE DIFFERENTIAL YES; POSITIVE MORPHOLOGY YES; Platelet Count 231 K/mm3 (150-450); RBC Distribution Width CV 13.2 % (11.6-14.6); RBC Distribution Width SD 47.8 fl (35.1-43.9); Red Blood Count 2.52 M/mm3 (4.6-6.2); White Blood Count 3.2 K/mm3 (4.4-11.0)
--- NOTE | 2020-10-27 21:25 | RAD_ITS ---
INDICATION: chest pain EXAMINATION/TECHNIQUE: X-RAY - XR Chest 1 View COMPARISON: None. FINDINGS: Bilateral interstitial and airspace opacities. The cardiomediastinal silhouette is unremarkable. No pleural effusion or pneumothorax. No acute osseous abnormalities. RAD/Chest 1 View (Portable) IMPRESSION: Bilateral interstitial and airspace opacities concerning for infection and/or edema. Electronically Signed: Stew Hawley MD at 22:07 EDT Tel , Service support ,
[2020-10-27 21:33] LABS: Differential Indicated SCAN CRITERIA MET
[2020-10-27 21:37] LABS: Anion Gap 7 (5-15); BUN 39 mg/dL (7-18); BUN/Creat Ratio 14.2 RATIO (10-20); Calcium,Total 7.7 mg/dL (8.5-10.1); Chloride 105 mmol/L (98-107); Creatinine, Serum 2.75 mg/dL (0.70-1.30); EST Glomerular Filtration Rate 24 mL/min (>60); Est Glom Filt Rate - Afr Amer 29 mL/min (>60); Estimated Creatinine Clearance 25.08 ml/min; Glucose 75 mg/dL (74-106); Potassium 3.8 mmol/L (3.5-5.1); Sodium Level 141 mmol/L (136-145); Troponin-I HS 16.7 pg/mL (3.0-78.5)
[2020-10-27 21:54] LABS: Mucous, Urine 0 SEEN /hpf (<or=2+)
[2020-10-27 21:56] LABS: Differential Comment SCANNED
[2020-10-27 21:59] LABS: Color, Urine Yellow (Yellow); Glucose, Dipstick 50 mg/dl (Normal); Ketone-Dipstick Negative (Negative); Leukocyte Esterase-Dipstick 500 /ul (Negative); Nitrite-Dipstick Negative (Negative); Occult Blood-Urine 50 /ul (Negative); Protein-Dipstick 100 mg/dl (Negative); Urine Bilirubin Dipstick Negative (Negative); Urine Clarity Cloudy (Clear); Urine Urobilinogen Normal (Normal)
[2020-10-27 22:05] LABS: Amorphous Sediment 1+ URATE; Bacteria RARE /hpf (None Seen); Red Blood Cells-Urine 5-10 SEEN /hpf (0-5); Squamous Epithelial Cells - UA 0-5 SEEN /hpf (0-5); White Blood Cells >100 SEEN /hpf (0-5)
[2020-10-27 22:15] LABS: BNP,B-Type NATRIURETIC PEPTIDE 1096.6 pg/mL (0-100)
--- NOTE | 2020-10-27 23:25 | PCM.HP.STD ---
[facility] - General General Date of Admission: 10/27/20 Date of Service: 10/27/20 Chief Complaint: SOB [facility] Narrative JULIO DUNNE, is a 75 M who presents with progressive shortness of breath. Patient is resident in a skilled nursing. Patient stated that he has been short of breath in the last couple of days. His oxygen saturation was low today. He was put on 4 L of oxygen and brought to the ED. He denied any fever or chills. He denied also chest pain or palpitations. Also today, he was found to have low blood sugars. Patient stated that over the last 1 month, he had ischemia of his second left toe as well as bilateral heel ulcers. I confirmed with the skilled nursing that this was noted around 10/06/20. Patient reportedly has seen Dr. Whitfield. Vascular surgery follow-up recommended. Patient also said he just received his offloading boots yesterday and was told to keep his feet in it at all times to avoid worsening of his left bilateral heel ulcers. Review of skilled nursing data showed that patient's last creatinine done on 10/27/20 was 2.9, BUN 36, blood sugar was 232. His white cell count was 6.4, hemoglobin 9.6, patient's hemoglobin on 10/06/20 was 6.8. He was seen in the ED, repeat hemoglobin was 8. He was not transfused. Repeat hemoglobin 1 week later showed hemoglobin of 7.3. No report of hematochezia or melena stools. His platelet count was 275. In the ED, his vitals were stable except he saturating 84% in the ED requiring 4 L of oxygen. Patient is on oxygen at baseline. Chest x-ray showed bilateral interstitial airspace opacities. COVID-19 rapid antigen and PCR has been negative. His BNP was 1096, his lactic acid was 3.0. Troponin was 16.9. EKG showed normal sinus rhythm, PACs [facility] Medical History (Updated 10/28/20 @ 02:[address] Betzy Ayon MD) Anemia Cardiac amyloidosis CHF (congestive heart failure) Chronic kidney disease, stage 4 (severe) Cognitive impairment Delirium due to another medical condition GI bleed Hypertension Kidney failure Metabolic acidosis PAD (peripheral artery disease) Secondary hyperparathyroidism Type 2 diabetes mellitus Venous insufficiency of both lower extremities Home Medications atorvastatin 40 mg PO QHS #0 tab 09/19/20 [Rx Last Taken Unknown] calcitriol 0.75 mcg PO DAILY #0 cap 09/19/20 [Rx Last Taken Unknown] carvedilol 12.5 mg PO BID #0 tab 09/19/20 [Rx Last Taken Unknown] ferrous sulfate 325 mg PO QODAY #0 tab 09/19/20 [Rx Last Taken Unknown] furosemide 40 mg PO DAILY #0 tab 09/19/20 [Rx Last Taken Unknown] insulin lispro [Humalog KwikPen Insulin] See Protocol SUBCUT ACHS #0 ml 09/19/20 [Rx Last Taken Unknown] levothyroxine 75 mcg PO DAILY@0600 #0 tab 09/19/20 [Rx Last Taken Unknown] lisinopril 5 mg PO DAILY #0 tab 09/19/20 [Rx Last Taken Unknown] menthol-zinc oxide [Calmoseptine] 1 applic TOPICAL TID #0 g 09/19/20 [Rx Last Taken Unknown] pantoprazole 40 mg PO BID #0 tab 09/19/20 [Rx Last Taken Unknown] quetiapine 12.5 mg PO QHS #0 tab 09/19/20 [Rx Last Taken Unknown] sennosides-docusate sodium [Stool Softener-Stimulant Laxat] 2 tab PO BID PRN #0 tab 09/19/20 [Rx Last Taken Unknown] sodium bicarbonate 1,950 mg PO TID #0 tab 09/19/20 [Rx Last Taken Unknown] bisacodyl 10 mg TN DAILY PRN 10/27/20 [History Last Taken Unknown] fluvoxamine 50 mg PO QHS 10/27/20 [History Last Taken Unknown] insulin glargine [Lantus Solostar U-100 Insulin] 15 units SUBCUT DAILY 10/27/20 [History Last Taken Unknown] magnesium hydroxide [Milk of Magnesia] 30 ml PO DAILY PRN 10/27/20 [History Last Taken Unknown] miconazole nitrate 1 applic TOPICAL TID 10/27/20 [History Last Taken Unknown] mineral oil 118 ml TN DAILY PRN 10/27/20 [History Last Taken Unknown] nut.tx.gluc intol,lf,soy-fiber [Boost Glucose Control] 120 ml PO TIDCM 10/27/20 [History Last Taken Unknown] amoxicillin-pot clavulanate [Augmentin] 1 tab PO BID 10/28/20 [History Last Taken Unknown] ceftriaxone-lidocaine 1 ea IM DAILY 10/28/20 [History Last Taken Unknown] Allergy/AdvReac Type Severity Reaction Status Date / Time No Known Allergies Allergy Verified 10/27/20 20:43 unable to obtain unable to obtain Social History Smoking Status: Never smoker ROS ROS Narrative Constitutional: Reports: Malaise, Weakness, Fatigue. Denies: Anorexia, Chills, Fever, Night Sweats, Weight Change Eyes: Denies: Blurred vision, Cataracts, Conjunctivae Inflammation, Pain, Redness, Vision Change HEENT: Denies: Difficulty Hearing, Difficulty Swallowing, Head Aches, Hearing Changes, Sinus Congestion, Sinus Drainage Cardiovascular: Denies: Chest Pain, Orthopnea, Palpitations Respiratory: Cough, Shortness of breath at rest, Denies: Sputum production Gastrointestinal: Denies: Abdominal Pain, Nausea, Vomiting Genitourinary: Denies: Dysuria Musculoskeletal: Right left second toe ischemia Vital Signs Vital Signs Vital Signs: 10/27/20 20:35 10/27/20 21:21 Temperature 99.6 F H 99.6 F H Temperature Source Temporal Temporal Pulse Rate 91 91 Respiratory Rate 18 18 Respiratory Effort Short of Breath Blood Pressure 136/64 H 136/64 H Blood Pressure Mean 88 88 Pulse Ox 89 84 Oxygen Delivery Method Room Air Nasal Cannula Oxygen Flow Rate (L/min) 4 Fraction of Inspired Oxygen (FIO2) 94 Weight Weight: 81.647 kg Body Mass Index (BMI) 24.4 Physical Exam Narrative Physical exam: General: Alert, Oriented x3, Cooperative, No apparent distress, Well developed HEENT: Atraumatic Oral: Moist Mucosa Neck: Supple Lungs: Clear to auscultation Cardiovascular: HS I+II, regular, no murmurs Abdomen: Bowel Sounds Present, Soft, Non Tender Extremities: No edema Skin: No rashes, No breakdown Neurological: Grossly intact Psych/Mental Status: Appropriate Results Lab / Micro Data Result Diagrams: 10/28/20 02:55 10/27/20 21:07 Labs: Laboratory Results - last 24 hr 10/27/20 21:07: WBC 3.2 L, RBC 2.52 L, Hgb 8.2 L, Hct 25.2 L, MCV 100.0 H, MCH 32.5 H, MCHC 32.5, RDW Std Deviation 47.8 H, RDW Coeff of Ximena 13.2, Plt Count 231, MPV 9.4, Immature Gran % (Auto) 0.900, Neut % (Auto) 81.2 H, Lymph % (Auto) 12.9 L, Johnston % (Auto) 4.7, Eos % (Auto) 0.0, Baso % (Auto) 0.3, Absolute Neuts (auto) 2.6, Absolute Lymphs (auto) 0.41 L, Nucleated RBC % 0, Differential Comment SCANNED, Diff Path Review July10/27/20 21:07: Sodium 141, Potassium 3.8, Chloride 105, Carbon Dioxide 29.0, Anion Gap 7, BUN 39 H, Creatinine 2.75 H, Estim Creat Clear Calc 25.08, Est GFR (MDRD) Af Amer 29 L, Est GFR (MDRD) Non-Af 24 L, BUN/Creatinine Ratio 14.2, Glucose 75, Calcium 7.7 L, Troponin I High Sens 16.7 10/27/20 21:07: B-Natriuretic Peptide 1096.6 H 10/27/20 21:10: Urine Color Yellow, Urine Clarity Cloudy, Urine pH 5.0, Ur Specific [place] 1.020, Urine Protein 100 H, Urine Glucose (UA) 50 H, Urine Ketones Negative, Urine Occult Blood 50 H, Urine Nitrite Negative, Urine Bilirubin Negative, Urine Urobilinogen Normal, Ur Leukocyte Esterase 500 H, Urine RBC 5-10 SEEN, Urine WBC >100 SEEN, Ur Squamous Epith Cells 0-5 SEEN, Amorphous Sediment 1+ URATE, Urine Bacteria RARE, Urine Mucus 0 SEEN Micro: Microbiology 10/27/20 21:07 Mucosa - Nose SARS-CoV-2 Antigen (Rapid) - Final Rhythm Strip Rhythm Strip: Sinus Rhythm Rate: 87 Ectopy: None Radiology Impression Chest X-Ray 10/27/20 21:25 IMPRESSION: Bilateral interstitial and airspace opacities concerning for infection and/or edema. Electronically Signed: Stew Hawley MD at 22:07 EDT Tel , Service support , Assessment & Plan Assessment/Plan (1) CHF (congestive heart failure): QUALIFIERS: Heart failure chronicity: acute on chronic Heart failure type: diastolic Qualified Code(s): I50.33 - Acute on chronic diastolic (congestive) heart failure (2) Secondary hyperparathyroidism: (3) Hypertension: QUALIFIERS: Hypertension type: primary hypertension Qualified Code(s): I10 - Essential (primary) hypertension (4) Chronic kidney disease, stage 4 (severe): (5) Arterial insufficiency of lower extremity: (6) Acute respiratory failure with hypoxia: (7) Anemia, chronic renal failure: QUALIFIERS: Chronic kidney disease stage: stage 4 (severe) Qualified Code(s): N18.4 - Chronic kidney disease, stage 4 (severe); D63.1 - Anemia in chronic kidney disease (8) Ischemic necrosis of toe: (9) PAD (peripheral artery disease): (10) Hypoglycemia: PLAN: 1. Acute hypoxia related to acute on chronic diastolic CHF/cardiac amyloidosis Less likely from COVID-19 pneumonitis or acute community-acquired pneumonia Patient is not on oxygen at baseline; currently on 4 L of oxygen Chest x-ray shows bilateral pulmonary infiltrates; COVID-19 rapid antigen and PCR was negative. CTA of the chest could not be done on account of kidney function Continue with breathing treatments, encourage use of incentive spirometer. Wean off oxygen for SPO2 more than 94% 2. Acute on chronic diastolic CHF, history of cardiac amyloidosis, last 2D echo was done in August 2020 EKG shows normal sinus rhythm, will trend cardiac enzymes Continue CHF protocol, Lasix 40 mg IV every 8h, strict I & Os, daily weight, fluid restriction 3. Ischemic second toe, bluish discoloration of the right first toe, history of bilateral heel ulcers Patient follows with Dr. Whitfield and Dr. Wang in the outpatient We will consult Dr. Whitfield. 4. CKD stage IV, creatinine looks slightly improved compared to previous and also from skilled nursing records 5. Secondary parathyroidism/chronic metabolic acidosis secondary to CKD stage IV, Continue on sodium bicarbonate, calcitriol 6. Chronic cognitive impairment, no obvious delirium seen compared to previous, 7. Anemia of chronic blood loss/CKD/ history of GI bleed, will check iron stores, continue pantoprazole Needs to follow-up in outpatient for colonoscopy 8. CODE STATUS from the skilled nursing?DNR CC Charges/Coding Visit Charges Inpatient E&M: 83748 Init Hosp L3
[2020-10-28] VITALS (26 sets, daily range): BP systolic 118–144; BP diastolic 51–77; PULSE 76–100; RESP 16–22; TEMP 36.5–37.6; O2SAT 92–99; BMI 24.4
[2020-10-28] MEDS: Ceftriaxone 1 GM/50 ML BAG IV (00:05)
[2020-10-28 00:20] LABS: Probe Check PASS; Specimen Processing Control PASS
--- NOTE | 2020-10-28 00:25 | ED.RN ---
Updated PTS son, [employer]. He was appreciative. [facility] mentions that his special boots for his heels were at [facility] but they were unable to find these speciality shoes in his room. He is going to continue to investigate with [facility]. I did let him know that his Dad's phone is not working and his Dad would like a new phone plan. [facility] was also updated with his admission.
[2020-10-28 01:39] LABS: Troponin-I HS 16.9 pg/mL (3.0-78.5)
--- NOTE | 2020-10-28 01:39 | EKG12_ITS ---
Test Reason : ADMIT EKG Blood Pressure : / mmHG Vent. Rate : 089 BPM Atrial Rate : 089 BPM P-R Int : 172 ms QRS Dur : 096 ms QT Int : 422 ms P-R-T Axes : 060 024 088 degrees QTc Int : 513 ms Sinus rhythm with Premature atrial complexes Nonspecific T wave abnormality Prolonged QT Abnormal ECG When compared with ECG of 16-SEP-2020 16:04, Nonspecific T wave abnormality no longer evident in Inferior leads Nonspecific T wave abnormality no longer evident in Anterior leads Confirmed by NICOLE OCONNOR, ERICA ([id number]), assignment editor CAPO SERRANO ([id number]) on 11/01/2020 2:03:05 PM Referred By: DR MARTIN Confirmed By:SHAD RIVERA MD
[2020-10-28] MEDS: 0.9% Saline Lock 10 ML Syringe IV ×3 (02:22→15:00)
[2020-10-28] MEDS: Furosemide 20 MG/2 ML VIAL IV (02:23)
[2020-10-28 03:11] LABS: Hematocrit 22.2 % (40-54); Hemoglobin 7.2 g/dL (13.0-16.5); Mean Corp Hgb Conc 32.4 g/dL (32-36); Mean Corpuscular Hgb 32.9 pg (27.0-32.0); Mean Corpuscular Volume 101.4 fL (80-94); Mean Platelet Vol. 9.4 fl (6.2-12.0); POSITIVE DIFFERENTIAL YES; POSITIVE MORPHOLOGY YES; Platelet Count 200 K/mm3 (150-450); RBC Distribution Width CV 13.2 % (11.6-14.6); RBC Distribution Width SD 49.2 fl (35.1-43.9); Red Blood Count 2.19 M/mm3 (4.6-6.2)
[2020-10-28 03:14] LABS: Reflex Lactate? Y
[2020-10-28 03:32] LABS: AST(SGOT) 17 U/L (15-37); Alanine Aminotransfer ALT/SGPT 29 U/L (16-61); Albumin, Serum 1.7 g/dL (3.2-5.0); Alkaline Phosphatase 114 U/L (45-117); Bilirubin, Direct 0.08 mg/dL (0.00-0.30); Globulin 2.9 g/dL (2.2-4.2); Protein, Total 4.6 g/dL (6.4-8.2); Troponin-I HS 18.5 pg/mL (3.0-78.5)
[2020-10-28 04:20] LABS: Lactic Acid 4.1 mmol/L (0.4-1.9)
[2020-10-28 04:48] LABS: Differential Indicated MANUAL DIFF
[2020-10-28 04:50] LABS: Lymphocyte 5 % (19-41); Monocyte 1 % (0-10); Neutrophil-Band 93 % (0-5); Neutrophil-Segmented 1 % (47-70)
[2020-10-28 04:51] LABS: Absolute Lymphocyte Count 0.45 X10^3/uL (0.83-4.51); Absolute Neutrophil Count 8.4 X10^3/uL (2.0-7.7)
[2020-10-28 04:52] LABS: Platelet Estimate ADEQUATE (ADEQ); Red Cell Morphology NORM C+C NORMAL (NORM C&C)
[2020-10-28 05:09] LABS: Iron 14 ug/dL (65-175); Iron Binding Capacity,Total 131 ug/dL (250-450); PERCENT IRON SATURATION 10.7 % (15.0-55.0)
[2020-10-28] MEDS: Sodium Bicarbonate 650 MG Tablet 1950 MG PO ×3 (05:41→20:18)
[2020-10-28] MEDS: Levothyroxine 75 MCG Tablet PO (05:42)
[2020-10-28] MEDS: Furosemide 40 MG/4 ML Vial IV ×4 (05:42→20:17)
--- NOTE | 2020-10-28 05:50 | RAD_ITS ---
STUDY: X-RAY CHEST REASON FOR EXAM: Male, 75 years old. SOB, progressive TECHNIQUE: AP COMPARISON: 10/27/2020 FINDINGS: EKG leads project over the chest. Bilateral multifocal airspace disease involving the right more than left lung is unchanged. There is no demonstrated pleural abnormality. Normal size heart. Normal mediastinum and joseluis. Normal visualized pulmonary arteries. Normal visualized aortic arch and descending thoracic aorta. No acute bony process. There is no demonstrated abnormality of the visualized soft tissue structures of the upper abdomen. RAD/Chest 1 View (Portable) IMPRESSION: Stable exam. Right worse than left multilobar airspace disease, favoring pneumonia. Electronically Signed: Satnam Blair MD ([place]) at 9:07 EDT , Service support ,
[2020-10-28 06:46] LABS: Bedside Glucose 127 mg/dL (70-110)
[2020-10-28 06:51] LABS: ALB/GLOB Ratio 0.6 RATIO (0.9-2.4); AST(SGOT) 19 U/L (15-37); Alanine Aminotransfer ALT/SGPT 29 U/L (16-61); Albumin, Serum 1.7 g/dL (3.2-5.0); Alkaline Phosphatase 111 U/L (45-117); Anion Gap 9 (5-15); BUN 40 mg/dL (7-18); BUN/Creat Ratio 14.2 RATIO (10-20); Calcium,Total 7.4 mg/dL (8.5-10.1); Chloride 105 mmol/L (98-107); Creatinine, Serum 2.82 mg/dL (0.70-1.30); EST Glomerular Filtration Rate 23 mL/min (>60); Est Glom Filt Rate - Afr Amer 28 mL/min (>60); Estimated Creatinine Clearance 24.46 ml/min; Glucose 129 mg/dL (74-106); Magnesium 1.7 mg/dL (1.6-2.6); Potassium 3.8 mmol/L (3.5-5.1); Protein, Total 4.7 g/dL (6.4-8.2); Sodium Level 142 mmol/L (136-145); Troponin-I HS 17.3 pg/mL (3.0-78.5)
[2020-10-28] MEDS: Ipratropium/Albuterol Sulfate 3 ML AMPUL.NEB INHALATION ×4 (07:11→19:22)
--- NOTE | 2020-10-28 09:44 | PCM.CONS.GEN ---
Assessment & Plan Assessment/Plan (1) PAD (peripheral artery disease): PLAN: Patient was seen and examined. It is noted he has dry gangrene to the left 2nd toe, also dry eschars to the heels bilateral. There is no evidence of infection clinically with no cellulitis, no edema, no drainage, no maloder, no crepitus, no fluctuance, no visible abscess. Bilateral foot xrays were ordered. Reviewed LEAS from 2019 - recommend new noninvasive LEAS vascular studies. Also recommend vascular surgeon consultation for further evaluation of arterial flow and healing potential. Keep heels offloaded at all times - ordered foam offloading heal boots for patient to wear at all times. No weightbearing on feet due to ulcerations. Wound care to left 2nd toe and bilateral heels - betadine soln and gauze dressing changes - change daily. Podiatry will continue to follow - thank you for consult. (2) Gangrene of toe of both feet: (3) Diabetes mellitus with diabetic polyneuropathy: (4) Chronic kidney failure: QUALIFIERS: Chronic kidney disease stage: stage 4 (severe) Qualified Code(s): N18.4 - Chronic kidney disease, stage 4 (severe) HPI Consult Data Date of Consult: 10/28/20 HPI Narrative HPI Narrative: JULIO DUNNE, is a 75 M was seen today per request of medicine team for left 2nd toe gangrene and heel ulcerations - these are chronic. Patient is resident at [facility], has offloading boots but does not have them with him. He relates he is scheduled to see a specialist for his toe next week - he relates he understands he has poor blood flow and will likely lose toe or part of foot as some point. He relates he wishes he would have done something sooner for this. He has many medical problems, including chronic kidney disease, CHF, and diabetes. Patient is afebrile, WBC normal. Patient is new to me and our practice. [facility] Medical History (Updated 10/28/20 @ 09:[address] Severo Whitfield, DPHeidi) Anemia Cardiac amyloidosis CHF (congestive heart failure) Chronic kidney disease, stage 4 (severe) Cognitive impairment Delirium due to another medical condition GI bleed Hypertension Kidney failure Metabolic acidosis PAD (peripheral artery disease) Secondary hyperparathyroidism Type 2 diabetes mellitus Venous insufficiency of both lower extremities Home Medications atorvastatin 40 mg PO QHS #0 tab 09/19/20 [Rx Last Taken Unknown] calcitriol 0.75 mcg PO DAILY #0 cap 09/19/20 [Rx Last Taken Unknown] carvedilol 12.5 mg PO BID #0 tab 09/19/20 [Rx Last Taken Unknown] ferrous sulfate 325 mg PO QODAY #0 tab 09/19/20 [Rx Last Taken Unknown] furosemide 40 mg PO DAILY #0 tab 09/19/20 [Rx Last Taken Unknown] insulin lispro [Humalog KwikPen Insulin] See Protocol SUBCUT ACHS #0 ml 09/19/20 [Rx Last Taken Unknown] levothyroxine 75 mcg PO DAILY@0600 #0 tab 09/19/20 [Rx Last Taken Unknown] lisinopril 5 mg PO DAILY #0 tab 09/19/20 [Rx Last Taken Unknown] menthol-zinc oxide [Calmoseptine] 1 applic TOPICAL TID #0 g 09/19/20 [Rx Last Taken Unknown] pantoprazole 40 mg PO BID #0 tab 09/19/20 [Rx Last Taken Unknown] quetiapine 12.5 mg PO QHS #0 tab 09/19/20 [Rx Last Taken Unknown] sennosides-docusate sodium [Stool Softener-Stimulant Laxat] 2 tab PO BID PRN #0 tab 09/19/20 [Rx Last Taken Unknown] sodium bicarbonate 1,950 mg PO TID #0 tab 09/19/20 [Rx Last Taken Unknown] bisacodyl 10 mg AL DAILY PRN 10/27/20 [History Last Taken Unknown] fluvoxamine 50 mg PO QHS 10/27/20 [History Last Taken Unknown] insulin glargine [Lantus Solostar U-100 Insulin] 15 units SUBCUT DAILY 10/27/20 [History Last Taken Unknown] magnesium hydroxide [Milk of Magnesia] 30 ml PO DAILY PRN 10/27/20 [History Last Taken Unknown] miconazole nitrate 1 applic TOPICAL TID 10/27/20 [History Last Taken Unknown] mineral oil 118 ml AL DAILY PRN 10/27/20 [History Last Taken Unknown] nut.tx.gluc intol,lf,soy-fiber [Boost Glucose Control] 120 ml PO TIDCM 10/27/20 [History Last Taken Unknown] amoxicillin-pot clavulanate [Augmentin] 1 tab PO BID 10/28/20 [History Last Taken Unknown] ceftriaxone-lidocaine 1 ea IM DAILY 10/28/20 [History Last Taken Unknown] Allergy/AdvReac Type Severity Reaction Status Date / Time No Known Allergies Allergy Verified 10/27/20 20:43 Social History Smoking Status: Never smoker Physical Exam Const alert and no apparent distress Extremity Extremity Narrative: There is noted to be dry gangrene to the left 2nd toe, there are also dry stable eschars to the posterior/plants heels bilateral - there is no maloder, no drainage, no fluctuance, no bogginess, no crepitus, no cellulitis, no edema noted - they are dry and stable - and chronic in nature - there is no evidence of acute ischemia to the foot or ankle. There is dry superficial appearing bilateral to the distal left 1st toe with no evidence of infection. Skin is thin and atrophic bilateral feet, pedal pulses are nonpalpable bilateral. Calf is soft and supple bilateral with no calf pain. Sensation is decreased bilateral foot - chronic. No m/s pain to the foot or ankle bilateral. Lab / Micro Data Result Diagrams: 10/28/20 02:55 10/28/20 06:16 Labs: Laboratory Results - last 24 hr 10/27/20 21:07: WBC 3.2 L, RBC 2.52 L, Hgb 8.2 L, Hct 25.2 L, MCV 100.0 H, MCH 32.5 H, MCHC 32.5, RDW Std Deviation 47.8 H, RDW Coeff of Ximena 13.2, Plt Count 231, MPV 9.4, Immature Gran % (Auto) 0.900, Neut % (Auto) 81.2 H, Lymph % (Auto) 12.9 L, Bailey % (Auto) 4.7, Eos % (Auto) 0.0, Baso % (Auto) 0.3, Absolute Neuts (auto) 2.6, Absolute Lymphs (auto) 0.41 L, Nucleated RBC % 0, Differential Comment SCANNED, Diff Path Review July foll 10/27/20 21:07: Sodium 141, Potassium 3.8, Chloride 105, Carbon Dioxide 29.0, Anion Gap 7, BUN 39 H, Creatinine 2.75 H, Estim Creat Clear Calc 25.08, Est GFR (MDRD) Af Amer 29 L, Est GFR (MDRD) Non-Af 24 L, BUN/Creatinine Ratio 14.2, Glucose 75, Calcium 7.7 L, Troponin I High Sens 16.7 10/27/20 21:07: B-Natriuretic Peptide 1096.6 H 10/27/20 21:07: Lactic Acid 3.0 H* 10/27/20 21:10: Urine Color Yellow, Urine Clarity Cloudy, Urine pH 5.0, Ur Specific [place] 1.020, Urine Protein 100 H, Urine Glucose (UA) 50 H, Urine Ketones Negative, Urine Occult Blood 50 H, Urine Nitrite Negative, Urine Bilirubin Negative, Urine Urobilinogen Normal, Ur Leukocyte Esterase 500 H, Urine RBC 5-10 SEEN, Urine WBC >100 SEEN, Ur Squamous Epith Cells 0-5 SEEN, Amorphous Sediment 1+ URATE, Urine Bacteria RARE, Urine Mucus 0 SEEN 10/27/20 23:08: COVID-19 (MICHELLE) Negative 10/28/20 00:37: Troponin I High Sens 16.9 10/28/20 02:55: Total Bilirubin 0.30, Direct Bilirubin 0.08, AST 17, ALT 29, Alkaline Phosphatase 114, Troponin I High Sens 18.5, Total Protein 4.6 L, Albumin 1.7 L, Globulin 2.9 10/28/20 02:55: WBC 9.0, RBC 2.19 L, Hgb 7.2 L, Hct 22.2 L, MCV 101.4 H, MCH 32.9 H, MCHC 32.4, RDW Std Deviation 49.2 H, RDW Coeff of Ximena 13.2, Plt Count 200, MPV 9.4, Immature Gran % (Auto) [employer], Neut % (Auto) [employer], Lymph % (Auto) [employer], Bailey % (Auto) [employer], Eos % (Auto) [employer], Baso % (Auto) [employer], Absolute Neuts (auto) 8.4 H, Absolute Lymphs (auto) 0.45 L, Neutrophils % (Manual) 1 L, Band Neutrophils % 93 H, Lymphocytes % (Manual) 5 L, Monocytes % (Manual) 1, Nucleated RBC % [employer], Diff Path Review May , Platelet Estimate ADEQUATE, RBC Morphology NORM C+C 10/28/20 02:55: Lactic Acid 4.1 H* 10/28/20 06:16: Sodium 142, Potassium 3.8, Chloride 105, Carbon Dioxide 28.0, Anion Gap 9, BUN 40 H, Creatinine 2.82 H, Estim Creat Clear Calc 24.46, Est GFR (MDRD) Af Amer 28 L, Est GFR (MDRD) Non-Af 23 L, BUN/Creatinine Ratio 14.2, Glucose 129 H, Calcium 7.4 L, Magnesium 1.7, Total Bilirubin 0.30, AST 19, ALT 29, Alkaline Phosphatase 111, Troponin I High Sens 17.3, Total Protein 4.7 L, Albumin 1.7 L, Globulin 3.0, Albumin/Globulin Ratio 0.6 L 10/28/20 06:40: POC Glucose 127 H 10/28/20 08:30: Crossmatch See Detail 10/28/20 : Iron 14 L, TIBC 131 L, Iron Saturation 10.7 L Micro: Microbiology 10/27/20 21:07 Mucosa - Nose SARS-CoV-2 Antigen (Rapid) - Final Rhythm Strip Rhythm Strip: Sinus Rhythm Rate: 87 Ectopy: None Radiology Impression Chest X-Ray 10/27/20 21:25 IMPRESSION: Bilateral interstitial and airspace opacities concerning for infection and/or edema. Electronically Signed: Stew Hawley MD at 22:07 EDT Tel , Service support ,
--- NOTE | 2020-10-28 10:15 | RAD_ITS ---
STUDY: X-RAY - LEFT FOOT CLINICAL: Male, 75 years old. Bilateral heel ulcers TECHNIQUE: 3 view(s) of the foot. COMPARISON: FINDINGS: Normal talus, calcaneus, and tarsal bones. Normal visualized subtalar, talonavicular, calcaneocuboid, tarsal and tarsometatarsal articulations. Normal metatarsi. Normal metatarsophalangeal joint of the great toe. Normal tibial and fibular sesamoid bones. Normal interphalangeal joint of the great toe. Normal phalanges of the great toe. Normal second through fifth metatarsophalangeal joints. Normal interphalangeal joints and phalanges of the lesser toes. The soft tissue structures are unremarkable. RAD/Foot min 3 Views IMPRESSION: Normal x-ray examination of the foot. Electronically Signed: Brian Cooper MD at 10:53 EDT Tel , Service support ,
--- NOTE | 2020-10-28 10:15 | RAD_ITS ---
STUDY: X-RAY - RIGHT FOOT CLINICAL: Male, 75 years old. left 2nd toe gangrene, bilateral heel ulcers TECHNIQUE: 3 view(s) of the foot. COMPARISON: None. FINDINGS: Normal talus, calcaneus, and tarsal bones. Normal visualized subtalar, talonavicular, calcaneocuboid, tarsal and tarsometatarsal articulations. Normal metatarsi. There is degenerative arthrosis of the metatarsophalangeal joint of the hallux . Normal tibial and fibular sesamoid bones. Normal interphalangeal joint of the great toe. Normal phalanges of the great toe. Normal second through fifth metatarsophalangeal joints. Normal interphalangeal joints and phalanges of the lesser toes. The soft tissue structures are unremarkable. RAD/Foot min 3 Views IMPRESSION: Normal x-ray examination of the foot. Electronically Signed: Brian Cooper MD at 10:54 EDT Tel , Service support ,
[2020-10-28] MEDS: Lisinopril 5 MG Tablet PO (10:24)
[2020-10-28] MEDS: Pantoprazole Sodium 40 MG Tablet PO ×2 (10:24→20:18)
[2020-10-28] MEDS: Carvedilol 12.5 MG Tablet PO ×2 (10:24→20:17)
[2020-10-28] MEDS: Calcitriol 0.25 MCG Capsule 0.75 MCG PO (10:24)
[2020-10-28] MEDS: Glucerna Shake 120 ML LIQUID PO (10:25)
[2020-10-28] MEDS: Menthol/Lanolin/Calamine/Znox 113 GM Tube 1 APPLIC TOPICAL ×2 (10:25→20:19)
--- NOTE | 2020-10-28 10:26 | ART_ITS ---
Reason For Study: Necrotic toes Procedure A bilateral lower extremity continuous wave Doppler with analog waveform analysis and ankle brachial indexes. Left Segmental Pressures Left posterior tibial artery = 119mmHg. Left dorsalis pedis artery = 83mmHg. The left dorsalis pedis waveforms are monophasic. The left posterior tibial artery waveforms are monophasic. Right Segmental Pressures Right brachial= 178mmHg. Right posterior tibial artery = >254mmHg. Right dorsalis pedis artery = >254mmHg. Right digit = 13 mmHg. The right dorsalis pedis waveforms are monophasic. The right posterior tibial artery waveforms are monophasic. Indices The right ankle brachial index by the dorsalis pedis is NC. The right ankle brachial index by the posterior tibial artery is NC. The right digital-brachial index is 0.07. The left ankle brachial index by the dorsalis pedis is 0.47. The left ankle brachial index by the posterior tibial artery is 0.67. VL/Ankle Brachial Index Interpretation Summary Limited examination right lower extremity with noncompressible vessels making a nkle-brachial indices not obtainable. Right posterior tibial and dorsalis pedis Doppler waveforms are monophasic cons istent with severe occlusive disease Right digital brachial index is markedly abnormal at 0.07 Abnormal left posterior tibial and dorsalis pedis ankle-brachial indices of 0.6 7 and 0.47 respectively consistent with moderately severe disease. Abnormal left posterior tibial and dorsalis pedis Doppler waveforms being monop hasic consistent with a more severe level of disease. Unable to obtain left digital brachial index due to lack of pulse consistent wi th severe disease. Severity of findings have progressed from the previous examination of August 20 019 Ordering Physician: Mary Valladares Referring Physician: Bebeto Chow Performed By: Lacy Marx RVT
--- NOTE | 2020-10-28 10:43 | PCM.PROGNOTE ---
Documented by User: Mary Valladares NP-C 10/28/20 11:27 Subjective Subjective Patient seen and examined. Pt very agitated and appears to be slightly confused. Dr. Whitfield at bedside. Discussed plan of care with patient and Dr. Whitfield, patient states he understands but continues to be agitated. Denies other complaints. Objective Data Objective Data Vital Signs: Vital Signs Temp Pulse Resp BP Pulse Ox 98.5 F 88 18 123/66 H 96 10/28/20 10:10 10/28/20 10:10 10/28/20 10:10 10/28/20 10:10 10/28/20 10:10 Oxygen Flow Rate (L/min) 2 Oxygen Delivery Method Room Air Weight: 181 lb 10.574 oz Body Mass Index (BMI) 24.4 Intake & Output: Intake and Output for Last 24 Hours 10/26/20 10/27/20 10/28/20 23:59 23:59 23:59 Intake Total 110 / 110 Output Total 400 / 400 Balance -290 / -290 Lab / Micro Data Result Diagrams: 10/28/20 02:55 10/28/20 06:16 Labs: Laboratory Results - last 24 hr 10/27/20 21:07: WBC 3.2 L, RBC 2.52 L, Hgb 8.2 L, Hct 25.2 L, MCV 100.0 H, MCH 32.5 H, MCHC 32.5, RDW Std Deviation 47.8 H, RDW Coeff of Ximena 13.2, Plt Count 231, MPV 9.4, Immature Gran % (Auto) 0.900, Neut % (Auto) 81.2 H, Lymph % (Auto) 12.9 L, [place] % (Auto) 4.7, Eos % (Auto) 0.0, Baso % (Auto) 0.3, Absolute Neuts (auto) 2.6, Absolute Lymphs (auto) 0.41 L, Nucleated RBC % 0, Differential Comment SCANNED, Diff Path Review July10/27/20 21:07: Sodium 141, Potassium 3.8, Chloride 105, Carbon Dioxide 29.0, Anion Gap 7, BUN 39 H, Creatinine 2.75 H, Estim Creat Clear Calc 25.08, Est GFR (MDRD) Af Amer 29 L, Est GFR (MDRD) Non-Af 24 L, BUN/Creatinine Ratio 14.2, Glucose 75, Calcium 7.7 L, Troponin I High Sens 16.7 10/27/20 21:07: B-Natriuretic Peptide 1096.6 H 10/27/20 21:07: Lactic Acid 3.0 H* 10/27/20 21:10: Urine Color Yellow, Urine Clarity Cloudy, Urine pH 5.0, Ur Specific Downs 1.020, Urine Protein 100 H, Urine Glucose (UA) 50 H, Urine Ketones Negative, Urine Occult Blood 50 H, Urine Nitrite Negative, Urine Bilirubin Negative, Urine Urobilinogen Normal, Ur Leukocyte Esterase 500 H, Urine RBC 5-10 SEEN, Urine WBC >100 SEEN, Ur Squamous Epith Cells 0-5 SEEN, Amorphous Sediment 1+ URATE, Urine Bacteria RARE, Urine Mucus 0 SEEN 10/27/20 23:08: COVID-19 (MICHELLE) Negative 10/28/20 00:37: Troponin I High Sens 16.9 10/28/20 02:55: Total Bilirubin 0.30, Direct Bilirubin 0.08, AST 17, ALT 29, Alkaline Phosphatase 114, Troponin I High Sens 18.5, Total Protein 4.6 L, Albumin 1.7 L, Globulin 2.9 10/28/20 02:55: WBC 9.0, RBC 2.19 L, Hgb 7.2 L, Hct 22.2 L, MCV 101.4 H, MCH 32.9 H, MCHC 32.4, RDW Std Deviation 49.2 H, RDW Coeff of Ximena 13.2, Plt Count 200, MPV 9.4, Immature Gran % (Auto) [employer]ITREO RETINAL SURGEON, Neut % (Auto) [employer]IT[employer]INAL SURGEON, Lymph % (Auto) VITREO RETINAL SURGEON, [place] % (Auto) VIT[employer] RETINAL SURGEON, Eos % (Auto) VITREO RETINAL SURGEON, Baso % (Auto) VITRE[employer] RETINAL SURGEON, Absolute Neuts (auto) 8.4 H, Absolute Lymphs (auto) 0.45 L, Neutrophils % (Manual) 1 L, Band Neutrophils % 93 H, Lymphocytes % (Manual) 5 L, Monocytes % (Manual) 1, Nucleated RBC % [employer]ITRE[employer] RETINAL SURGEON, Diff Path Review July, Platelet Estimate ADEQUATE, RBC Morphology NORM C+C 10/28/20 02:55: Lactic Acid 4.1 H* 10/28/20 06:16: Sodium 142, Potassium 3.8, Chloride 105, Carbon Dioxide 28.0, Anion Gap 9, BUN 40 H, Creatinine 2.82 H, Estim Creat Clear Calc 24.46, Est GFR (MDRD) Af Amer 28 L, Est GFR (MDRD) Non-Af 23 L, BUN/Creatinine Ratio 14.2, Glucose 129 H, Calcium 7.4 L, Magnesium 1.7, Total Bilirubin 0.30, AST 19, ALT 29, Alkaline Phosphatase 111, Troponin I High Sens 17.3, Total Protein 4.7 L, Albumin 1.7 L, Globulin 3.0, Albumin/Globulin Ratio 0.6 L 10/28/20 06:40: POC Glucose 127 H 10/28/20 08:30: Blood Type AB NEGATIVE, Antibody Screen NEGATIVE, Crossmatch See Detail 10/28/20 : Iron 14 L, TIBC 131 L, Iron Saturation 10.7 L Micro: Microbiology 10/27/20 21:07 Mucosa - Nose SARS-CoV-2 Antigen (Rapid) - Final Radiography Diagnostic Testing: Radiology Impression Chest X-Ray 10/27/20 21:25 IMPRESSION: Bilateral interstitial and airspace opacities concerning for infection and/or edema. Electronically Signed: Stew Hawley MD at 22:07 EDT Tel , Service support , Rhythm Strip Rhythm Strip: Sinus Rhythm Rate: 87 Ectopy: None Physical Exam Const alert and oriented x3 General Appearance: cooperative HEENT normocephalic and head/scalp atraumatic Eyes conjunctivae normal and no scleral icterus Neck supple and no JVD General: trachea midline Resp normal respiratory effort and normal air movement Auscultation: crackles bilateral Cardio regular rate, regular rhythm, S1 normal heart sound and S2 normal heart sound Peripheral Pulses: pulses 2+ throughout GI normal to inspection, nondistended, normoactive bowel sounds, soft to palpation and non-tender Extremity normal capillary refill and no clubbing, cyanosis or edema General Extremity: no tenderness to palpation of joints or extremities Skin General Skin Exam: no breakdown and turgor normal Lesions: no lesions Rashes: no rashes Neuro no focal motor deficits and no sensory deficits noted Speech: speech normal Gait (Neuro): normal gait Psych thought process normal, cooperative and affect normal Attitude: agitated Assessment & Plan Assessment/Plan (1) Ischemic necrosis of toe: (2) Arterial insufficiency of lower extremity: PLAN: 1. Acute hypoxia related to acute on chronic diastolic CHF/cardiac amyloidosis -Oxygen weaned, patient currently on room air -CXR bilateral pulmonary infiltrates; COVID-19 rapid antigen and PCR was negative. -Due to kidney function CTA unable to be completed at this time -Continue with breathing treatments, encourage use of incentive spirometer. 2. Acute on chronic diastolic CHF -history of cardiac amyloidosis -last 2D echo was done in August 2020 -EKG shows normal sinus rhythm -will trend cardiac enzymes -Lasix 40 mg IV every 8h -strict I & Os -daily weight -fluid restriction 3. Ischemic left second toe, bluish discoloration of the left first toe -with eschar to bilateral heels -Patient follows with Dr. Whitfield and Dr. Wang in the outpatient -Dr. Whitfield at bedside 4. CKD stage IV -Creatinine up to 2.82 which appears to be consistent with patient's baseline 5. Secondary parathyroidism/chronic metabolic acidosis secondary to CKD stage IV, -Continue on sodium bicarbonate, calcitriol 6. Chronic cognitive impairment -Patient slightly agitated and confused but cooperative. 7. Anemia of chronic blood loss/CKD/ history of GI bleed -Iron studies show iron deficiency, continue iron -continue pantoprazole DVT prophylaxis-SCD's This patient was seen by Mary Valladares, EVELYN-C under the supervision of Dr. Rachel. Documented by User: Dr. David Rachel DO 10/28/20 13:13 Objective Data Lab / Micro Data Result Diagrams: 10/28/20 02:55 10/28/20 06:16 Charges/Coding Addendum Addendum: Patient was seen and examined independently of Ifrah Valladares, he was admitted yesterday due to progressive shortness of breath, patient is a resident in a local extended care facility. Chest x-ray in the emergency room showed bilateral interstitial airspace opacities, rapid COVID-19 antigen and PCR was negative. Beta natruretic peptide was elevated at 1096, lactic acid was 3 and was felt to be elevated due to respiratory issues. On examination he appeared older than his stated age. Vital signs as documented. Skin warm and dry and without overt rashes. Neck without JVD, neck was supple, trachea midline, thyroid was normal. Lungs clear bilaterally, normal air movement was noted. Heart exam notable for regular rhythm, normal sounds and absence of murmurs, rubs or gallops. Abdomen unremarkable and without evidence of organomegaly, masses, or abdominal aortic enlargement. Bowel sounds are present, abdomen is not distended. Extremities-both lower extremities were not examined at this time.. Neuro: Cranial nerves II through XII are grossly intact, no focal motor deficits were noted, sensation to light touch and pinprick intact, motor exam 5/5 throughout. Psych: Patient is alert, patient exhibits some cognitive impairment I received a phone call from Dr. Whitfield (podiatry) he states the patient has chronic peripheral vascular disease of the lower extremities, he said that the patient will need to see a vascular doctor concerning this. Patient was noted to have dry gangrene to the left second toe and dry eschars to the heels bilaterally. For now we will continue the patient on IV Lasix. Patient received a blood transfusion today due to a low hemoglobin. Patient's iron studies were abnormal for an iron of 14 and a TIBC of 131. Patient will receive IV Venofer today and tomorrow. At this time, patient does not have any signs of active bleeding. I have reviewed Ifrah Valladares's progress note including her medical assessment and plan of care and endorse it with the above additions. Visit Charges Inpatient E&M: 87336 Subs Hosp L2
[2020-10-28 11:31] LABS: Bedside Glucose 155 mg/dL (70-110)
[2020-10-28] MEDS: Insulin Lispro 100 UNIT/ML INSULN.PEN SC ×3 (11:32→20:27)
--- NOTE | 2020-10-28 11:46 | CASEMGMT ---
SW Note Referral Source: RN KADEN Referral Reason: From [facility] (SNF) SW called Sonya at [facility]. She said it was her understanding that patient could return when discharged from [facility]. SW spoke to patient and he said that the MD stated he will be at [facility] for 2-3 more days. Patient indicated he plans to return to [place] at discharge from [facility]. SW spoke to patient's RN Dilshad who stated that the MD said that patient would be in the Hospital for 2-3 more days. KONSTANTIN called Sonya at [place] again and advised that patient would be in the hospital for 2-3 more days per medical staff. She said that patient needs precert to return so she will let gis database administrator know that patient could return in 2-3 days so they can begin the precert. No further KONSTANTIN services needed at this time. SW will remain available. Plan: [place] when medically ready precert obtained. Regi COTTRELL
[2020-10-28] MEDS: Ferrous Sulfate 325 MG Tablet PO ×2 (13:43→16:31)
[2020-10-28] MEDS: Juven (unflavored) Packet 1 PACKET PO (16:31)
[2020-10-28 16:40] LABS: Bedside Glucose 280 mg/dL (70-110)
[2020-10-28] MEDS: QUEtiapine 25 MG Tablet 12.5 MG PO (20:18)
[2020-10-28] MEDS: fluvoxaMINE Maleate 50 MG Tablet PO (20:18)
[2020-10-28] MEDS: Atorvastatin Calcium 40 MG Tablet PO (20:18)
[2020-10-28 21:06] LABS: Bedside Glucose 397 mg/dL (70-110)
[2020-10-29] VITALS (12 sets, daily range): BP systolic 131–181; BP diastolic 67–96; PULSE 69–102; RESP 16–20; TEMP 36.4–36.8; O2SAT 93–97
[2020-10-29] MEDS: Sodium Bicarbonate 650 MG Tablet 1950 MG PO ×3 (05:07→20:48)
[2020-10-29] MEDS: Levothyroxine 75 MCG Tablet PO (05:07)
[2020-10-29] MEDS: Furosemide 40 MG/4 ML Vial IV (05:07)
[2020-10-29] MEDS: 0.9% Saline Lock 10 ML Syringe IV (05:08)
[2020-10-29] MEDS: Insulin Lispro 100 UNIT/ML INSULN.PEN SC ×4 (06:29→20:52)
[2020-10-29 06:39] LABS: Hematocrit 25.3 % (40-54); Hemoglobin 8.2 g/dL (13.0-16.5); Mean Corp Hgb Conc 32.4 g/dL (32-36); Mean Corpuscular Hgb 31.7 pg (27.0-32.0); Mean Corpuscular Volume 97.7 fL (80-94); Mean Platelet Vol. 10.1 fl (6.2-12.0); POSITIVE COUNT YES; POSITIVE MORPHOLOGY YES; Platelet Count 200 K/mm3 (150-450); RBC Distribution Width CV 15.5 % (11.6-14.6); RBC Distribution Width SD 55.3 fl (35.1-43.9); Red Blood Count 2.59 M/mm3 (4.6-6.2); White Blood Count 16.1 K/mm3 (4.4-11.0)
[2020-10-29 06:41] LABS: Differential Indicated MANUAL DIFF
[2020-10-29 06:41] LABS: Bedside Glucose 262 mg/dL (70-110)
[2020-10-29] MEDS: Ipratropium/Albuterol Sulfate 3 ML AMPUL.NEB INHALATION ×4 (06:45→19:53)
[2020-10-29 07:05] LABS: Anion Gap 7 (5-15); BUN 58 mg/dL (7-18); BUN/Creat Ratio 18.7 RATIO (10-20); Calcium,Total 7.8 mg/dL (8.5-10.1); Chloride 102 mmol/L (98-107); EST Glomerular Filtration Rate 21 mL/min (>60); Est Glom Filt Rate - Afr Amer 25 mL/min (>60); Estimated Creatinine Clearance 22.25 ml/min; Glucose 280 mg/dL (74-106); Potassium 3.3 mmol/L (3.5-5.1); Sodium Level 140 mmol/L (136-145)
[2020-10-29 07:09] LABS: Lymphocyte 4 % (19-41); Metamyelocyte 2 % (0-1); Monocyte 2 % (0-10); Neutrophil-Band 22 % (0-5); Neutrophil-Segmented 70 % (47-70)
[2020-10-29 07:10] LABS: Platelet Estimate ADEQUATE (ADEQ); Red Cell Morphology NORM C+C NORMAL (NORM C&C)
[2020-10-29 07:16] LABS: Absolute Lymphocyte Count 0.65 X10^3/uL (0.83-4.51); Absolute Neutrophil Count 17.6 X10^3/uL (2.0-7.7)
[2020-10-29] MEDS: Juven (unflavored) Packet 1 PACKET PO ×2 (09:29→17:05)
[2020-10-29] MEDS: Menthol/Lanolin/Calamine/Znox 113 GM Tube 1 APPLIC TOPICAL ×2 (09:29→20:50)
[2020-10-29] MEDS: Pantoprazole Sodium 40 MG Tablet PO ×2 (09:31→20:48)
[2020-10-29] MEDS: Calcitriol 0.25 MCG Capsule 0.75 MCG PO (09:31)
[2020-10-29] MEDS: Carvedilol 12.5 MG Tablet PO ×3 (09:31→21:31)
[2020-10-29] MEDS: Lisinopril 5 MG Tablet PO (09:32)
[2020-10-29] MEDS: Ferrous Sulfate 325 MG Tablet PO ×2 (11:49→17:05)
--- NOTE | 2020-10-29 11:56 | PN_ITS ---
Subjective Subjective Patient was seen this morning for follow up on bilateral feet. Patient noted to have increased WBC today on blood work. Patient resting comfortably in bed, no fevers, no chills, no nausea, no vomiting. Objective Data Objective Data Vital Signs: Vital Signs Temp Pulse Resp BP Pulse Ox 97.7 F L 83 16 171/88 H 97 10/29/20 09:00 10/29/20 10:58 10/29/20 10:58 10/29/20 09:00 10/29/20 09:00 Oxygen Flow Rate (L/min) 2 Oxygen Delivery Method Room Air Weight: 82.6 kg Body Mass Index (BMI) 24.4 Intake & Output: Intake and Output for Last 24 Hours 10/27/20 10/28/20 10/29/20 23:59 23:59 23:59 Intake Total 990 / 1230 940 / 940 Output Total 1525 / 1525 1895 / 1895 Balance -535 / -295 -955 / -955 Medical Nutrition Assessment Dietitian: Nutrition Therapy Diagnosis Start: 10/28/20 13:14 Freq: Status: Active Protocol: Document 10/28/20 13:34 SLA (Rec: 10/28/20 13:34 SLA [id number]) Nutrition Malnutrition Evidence of Malnutrition Exists No Intake Problem Increased Nutrient Needs (specify) Etiology (protein) related to wounds Signs/Symptoms as evidenced by pressure injuries to carolyn heel ulcer/ coccyx, L 2nd toe necrotic diabetic ulcer Status Active Problem Recommendation Dietitian Recommendations/Changes Rec continue current diet as ordered Will order Vincent bid to help w / wound healing Will discontinue glucerna shake w/ medpass and give ensure pudding or magic cup w/ meals instead due to fluid restriction Lab / Micro Data Result Diagrams: 10/29/20 05:40 10/29/20 05:40 Labs: Laboratory Results - last 24 hr 10/28/20 08:30: Blood Type AB NEGATIVE, Antibody Screen NEGATIVE, Crossmatch See Detail 10/28/20 16:27: POC Glucose 280 H 10/28/20 20:27: POC Glucose 397 H 10/29/20 05:40: WBC 16.1 H, RBC 2.59 L, Hgb 8.2 L, Hct 25.3 L, MCV 97.7 H, MCH 31.7, MCHC 32.4, RDW Std Deviation 55.3 H, RDW Coeff of Ximena 15.5 H, Plt Count 200, MPV 10.1, Neut % (Auto) Not Reportable, Absolute Neuts (auto) 17.6 H, Abs olute Lymphs (auto) 0.65 L, Neutrophils % (Manual) 70, Band Neutrophils % 22 H, Lymphocytes % (Manual) 4 L, Monocytes % (Manual) 2, Metamyelocytes % 2 H, Diff Path Review May foll, Platelet Estimate ADEQUATE, RBC Morphology NORM C+C 10/29/20 05:40: Sodium 140, Potassium 3.3 L, Chloride 102, Carbon Dioxide 31.0, Anion Gap 7, BUN 58 H, Creatinine 3.10 H, Estim Creat Clear Calc 22.25, Est GFR (MDRD) Af Amer 25 L, Est GFR (MDRD) Non-Af 21 L, BUN/Creatinine Ratio 18.7, G lucose 280 H, Calcium 7.8 L 10/29/20 06:28: POC Glucose 262 H Micro: Microbiology 10/27/20 21:10 Urine, Clean Catch Urine Culture - Final Proteus mirabilis 10/27/20 23:50 Blood Culture (Wb) - Anticubital Right Bacteria Detection (PCR) - Final Streptococcus agalactiae (B) 10/27/20 23:50 Blood Culture (Wb) - Anticubital Right Blood Culture - Preliminary Streptococcus group B 10/27/20 21:07 Mucosa - Nose SARS-CoV-2 Antigen (Rapid) - Final Rhythm Strip Rhythm Strip: Sinus Rhythm Rate: 87 Ectopy: None Physical Exam Const alert and no apparent distress Extremity Extremity Narrative: There is noted to be dry gangrene to the left 2nd toe, there are also dry stable eschars to the posterior/plants heels bilateral - there is no maloder, no drainage, no fluctuance, no bogginess, no crepitus, no cellulitis, no edema noted - they are dry and stable - and chronic in nature - there is no evidence of acute ischemia to the foot or ankle. There is dry blister to the distal left 1st toe with some bluish discoloration to the distal 1st and 3rd toes, left. Skin is thin and atrophic bilateral feet, pedal pulses are nonpalpable bilateral. Calf is soft and supple bilateral with no calf pain. Sensation is decreased bilateral foot - chronic. No m/s pain to the foot or ankle bilateral. Findings are stable compared to yesterday. Assessment & Plan Assessment/Plan (1) PAD (peripheral artery disease): PLAN: Patient was seen and examined. Feet stable and no changes compared to yesterday on exam. There is no cellulitis, no edema, no drainage, no maloder, no crepitus, no fluctuance, no visible abscess to the foot bilateral. Bilateral foot xrays were ordered and reviewed - there is no gas noted, there is no clear evidence of osteomyelitis, there is noted to be significant pedal artery calcification. Reviewed LEAS from 2019 - recommend new noninvasive LEAS vascular studies which have been ordered. Also recommend vascular surgeon consultation for further evaluation of arterial flow and healing potential. Keep heels offloaded at all times - ordered foam offloading heal boots for patient to wear at all times. No weightbearing on feet due to ulcerations. Wound care to left 2nd toe and bilateral heels - betadine soln and gauze dressin g changes - change daily. Podiatry will continue to follow. I discussed with Dr. Mcwilliams this morning. (2) Gangrene of toe of both feet: (3) Diabetes mellitus with diabetic polyneuropathy: (4) Chronic kidney failure: QUALIFIERS: Chronic kidney disease stage: stage 4 (severe) Qualified Code(s): N18.4 - Chronic kidney disease, stage 4 (severe)
[2020-10-29 12:05] LABS: Bedside Glucose 231 mg/dL (70-110)
--- NOTE | 2020-10-29 13:02 | PN.HOSP_ITS ---
Subjective Subjective He does report cough but describes it is nonproductive. He denies any hemoptysis, orthopnea, or PND. The patient denies any chest pain or shortness of breath at rest. His review of systems was compromised by his memory issues. The patient expressed many concerns about not getting the appropriate food that he ordered including his sausage sandwich and a juicy hamburger during his hospital stay. He also noted that he was frustrated with the heel boots that were placed. He notes that he has not smoked in over 50 years. Objective Data Objective Data Vital Signs: Vital Signs Temp Pulse Resp BP Pulse Ox 97.7 F L 83 16 171/88 H 97 10/29/20 09:00 10/29/20 10:58 10/29/20 10:58 10/29/20 09:00 10/29/20 09:00 Oxygen Flow Rate (L/min) 2 Oxygen Delivery Method Weight: 182 lb 1.629 oz Body Mass Index (BMI) 24.4 Intake & Output: Intake and Output for Last 24 Hours 10/27/20 10/28/20 10/29/20 23:59 23:59 23:59 Intake Total 990 / 1230 1050 / 1050 Output Total 1525 / 1525 1895 / 1895 Balance -535 / -295 -845 / -845 Lab / Micro Data Result Diagrams: 10/29/20 05:40 10/29/20 05:40 Labs: Laboratory Results - last 24 hr 10/29/20 05:40: WBC 16.1 H, RBC 2.59 L, Hgb 8.2 L, Hct 25.3 L, MCV 97.7 H, MCH 31.7, MCHC 32.4, RDW Std Deviation 55.3 H, RDW Coeff of Ximena 15.5 H, Plt Count 200, MPV 10.1, Neut % (Auto) Not Reportable, Absolute Neuts (auto) 17.6 H, Absolute Lymphs (auto) 0.65 L, Neutrophils % (Manual) 70, Band Neutrophils % 22 H, Lymphocytes % (Manual) 4 L, Monocytes % (Manual) 2, Metamyelocytes % 2 H, Diff Path Review July, Platelet Estimate ADEQUATE, RBC Morphology NORM C+C 10/29/20 05:40: Sodium 140, Potassium 3.3 L, Chloride 102, Carbon Dioxide 31.0, Anion Gap 7, BUN 58 H, Creatinine 3.10 H, Estim Creat Clear Calc 22.25, Est GFR (MDRD) Af Amer 25 L, Est GFR (MDRD) Non-Af 21 L, BUN/Creatinine Ratio 18.7, Glucose 280 H, Calcium 7.8 L 10/29/20 06:28: POC Glucose 262 H 10/29/20 11:48: POC Glucose 231 H Micro: Microbiology 10/27/20 21:10 Urine, Clean Catch Urine Culture - Final Proteus mirabilis 10/27/20 23:50 Blood Culture (Wb) - Anticubital Right Bacteria Detection (PCR) - Final Streptococcus agalactiae (B) 10/27/20 23:50 Blood Culture (Wb) - Anticubital Right Blood Culture - Preliminary Streptococcus group B 10/27/20 21:07 Mucosa - Nose SARS-CoV-2 Antigen (Rapid) - Final Rhythm Strip Rhythm Strip: Sinus Rhythm Rate: 87 Ectopy: None Physical Exam Narrative In bed with tachypnea and a productive cough. He had decreased breath sounds bilaterally with scattered rhonchi but no rales. He had distant, regular heart sounds with no murmurs or gallops. His abdomen was soft and nontender with normal bowel sounds. He had 1+ pitting edema in the pretibial areas bilaterally with chronic venous stasis changes. He had vitiligo on the arms and legs. He had a black eschar on the heels bilaterally with the left lateral area worse than the right. He had black gangrene of the left second toe with no surrounding erythema. He had a dusky distal portion of his left great toe and third toe with no surrounding erythema. He had heel boots in place and a dressing in place which was taken down. He was withdrawn with a flat affect but interactive when engaged. He thought that it was Friday and 28 October but did know that it was 2020. Assessment & Plan Assessment/Plan (1) Gangrene of toe of both feet: (2) Acute respiratory failure with hypoxia: (3) Arterial insufficiency of lower extremity: (4) Ischemic necrosis of toe: (5) Diabetes mellitus with diabetic polyneuropathy: (6) Chronic kidney failure: QUALIFIERS: Chronic kidney disease stage: stage 4 (severe) Qualified Code(s): N18.4 - Chronic kidney disease, stage 4 (severe) PLAN: 75-year-old with acute hypoxemic respiratory failure (he had 89% saturation on room air on presentation) complicated by a worsening leukocytosis in the setting of an abnormal chest x-ray, peripheral arterial disease with dry gangrene of his bilateral heels and left second toe, stage IV chronic kidney disease, hypokalemia, lactic acidosis, iron deficiency anemia, chronic diastolic CHF (he had an echo in August 2020 which showed LVH with an EF of 50%), and uncontrolled type 2 diabetes. Given the patient's abnormal chest x-ray, worsening leukocytosis, and hypoxemic respiratory failure, I will start empiric antibiotics. I started him on a combination of ceftriaxone and Zithromax-today is day 1. I will discontinue his Lasix 3 times daily and change him to p.o. Lasix 40 mg daily starting on 10/30/2020. I will repeat his CBC today and again in the morning to follow his leukocytosis. I did repeat his elevated lactate level at 3 PM today in the context of the probable lung infection. I will follow his BMP with his stage IV chronic kidney disease and Lasix use. I will supplement his hypokalemia with 20 mEq of potassium and follow his level daily with a BMP. He will continue with his lisinopril 5 mg with his chronic hypertension and chronic kidney disease. His creatinine is near his baseline from September 2020-if his level worsens, a nephrology consult would be appropriate. I will add Lantus 10 units at bedtime with his uncontrolled sugars in the setting of his infection-he is on a sliding scale. I will monitor his hemoglobin daily with his iron deficiency anemia chronic kidney disease-there is no need for transfusion today. I did review the plan of care with podiatry-the patient will need a vascular assessment prior to intervention. I also reviewed the case with vascular for consult-the patient needs stabilized before diagnostic intervention. I will add heparin 5000 units twice daily for DVT prophylaxis. The patient is a DNR CC. The patient notes that he is living with his son at home but he did come from a local skilled nursing. He notes that he gets his follow-up with the DC in [place] for nephrology. His compromised mental status limits any meaningful discussion about his current plan of care. Charges/Coding Visit Charges Inpatient E&M: 41730 Subs Hosp L3
[2020-10-29] MEDS: Ceftriaxone 1 GM/50 ML BAG IV (14:46)
[2020-10-29] MEDS: Potassium Chloride Oral Tablet 20 MEQ PO (14:54)
[2020-10-29] MEDS: Heparin Injection (Vial) 5,000 UNIT/ML VIAL 5000 UNIT SC ×2 (14:54→20:50)
[2020-10-29 16:24] LABS: Hematocrit 26.4 % (40-54); Hemoglobin 8.5 g/dL (13.0-16.5); Mean Corp Hgb Conc 32.2 g/dL (32-36); Mean Corpuscular Hgb 31.5 pg (27.0-32.0); Mean Corpuscular Volume 97.8 fL (80-94); Mean Platelet Vol. 9.8 fl (6.2-12.0); POSITIVE COUNT YES; POSITIVE MORPHOLOGY YES; Platelet Count 193 K/mm3 (150-450); RBC Distribution Width CV 15.2 % (11.6-14.6); RBC Distribution Width SD 54.7 fl (35.1-43.9); White Blood Count 16.1 K/mm3 (4.4-11.0)
[2020-10-29 16:30] LABS: Differential Indicated MANUAL DIFF
[2020-10-29 16:56] LABS: Lactic Acid 1.7 mmol/L (0.4-1.9)
[2020-10-29 17:31] LABS: Bedside Glucose 320 mg/dL (70-110)
[2020-10-29 18:20] LABS: Anisocytosis 1+; Differential Comment SCANNED; Lymphocyte 9 % (19-41); Monocyte 2 % (0-10); Neutrophil-Band 16 % (0-5); Neutrophil-Segmented 73 % (47-70); Platelet Estimate ADEQUATE (ADEQ); Total Cells Counted 100 (MANUAL DIFF)
[2020-10-29 18:22] LABS: Absolute Lymphocyte Count 1.45 X10^3/uL (0.83-4.51); Absolute Neutrophil Count 14.3 X10^3/uL (2.0-7.7); Lymphocyte # 1.45 X10^3/ul (0.83-4.51); Neutrophil # 14.33 X10^3/uL (2.7-7.7)
[2020-10-29 18:26] LABS: Dohle Bodies RARE
[2020-10-29] MEDS: QUEtiapine 25 MG Tablet 12.5 MG PO (20:49)
[2020-10-29] MEDS: fluvoxaMINE Maleate 50 MG Tablet PO (20:49)
[2020-10-29] MEDS: Atorvastatin Calcium 40 MG Tablet PO (20:50)
[2020-10-29] MEDS: Acetaminophen 325 MG Tablet 650 MG PO (20:59)
[2020-10-29 21:11] LABS: Bedside Glucose 353 mg/dL (70-110)
--- NOTE | 2020-10-29 21:13 | NURSING ---
PT BP 181/96. Dr. Ayon on floor, orders given for coreg 25mgx1, oxy 2.5 mg x 1 for pain to feet. recheck in 1 hr. see other orders for prn medication
--- NOTE | 2020-10-29 21:15 | NURSING ---
PT BP 181/96. Dr. Ayon on floor, orders given, coreg increased to 25mg. lisinopril increased to 20mg. oxy 2.5 mg x 1 for pain to feet. recheck in 1 hr. see other orders for prn medication
[2020-10-29] MEDS: oxyCODONE 5 MG Tablet 2.5 MG PO (21:31)
--- NOTE | 2020-10-29 22:35 | NURSING ---
BP is now 146/79, pt resting in bed calmly with eyes shut
[2020-10-30] VITALS (14 sets, daily range): BP systolic 176–203; BP diastolic 82–93; PULSE 70–100; RESP 18–20; TEMP 36.7–37.2; O2SAT 94–96
[2020-10-30] MEDS: 0.9% Saline Lock 10 ML Syringe IV ×2 (05:21→22:54)
[2020-10-30] MEDS: hydrALAZINE 20 MG/ML Vial 5 MG IV ×2 (05:21→16:45)
[2020-10-30] MEDS: Sodium Bicarbonate 650 MG Tablet 1950 MG PO ×3 (05:22→21:53)
[2020-10-30] MEDS: Levothyroxine 75 MCG Tablet PO (05:22)
--- NOTE | 2020-10-30 05:55 | PN_ITS ---
Subjective Subjective Patient was seen this morning for follow up on bilateral heel decubitus ulcers left second toe dry gangrene. This foot pain this morning. He is resting in bed with offloading boots in place. He denies fever, chill, nausea, vomiting. Objective Data Objective Data Vital Signs: Vital Signs Temp Pulse Resp BP Pulse Ox 98.3 F 73 20 H 176/82 H 94 10/30/20 04:30 10/30/20 05:21 10/30/20 04:30 10/30/20 04:30 10/30/20 04:30 Oxygen Flow Rate (L/min) 2 Oxygen Delivery Method Room Air Weight: 82.6 kg Body Mass Index (BMI) 24.4 Intake & Output: Intake and Output for Last 24 Hours 10/28/20 10/29/20 10/30/20 23:59 23:59 23:59 Intake Total 990 / 1230 1855 / 2095 440 / 440 Output Total 1525 / 1525 2420 / 2420 Balance -535 / -295 -565 / -325 440 / 440 Medical Nutrition Assessment Dietitian: Nutrition Therapy Diagnosis Start: 10/28/20 13:14 Freq: Status: Active Protocol: Document 10/28/20 13:34 SLA (Rec: 10/28/20 13:34 SLA [id number]) Nutrition Malnutrition Evidence of Malnutrition Exists No Intake Problem Increased Nutrient Needs (specify) Etiology (protein) related to wounds Signs/Symptoms as evidenced by pressure injuries to carolyn heel ulcer/ coccyx, L 2nd toe necrotic diabetic ulcer Status Active Problem Recommendation Dietitian Recommendations/Changes Rec continue current diet as ordered Will order Vincent bid to help w / wound healing Will discontinue glucerna shake w/ medpass and give ensure pudding or magic cup w/ meals instead due to fluid restriction Lab / Micro Data Result Diagrams: 10/29/20 16:07 10/29/20 05:40 Labs: Laboratory Results - last 24 hr 10/29/20 05:40: WBC 16.1 H, RBC 2.59 L, Hgb 8.2 L, Hct 25.3 L, MCV 97.7 H, MCH 31.7, MCHC 32.4, RDW Std Deviation 55.3 H, RDW Coeff of Ximena 15.5 H, Plt Count 200, MPV 10.1, Neut % (Auto) Not Reportable, Absolute Neuts (auto) 17.6 H, Absolute Lymphs (auto) 0.65 L, Neutrophils % (Manual) 70, Band Neutrophils % 22 H, Lymphocytes % (Manual) 4 L, Monocytes % (Manual) 2, Metamyelocytes % 2 H, Diff Path Review May foll, Platelet Estimate ADEQUATE, RBC Morphology NORM C+C 10/29/20 05:40: Sodium 140, Potassium 3.3 L, Chloride 102, Carbon Dioxide 31.0, Anion Gap 7, BUN 58 H, Creatinine 3.10 H, Estim Creat Clear Calc 22.25, Est GFR (MDRD) Af Amer 25 L, Est GFR (MDRD) Non-Af 21 L, BUN/Creatinine Ratio 18.7, Glucose 280 H, Calcium 7.8 L 10/29/20 06:28: POC Glucose 262 H 10/29/20 11:48: POC Glucose 231 H 10/29/20 16:07: WBC 16.1 H, RBC 2.70 L, Hgb 8.5 L, Hct 26.4 L, MCV 97.8 H, MCH 31.5, MCHC 32.2, RDW Std Deviation 54.7 H, RDW Coeff of Ximena 15.2 H, Plt Count 193, MPV 9.8, Neut % (Auto) Not Reportable, Absolute Neuts (auto) 14.3 H, Absolute Lymphs (auto) 1.45, Total Counted 100, Neutrophils % (Manual) 73 H, Band Neutrophils % 16 H, Lymphocytes % (Manual) 9 L, Monocytes % (Manual) 2, Differential Comment SCANNED, Diff Path Review May jaun, Dohle Bodies RARE, Platelet Estimate ADEQUATE, Anisocytosis 1+ 10/29/20 16:07: Lactic Acid 1.7 10/29/20 17:03: POC Glucose 320 H 10/29/20 20:47: POC Glucose 353 H Micro: Microbiology 10/27/20 21:10 Urine, Clean Catch Urine Culture - Final Proteus mirabilis 10/27/20 23:50 Blood Culture (Wb) - Anticubital Right Bacteria Detection (PCR) - Final Streptococcus agalactiae (B) 10/27/20 23:50 Blood Culture (Wb) - Anticubital Right Blood Culture - Preliminary Streptococcus group B 10/27/20 21:07 Mucosa - Nose SARS-CoV-2 Antigen (Rapid) - Final Rhythm Strip Rhythm Strip: Sinus Rhythm Rate: 87 Ectopy: None Physical Exam Const alert and no apparent distress Constitutional Narrative: He is initially not oriented to his location General Appearance: cooperative and comfortable Extremity Extremity Narrative: There is noted to be dry gangrene to the left 2nd toe, there are also dry stable eschars to the posterior/plants heels bilateral - there is no maloder, no drainage, no fluctuance, no bogginess, no crepitus, no cellulitis, no edema noted - they are dry and stable - and chronic in nature - there is no evidence of acute ischemia to the foot or ankle. There is dry blister to the distal left 1st toe with some additional dusky discoloration to the distal 1st and 3rd toes, left. Skin is thin and atrophic bilateral feet, pedal pulses are nonpalpable bilateral. Calf is soft and supple bilateral with no calf pain. Sensation is decreased bilateral foot - chronic. No m/s pain to the foot or ankle bilateral. Assessment & Plan Assessment/Plan (1) PAD (peripheral artery disease): (2) Gangrene of toe of both feet: (3) Diabetes mellitus with diabetic polyneuropathy: (4) Chronic kidney failure: QUALIFIERS: Chronic kidney disease stage: stage 4 (severe) Melecio lified Code(s): N18.4 - Chronic kidney disease, stage 4 (severe) (5) Decubitus ulcer, heel, right, unstageable: (6) Decubitus ulcer, heel, left, unstageable: PLAN: This patient was seen and examined. He is afebrile and his vital signs are overall stable. It is noted he has dry gangrene to the left 2nd toe, also dry eschars to the heels bilateral. There is no evidence of infection clinically with no cellulitis, no edema, no drainage, no maloder, no crepitus, no fluctuance, no visible abscess. A foot culture was not obtained due to lack of draining wound. There is not an appropriate place to obtain a culture. Is noted that he does have an additional infectious source and has been started on antibiotics. Bilateral foot xrays were ordered. There is no acute fracture, dislocation, Charcot, osseous destruction, soft tissue emphysema or foreign body. Small vessel calcification is noted. There is also diminished soft tissue envelope and some mild rare fraction to the distal left second phalanx this is consistent with his chronic dry gangrene status. Reviewed LEAS from 2019 - recommend new noninvasive LEAS vascular studies. Also recommend vascular surgeon consultation for further evaluation of arterial flow and healing potential. Keep heels offloaded at all times - ordered foam offloading heal boots for patient to wear at all times. No weightbearing on feet due to ulcerations. Wound care to left 2nd toe and bilateral heels - Betadine solution and gauze dressing changes - change daily. Podiatry will continue to follow. Please do not hesitate to contact if you have any questions. Dottie Ayon DPM, FACF[facility] [phone]
[2020-10-30 06:25] LABS: Bedside Glucose 136 mg/dL (70-110)
[2020-10-30 06:46] LABS: Absolute Lymphocyte Count 1.32 X10^3/uL (0.83-4.51); Absolute Neutrophil Count 13.1 X10^3/uL (2.0-7.7); Basophil# 0.02 X10^3/uL; Basophil% 0.1 % (0-1); Eosinophil# 0.14 X10^3/uL; Eosinophils% 0.9 % (0-5); Hematocrit 26.5 % (40-54); Hemoglobin 8.6 g/dL (13.0-16.5); Lymphocyte # 1.32 X10^3/ul (0.83-4.51); Lymphocyte % 8.7 % (19-41); Mean Corp Hgb Conc 32.5 g/dL (32-36); Mean Corpuscular Hgb 31.7 pg (27.0-32.0); Mean Corpuscular Volume 97.8 fL (80-94); Mean Platelet Vol. 10.1 fl (6.2-12.0); Monocyte# 0.36 X10^3/uL; Monocyte% 2.4 % (0-10); NRBC Flagged by Analyzer 0 % (0-5); Neutrophil # 13.08 X10^3/uL (2.7-7.7); Neutrophil % 86.1 % (47-70); POSITIVE MORPHOLOGY YES; Platelet Count 206 K/mm3 (150-450); RBC Distribution Width CV 14.6 % (11.6-14.6); RBC Distribution Width SD 52.3 fl (35.1-43.9); Red Blood Count 2.71 M/mm3 (4.6-6.2); White Blood Count 15.2 K/mm3 (4.4-11.0)
[2020-10-30 06:55] LABS: Differential Indicated SCAN CRITERIA MET
[2020-10-30] MEDS: Ipratropium/Albuterol Sulfate 3 ML AMPUL.NEB INHALATION ×2 (06:59→10:51)
[2020-10-30 07:19] LABS: Anion Gap 7 (5-15); BUN 68 mg/dL (7-18); BUN/Creat Ratio 20.4 RATIO (10-20); Chloride 101 mmol/L (98-107); Creatinine, Serum 3.34 mg/dL (0.70-1.30); EST Glomerular Filtration Rate 19 mL/min (>60); Est Glom Filt Rate - Afr Amer 23 mL/min (>60); Estimated Creatinine Clearance 20.65 ml/min; Glucose 144 mg/dL (74-106); Potassium 3.6 mmol/L (3.5-5.1); Sodium Level 140 mmol/L (136-145)
[2020-10-30 07:20] LABS: Dohle Bodies RARE; Platelet Estimate ADEQUATE (ADEQ)
[2020-10-30 07:21] LABS: Hypochromasia 1+
--- NOTE | 2020-10-30 10:04 | CASEMGMT ---
Social Work Telephone call to Stephanie Balderas. No answer. Voicemail left. Met with patient in room. Introduced self and social services counselor role. Patient agreeable to speak with this social services counselor. Patient confirms plan to return to [place]. Patient then request to ask this social services counselor a question. Patient asked this social services counselor why the hospital has taken over my house. Patient reports to have thought that patient home was bugler proof from a jail steeling it. MANAGER NUCLEAR in room during conversation and reports to this social services counselor that patient has been confused but has been A&O to self and place. Per chart review patient was confused last admission as well. Patient son, [facility] making all decisions last admission. Telephone call to [facility], no answer. Voicemail left. Will continue to follow. Elvira FREGOSO, HALLE
[2020-10-30] MEDS: Juven (unflavored) Packet 1 PACKET PO ×2 (10:09→16:48)
[2020-10-30] MEDS: Menthol/Lanolin/Calamine/Znox 113 GM Tube 1 APPLIC TOPICAL ×2 (10:10→21:51)
[2020-10-30] MEDS: Carvedilol 25 MG Tablet PO ×2 (10:11→21:51)
[2020-10-30] MEDS: Calcitriol 0.25 MCG Capsule 0.75 MCG PO (10:11)
[2020-10-30] MEDS: Furosemide 40 MG Tablet PO (10:12)
[2020-10-30] MEDS: Pantoprazole Sodium 40 MG Tablet PO ×2 (10:12→21:53)
[2020-10-30] MEDS: Heparin Injection (Vial) 5,000 UNIT/ML VIAL 5000 UNIT SC ×2 (10:17→21:52)
[2020-10-30] MEDS: Lisinopril 20 MG Tablet PO (10:19)
[2020-10-30] MEDS: Ceftriaxone 1 GM/50 ML BAG IV (11:50)
[2020-10-30] MEDS: Ferrous Sulfate 325 MG Tablet PO ×2 (11:57→16:47)
[2020-10-30] MEDS: Insulin Lispro 100 UNIT/ML INSULN.PEN SC ×3 (11:57→21:52)
[2020-10-30 12:10] LABS: Bedside Glucose 197 mg/dL (70-110)
--- NOTE | 2020-10-30 13:38 | CASEMGMT ---
Social Work Telephone call to Andrey ulisses Stephanie it out on vacation this week and voicemail was not received that this social media manager left this morning. This social media manager speaking with Deena. Deena reports that pre-cert has NOT been started and to be waiting on paperwork from [facility]. This social media manager communicated to have thought that pre-cert was start. Clinical information faxed. Deena to start pre-cert as soon as clinicals are obtained. Will continue to follow. Elvira FREGOSO, HALLE
[2020-10-30 14:40] LABS: Pathologist Review Reviewed
[2020-10-30 14:43] LABS: Pathologist Review Reviewed
[2020-10-30 14:50] LABS: Pathologist Review Reviewed
--- NOTE | 2020-10-30 14:51 | PCM.PN.HOSP ---
Documented by User: Jair MOLINA 10/30/20 15:38 Subjective Subjective Patient is a 75-year-old male comfortably resting in bed eating breakfast, alert and oriented x3. Patient reports ongoing pain of his left foot, but reports no change in symptoms from yesterday. Denies chest pain, shortness of breath, palpitations, hemoptysis, sputum production, fever, chills, N/V/D. Objective Data Objective Data Vital Signs: Vital Signs Temp Pulse Resp BP Pulse Ox 98.0 F 93 20 H 187/93 H 95 10/30/20 09:55 10/30/20 11:00 10/30/20 10:51 10/30/20 09:55 10/30/20 09:55 Oxygen Flow Rate (L/min) 2 Oxygen Delivery Method Room Air Weight: 179 lb 0.246 oz Body Mass Index (BMI) 24.4 Intake & Output: Intake and Output for Last 24 Hours 10/28/20 10/29/20 10/30/20 23:59 23:59 23:59 Intake Total 990 / 1230 1855 / 2095 1095 / 1095 Output Total 1525 / 1525 2420 / 2420 450 / 450 Balance -535 / -295 -565 / -325 645 / 645 Medical Nutrition Assessment Dietitian: Nutrition Therapy Diagnosis Start: 10/28/20 13:14 Freq: Status: Active Protocol: Document 10/30/20 14:47 RMA (Rec: 10/30/20 14:47 RMA [id number]) Nutrition Malnutrition Evidence of Malnutrition Exists No Intake Problem Increased Nutrient Needs (specify) Etiology (protein) related to wounds Signs/Symptoms as evidenced by pressure injuries to carolyn heel ulcer/ coccyx, L 2nd toe necrotic diabetic ulcer Status Active Problem Recommendation Dietitian Recommendations/Changes Cardiac; sodium-restricted/ 1800 calorie; consistent- carbohydrate diet with 1500ml FR. Continue Vincent bid to help w/ wound healing. Ensure pudding or magic cup BID w/ meals. Lab / Micro Data Result Diagrams: 10/30/20 05:40 10/30/20 05:40 Labs: Laboratory Results - last 24 hr 10/27/20 21:07: Diff Path Review Reviewed 10/28/20 02:55: Diff Path Review Reviewed 10/29/20 05:40: Diff Path Review Reviewed 10/29/20 16:07: WBC 16.1 H, RBC 2.70 L, Hgb 8.5 L, Hct 26.4 L, MCV 97.8 H, MCH 31.5, MCHC 32.2, RDW Std Deviation 54.7 H, RDW Coeff of Ximena 15.2 H, Plt Count 193, MPV 9.8, Neut % (Auto) Not Reportable, Absolute Neuts (auto) 14.3 H, Absolute Lymphs (auto) 1.45, Total Counted 100, Neutrophils % (Manual) 73 H, Band Neutrophils % 16 H, Lymphocytes % (Manual) 9 L, Monocytes % (Manual) 2, Differential Comment SCANNED, Diff Path Review May foll, Dohle Bodies RARE, Platelet Estimate ADEQUATE, Anisocytosis 1+ 10/29/20 16:07: Lactic Acid 1.7 10/29/20 17:03: POC Glucose 320 H 10/29/20 20:47: POC Glucose 353 H 10/30/20 05:40: WBC 15.2 H, RBC 2.71 L, Hgb 8.6 L, Hct 26.5 L, MCV 97.8 H, MCH 31.7, MCHC 32.5, RDW Std Deviation 52.3 H, RDW Coeff of Ximena 14.6, Plt Count 206, MPV 10.1, Immature Gran % (Auto) 1.800 H, Neut % (Auto) 86.1 H, Lymph % (Auto) 8.7 L, [place] % (Auto) 2.4, Eos % (Auto) 0.9, Baso % (Auto) 0.1, Absolute Neuts (auto) 13.1 H, Absolute Lymphs (auto) 1.32, Nucleated RBC % 0, Dohle Bodies RARE, Platelet Estimate ADEQUATE, Hypochromasia 1+ 10/30/20 05:40: Sodium 140, Potassium 3.6, Chloride 101, Carbon Dioxide 32.0, Anion Gap 7, BUN 68 H, Creatinine 3.34 H, Estim Creat Clear Calc 20.65, Est GFR (MDRD) Af Amer 23 L, Est GFR (MDRD) Non-Af 19 L, BUN/Creatinine Ratio 20.4 H, Glucose 144 H, Calcium 8.0 L 10/30/20 06:22: POC Glucose 136 H 10/30/20 11:56: POC Glucose 197 H Micro: Microbiology 10/27/20 23:50 Blood Culture (Wb) - Anticubital Right Bacteria Detection (PCR) - Final Streptococcus agalactiae (B) 10/27/20 23:50 Blood Culture (Wb) - Anticubital Right Blood Culture - Preliminary Streptococcus agalactiae (B) 10/27/20 21:10 Urine, Clean Catch Urine Culture - Final Proteus mirabilis 10/27/20 21:07 Mucosa - Nose SARS-CoV-2 Antigen (Rapid) - Final Radiography Diagnostic Testing: Radiology Impression Chest X-Ray 10/28/20 05:50 IMPRESSION: Stable exam. Right worse than left multilobar airspace disease, favoring pneumonia. Electronically Signed: Satnam Blair MD ([place]) at 9:07 EDT , Service support , Rhythm Strip Rhythm Strip: Sinus Rhythm Rate: 87 Ectopy: None Physical Exam Const alert, oriented x3 and no apparent distress HEENT head/scalp atraumatic and moist oral mucous membranes Head and Scalp: normocephalic Eyes EOMs intact bilaterally and conjunctivae normal Neck no lymphadenopathy, supple and no JVD Resp normal respiratory effort, no retractions and no use of accessory muscles Cardio regular rate, regular rhythm, no murmurs and no JVD GI normal to inspection, nondistended, normoactive bowel sounds, soft to palpation and non-tender Extremity Extremity Narrative: See skin below Skin Skin Narrative: Necrosis of the third toe of the left foot as well as mild necrosis of the left heel. Right lower extremity without any abnormalities. Neuro CN's II-XII intact bilaterally Psych affect normal Assessment & Plan Assessment/Plan (1) Decubitus ulcer, heel, left, unstageable: (2) Diabetes mellitus with diabetic polyneuropathy: (3) Gangrene of toe of both feet: (4) Chronic kidney failure: QUALIFIERS: Chronic kidney disease stage: stage 4 (severe) Qualified Code(s): N18.4 - Chronic kidney disease, stage 4 (severe) (5) Acute respiratory failure with hypoxia: (6) Ischemic necrosis of toe: PLAN: 1) gangrene of left third toe and heel Podiatry consulted and recommends daily dressing changes as well as to keep heel offloaded. Lower extremity arterial studies pending. Blood cultures demonstrate strep agalactiae. Urine culture demonstrates Proteus Mirabilis. Continue Rocephin and azithromycin. Continue to monitor CBC and BMP. ID consult ordered for Bactremia. 2) acute hypoxemic respiratory failure Currently satting 95% on room air, CBC does still demonstrate a mild leukocytosis at 15,000. Plan; as above. DVT prophylaxis - Heparin Patient seen by Jair Simon PA-C, under the supervision of Dr. Pziano. Documented by User: Dr. Freddie Pizano MD 10/30/20 16:51 Subjective Subjective Patient denies any chest pain or shortness of breath. Cough has gotten better. No fever. Blood pressure is elevated 187/93. Objective Data Lab / Micro Data Result Diagrams: 10/30/20 05:40 10/30/20 05:40 Physical Exam Narrative General: Alert, Oriented x3, Cooperative HEENT: Atraumatic, PERRLA, EOMI, Normocephalic Oral: No Gingival or Mucosal Lesions/ Ulcerations Neck: Supple, No JVD, Negative Carotid Bruits Lungs: Air entry diminished in bilateral lung bases. No crepitation/rhonchi Cardiovascular: Regular rate, Regular Rhythm, Normal S1, Normal S2, systolic murmur over right second ICS Abdomen: Bowel Sounds Present, Soft, Non Tender, Non-Distended : No renal angle tenderness. No suprapubic tenderness. Extremities: No edema, Capillary Refill Less than 3 Seconds Skin: Bilateral heel decubitus dry eschars, left second toe dry gangrene. Dry blister on distal left first toe. Musculoskeletal: ROM limited. Sensation is decreased to bilateral feet. Nontender Neurological: Cranial nerves II-XII grossly intact, DTR 2+/4 and Symmetrical, Neuro grossly intact Psych/Mental Status: Normal Affect, Appropriate. Assessment & Plan Assessment/Plan (1) Decubitus ulcer, heel, left, unstageable: (2) Decubitus ulcer, heel, right, unstageable: PLAN: This patient was seen in conjunction with JESSE Rodas. I have independently interviewed and examined the patient and reviewed pertinent history, examination findings, laboratory and plan of management. I have reviewed the note and agree with the documented findings with the few additional points. In brief, patient is admitted for Received worsening shortness of breath from long-term for couple days history of clinical diagnosis of acute hypoxic respiratory failure secondary to acute on chronic diastolic heart failure. Urine culture shows Proteus mirabilis, [id number] and pathology clinic. Rapid SARS-CoV-2 antigen negative. Blood culture shows Streptococcus agalactiae group B antigen. Patient on Rocephin will continue it. Discontinue Zithromax. ID consult. Likely has gotten better on Lasix. Patient has peripheral arterial disease with dry gangrene of left second toe, dry discharges of bilateral heels with no evidence of infection or cellulitis or drainage. Bilateral feet x-ray does not show acute fracture, dislocation Charcot's joint or osseous destruction or soft tissue emphysema. Small vessel calcification noted. Cylinder Handler ordered repeat LES vascular study. Vascular surgery consult once arterial studies done. Stage IV CKD: Consult nephrology. Lasix, lisinopril, magnesium based antacid or stool softener discontinued. Patient is DNR CC I have discussed my assessment with JESSE Rodas and orders have been reviewed. Total time of the visit including total time spent in counseling or coordination of care, (more than 50% of the total time, spent in obtaining medical information from nurses and other ancillary care providers,explaining to the patient about labs, imaging, diagnosis and management), discussion with consultants, review of labs and imaging is 30 minutes. Charges/Coding Visit Charges Inpatient E&M: 43729 Subs Hosp L3
[2020-10-30 14:53] LABS: Pathologist Review Reviewed
--- NOTE | 2020-10-30 16:29 | CASEMGMT ---
Social Work Telephone call from Deena Balderas. Pre-cert has been obtained. Patient no medically cleared per medical team. Tentative plan for discharge tomorrow, 10/31/2020 if medically cleared. Elvira FREGOSO, HALLE
[2020-10-30 16:45] LABS: Bedside Glucose 207 mg/dL (70-110)
[2020-10-30] MEDS: QUEtiapine 25 MG Tablet 12.5 MG PO (21:53)
[2020-10-30] MEDS: fluvoxaMINE Maleate 50 MG Tablet PO (21:53)
[2020-10-30] MEDS: Atorvastatin Calcium 40 MG Tablet PO (21:54)
[2020-10-30 22:20] LABS: Bedside Glucose 234 mg/dL (70-110)
[2020-10-30] MEDS: hydrALAZINE 20 MG/ML Vial IV (22:53)
[2020-10-31] VITALS (16 sets, daily range): BP systolic 139–213; BP diastolic 69–100; PULSE 71–93; RESP 18–20; TEMP 36.3–36.8; O2SAT 94–98
[2020-10-31] MEDS: hydrALAZINE 20 MG/ML Vial 5 MG IV (03:44)
[2020-10-31] MEDS: 0.9% Saline Lock 10 ML Syringe IV ×3 (03:45→21:16)
[2020-10-31] MEDS: Sodium Bicarbonate 650 MG Tablet 1950 MG PO ×3 (05:06→21:03)
[2020-10-31] MEDS: Levothyroxine 75 MCG Tablet PO (05:06)
[2020-10-31] MEDS: Dextrose 50%-Water 25 GM/50 ML DISP.SYRIN IV (05:15)
[2020-10-31 05:56] LABS: Glucose 164 mg/dL (74-106)
[2020-10-31] MEDS: Ipratropium/Albuterol Sulfate 3 ML AMPUL.NEB INHALATION ×4 (06:52→18:45)
[2020-10-31 06:56] LABS: Bedside Glucose 110 mg/dL (70-110)
--- NOTE | 2020-10-31 07:11 | PCM.CONS.R ---
Assessment & Plan Assessment/Plan (1) CKD stage 4 due to type 2 diabetes mellitus: (2) Hypertension: (3) Ischemic necrosis of toe: PLAN: CKD from [facility] Baseline Cr ~ 2.8-3.2 mg/dl Cr is at baseline BP was elevated. might add hydralazine 50 PO TID if rises Hold home lasix and lisinopril No need for [employer] Abx as per the primary service Podiatric is following check RFP Thank you Will continue to follow HPI Consult Data Date of Consult: 10/31/20 HPI Narrative HPI Narrative: JULIO DUNNE, is a 75 M who presents with nectrotic left heel and L 3rd toe Podiatric consult. Patient is on Abx Renal team is consulted for CKD stage 4. baseline Cr ~ 2.8-3.2 mg/dl CKD from previous nephrology note lookes related to DNP BP is well controlled home lasix on hold ROS: not obtainable as the patient is obtunded [facility] Medical History (Updated 10/31/20 @ 07:[address] Emerson Robles MD) Anemia Cardiac amyloidosis CHF (congestive heart failure) Chronic kidney disease, stage 4 (severe) Cognitive impairment Delirium due to another medical condition GI bleed Hypertension Kidney failure Metabolic acidosis PAD (peripheral artery disease) Secondary hyperparathyroidism Type 2 diabetes mellitus Venous insufficiency of both lower extremities Home Medications atorvastatin 40 mg PO QHS #0 tab 09/19/20 [Rx Last Taken Unknown] calcitriol 0.75 mcg PO DAILY #0 cap 09/19/20 [Rx Last Taken Unknown] carvedilol 12.5 mg PO BID #0 tab 09/19/20 [Rx Last Taken Unknown] ferrous sulfate 325 mg PO QODAY #0 tab 09/19/20 [Rx Last Taken Unknown] furosemide 40 mg PO DAILY #0 tab 09/19/20 [Rx Last Taken Unknown] insulin lispro [Humalog KwikPen Insulin] See Protocol SUBCUT ACHS #0 ml 09/19/20 [Rx Last Taken Unknown] levothyroxine 75 mcg PO DAILY@0600 #0 tab 09/19/20 [Rx Last Taken Unknown] lisinopril 5 mg PO DAILY #0 tab 09/19/20 [Rx Last Taken Unknown] menthol-zinc oxide [Calmoseptine] 1 applic TOPICAL TID #0 g 09/19/20 [Rx Last Taken Unknown] pantoprazole 40 mg PO BID #0 tab 09/19/20 [Rx Last Taken Unknown] quetiapine 12.5 mg PO QHS #0 tab 09/19/20 [Rx Last Taken Unknown] sennosides-docusate sodium [Stool Softener-Stimulant Laxat] 2 tab PO BID PRN #0 tab 09/19/20 [Rx Last Taken Unknown] sodium bicarbonate 1,950 mg PO TID #0 tab 09/19/20 [Rx Last Taken Unknown] bisacodyl 10 mg [place] DAILY PRN 10/27/20 [History Last Taken Unknown] fluvoxamine 50 mg PO QHS 10/27/20 [History Last Taken Unknown] insulin glargine [Lantus Solostar U-100 Insulin] 15 units SUBCUT DAILY 10/27/20 [History Last Taken Unknown] magnesium hydroxide [Milk of Magnesia] 30 ml PO DAILY PRN 10/27/20 [History Last Taken Unknown] miconazole nitrate 1 applic TOPICAL TID 10/27/20 [History Last Taken Unknown] mineral oil 118 ml [place] DAILY PRN 10/27/20 [History Last Taken Unknown] nut.tx.gluc intol,lf,soy-fiber [Boost Glucose Control] 120 ml PO TIDCM 10/27/20 [History Last Taken Unknown] amoxicillin-pot clavulanate [Augmentin] 1 tab PO BID 10/28/20 [History Last Taken Unknown] ceftriaxone-lidocaine 1 ea IM DAILY 10/28/20 [History Last Taken Unknown] Allergy/AdvReac Type Severity Reaction Status Date / Time No Known Allergies Allergy Verified 10/27/20 20:43 Social History Smoking Status: Never smoker Physical Exam Narrative Patient is obtunded. poorly responsive to verbal stimulus Head AT NC Neck: No NVD eye: PERRLA Chest B/L coarse BS Abdomen: soft No tenderness + BS ext : No edemA. No cyanosis Neuro: obtunded skin no rash Medical Records Data Medical Nutrition Assessment Dietitian: Nutrition Therapy Diagnosis Start: 10/28/20 13:14 Freq: Status: Active Protocol: Document 10/30/20 14:47 RMA (Rec: 10/30/20 14:47 RMA [id number]) Nutrition Malnutrition Evidence of Malnutrition Exists No Intake Problem Increased Nutrient Needs (specify) Etiology (protein) related to wounds Signs/Symptoms as evidenced by pressure injuries to carolyn heel ulcer/ coccyx, L 2nd toe necrotic diabetic ulcer Status Active Problem Recommendation Dietitian Recommendations/Changes Cardiac; sodium-restricted/ 1800 calorie; consistent- carbohydrate diet with 1500ml FR. Continue Vincent bid to help w/ wound healing. Ensure pudding or magic cup BID w/ meals. Lab / Micro Data Result Diagrams: 10/30/20 05:40 10/31/20 05:24 Labs: Laboratory Results - last 24 hr 10/27/20 21:07: Diff Path Review Reviewed 10/28/20 02:55: Diff Path Review Reviewed 10/29/20 05:40: Diff Path Review Reviewed 10/29/20 16:07: Diff Path Review Reviewed 10/30/20 05:40: Dohle Bodies RARE, Platelet Estimate ADEQUATE, Hypochromasia 1+ 10/30/20 05:40: Sodium 140, Potassium 3.6, Chloride 101, Carbon Dioxide 32.0, Anion Gap 7, BUN 68 H, Creatinine 3.34 H, Estim Creat Clear Calc 20.65, Est GFR (MDRD) Af Amer 23 L, Est GFR (MDRD) Non-Af 19 L, BUN/Creatinine Ratio 20.4 H, Glucose 144 H, Calcium 8.0 L 10/30/20 11:56: POC Glucose 197 H 10/30/20 16:42: POC Glucose 207 H 10/30/20 21:50: POC Glucose 234 H 10/31/20 05:24: Glucose 164 H 10/31/20 06:47: POC Glucose 110 Micro: Microbiology 10/27/20 23:50 Blood Culture (Wb) - Anticubital Right Bacteria Detection (PCR) - Final Streptococcus agalactiae (B) 10/27/20 23:50 Blood Culture (Wb) - Anticubital Right Blood Culture - Preliminary Streptococcus agalactiae (B) Rhythm Strip Rhythm Strip: Sinus Rhythm Rate: 87 Ectopy: None Radiology Impression Chest X-Ray 10/28/20 05:50 IMPRESSION: Stable exam. Right worse than left multilobar airspace disease, favoring pneumonia. Electronically Signed: Satnam Blair MD ([place]) at 9:07 EDT , Service support , Ankle Brachial Index 10/28/20 10:26 Interpretation Summary Limited examination right lower extremity with noncompressible vessels making ankle-brachial indices not obtainable. Right posterior tibial and dorsalis pedis Doppler waveforms are monophasic consistent with severe occlusive disease Right digital brachial index is markedly abnormal at 0.07 Abnormal left posterior tibial and dorsalis pedis ankle-brachial indices of 0.67 and 0.47 respectively consistent with moderately severe disease. Abnormal left posterior tibial and dorsalis pedis Doppler waveforms being monophasic consistent with a more severe level of disease. Unable to obtain left digital brachial index due to lack of pulse consistent with severe disease. Severity of findings have progressed from the previous examination of August 20, 2018 Ordering Physician: Mary Valladares Referring Physician: Bebeto Chow Performed By: Lacy Marx RVT
[2020-10-31 07:41] LABS: Bedside Glucose 142 mg/dL (70-110)
[2020-10-31 07:41] LABS: Bedside Glucose 37 mg/dL (70-110)
[2020-10-31 07:42] LABS: Absolute Lymphocyte Count 1.42 X10^3/uL (0.83-4.51); Absolute Neutrophil Count 11.6 X10^3/uL (2.0-7.7); Basophil# 0.04 X10^3/uL; Basophil% 0.3 % (0-1); Eosinophil# 0.16 X10^3/uL; Eosinophils% 1.2 % (0-5); Hematocrit 31.8 % (40-54); Hemoglobin 10.5 g/dL (13.0-16.5); Lymphocyte # 1.42 X10^3/ul (0.83-4.51); Lymphocyte % 10.3 % (19-41); Mean Corpuscular Hgb 31.6 pg (27.0-32.0); Mean Corpuscular Volume 95.8 fL (80-94); Monocyte# 0.45 X10^3/uL; Monocyte% 3.3 % (0-10); NRBC Flagged by Analyzer 0 % (0-5); Neutrophil # 11.55 X10^3/uL (2.7-7.7); Neutrophil % 83.7 % (47-70); POSITIVE MORPHOLOGY YES; Platelet Count 245 K/mm3 (150-450); RBC Distribution Width SD 49.7 fl (35.1-43.9); Red Blood Count 3.32 M/mm3 (4.6-6.2); White Blood Count 13.8 K/mm3 (4.4-11.0)
[2020-10-31 07:51] LABS: Anion Gap 6 (5-15); BUN 72 mg/dL (7-18); BUN/Creat Ratio 23.1 RATIO (10-20); Calcium,Total 7.6 mg/dL (8.5-10.1); Chloride 101 mmol/L (98-107); Creatinine, Serum 3.12 mg/dL (0.70-1.30); Differential Indicated SCAN CRITERIA MET; EST Glomerular Filtration Rate 21 mL/min (>60); Est Glom Filt Rate - Afr Amer 25 mL/min (>60); Estimated Creatinine Clearance 22.11 ml/min; Glucose 152 mg/dL (74-106); Potassium 3.4 mmol/L (3.5-5.1); Sodium Level 141 mmol/L (136-145)
[2020-10-31 08:20] LABS: Hypochromasia RARE; Platelet Estimate ADEQUATE (ADEQ)
[2020-10-31] MEDS: Ceftriaxone 1 GM/50 ML BAG IV (08:36)
[2020-10-31] MEDS: Juven (unflavored) Packet 1 PACKET PO ×2 (08:37→16:27)
[2020-10-31] MEDS: Carvedilol 25 MG Tablet PO ×2 (08:37→21:04)
[2020-10-31] MEDS: Menthol/Lanolin/Calamine/Znox 113 GM Tube 1 APPLIC TOPICAL ×2 (08:37→21:03)
[2020-10-31] MEDS: Heparin Injection (Vial) 5,000 UNIT/ML VIAL 5000 UNIT SC ×2 (08:38→21:04)
[2020-10-31] MEDS: Calcitriol 0.25 MCG Capsule 0.75 MCG PO (08:38)
[2020-10-31] MEDS: Pantoprazole Sodium 40 MG Tablet PO ×2 (08:38→21:24)
--- NOTE | 2020-10-31 10:08 | CON.PCM.ID_ITS ---
Assessment & Plan Assessment/Plan (1) CKD stage 4 due to type 2 diabetes mellitus: (2) Ischemic necrosis of toe: (3) Pneumonia: PLAN: On azithro/ceftriaxone. Will check UAgs. Toe with dry gangrene, does not appear infected. UA with heavy pyuria, Ucx with some growth of proteus. Refuses covid vaccine. Overall improving. Plan on po abx at discharge. Will follow, thank you HPI Consult Data Date of Consult: 10/31/20 HPI Narrative HPI Narrative: JULIO DUNNE, is a 75 M who presented 10/27 with several days progressive cough, dyspnea, hypoxia at [facility]. No fever or chills. Refuses covid shot. No dysuria, no abd pain, no n/v/d. No pain or drainage from foot. Adm itted on azithro/ceftriaxone, feeling better. Full ROS performed and neg except as noted above. [facility] Medical History Anemia Cardiac amyloidosis CHF (congestive heart failure) Chronic kidney disease, stage 4 (severe) Cognitive impairment Delirium due to another medical condition GI bleed Hypertension Kidney failure Metabolic acidosis PAD (peripheral artery disease) Secondary hyperparathyroidism Type 2 diabetes mellitus Venous insufficiency of both lower extremities Home Medications atorvastatin 40 mg PO QHS #0 tab 09/19/20 [Rx Last Taken Unknown] calcitriol 0.75 mcg PO DAILY #0 cap 09/19/20 [Rx Last Taken Unknown] carvedilol 12.5 mg PO BID #0 tab 09/19/20 [Rx Last Taken Unknown] ferrous sulfate 325 mg PO QODAY #0 tab 09/19/20 [Rx Last Taken Unknown] furosemide 40 mg PO DAILY #0 tab 09/19/20 [Rx Last Taken Unknown] insulin lispro [Humalog KwikPen Insulin] See Protocol SUBCUT ACHS #0 ml 09/19/20 [Rx Last Taken Unknown] levothyroxine 75 mcg PO DAILY@0600 #0 tab 09/19/20 [Rx Last Taken Unknown] lisinopril 5 mg PO DAILY #0 tab 09/19/20 [Rx Last Taken Unknown] menthol-zinc oxide [Calmoseptine] 1 applic TOPICAL TID #0 g 09/19/20 [Rx Last Taken Unknown] pantoprazole 40 mg PO BID #0 tab 09/19/20 [Rx Last Taken Unknown] quetiapine 12.5 mg PO QHS #0 tab 09/19/20 [Rx Last Taken Unknown] sennosides-docusate sodium [Stool Softener-Stimulant Laxat] 2 tab PO BID PRN #0 tab 09/19/20 [Rx Last Taken Unknown] sodium bicarbonate 1,950 mg PO TID #0 tab 09/19/20 [Rx Last Taken Unknown] bisacodyl 10 mg GA DAILY PRN 10/27/20 [History Last Taken Unknown] fluvoxamine 50 mg PO QHS 10/27/20 [History Last Taken Unknown] insulin glargine [Lantus Solostar U-100 Insulin] 15 units SUBCUT DAILY 10/27/20 [History Last Taken Unknown] magnesium hydroxide [Milk of Magnesia] 30 ml PO DAILY PRN 10/27/20 [History Last Taken Unknown] miconazole nitrate 1 applic TOPICAL TID 10/27/20 [History Last Taken Unknown] mineral oil 118 ml GA DAILY PRN 10/27/20 [History Last Taken Unknown] nut.tx.gluc intol,lf,soy-fiber [Boost Glucose Control] 120 ml PO TIDCM 10/27/20 [History Last Taken Unknown] amoxicillin-pot clavulanate [Augmentin] 1 tab PO BID 10/28/20 [History Last Taken Unknown] ceftriaxone-lidocaine 1 ea IM DAILY 10/28/20 [History Last Taken Unknown] Allergy/AdvReac Type Severity Reaction Status Date / Time No Known Allergies Allergy Verified 10/27/20 20:43 Social History Smoking Status: Never smoker Physical Exam Const alert and oriented x3 General Appearance: cooperative Exam Limitations: no limitations HEENT head/scalp atraumatic Eyes PERRL and EOMs intact bilaterally Neck supple and No nodes Resp Auscultation: rhonchi and wheezes Cardio regular rate and regular rhythm GI normal to inspection, nondistended, normoactive bowel sounds Extremity General Extremity: Negative for edema Skin Skin Narrative: L toe with dry gangrene Neuro CN's II-XII intact bilaterally Medical Records Data Medical Nutrition Assessment Dietitian: Nutrition Therapy Diagnosis Start: 10/28/20 13:14 Freq: Status: Active Protocol: Document 10/30/20 14:47 RMA (Rec: 10/30/20 14:47 RMA [id number]) Nutrition Malnutrition Evidence of Malnutrition Exists No Intake Problem Increased Nutrient Needs (specify) Etiology (protein) related to wounds Signs/Symptoms as evidenced by pressure injuries to carolyn heel ulcer/ coccyx, L 2nd toe necrotic diabetic ulcer Status Active Problem Recommendation Dietitian Recommendations/Changes Cardiac; sodium-restricted/ 1800 calorie; consistent- carbohydrate diet with 1500ml FR. Continue Vincent bid to help w/ wound healing. Ensure pudding or magic cup BID w/ meals. Lab / Micro Data Result Diagrams: 10/31/20 05:24 10/31/20 05:24 Labs: Laboratory Results - last 24 hr 10/27/20 21:07: Diff Path Review Reviewed 10/28/20 02:55: Diff Path Review Reviewed 10/29/20 05:40: Diff Path Review Reviewed 10/29/20 16:07: Diff Path Review Reviewed 10/30/20 11:56: POC Glucose 197 H 10/30/20 16:42: POC Glucose 207 H 10/30/20 21:50: POC Glucose 234 H 10/31/20 05:14: POC Glucose 37 L* 10/31/20 05:24: WBC 13.8 H, RBC 3.32 L, Hgb 10.5 L, Hct 31.8 L, MCV 95.8 H, MCH 31.6, MCHC 33.0, RDW Std Deviation 49.7 H, RDW Coeff of Ximena 14.0, Plt Count 245, MPV 10.0, Immature Gran % (Auto) 1.200 H, Neut % (Auto) 83.7 H, Lymph % (Auto) 10.3 L, Gillespie % (Auto) 3.3, Eos % (Auto) 1.2, Baso % (Auto) 0.3, Absolute Neuts (auto) 11.6 H, Absolute Lymphs (auto) 1.42, Nucleated RBC % 0, Platelet Estimate ADEQUATE, Hypochromasia RARE 10/31/20 05:24: Sodium 141, Potassium 3.4 L, Chloride 101, Carbon Dioxide 34.0 H , Anion Gap 6, BUN 72 H, Creatinine 3.12 H, Estim Creat Clear Calc 22.11, Est G FR (MDRD) Af Amer 25 L, Est GFR (MDRD) Non-Af 21 L, BUN/Creatinine Ratio 23.1 H, Glucose 152 H, Calcium 7.6 L 10/31/20 05:24: Glucose 164 H 10/31/20 05:27: POC Glucose 142 H 10/31/20 06:47: POC Glucose 110 Micro: Microbiology 10/27/20 23:50 Blood Culture (Wb) - Anticubital Right Bacteria Detection (PCR) - Final Streptococcus agalactiae (B) 10/27/20 23:50 Blood Culture (Wb) - Anticubital Right Blood Culture - Final Streptococcus agalactiae (B) Rhythm Strip Rhythm Strip: Sinus Rhythm Rate: 87 Ectopy: None Radiology Impression Ankle Brachial Index 10/28/20 10:26 Interpretation Summary Limited examination right lower extremity with noncompressible vessels making ankle-brachial indices not obtainable. Right posterior tibial and dorsalis pedis Doppler waveforms are monophasic consistent with severe occlusive disease Right digital brachial index is markedly abnormal at 0.07 Abnormal left posterior tibial and dorsalis pedis ankle-brachial indices of 0.67 and 0.47 respectively consistent with moderately severe disease. Abnormal left posterior tibial and dorsalis pedis Doppler waveforms being monoph asic consistent with a more severe level of disease. Unable to obtain left digital brachial index due to lack of pulse consistent with severe disease. Severity of findings have progressed from the previous examination of August 20, 2018 Ordering Physician: Mary Valladares Referring Physician: Bebeto Chow Performed By: Lacy Marx RVT
[2020-10-31 11:41] LABS: Bedside Glucose 147 mg/dL (70-110)
--- NOTE | 2020-10-31 13:57 | PN.HOSP_ITS ---
Documented by User: Jair MOLINA 10/31/20 14:15 Subjective Subjective Patient is a 75-year-old male comfortably resting in bed, alert and orient x3. Denies chest pain, shortness of breath, palpitations, hemoptysis, sputum production, fever, chills, N/V/D. Objective Data Objective Data Vital Signs: Vital Signs Temp Pulse Resp BP Pulse Ox 97.3 F L 89 20 H 176/99 H 95 10/31/20 08:48 10/31/20 10:42 10/31/20 10:42 10/31/20 08:48 10/31/20 08:48 Oxygen Flow Rate (L/min) 2 Oxygen Delivery Method Room Air Weight: 178 lb 12.718 oz Body Mass Index (BMI) 24.4 Intake & Output: Intake and Output for Last 24 Hours 10/29/20 10/30/20 10/31/20 23:59 23:59 23:59 Intake Total 1855 / 2095 1335 / 1435 350 / 350 Output Total 2420 / 2420 975 / 975 Balance -565 / -325 360 / 460 350 / 350 Medical Nutrition Assessment Dietitian: Nutrition Therapy Diagnosis Start: 10/28/20 13:14 Freq: Status: Active Protocol: Document 10/30/20 14:47 RMA (Rec: 10/30/20 14:47 RMA [id number]) Nutrition Malnutrition Evidence of Malnutrition Exists No Intake Problem Increased Nutrient Needs (specify) Etiology (protein) related to wounds Signs/Symptoms as evidenced by pressure injuries to carolyn heel ulcer/ coccyx, L 2nd toe necrotic diabetic ulcer Status Active Problem Recommendation Dietitian Recommendations/Changes Cardiac; sodium-restricted/ 1800 calorie; consistent- carbohydrate diet with 1500ml FR. Continue Vincent bid to help w/ wound healing. Ensure pudding or magic cup BID w/ meals. Lab / Micro Data Result Diagrams: 10/31/20 05:24 10/31/20 05:24 Labs: Laboratory Results - last 24 hr 10/27/20 21:07: Diff Path Review Reviewed 10/28/20 02:55: Diff Path Review Reviewed 10/29/20 05:40: Diff Path Review Reviewed 10/29/20 16:07: Diff Path Review Reviewed 10/30/20 16:42: POC Glucose 207 H 10/30/20 21:50: POC Glucose 234 H 10/31/20 05:14: POC Glucose 37 L* 10/31/20 05:24: WBC 13.8 H, RBC 3.32 L, Hgb 10.5 L, Hct 31.8 L, MCV 95.8 H, MCH 31.6, MCHC 33.0, RDW Std Deviation 49.7 H, RDW Coeff of Ximena 14.0, Plt Count 245, MPV 10.0, Immature Gran % (Auto) 1.200 H, Neut % (Auto) 83.7 H, Lymph % (Auto) 10.3 L, Ingham % (Auto) 3.3, Eos % (Auto) 1.2, Baso % (Auto) 0.3, Absolute Neuts (auto) 11.6 H, Absolute Lymphs (auto) 1.42, Nucleated RBC % 0, Platelet Estimate ADEQUATE, Hypochromasia RARE 10/31/20 05:24: Sodium 141, Potassium 3.4 L, Chloride 101, Carbon Dioxide 34.0 H , Anion Gap 6, BUN 72 H, Creatinine 3.12 H, Estim Creat Clear Calc 22.11, Est GFR (MDRD) Af Amer 25 L, Est GFR (MDRD) Non-Af 21 L, BUN/Creatinine Ratio 23.1 H , Glucose 152 H, Calcium 7.6 L 10/31/20 05:24: Glucose 164 H 10/31/20 05:27: POC Glucose 142 H 10/31/20 06:47: POC Glucose 110 10/31/20 11:31: POC Glucose 147 H Micro: Microbiology 10/27/20 23:50 Blood Culture (Wb) - Anticubital Right Bacteria Detection (PCR) - Final Streptococcus agalactiae (B) 10/27/20 23:50 Blood Culture (Wb) - Anticubital Right Blood Culture - Final Streptococcus agalactiae (B) 10/27/20 21:10 Urine, Clean Catch Urine Culture - Final Proteus mirabilis 10/27/20 21:07 Mucosa - Nose SARS-CoV-2 Antigen (Rapid) - Final Radiography Diagnostic Testing: Radiology Impression Ankle Brachial Index 10/28/20 10:26 Interpretation Summary Limited examination right lower extremity with noncompressible vessels making ankle-brachial indices not obtainable. Right posterior tibial and dorsalis pedis Doppler waveforms are monophasic consistent with severe occlusive disease Right digital brachial index is markedly abnormal at 0.07 Abnormal left posterior tibial and dorsalis pedis ankle-brachial indices of 0.67 and 0.47 respectively consistent with moderately severe disease. Abnormal left posterior tibial and dorsalis pedis Doppler waveforms being monophasic consistent with a more severe level of disease. Unable to obtain left digital brachial index due to lack of pulse consistent with severe disease. Severity of findings have progressed from the previous examination of August 20, 2018 Ordering Physician: Mary Valladares Referring Physician: Bebeto Chow Performed By: Lacy Marx RVT Rhythm Strip Rhythm Strip: Sinus Rhythm Rate: 87 Ectopy: None Physical Exam Const alert, oriented x3 and no apparent distress HEENT head/scalp atraumatic and moist oral mucous membranes Head and Scalp: normocephalic Eyes EOMs intact bilaterally and conjunctivae normal Neck no lymphadenopathy, supple and no JVD Resp normal respiratory effort, no retractions, no use of accessory muscles and clear to auscultation bilaterally Cardio regular rate, regular rhythm, no murmurs and no JVD GI normal to inspection, nondistended, normoactive bowel sounds, soft to palpation and non-tender Extremity Extremity Narrative: See skin. Skin Skin Narrative: Patient has gangrenous necrosis on his second toe on the left foot and the heel of his left foot. Neuro CN's II-XII intact bilaterally Psych affect normal Assessment & Plan Assessment/Plan (1) Decubitus ulcer, heel, right, unstageable: (2) Decubitus ulcer, heel, left, unstageable: (3) Gangrene of toe of both feet: (4) CKD stage 4 due to type 2 diabetes mellitus: (5) Acute respiratory failure with hypoxia: (6) Ischemic necrosis of toe: PLAN: Day 4: See subjective. Discharge planning: Patient to be discharged to [place], pre-CERT has been obtained. 1) gangrene of left third toe and heel ID recommends continuation of ceftriaxone, as well as continuation at discharge. Podiatry following and recommends daily wound changes as well as obtaining lower extremity arterial studies. BRIA demonstrates severe occlusive disease of the right lower extremity as well as moderate occlusive disease of the left lower extremity. Vascular consult has been ordered and is pending. 2) acute hypoxemic respiratory failure Currently satting 95% on room air, CBC does still demonstrate a mild leukocytosis at 15,000. Plan; as above. 3) CKD stage IV due to DM2 Creatinine currently 3.1, baseline between 2.8-3.2. Continue to hold home Lasix and lisinopril. Nephrology following. DVT prophylaxis - Heparin Patient seen by Jair Simon PA-C, under the supervision of Dr. Denson. Documented by User: Dr. Eloise Denson MD 10/31/20 16:11 Objective Data Lab / Micro Data Result Diagrams: 10/31/20 05:24 10/31/20 05:24 Charges/Coding Addendum Addendum: Patient seen by Jair Simon PA-C under my supervision Patient seen and examined. He was resting comfortably in bed. Patient is however quite confused, so unable to do comprehensive review of systems. O/E: Const alert, confused, no apparent distress HEENT head/scalp atraumatic and moist oral mucous membranes Head and Scalp: normocephalic Eyes EOMs intact bilaterally and conjunctivae normal Neck no lymphadenopathy, supple and no JVD Resp diminished breath sounds bibasally, no wheezes or crackles. Cardio regular rate, regular rhythm, no murmurs and no JVD GI normal to inspection, nondistended, normoactive bowel sounds, soft to palpation and non-tender Extremity Extremity Narrative: See skin. Skin Skin Narrative: Dry gangrene of his left second toe and left heel. Neuro CN's II-XII intact bilaterally Psych affect: confused Patient is being managed for acute hypoxic respiratory failure which is thought to be due to pneumonia. CBC still mildly elevated at 15. Now on room air and saturating well. Currently on IV ceftriaxone for dry gangrene of toe and heel. vascular studies showed severe occlusive disease of LLE and moderate occlusive disease of the LLE; vascular surgery consulted, awaiting rec's. Cr is at baseline of 3.1 (2.8-3.2). On heparin for dvt prophylaxis. lasix and lisinopril on hold o/a of kidney impairment. ID on board. Also on ceftriaxone and azithromycin for presumptive pneumonia. urine antigens pending. Urinalysis growing proteus. per ID, will need oral antibiotics at discharge. Rest as per Jair Simon PA-C's note, which I have reviewed and endorsed. Visit Charges Inpatient E&M: 93226 Subs Hosp L3
--- NOTE | 2020-10-31 14:17 | CASEMGMT ---
Patient is not ready for discharge today. KONSTANTIN called [facility] and spoke with Cinthia letting her know patient will likely be ready tomorrow. She said that is fine and his pre-cert will still be good. Plan: Return to [facility] when ready. Leslie Galindo [employer] [place]
[2020-10-31] MEDS: Insulin Lispro 100 UNIT/ML INSULN.PEN SC ×2 (16:26→21:21)
[2020-10-31 16:31] LABS: Bedside Glucose 157 mg/dL (70-110)
[2020-10-31] MEDS: Atorvastatin Calcium 40 MG Tablet PO (21:03)
[2020-10-31] MEDS: fluvoxaMINE Maleate 50 MG Tablet PO (21:04)
[2020-10-31] MEDS: QUEtiapine 25 MG Tablet 12.5 MG PO (21:04)
[2020-10-31 22:10] LABS: Bedside Glucose 185 mg/dL (70-110)
[2020-11-01] VITALS (7 sets, daily range): BP systolic 141–180; BP diastolic 71–83; PULSE 70–79; RESP 16–18; TEMP 36.6–36.9; O2SAT 92–94
[2020-11-01 01:21] LABS: Bedside Glucose 240 mg/dL (70-110)
[2020-11-01] MEDS: Sodium Bicarbonate 650 MG Tablet 1950 MG PO (06:23)
[2020-11-01] MEDS: Levothyroxine 75 MCG Tablet PO (06:23)
[2020-11-01 06:46] LABS: Bedside Glucose 131 mg/dL (70-110)
[2020-11-01] MEDS: Ipratropium/Albuterol Sulfate 3 ML AMPUL.NEB INHALATION (07:06)
[2020-11-01 07:12] LABS: Absolute Neutrophil Count 7.8 X10^3/uL (2.0-7.7); Basophil# 0.03 X10^3/uL; Basophil% 0.3 % (0-1); Eosinophil# 0.13 X10^3/uL; Eosinophils% 1.3 % (0-5); Hematocrit 30.8 % (40-54); Lymphocyte % 13.8 % (19-41); Mean Corp Hgb Conc 32.5 g/dL (32-36); Mean Corpuscular Hgb 31.6 pg (27.0-32.0); Mean Corpuscular Volume 97.5 fL (80-94); Mean Platelet Vol. 10.2 fl (6.2-12.0); Monocyte# 0.67 X10^3/uL; Monocyte% 6.6 % (0-10); NRBC Flagged by Analyzer 0 % (0-5); Neutrophil # 7.79 X10^3/uL (2.7-7.7); Neutrophil % 76.6 % (47-70); Platelet Count 255 K/mm3 (150-450); RBC Distribution Width CV 13.8 % (11.6-14.6); RBC Distribution Width SD 49.3 fl (35.1-43.9); Red Blood Count 3.16 M/mm3 (4.6-6.2); White Blood Count 10.2 K/mm3 (4.4-11.0)
--- NOTE | 2020-11-01 07:48 | PN_ITS ---
Subjective Subjective This patient was seen this morning for follow up on bilateral heel decubitus ulcers left second toe dry gangrene. He denies foot pain this morning. Objective Data Objective Data Vital Signs: Vital Signs Temp Pulse Resp BP Pulse Ox 97.8 F 77 18 150/74 H 94 11/01/20 02:15 11/01/20 07:00 11/01/20 02:15 11/01/20 02:15 11/01/20 02:15 Oxygen Flow Rate (L/min) 2 Oxygen Delivery Method Room Air Weight: 80 kg Body Mass Index (BMI) 24.4 Intake & Output: Intake and Output for Last 24 Hours 10/30/20 10/31/20 11/01/20 23:59 23:59 23:59 Intake Total 1335 / 1435 1050 / 1050 Output Total 975 / 975 100 / 100 Balance 360 / 460 1050 / 950 -100 / -100 Medical Nutrition Assessment Dietitian: Nutrition Therapy Diagnosis Start: 10/28/20 13:14 Freq: Status: Active Protocol: Document 10/30/20 14:47 RMA (Rec: 10/30/20 14:47 RMA [id number]) Nutrition Malnutrition Evidence of Malnutrition Exists No Intake Problem Increased Nutrient Needs (specify) Etiology (protein) related to wounds Signs/Symptoms as evidenced by pressure injuries to carolyn heel ulcer/ coccyx, L 2nd toe necrotic diabetic ulcer Status Active Problem Recommendation Dietitian Recommendations/Changes Cardiac; sodium-restricted/ 1800 calorie; consistent- carbohydrate diet with 1500ml FR. Continue Vincent bid to help w/ wound healing. Ensure pudding or magic cup BID w/ meals. Lab / Micro Data Result Diagrams: 11/01/20 05:45 11/01/20 05:45 Labs: Laboratory Results - last 24 hr 10/31/20 05:24: WBC 13.8 H, RBC 3.32 L, Hgb 10.5 L, Hct 31.8 L, MCV 95.8 H, MCH 31.6, MCHC 33.0, RDW Std Deviation 49.7 H, RDW Coeff of Ximena 14.0, Plt Count 245, MPV 10.0, Immature Gran % (Auto) 1.200 H, Neut % (Auto) 83.7 H, Lymph % (Auto) 10.3 L, Clarke % (Auto) 3.3, Eos % (Auto) 1.2, Baso % (Auto) 0.3, Absolute Neuts (auto) 11.6 H, Absolute Lymphs (auto) 1.42, Nucleated RBC % 0, Platelet Estimate ADEQUATE, Hypochromasia RARE 10/31/20 05:24: Sodium 141, Potassium 3.4 L, Chloride 101, Carbon Dioxide 34.0 H , Anion Gap 6, BUN 72 H, Creatinine 3.12 H, Estim Creat Clear Calc 22.11, Est GFR (MDRD) Af Amer 25 L, Est GFR (MDRD) Non-Af 21 L, BUN/Creatinine Ratio 23.1 H , Glucose 152 H, Calcium 7.6 L 10/31/20 11:31: POC Glucose 147 H 10/31/20 16:25: POC Glucose 157 H 10/31/20 21:20: POC Glucose 185 H 11/01/20 01:14: POC Glucose 240 H 11/01/20 05:45: WBC 10.2, RBC 3.16 L, Hgb 10.0 L, Hct 30.8 L, MCV 97.5 H, MCH 31.6, MCHC 32.5, RDW Std Deviation 49.3 H, RDW Coeff of Ximena 13.8, Plt Count 255, MPV 10.2, Immature Gran % (Auto) 1.400 H, Neut % (Auto) 76.6 H, Lymph % (Auto) 13.8 L, Clarke % (Auto) 6.6, Eos % (Auto) 1.3, Baso % (Auto) 0.3, Absolute Neuts (auto) 7.8 H, Absolute Lymphs (auto) 1.40, Nucleated RBC % 0 11/01/20 06:22: POC Glucose 131 H Micro: Microbiology 10/31/20 18:30 Urine, Random Streptococcus pneumoniae Antigen (M - Final 10/31/20 18:30 Urine, Clean Catch Legionella Antigen - Final 10/27/20 23:50 Blood Culture (Wb) - Anticubital Right Bacteria Detection (PCR) - Final Streptococcus agalactiae (B) 10/27/20 23:50 Blood Culture (Wb) - Anticubital Right Blood Culture - Final Streptococcus agalactiae (B) 10/27/20 21:10 Urine, Clean Catch Urine Culture - Final Proteus mirabilis 10/27/20 21:07 Mucosa - Nose SARS-CoV-2 Antigen (Rapid) - Final Rhythm Strip Rhythm Strip: Sinus Rhythm Rate: 87 Ectopy: None Physical Exam Const alert and no apparent distress Constitutional Narrative: He is initially not oriented to his location General Appearance: cooperative and comfortable Extremity Extremity Narrative: There is noted to be dry gangrene to the left 2nd toe, there are also dry stable eschars to the posterior/plants heels bilateral with peripheral skin peeling with underlying subhemorrhagic tissue - there is no maloder, no drainage, no fluctuance, no bogginess, no crepitus, no cellulitis, no edema noted - they are dry and stable - and chronic in nature - there is no evidence of acute ischemia to the foot or ankle. There is dry blister to the distal left 1st toe with some additional dusky discoloration to the distal 1st and 3rd toes, left. Skin is thin and atrophic bilateral feet, pedal pulses are nonpalpable bilateral. Calf is soft and supple bilateral with no calf pain. Sensation is decreased bilateral foot - chronic. No m/s pain to the foot or ankle bilateral. Assessment & Plan Assessment/Plan (1) PAD (peripheral artery disease): (2) Gangrene of toe of both feet: (3) Diabetes mellitus with diabetic polyneuropathy: (4) Chronic kidney failure: QUALIFIERS: Chronic kidney disease stage: stage 4 (severe) Qualified Code(s): N18.4 - Chronic kidney disease, stage 4 (severe) (5) Decubitus ulcer, heel, right, unstageable: (6) Decubitus ulcer, heel, left, unstageable: PLAN: This patient was seen and examined. He is afebrile and his vital signs are overall stable. It is noted he has dry gangrene to the left 2nd toe, also dry eschars to the heels bilateral. There is no evidence of infection clinically with no cellulitis, no edema, no drainage, no maloder, no crepitus, no fluctuance, no visible abscess. A foot culture was not obtained due to lack of draining wound. There is not an appropriate place to obtain a culture. It is noted that he does have an additional infectious source and has been started on antibiotics. ID on consult and appreciated. Reviewed LEAS from 2019 - recommend new noninvasive LEAS vascular studies. Also recommend vascular surgeon consultation for further evaluation of arterial flow and healing potential. Dr. Wang's consultation this morning was reviewed and appreciated. Plan is for angiogram once medically stabilized possibly next week. Tibial occlusive disease is suspected. Keep heels offloaded at all times - ordered foam offloading heal boots for patient to wear at all times. No weightbearing on feet due to ulcerations. Wound care to left 2nd toe and bilateral heels - Betadine solution and gauze dressing changes - change daily. Podiatry will continue to follow every few days. Please do not hesitate to contact if you have any questions. Dottie Ayon DPM, [facility] [phone]
[2020-11-01 07:54] LABS: Anion Gap 8 (5-15); BUN 77 mg/dL (7-18); Calcium,Total 7.7 mg/dL (8.5-10.1); Chloride 102 mmol/L (98-107); Creatinine, Serum 2.96 mg/dL (0.70-1.30); EST Glomerular Filtration Rate 22 mL/min (>60); Est Glom Filt Rate - Afr Amer 27 mL/min (>60); Glucose 146 mg/dL (74-106); Potassium 3.1 mmol/L (3.5-5.1); Sodium Level 143 mmol/L (136-145)
--- NOTE | 2020-11-01 08:04 | CON.PCM_ITS ---
Assessment & Plan Assessment/Plan (1) PAD (peripheral artery disease): PLAN: Patient with PAD. Probably some tibial occlusive disease. Will need left leg angiogram and probable tibial angioplasty prior to toe amputation. We will have to coordinate this is improved medically. See if any improvement from his creatinine which is currently at 3. We should be able to do this with very minimal dye. We will plan the angiogram over the next week or so. Possibly next Friday if he is still an inpatient HPI Consult Data Date of Consult: 11/01/20 HPI Narrative HPI Narrative: JULIO DUNNE, is a 75 M who presents with left-sided toe gangrene. He has been seen by podiatry. Does not appear infected at this point. Vascular surgery consulted for evaluation of PAD. He had ABIs this admission that show noncompressibility on the right and 0.67 on the left. All vessels monophasic at the ankle. Did have previous ABIs 2 years ago that appeared to be more normal at that point. Patient with longstanding diabetes and most likely some tibial occlusive disease. [facility] Medical History Anemia Cardiac amyloidosis CHF (congestive heart failure) Chronic kidney disease, stage 4 (severe) Cognitive impairment Delirium due to another medical condition GI bleed Hypertension Kidney failure Metabolic acidosis PAD (peripheral artery disease) Secondary hyperparathyroidism Type 2 diabetes mellitus Venous insufficiency of both lower extremities Home Medications atorvastatin 40 mg PO QHS #0 tab 09/19/20 [Rx Last Taken Unknown] calcitriol 0.75 mcg PO DAILY #0 cap 09/19/20 [Rx Last Taken Unknown] carvedilol 12.5 mg PO BID #0 tab 09/19/20 [Rx Last Taken Unknown] ferrous sulfate 325 mg PO QODAY #0 tab 09/19/20 [Rx Last Taken Unknown] furosemide 40 mg PO DAILY #0 tab 09/19/20 [Rx Last Taken Unknown] insulin lispro [Humalog KwikPen Insulin] See Protocol SUBCUT ACHS #0 ml 09/19/20 [Rx Last Taken Unknown] levothyroxine 75 mcg PO DAILY@0600 #0 tab 09/19/20 [Rx Last Taken Unknown] lisinopril 5 mg PO DAILY #0 tab 09/19/20 [Rx Last Taken Unknown] menthol-zinc oxide [Calmoseptine] 1 applic TOPICAL TID #0 g 09/19/20 [Rx Last Taken Unknown] pantoprazole 40 mg PO BID #0 tab 09/19/20 [Rx Last Taken Unknown] quetiapine 12.5 mg PO QHS #0 tab 09/19/20 [Rx Last Taken Unknown] sennosides-docusate sodium [Stool Softener-Stimulant Laxat] 2 tab PO BID PRN #0 tab 09/19/20 [Rx Last Taken Unknown] sodium bicarbonate 1,950 mg PO TID #0 tab 09/19/20 [Rx Last Taken Unknown] bisacodyl 10 mg ME DAILY PRN 10/27/20 [History Last Taken Unknown] fluvoxamine 50 mg PO QHS 10/27/20 [History Last Taken Unknown] insulin glargine [Lantus Solostar U-100 Insulin] 15 units SUBCUT DAILY 10/27/20 [History Last Taken Unknown] magnesium hydroxide [Milk of Magnesia] 30 ml PO DAILY PRN 10/27/20 [History Last Taken Unknown] miconazole nitrate 1 applic TOPICAL TID 10/27/20 [History Last Taken Unknown] mineral oil 118 ml ME DAILY PRN 10/27/20 [History Last Taken Unknown] nut.tx.gluc intol,lf,soy-fiber [Boost Glucose Control] 120 ml PO TIDCM 10/27/20 [History Last Taken Unknown] amoxicillin-pot clavulanate [Augmentin] 1 tab PO BID 10/28/20 [History Last Taken Unknown] ceftriaxone-lidocaine 1 ea IM DAILY 10/28/20 [History Last Taken Unknown] Allergy/AdvReac Type Severity Reaction Status Date / Time No Known Allergies Allergy Verified 10/27/20 20:43 Social History Smoking Status: Never smoker ROS ROS Narrative All negative was able to be obtained Physical Exam Narrative Patient awake alert, appears oriented No apparent distress Afebrile vital signs stable HEENT: Normocephalic atraumatic Pupils equal reactive Moist mucous membrane Neck supple No lymphadenopathy Chest nontender Lungs reported clear Heart appears regular Abdomen soft Extremities palpable radial pulses Palpable femoral pulses Gangrene left toe Moves all extremities adequately Medical Records Data Medical Nutrition Assessment Dietitian: Nutrition Therapy Diagnosis Start: 10/28/20 13:14 Freq: Status: Active Protocol: Document 10/30/20 14:47 RMA (Rec: 10/30/20 14:47 RMA [id number]) Nutrition Malnutrition Evidence of Malnutrition Exists No Intake Problem Increased Nutrient Needs (specify) Etiology (protein) related to wounds Signs/Symptoms as evidenced by pressure injuries to carolyn heel ulcer/ coccyx, L 2nd toe necrotic diabetic ulcer Status Active Problem Recommendation Dietitian Recommendations/Changes Cardiac; sodium-restricted/ 1800 calorie; consistent- carbohydrate diet with 1500ml FR. Continue Vincent bid to help w/ wound healing. Ensure pudding or magic cup BID w/ meals. Lab / Micro Data Result Diagrams: 11/01/20 05:45 11/01/20 05:45 Labs: Laboratory Results - last 24 hr 10/31/20 05:24: Platelet Estimate ADEQUATE, Hypochromasia RARE 10/31/20 11:31: POC Glucose 147 H 10/31/20 16:25: POC Glucose 157 H 10/31/20 21:20: POC Glucose 185 H 11/01/20 01:14: POC Glucose 240 H 11/01/20 05:45: WBC 10.2, RBC 3.16 L, Hgb 10.0 L, Hct 30.8 L, MCV 97.5 H, MCH 31.6, MCHC 32.5, RDW Std Deviation 49.3 H, RDW Coeff of Ximena 13.8, Plt Count 255, MPV 10.2, Immature Gran % (Auto) 1.400 H, Neut % (Auto) 76.6 H, Lymph % (Auto) 13.8 L, [place] % (Auto) 6.6, Eos % (Auto) 1.3, Baso % (Auto) 0.3, Absolute Neuts (auto) 7.8 H, Absolute Lymphs (auto) 1.40, Nucleated RBC % 0 11/01/20 05:45: Sodium 143, Potassium 3.1 L, Chloride 102, Carbon Dioxide 33.0 H , Anion Gap 8, BUN 77 H, Creatinine 2.96 H, Estim Creat Clear Calc 23.30, Est GFR (MDRD) Af Amer 27 L, Est GFR (MDRD) Non-Af 22 L, BUN/Creatinine Ratio 26.0 H , Glucose 146 H, Calcium 7.7 L 11/01/20 06:22: POC Glucose 131 H Micro: Microbiology 10/31/20 18:30 Urine, Random Streptococcus pneumoniae Antigen (M - Final 10/31/20 18:30 Urine, Clean Catch Legionella Antigen - Final 10/27/20 23:50 Blood Culture (Wb) - Anticubital Right Bacteria Detection (PCR) - Final Streptococcus agalactiae (B) 10/27/20 23:50 Blood Culture (Wb) - Anticubital Right Blood Culture - Final Streptococcus agalactiae (B) Rhythm Strip Rhythm Strip: Sinus Rhythm Rate: 87 Ectopy: None
[2020-11-01] MEDS: 0.9% Saline Lock 10 ML Syringe IV (08:36)
[2020-11-01 08:45] LABS: Bedside Glucose 133 mg/dL (70-110)
--- NOTE | 2020-11-01 09:14 | PN.RENAL_ITS ---
Subjective Subjective Following for chronic kidney disease. The patient is sleepy today. Although he is arousable, he falls asleep quickly without stimulation. The patient denies chest pain or shortness of breath. Per RN, he had loose b owel movement overnight. Objective Data Objective Data Vital Signs: Vital Signs Temp Pulse Resp BP Pulse Ox 98.4 F 77 16 180/83 H 92 11/01/20 08:30 11/01/20 08:30 11/01/20 08:30 11/01/20 08:30 11/01/20 08:30 Oxygen Flow Rate (L/min) 2 Oxygen Delivery Method Room Air Weight: 80 kg Body Mass Index (BMI) 24.4 Intake & Output: Intake and Output for Last 24 Hours 10/30/20 10/31/20 11/01/20 23:59 23:59 23:59 Intake Total 1335 / 1435 1050 / 1050 Output Total 975 / 975 100 / 100 Balance 360 / 460 1050 / 950 -100 / -100 Medical Nutrition Assessment Dietitian: Nutrition Therapy Diagnosis Start: 10/28/20 13:14 Freq: Status: Active Protocol: Document 10/30/20 14:47 RMA (Rec: 10/30/20 14:47 RMA [id number]) Nutrition Malnutrition Evidence of Malnutrition Exists No Intake Problem Increased Nutrient Needs (specify) Etiology (protein) related to wounds Signs/Symptoms as evidenced by pressure injuries to carolyn heel ulcer/ coccyx, L 2nd toe necrotic diabetic ulcer Status Active Problem Recommendation Dietitian Recommendations/Changes Cardiac; sodium-restricted/ 1800 calorie; consistent- carbohydrate diet with 1500ml FR. Continue Vincent bid to help w/ wound healing. Ensure pudding or magic cup BID w/ meals. Lab / Micro Data Result Diagrams: 11/01/20 05:45 11/01/20 05:45 Labs: Laboratory Results - last 24 hr 10/31/20 11:31: POC Glucose 147 H 10/31/20 16:25: POC Glucose 157 H 10/31/20 21:20: POC Glucose 185 H 11/01/20 01:14: POC Glucose 240 H 11/01/20 05:45: WBC 10.2, RBC 3.16 L, Hgb 10.0 L, Hct 30.8 L, MCV 97.5 H, MCH 31.6, MCHC 32.5, RDW Std Deviation 49.3 H, RDW Coeff of Ximena 13.8, Plt Count 255, MPV 10.2, Immature Gran % (Auto) 1.400 H, Neut % (Auto) 76.6 H, Lymph % (Auto) 13.8 L, [place] % (Auto) 6.6, Eos % (Auto) 1.3, Baso % (Auto) 0.3, Absolute Neuts (auto) 7.8 H, Absolute Lymphs (auto) 1.40, Nucleated RBC % 0 11/01/20 05:45: Sodium 143, Potassium 3.1 L, Chloride 102, Carbon Dioxide 33.0 H , Anion Gap 8, BUN 77 H, Creatinine 2.96 H, Estim Creat Clear Calc 23.30, Est GFR (MDRD) Af Amer 27 L, Est GFR (MDRD) Non-Af 22 L, BUN/Creatinine Ratio 26.0 H , Glucose 146 H, Calcium 7.7 L 11/01/20 06:22: POC Glucose 131 H 11/01/20 08:40: POC Glucose 133 H Micro: Microbiology 10/31/20 18:30 Urine, Random Streptococcus pneumoniae Antigen (M - Final 10/31/20 18:30 Urine, Clean Catch Legionella Antigen - Final 10/27/20 23:50 Blood Culture (Wb) - Anticubital Right Bacteria Detection (PCR) - Final Streptococcus agalactiae (B) 10/27/20 23:50 Blood Culture (Wb) - Anticubital Right Blood Culture - Final Streptococcus agalactiae (B) 10/27/20 21:10 Urine, Clean Catch Urine Culture - Final Proteus mirabilis 10/27/20 21:07 Mucosa - Nose SARS-CoV-2 Antigen (Rapid) - Final Rhythm Strip Rhythm Strip: Sinus Rhythm Rate: 87 Ectopy: None Physical Exam Narrative General: Lethargic. HEENT: Lip is mildly cyanotic. Mucous membrane moist. Neck: Supple. Heart: Normal S1, S2. No rubs or murmurs. Lungs: Clear to auscultation anteriorly. Abdomen: Normal bowel sound, soft, nontender, no guarding or rebound. Extremities: No clubbing, cyanosis, or edema. Assessment & Plan Assessment/Plan (1) CKD stage 4 due to type 2 diabetes mellitus: PLAN: Renal function has remained close to baseline. There is no i ndications for kidney replacement therapy. Current medications are reviewed and are appropriately dosed for the patient's estimated creatinine clearance. We will continue to monitor renal function. (2) Hypokalemia: PLAN: This is likely due to GI potassium loss. The patient is not on diuretic. Per RN, the patient had loose bowel movement overnight. Replaced potassium deficit. Recheck potassium level and magnesium level in a.m. (3) Hypertension: PLAN: The patient is on carvedilol. However, blood pressure is consistently high. He is off of lisinopril and furosemide currently because of marginal renal function. I will add amlodipine. (4) Secondary hyperparathyroidism: PLAN: The patient is on calcitriol. We will check PTH to help titrate this medication. Serum calcium is 7.7 mg/dL, but corrected to 9.54 mg/dL when hypoalbuminemia is accounted for. No need for calcium supplementation at this time. Recheck calcium and phosphorus level tomorrow. (5) Metabolic acidosis: PLAN: The patient has been on sodium bicarbonate because of prior metabolic acidosis. Serum bicarbonate level is now 33 mmol/L. I will cut back on sodium bicarbonate supplement and follow serum bicarbonate level. Goal is to keep serum bicarbonate level around 20 to 24 mmol/L. (6) Gangrene of toe of both feet: PLAN: Management as per hospital medicine service.
[2020-11-01] MEDS: Calcitriol 0.25 MCG Capsule 0.75 MCG PO (09:43)
[2020-11-01] MEDS: Heparin Injection (Vial) 5,000 UNIT/ML VIAL 5000 UNIT SC (09:43)
[2020-11-01] MEDS: Juven (unflavored) Packet 1 PACKET PO (09:43)
[2020-11-01] MEDS: Potassium Chloride Oral Tablet 20 MEQ 40 MEQ PO (09:43)
[2020-11-01] MEDS: Pantoprazole Sodium 40 MG Tablet PO (09:44)
[2020-11-01] MEDS: Carvedilol 25 MG Tablet PO (09:44)
[2020-11-01] MEDS: Ceftriaxone 1 GM/50 ML BAG IV (09:45)
[2020-11-01] MEDS: Menthol/Lanolin/Calamine/Znox 113 GM Tube 1 APPLIC TOPICAL (09:47)
[2020-11-01] MEDS: amLODIPine 5 MG Tablet PO (09:52)
--- NOTE | 2020-11-01 10:39 | PCM.TXEXTCAR ---
Documented by User: Jair MOLINA 11/01/20 12:33 Diet 10/28/20 00:49 Diet: Cardiac: Calorie-Controlled Food consistency:: Regular Liquid Consistency:: Regular/Thin Dietary Modifications:: Consistent Carbohydrate Sodium Restricted Fluid restriction:: 1500 mL Diet Comments: ensure pudding or magic cup w/ lunch and dinner How many daily calories?: 1800 calorie Wound(s) Coccyx: Wound Type: Pressure Injury R heel: Wound Type: Pressure Injury L heel: Wound Type: Pressure Injury Left 2nd toe: Wound Type: Neuropathic/Diabetic Foot Ulcer Therapies Weight Bearing: Non weight bearing Physical Therapy: Eval and Treat Occupational Therapy: Eval and Treat Problem/Diagnosis (1) CKD stage 4 due to type 2 diabetes mellitus: Status: Chronic (2) Hypokalemia: Status: Acute (3) Hypertension: Status: Chronic (4) Secondary hyperparathyroidism: Status: Acute (5) Metabolic acidosis: Status: Acute (6) Gangrene of toe of both feet: Status: Acute Allergies/Procedures Done in Hospital Allergies No Known Allergies Allergy (Verified 10/27/20 20:43) Type of Care/Length of Stay Estimated LOS: More Than 30 Days Type of Care Needed: Skilled Rehab Potential: Fair Prognosis: Fair Additional Orders/Day of Discharge Day of Discharge: 11/01/20 Dietary and Speech Recommendations Dietitian Recommendations/Changes: Cardiac; sodium-restricted/1800 calorie; consistent-carbohydrate diet with 1500ml FR. Continue Vincent bid to help w/ wound healing. Ensure pudding or magic cup BID w/ meals. Discharge Plan Admission Admit Date/Time: 10/27/20 23:22 Primary Reason for Your Visit: Shortness of breath Attending Provider: Eloise Denson Primary Care Provider: Bebeto Chow Consulting Providers: Severo Whitfield ; Ravi Hawkins ; Emerson Robles ; Yossi Wang Instructions Additional Instructions / Restrictions: Offload heel ulcers in bed by wearing foam boots or hanging heels over stacked pillows to float them in the air. It is okay to gently wash feet with soap and water; to avoid soaking. Discharge Orders/Prescriptions Prescriptions: New sodium bicarbonate 650 mg tablet 650 mg PO TID Qty: 90 RF: 0 amlodipine 5 mg tablet 5 mg PO DAILY Qty: 30 RF: 0 carvedilol 25 mg Tablet 25 mg PO BID Qty: 60 RF: 0 cefdinir 300 mg capsule 300 mg PO DAILY Qty: 3 RF: 0 Continued quetiapine 25 mg Tablet 12.5 mg PO QHS Qty: 0 RF: 0 atorvastatin 40 mg Tablet 40 mg PO QHS Qty: 0 RF: 0 sennosides-docusate sodium [Stool Softener-Stimulant Laxat] 8.6-50 mg Tablet 2 tab PO BID PRN (Reason: Constipation) Qty: 0 RF: 0 levothyroxine 75 mcg Tablet 75 mcg PO DAILY@0600 Qty: 0 RF: 0 pantoprazole 40 mg Tablet,Delayed Release (Dr/Ec) 40 mg PO BID Qty: 0 RF: 0 calcitriol 0.25 mcg Capsule 0.75 mcg PO DAILY Qty: 0 RF: 0 insulin lispro [Humalog KwikPen Insulin] 100 unit/mL Insulin Pen See Protocol unit subcut ACHS Qty: 0 RF: 0 menthol-zinc oxide [Calmoseptine] 0.44-20.6 % Ointment 1 applic topical TID Qty: 0 RF: 0 ferrous sulfate 325 mg (65 mg iron) Tablet 325 mg PO QODAY Qty: 0 RF: 0 miconazole nitrate 2 % Powder 1 applic TOPICAL TID RF: 0 mineral oil Enema 118 ml HI DAILY PRN (Reason: Constipation) RF: 0 magnesium hydroxide [Milk of Magnesia] 400 mg/5 mL Suspension 30 ml PO DAILY PRN (Reason: Constipation) RF: 0 bisacodyl 10 mg Suppository 10 mg HI DAILY PRN (Reason: Constipation) RF: 0 fluvoxamine 50 mg Tablet 50 mg PO QHS RF: 0 Boost Glucose Control 0.06-1.1 gram-kcal/mL Liquid 120 ml PO TIDCM RF: 0 Lantus Solostar U-100 Insulin 100 unit/mL (3 mL) insulin pen 15 units subcut DAILY RF: 0 Discontinued furosemide 40 mg Tablet 40 mg PO DAILY Qty: 0 RF: 0 carvedilol 12.5 mg Tablet 12.5 mg PO BID Qty: 0 RF: 0 sodium bicarbonate 650 mg Tablet 1,950 mg PO TID Qty: 0 RF: 0 lisinopril 5 mg Tablet 5 mg PO DAILY Qty: 0 RF: 0 amoxicillin-pot clavulanate [Augmentin] 875-125 mg Tablet 1 tab PO BID RF: 0 ceftriaxone-lidocaine 1-1 gram-% Kit 1 ea IM DAILY RF: 0 Referrals / Follow Up: Yossi Wang MD [STAFF PHYSICIAN] - Within 1 Week (Follow up for additional arterial studies ) Severo Whitfield DPM [STAFF PHYSICIAN] - Within 2 Weeks ( call [phone].) Edie Farley MD [STAFF PHYSICIAN] - Within 2 Weeks Bebeto Chow MD [Primary Care Provider] - Within 2 Weeks Disposition Disposition (needs filled in before D/C Order can be placed): Intermediate Facility Documented by User: Dr. Eloise Denson MD 11/01/20 17:28 Allergies/Procedures Done in Hospital Allergies No Known Allergies Allergy (Verified 10/27/20 20:43) Discharge Plan Admission Admit Date/Time: 10/27/20 23:22 Primary Reason for Your Visit: Shortness of breath Attending Provider: Eloise Denson Primary Care Provider: Bebeto Chow Consulting Providers: Severo Whitfield ; Ravi Hawkins ; Emerson Robles ; Yossi Wang Instructions Additional Instructions / Restrictions: Offload heel ulcers in bed by wearing foam boots or hanging heels over stacked pillows to float them in the air. It is okay to gently wash feet with soap and water; to avoid soaking. Discharge Orders/Prescriptions Prescriptions: New sodium bicarbonate 650 mg tablet 650 mg PO TID Qty: 90 RF: 0 amlodipine 5 mg tablet 5 mg PO DAILY Qty: 30 RF: 0 carvedilol 25 mg Tablet 25 mg PO BID Qty: 60 RF: 0 cefdinir 300 mg capsule 300 mg PO DAILY Qty: 3 RF: 0 Continued quetiapine 25 mg Tablet 12.5 mg PO QHS Qty: 0 RF: 0 atorvastatin 40 mg Tablet 40 mg PO QHS Qty: 0 RF: 0 sennosides-docusate sodium [Stool Softener-Stimulant Laxat] 8.6-50 mg Tablet 2 tab PO BID PRN (Reason: Constipation) Qty: 0 RF: 0 levothyroxine 75 mcg Tablet 75 mcg PO DAILY@0600 Qty: 0 RF: 0 pantoprazole 40 mg Tablet,Delayed Release (Dr/Ec) 40 mg PO BID Qty: 0 RF: 0 calcitriol 0.25 mcg Capsule 0.75 mcg PO DAILY Qty: 0 RF: 0 insulin lispro [Humalog KwikPen Insulin] 100 unit/mL Insulin Pen See Protocol unit subcut ACHS Qty: 0 RF: 0 menthol-zinc oxide [Calmoseptine] 0.44-20.6 % Ointment 1 applic topical TID Qty: 0 RF: 0 ferrous sulfate 325 mg (65 mg iron) Tablet 325 mg PO QODAY Qty: 0 RF: 0 miconazole nitrate 2 % Powder 1 applic TOPICAL TID RF: 0 mineral oil Enema 118 ml HI DAILY PRN (Reason: Constipation) RF: 0 magnesium hydroxide [Milk of Magnesia] 400 mg/5 mL Suspension 30 ml PO DAILY PRN (Reason: Constipation) RF: 0 bisacodyl 10 mg Suppository 10 mg HI DAILY PRN (Reason: Constipation) RF: 0 fluvoxamine 50 mg Tablet 50 mg PO QHS RF: 0 Boost Glucose Control 0.06-1.1 gram-kcal/mL Liquid 120 ml PO TIDCM RF: 0 Lantus Solostar U-100 Insulin 100 unit/mL (3 mL) insulin pen 15 units subcut DAILY RF: 0 Discontinued furosemide 40 mg Tablet 40 mg PO DAILY Qty: 0 RF: 0 carvedilol 12.5 mg Tablet 12.5 mg PO BID Qty: 0 RF: 0 sodium bicarbonate 650 mg Tablet 1,950 mg PO TID Qty: 0 RF: 0 lisinopril 5 mg Tablet 5 mg PO DAILY Qty: 0 RF: 0 amoxicillin-pot clavulanate [Augmentin] 875-125 mg Tablet 1 tab PO BID RF: 0 ceftriaxone-lidocaine 1-1 gram-% Kit 1 ea IM DAILY RF: 0 Referrals / Follow Up: Yossi Wang MD [STAFF PHYSICIAN] - Within 1 Week (Follow up for additional arterial studies ) Wunning,Severo, DPM [STAFF PHYSICIAN] - Within 2 Weeks ( call [phone].) Edie Farley MD [STAFF PHYSICIAN] - Within 2 Weeks Bebeto Chow MD [Primary Care Provider] - Within 2 Weeks Disposition Disposition (needs filled in before D/C Order can be placed): Intermediate Facility
[2020-11-01] MEDS: Insulin Lispro 100 UNIT/ML INSULN.PEN SC (11:20)
[2020-11-01] MEDS: Ferrous Sulfate 325 MG Tablet PO (11:20)
[2020-11-01 11:25] LABS: Bedside Glucose 201 mg/dL (70-110)
--- NOTE | 2020-11-01 12:33 | PHA.DC.MR ---
Pharmacy Service has performed discharge medication reconciliation for this patient. The patient's discharge medication list was reviewed for discrepancies and discrepancies were resolved. Home Medications atorvastatin 40 mg PO QHS #0 tab 09/19/20 calcitriol 0.75 mcg PO DAILY #0 cap 09/19/20 ferrous sulfate 325 mg PO QODAY #0 tab 09/19/20 insulin lispro [Humalog KwikPen Insulin] See Protocol SUBCUT ACHS #0 ml 09/19/20 levothyroxine 75 mcg PO DAILY@0600 #0 tab 09/19/20 menthol-zinc oxide [Calmoseptine] 1 applic TOPICAL TID #0 g 09/19/20 pantoprazole 40 mg PO BID #0 tab 09/19/20 quetiapine 12.5 mg PO QHS #0 tab 09/19/20 sennosides-docusate sodium [Stool Softener-Stimulant Laxat] 2 tab PO BID PRN #0 tab 09/19/20 Boost Glucose Control 120 ml PO TIDCM 10/27/20 Lantus Solostar U-100 Insulin 15 units SUBCUT DAILY 10/27/20 bisacodyl 10 mg NM DAILY PRN 10/27/20 fluvoxamine 50 mg PO QHS 10/27/20 magnesium hydroxide [Milk of Magnesia] 30 ml PO DAILY PRN 10/27/20 miconazole nitrate 1 applic TOPICAL TID 10/27/20 mineral oil 118 ml NM DAILY PRN 10/27/20 amlodipine 5 mg PO DAILY #30 tab 11/01/20 carvedilol 25 mg PO BID #60 tab 11/01/20 cefdinir 300 mg PO DAILY #3 cap 11/01/20 sodium bicarbonate 650 mg PO TID #90 tab 11/01/20
--- NOTE | 2020-11-01 14:07 | CASEMGMT ---
Patient is ready for discharge back to [facility]. KONSTANTIN faxed orders and negative COVID to [facility]. KONSTANTIN arranged for patient to get picked up at 3p via cot. KONSTANTIN notified RNCinthia at [facility], patient's son, and medical secretary receptionist. Plan: d/c back to [facility] under skilled level of care. [facility] transported via cot. Leslie PORTER
--- NOTE | 2020-11-01 14:14 | DS.PCM_ITS ---
Documented by User: Jair MOLINA 11/01/20 14:38 Providers Date of Admission: 10/27/20 Primary Care Physician: Dr. Bebeto Chow MD Consultations 10/28/20 01:35 Consult: Podiatry Routine Consulting Provider: Severo Whitfield Reason for Consult: necrotic 2nd left toe, carolyn heel wounds EMERGENT Consult: No MD Notified: Yes Date Notified: 10/28/20 Time Notified: 06:38 Method of Notification: Text 10/30/20 15:07 Consult: Infectious Disease Routine Consulting Provider: Ravi Hawkins Reason for Consult: Bactremia EMERGENT Consult: No Notified: Yes Date Notified: 10/30/20 Time Notified: 15:08 Method of Notification: Answering Service 10/30/20 16:50 Consult: Nephrology Routine Consulting Provider: Emerson Robles Reason for Consult: CKD stage IV, worsening Cr EMERGENT Consult: No MD Notified: Yes Date Notified: 10/30/20 Time Notified: 16:50 Method of Notification: Answering Service 10/30/20 17:34 Consult: Vascular Surgery Routine Consulting Provider: Yossi Wang Reason for Consult: Severe lower leg occlusive arterial disease, bilateral toes dry gangrene EMERGENT Consult: No MD Notified: Yes Date Notified: 10/30/20 Time Notified: 17:34 Method of Notification: Answering Service Comments:: spoke to Dr Rendon Office Reason For Visit: HYPOXIA Diagnosis Discharge Diagnosis (1) CKD stage 4 due to type 2 diabetes mellitus: Status: Chronic Code(s): E11.22 - Type 2 diabetes mellitus with diabetic chronic kidney disease; N18.4 - Chronic kidney disease, stage 4 (severe) (2) Hypokalemia: Status: Acute Code(s): E87.6 - Hypokalemia (3) Hypertension: Status: Chronic Code(s): I10 - Essential (primary) hypertension (4) Secondary hyperparathyroidism: Status: Acute Code(s): N25.81 - Secondary hyperparathyroidism of renal origin (5) Metabolic acidosis: Status: Acute Code(s): E87.2 - Acidosis (6) Gangrene of toe of both feet: Status: Acute Code(s): I96 - Gangrene, not elsewhere classified Medications at Discharge Home Medications atorvastatin 40 mg PO QHS #0 tab 09/19/20 calcitriol 0.75 mcg PO DAILY #0 cap 09/19/20 ferrous sulfate 325 mg PO QODAY #0 tab 09/19/20 insulin lispro [Humalog KwikPen Insulin] See Protocol SUBCUT ACHS #0 ml 09/19/20 levothyroxine 75 mcg PO DAILY@0600 #0 tab 09/19/20 menthol-zinc oxide [Calmoseptine] 1 applic TOPICAL TID #0 g 09/19/20 pantoprazole 40 mg PO BID #0 tab 09/19/20 quetiapine 12.5 mg PO QHS #0 tab 09/19/20 sennosides-docusate sodium [Stool Softener-Stimulant Laxat] 2 tab PO BID PRN #0 tab 09/19/20 Boost Glucose Control 120 ml PO TIDCM 10/27/20 Lantus Solostar U-100 Insulin 15 units SUBCUT DAILY 10/27/20 bisacodyl 10 mg UT DAILY PRN 10/27/20 fluvoxamine 50 mg PO QHS 10/27/20 magnesium hydroxide [Milk of Magnesia] 30 ml PO DAILY PRN 10/27/20 miconazole nitrate 1 applic TOPICAL TID 10/27/20 mineral oil 118 ml UT DAILY PRN 10/27/20 amlodipine 5 mg PO DAILY #30 tab 11/01/20 carvedilol 25 mg PO BID #60 tab 11/01/20 cefdinir 300 mg PO DAILY #3 cap 11/01/20 sodium bicarbonate 650 mg PO TID #90 tab 11/01/20 Hospital Course Summary of Care Provided Minutes Spent on Discharge: 35 Hospital Course: Disposition: Patient to return to [facility]. 1) gangrene of left third toe and heel BRIA demonstrates severe occlusive disease of the right lower extremity as well as moderate occlusive disease of the left lower extremity. Patient is to follow-up with Dr. Whitfield within the next 2 weeks. Patient is to follow-up with Dr. Wang within a week for additional arterial studies. Anders mayes saw patient and recommended continuing cefdinir for an additional 3 days. Dose of cefdinir was renally adjusted to once daily administration instead of twice daily. 2) acute hypoxemic respiratory failure Currently satting 95% on room air, leukocytosis has resolved and WBCs are currently at 10,000. Plan; as above. 3) CKD stage IV due to DM2 Creatinine currently 3.1, baseline between 2.8-3.2. Sodium bicarb continued at discharge, continue to hold Lasix and lisinopril until follow-up with Dr. Torres. 4) HTN Carvedilol increased to 25 mg p.o. twice daily at discharge, amlodipine added to home BP regimen. Continue to hold Lasix and lisinopril as above. Patient seen by Jair Simon PA-C, under the supervision of Dr. Denson. Physical Exam Const alert, oriented x3 and no apparent distress HEENT normocephalic, head/scalp atraumatic and hearing grossly normal bilaterally Eyes EOMs intact bilaterally and conjunctivae normal Neck no lymphadenopathy, supple and no JVD Resp normal respiratory effort, no retractions, no use of accessory muscles and clear to auscultation bilaterally Cardio regular rate, regular rhythm, no murmurs and no JVD GI normal to inspection, nondistended, normoactive bowel sounds, soft to palpation and non-tender Extremity Extremity Narrative: Gangrenous necrosis of the second toe and heel of the left foot. Skin Skin Narrative: See extremities. Neuro CN's II-XII intact bilaterally Psych affect normal Medical Records Data Medical Nutrition Assessment Dietitian: Nutrition Therapy Diagnosis Start: 10/28/20 13:14 Freq: Status: Active Protocol: Document 10/30/20 14:47 RMA (Rec: 10/30/20 14:47 RMA [id number]) Nutrition Malnutrition Evidence of Malnutrition Exists No Intake Problem Increased Nutrient Needs (specify) Etiology (protein) related to wounds Signs/Symptoms as evidenced by pressure injuries to carolyn heel ulcer/ coccyx, L 2nd toe necrotic diabetic ulcer Status Active Problem Recommendation Dietitian Recommendations/Changes Cardiac; sodium-restricted/ 1800 calorie; consistent- carbohydrate diet with 1500ml FR. Continue Vincent bid to help w/ wound healing. Ensure pudding or magic cup BID w/ meals. Weight / BMI Weight Weight: 176 lb 5.917 oz Body Mass Index (BMI) 24.4 ABG / Lab / Microbiology Data Result Diagrams: 11/01/20 05:45 11/01/20 05:45 Laboratory: Laboratory Results - last 24 hr 10/31/20 16:25: POC Glucose 157 H 10/31/20 21:20: POC Glucose 185 H 11/01/20 01:14: POC Glucose 240 H 11/01/20 05:45: WBC 10.2, RBC 3.16 L, Hgb 10.0 L, Hct 30.8 L, MCV 97.5 H, MCH 31.6, MCHC 32.5, RDW Std Deviation 49.3 H, RDW Coeff of Ximena 13.8, Plt Count 255, MPV 10.2, Immature Gran % (Auto) 1.400 H, Neut % (Auto) 76.6 H, Lymph % (Auto) 13.8 L, [place] % (Auto) 6.6, Eos % (Auto) 1.3, Baso % (Auto) 0.3, Absolute Neuts (auto) 7.8 H, Absolute Lymphs (auto) 1.40, Nucleated RBC % 0 11/01/20 05:45: Sodium 143, Potassium 3.1 L, Chloride 102, Carbon Dioxide 33.0 H , Anion Gap 8, BUN 77 H, Creatinine 2.96 H, Estim Creat Clear Calc 23.30, Est GFR (MDRD) Af Amer 27 L, Est GFR (MDRD) Non-Af 22 L, BUN/Creatinine Ratio 26.0 H , Glucose 146 H, Calcium 7.7 L 11/01/20 06:22: POC Glucose 131 H 11/01/20 08:40: POC Glucose 133 H 11/01/20 11:19: POC Glucose 201 H Microbiology: Microbiology 11/01/20 12:10 Mucosa - Nose SARS-CoV-2 Antigen (Rapid) - Final 10/31/20 18:30 Urine, Random Streptococcus pneumoniae Antigen (M - Final 10/31/20 18:30 Urine, Clean Catch Legionella Antigen - Final 10/27/20 23:50 Blood Culture (Wb) - Anticubital Right Bacteria Detection (PCR) - Final Streptococcus agalactiae (B) 10/27/20 23:50 Blood Culture (Wb) - Anticubital Right Blood Culture - Final Streptococcus agalactiae (B) 10/27/20 21:10 Urine, Clean Catch Urine Culture - Final Proteus mirabilis 10/27/20 21:07 Mucosa - Nose SARS-CoV-2 Antigen (Rapid) - Final Meaningful Use Info Meaningful Use Diagnoses (Choose all that apply): None applicable Discharge Plan Admission Admit Date/Time: 10/27/20 23:22 Primary Reason for Your Visit: Shortness of breath Attending Provider: Eloise Denson Primary Care Provider: Bebeto Chow Consulting Providers: Severo Whitfield ; Ravi Hawkins ; Emerson Robles ; Yossi Wang Instructions Additional Instructions / Restrictions: Offload heel ulcers in bed by wearing foam boots or hanging heels over stacked pillows to float them in the air. It is okay to gently wash feet with soap and water; to avoid soaking. Discharge Orders/Prescriptions Prescriptions: New sodium bicarbonate 650 mg tablet 650 mg PO TID Qty: 90 RF: 0 amlodipine 5 mg tablet 5 mg PO DAILY Qty: 30 RF: 0 carvedilol 25 mg Tablet 25 mg PO BID Qty: 60 RF: 0 cefdinir 300 mg capsule 300 mg PO DAILY Qty: 3 RF: 0 Continued quetiapine 25 mg Tablet 12.5 mg PO QHS Qty: 0 RF: 0 atorvastatin 40 mg Tablet 40 mg PO QHS Qty: 0 RF: 0 sennosides-docusate sodium [Stool Softener-Stimulant Laxat] 8.6-50 mg Tablet 2 tab PO BID PRN (Reason: Constipation) Qty: 0 RF: 0 levothyroxine 75 mcg Tablet 75 mcg PO DAILY@0600 Qty: 0 RF: 0 pantoprazole 40 mg Tablet,Delayed Release (Dr/Ec) 40 mg PO BID Qty: 0 RF: 0 calcitriol 0.25 mcg Capsule 0.75 mcg PO DAILY Qty: 0 RF: 0 insulin lispro [Humalog KwikPen Insulin] 100 unit/mL Insulin Pen See Protocol unit subcut ACHS Qty: 0 RF: 0 menthol-zinc oxide [Calmoseptine] 0.44-20.6 % Ointment 1 applic topical TID Qty: 0 RF: 0 ferrous sulfate 325 mg (65 mg iron) Tablet 325 mg PO QODAY Qty: 0 RF: 0 miconazole nitrate 2 % Powder 1 applic TOPICAL TID RF: 0 mineral oil Enema 118 ml UT DAILY PRN (Reason: Constipation) RF: 0 magnesium hydroxide [Milk of Magnesia] 400 mg/5 mL Suspension 30 ml PO DAILY PRN (Reason: Constipation) RF: 0 bisacodyl 10 mg Suppository 10 mg UT DAILY PRN (Reason: Constipation) RF: 0 fluvoxamine 50 mg Tablet 50 mg PO QHS RF: 0 Boost Glucose Control 0.06-1.1 gram-kcal/mL Liquid 120 ml PO TIDCM RF: 0 Lantus Solostar U-100 Insulin 100 unit/mL (3 mL) insulin pen 15 units subcut DAILY RF: 0 Discontinued furosemide 40 mg Tablet 40 mg PO DAILY Qty: 0 RF: 0 carvedilol 12.5 mg Tablet 12.5 mg PO BID Qty: 0 RF: 0 sodium bicarbonate 650 mg Tablet 1,950 mg PO TID Qty: 0 RF: 0 lisinopril 5 mg Tablet 5 mg PO DAILY Qty: 0 RF: 0 amoxicillin-pot clavulanate [Augmentin] 875-125 mg Tablet 1 tab PO BID RF: 0 ceftriaxone-lidocaine 1-1 gram-% Kit 1 ea IM DAILY RF: 0 Referrals / Follow Up: Yossi Wang MD [STAFF PHYSICIAN] - Within 1 Week (Follow up for additional arterial studies ) Severo Whitfield DPM [STAFF PHYSICIAN] - Within 2 Weeks ( call [phone].) Edie Farley MD [STAFF PHYSICIAN] - Within 2 Weeks Bebeto Chow MD [Primary Care Provider] - Within 2 Weeks Disposition Disposition (needs filled in before D/C Order can be placed): [facility] Facility Documented by User: Dr. Eloise Denson MD 11/02/20 16:37 Providers Date of Admission: 10/27/20 Reason For Visit: HYPOXIA Medications at Discharge Home Medications atorvastatin 40 mg PO QHS #0 tab 09/19/20 calcitriol 0.75 mcg PO DAILY #0 cap 09/19/20 ferrous sulfate 325 mg PO QODAY #0 tab 09/19/20 insulin lispro [Humalog KwikPen Insulin] See Protocol SUBCUT ACHS #0 ml 09/19/20 levothyroxine 75 mcg PO DAILY@0600 #0 tab 09/19/20 menthol-zinc oxide [Calmoseptine] 1 applic TOPICAL TID #0 g 09/19/20 pantoprazole 40 mg PO BID #0 tab 09/19/20 quetiapine 12.5 mg PO QHS #0 tab 09/19/20 sennosides-docusate sodium [Stool Softener-Stimulant Laxat] 2 tab PO BID PRN #0 tab 09/19/20 Boost Glucose Control 120 ml PO TIDCM 10/27/20 Lantus Solostar U-100 Insulin 15 units SUBCUT DAILY 10/27/20 bisacodyl 10 mg UT DAILY PRN 10/27/20 fluvoxamine 50 mg PO QHS 10/27/20 magnesium hydroxide [Milk of Magnesia] 30 ml PO DAILY PRN 10/27/20 miconazole nitrate 1 applic TOPICAL TID 10/27/20 mineral oil 118 ml UT DAILY PRN 10/27/20 amlodipine 5 mg PO DAILY #30 tab 11/01/20 carvedilol 25 mg PO BID #60 tab 11/01/20 cefdinir 300 mg PO DAILY #3 cap 11/01/20 sodium bicarbonate 650 mg PO TID #90 tab 11/01/20 ABG / Lab / Microbiology Data Result Diagrams: 11/01/20 05:45 11/01/20 05:45 Discharge Plan Admission Admit Date/Time: 10/27/20 23:22 Primary Reason for Your Visit: Shortness of breath Attending Provider: Eloise Denson Primary Care Provider: Bebeto Chow Consulting Providers: Severo Whitfield ; Ravi Hawkins ; Emerson Robles ; Yossi Wang Instructions Additional Instructions / Restrictions: Offload heel ulcers in bed by wearing foam boots or hanging heels over stacked pillows to float them in the air. It is okay to gently wash feet with soap and water; to avoid soaking. Discharge Orders/Prescriptions Prescriptions: New sodium bicarbonate 650 mg tablet 650 mg PO TID Qty: 90 RF: 0 amlodipine 5 mg tablet 5 mg PO DAILY Qty: 30 RF: 0 carvedilol 25 mg Tablet 25 mg PO BID Qty: 60 RF: 0 cefdinir 300 mg capsule 300 mg PO DAILY Qty: 3 RF: 0 Continued quetiapine 25 mg Tablet 12.5 mg PO QHS Qty: 0 RF: 0 atorvastatin 40 mg Tablet 40 mg PO QHS Qty: 0 RF: 0 sennosides-docusate sodium [Stool Softener-Stimulant Laxat] 8.6-50 mg Tablet 2 tab PO BID PRN (Reason: Constipation) Qty: 0 RF: 0 levothyroxine 75 mcg Tablet 75 mcg PO DAILY@0600 Qty: 0 RF: 0 pantoprazole 40 mg Tablet,Delayed Release (Dr/Ec) 40 mg PO BID Qty: 0 RF: 0 calcitriol 0.25 mcg Capsule 0.75 mcg PO DAILY Qty: 0 RF: 0 insulin lispro [Humalog KwikPen Insulin] 100 unit/mL Insulin Pen See Protocol unit subcut ACHS Qty: 0 RF: 0 menthol-zinc oxide [Calmoseptine] 0.44-20.6 % Ointment 1 applic topical TID Qty: 0 RF: 0 ferrous sulfate 325 mg (65 mg iron) Tablet 325 mg PO QODAY Qty: 0 RF: 0 miconazole nitrate 2 % Powder 1 applic TOPICAL TID RF: 0 mineral oil Enema 118 ml UT DAILY PRN (Reason: Constipation) RF: 0 magnesium hydroxide [Milk of Magnesia] 400 mg/5 mL Suspension 30 ml PO DAILY PRN (Reason: Constipation) RF: 0 bisacodyl 10 mg Suppository 10 mg UT DAILY PRN (Reason: Constipation) RF: 0 fluvoxamine 50 mg Tablet 50 mg PO QHS RF: 0 Boost Glucose Control 0.06-1.1 gram-kcal/mL Liquid 120 ml PO TIDCM RF: 0 Lantus Solostar U-100 Insulin 100 unit/mL (3 mL) insulin pen 15 units subcut DAILY RF: 0 Discontinued furosemide 40 mg Tablet 40 mg PO DAILY Qty: 0 RF: 0 carvedilol 12.5 mg Tablet 12.5 mg PO BID Qty: 0 RF: 0 sodium bicarbonate 650 mg Tablet 1,950 mg PO TID Qty: 0 RF: 0 lisinopril 5 mg Tablet 5 mg PO DAILY Qty: 0 RF: 0 amoxicillin-pot clavulanate [Augmentin] 875-125 mg Tablet 1 tab PO BID RF: 0 ceftriaxone-lidocaine 1-1 gram-% Kit 1 ea IM DAILY RF: 0 Referrals / Follow Up: Yossi Wang MD [STAFF PHYSICIAN] - Within 1 Week (Follow up for additional arterial studies ) Severo Whitfield DPM [STAFF PHYSICIAN] - Within 2 Weeks ( call [phone].) Edie Farley MD [STAFF PHYSICIAN] - Within 2 Weeks Bebeto Chow MD [Primary Care Provider] - Within 2 Weeks Disposition Disposition (needs filled in before D/C Order can be placed): [facility] Facility Charges/Coding Addendum Addendum: Patient seen by Jair Simon PA-C under my supervision Patient is a 75-year-old male with an extensive past medical history as outlined was admitted through the ED on 10/27/2020 with a complaint of shortness of breath which have been going on for about a couple of days. He was admitted from his residential where he was found to have low oxygen saturation and was put on 4 L of oxygen and brought into the ED. He also complained of ischemia of his 2nd left toe as well as bilateral heel ulcers which have been going on for about a month and he had been seeing podiatry and had been referred to vascular surgery but had not yet followed up with them. On admission, chest x-ray showed bilateral pulmonary infiltrates and Covid rapid antigen and PCR test were both negative. She was started on IV Lasix for acute on chronic diastolic heart failure. Podiatry was consulted on account of gangrene of the left 2nd toe. B lood cultures grew strep agalactiae and patient was put on IV Rocephin. ID was consulted. Vascular studies showed severe occlusive disease of the left lower extremity and moderate occlusive disease of the right lower extremity. Patient remained stable and was discharged to his residential on 11/01/2020. He was discharged on oral cefdinir on a renally adjusted dose per ID. His respiratory failure resolved and patient was saturating well on room air. Creatinine also trended down to his baseline and his Lasix and lisinopril were held until he followed up with nephrology on outpatient basis to determine if you should continue it. He was started on sodium bicarbonate. Blood pressure was also poorly controlled so carvedilol was increased 25 mg twice daily and amlodipine also added to his home regimen. He is follow-up with his primary care doctor, nephrology and vascular surgery as well as podiatry. Patient was seen and examined prior to discharge. He was lying comfortably in bed and had no complaints. Review of symptoms otherwise negative. Labs and vitals reviewed. Home medication reviewed and reconciled. O/E: Const alert, confused, no apparent distress HEENT head/scalp atraumatic and moist oral mucous membranes Head and Scalp: normocephalic Eyes EOMs intact bilaterally and conjunctivae normal Neck no lymphadenopathy, supple and no JVD Resp diminished breath sounds bibasally, no wheezes or crackles. Cardio regular rate, regular rhythm, no murmurs and no JVD GI normal to inspection, nondistended, normoactive bowel sounds, soft to palpation and non-tender Extremity Extremity Narrative: See skin. Skin Skin Narrative: Dry gangrene of his left second toe and left heel. Neuro CN's II-XII intact bilaterally Psych affect: flat affect Plan is for discharge as above. Rest as per Jair Simon PA-C's note, which I have reviewed and endorsed. Visit Charges Inpatient E&M: 42849 Disch Hosp
--- NOTE | 2020-11-01 14:34 | NURSING ---
Report called to nurse Isabell Balderas.
== END 2020-11-01 15:07 | disposition skilled nursing facility (03) | DRG 299 ==
LOC: ED 23:19 → PCU 23:36
PROVIDERS: Internal Medicine; Physician Assistant; Admitting Provider Internal Medicine; Emergency Provider Emergency Medicine; PCP Family Medicine; Visit Provider Student in an Organized Health Care Education/Training Program
DX: E11.52 Type 2 diabetes mellitus with diabetic peripheral angiopathy with gangrene (principal); I50.33 Acute on chronic diastolic (congestive) heart failure; J96.01 Acute respiratory failure with hypoxia; I13.0 Hypertensive heart and chronic kidney disease with heart failure and stage 1 through stage 4 chronic kidney disease, or unspecified chronic kidney disease; N18.4 Chronic kidney disease, stage 4 (severe); E85.4 Organ-limited amyloidosis; E87.2 Acidosis; N25.81 Secondary hyperparathyroidism of renal origin; I43 Cardiomyopathy in diseases classified elsewhere; I96 Gangrene, not elsewhere classified; E11.22 Type 2 diabetes mellitus with diabetic chronic kidney disease; Z79.4 Long term (current) use of insulin; Z79.899 Other long term (current) drug therapy; D63.1 Anemia in chronic kidney disease; R41.89 Other symptoms and signs involving cognitive functions and awareness; D50.0 Iron deficiency anemia secondary to blood loss (chronic); E87.6 Hypokalemia; Z66 Do not resuscitate; E11.621 Type 2 diabetes mellitus with foot ulcer; L89.620 Pressure ulcer of left heel, unstageable; L89.610 Pressure ulcer of right heel, unstageable; B95.4 Other streptococcus as the cause of diseases classified elsewhere; B96.4 Proteus (mirabilis) (morganii) as the cause of diseases classified elsewhere
CPT/HCPCS: 36415; 71045; 73630; 80048; 80053; 80076; 81001; 82947; 82962; 83540; 83550; 83605; 83735; 83880; 84484; 85025; 86850; 86900; 86901; 86920; 86922; 87040; 87077; 87086; 87088; 87149; 87186; 87426; 87449; 87635; 93005; 93922; 94640; 97110; 97162; 97166; 97535; 97802; 97803; 99251; 99285; J7030; J7040; P9016; U0005; A4216; G0463; J1940; J2916; U0003